=== PATIENT | male | born 1945 | race Caucasian/White ===

== ENCOUNTER 2019-10-23 06:10 | Day surgery (SDC) | payer MEDICARE, OTHER ==
[~2019-10-23] VITALS: Ht 182.9 cm; Wt 83.9 kg
[~2019-10-23 06:10] MED LIST: ASPIRIN325 MG PO; ASPIRIN81 MG PO; BENADRYL ALLERG25 MG PO; CIPRO500 MG PO; COUMADIN2.5 MG PO; CRESTOR20 MG PO; FENOFIBRATE145 MG PO; HYDROXYZINE HCL25 MG PO; LISINOPRIL20 MG PO; METOPROLOL TART25 MG PO; PEPCID20 MG PO; PRAVASTATIN SOD10 MG PO; PROZAC20 MG PO; QUETIAPINE FUMA25 MG PO; TOPROL XL50 MG PO; VITAMIN C500 M1 PO; VITAMIN D5000 UNI1 PO; WARFARIN SODIU2.5 MG PO; XYZAL5 MG PO; ZESTRIL2.5 MG PO
[2019-10-23] MEDS ORDERED: CYMBALTA20 MG PO (07:02)
--- NOTE | 2019-10-23 09:13 | NUR ---
10/23/19 0913 Lali Baltazar 0907- PT ARRIVES TO PACU ANSWERING QUESTIONS. PT DOES FALL TO SLEEP WHEN NOT BEING TALKED TO. RESP EVEN AND UNLABORED. OXYGEN SAT HIGH 90'S TO 100% ON 3L VIA NC. PT REPORTS NO PAIN OR NAUSEA. 0911- OXYGEN TITRATED OFF.
--- NOTE | 2019-10-23 10:16 | NUR ---
HAS BEEN UPDATED. LYING ON L SIDE ENC TO PASS GAS. SLEEPY AND A LITTLE DIZZY. ALLOW TO REST LONGER.
--- NOTE | 2019-10-23 12:02 | NUR ---
1130 FOUND PT SITTING IN GARBAGE CAN. STATES HE WAS PASSING GAS BUT LIQUID SHOT OUT SO SAT ON GARBAGE CAN. CLEANED UP AND ASSISTED BACK INTO BED. ASKED TO REST X30 MIN MORE. PT PALE AND A LITTLE SHAKEY.
--- NOTE | 2019-10-23 12:04 | NUR ---
1200 FEELS BETTER WANTS TO GET DRESSED.
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
--- NOTE | 2019-10-28 14:18 | PATH ---
[facility] [address] [place], [place] [address] Signed SPECIMEN(S): A COLON SPECIMEN(S): B ASCENDING SPECIMEN(S): C COLON POLYP AT 55 CM SPECIMEN(S): D COLON POLYP AT 20 CM SPECIMEN SOURCE: A. COLON B. ASCENDING C. COLON POLYP AT 55 CM D. COLON POLYP AT 20 CM CLINICAL HISTORY: Positive Cologuard, abdominal pain. MICROSCOPIC DESCRIPTION: Histologic sections of all submitted blocks are examined by light microscopy. These findings, together with the gross examination, support the pathologic diagnosis. FINAL PATHOLOGIC DIAGNOSIS: A. Colon, biopsy: - No significant histopathology. B. Colon, ascending, biopsy: - No significant histopathology. C. Colon, polyp at 55 cm, biopsies: - Multiple fragments of tubular adenoma. - There is no evidence of high-grade dysplasia or malignancy. D. Colon, polyp at 20 cm, biopsy: - No significant histopathology. - There is no evidence of neoplasia. COMMENT: The sections from specimens A and B contain architecturally normal colonic mucosa without crypt distortion. There is no acute or chronic inflammation. There is no evidence of microscopic colitis. There are no abnormal organisms or infiltrates. There are no polyps or neoplasms. The sections from specimen D are architecturally normal without crypt distortion. There is no acute or chronic inflammation. There are no abnormal infiltrates. There is no evidence of inflammatory, hyperplastic or adenomatous polyps. TWK:slh:[id number] PATIENT NAME: WAYLON RUBIN PATHOLOGY DATE OF : 43 REPORT #: [id number] PHYSICIAN: JENNIE PATHOLOGY PCP: EBEN RODRIGUES MD REPORT IS CONFIDENTIAL AND NOT TO BE RELEASED WITHOUT AUTHORIZATION [facility] [address], [place] [address] Signed GROSS DESCRIPTION: Four specimens are received in four containers, labeled "LR." A. The specimen, labeled "LR, 1," and designated on the requisition "colon," is received in formalin and consists of two denise-brown soft tissue fragments that measure 0.3 cm in greatest dimension. The specimen is entirely submitted in cassette (A1). B. The specimen, labeled "LR, 2," and designated on the requisition "ascending/right colon," is received in formalin and consists of two denise soft tissue fragments that measure 0.4 cm in greatest dimension. The specimen is entirely submitted in cassette (B1). C. The specimen, labeled "LR, 3," and designated on the requisition "polyp at 55 cm," is received in formalin and consists of multiple denise soft tissue fragments with possible vegetative matter that measure 0.4 cm in greatest dimension. The specimen is entirely submitted in cassette (C1). D. The specimen, labeled "LR, 4," and designated on the requisition "polyp at 20 cm," is received in formalin and consists of four denise soft tissue fragments that measure 0.4 cm in greatest dimension. The specimen is entirely submitted in cassette (D1). AT (under the direct supervision of a pathologist) The Gross Description was prepared using a voice recognition system. The report was reviewed for accuracy; however, sound-alike word errors, addition and/or deletions may occur. If there is any question about this report, please contact Client Services. PERFORMING LABORATORY: The technical component was performed by [email or web address], [address] [place] [id number] (Rn Recruitment: Nancy Canchola MD; CLIA# [id number]). Professional interpretation was performed by [facility], [address] [address] [address] (CLIA# [id number]). Diagnostician: Niko Ruiz MD Pathologist Electronically Signed 10/28/2019 Copies: PATIENT NAME: WAYLON RUBIN PATHOLOGY DATE OF : 43 REPORT #: [id number] PHYSICIAN: JENNIE PATHOLOGY PCP: EBEN RODRIGUES MD REPORT IS CONFIDENTIAL AND NOT TO BE RELEASED WITHOUT AUTHORIZATION [facility] [address] [place] [address] Signed ~ PATIENT NAME: WAYLON RUBIN PATHOLOGY DATE OF : 43 REPORT #: [id number] PHYSICIAN: JENNIE PATHOLOGY PCP: EBEN RODRIGUES MD REPORT IS CONFIDENTIAL AND NOT TO BE RELEASED WITHOUT AUTHORIZATION
== END 2019-10-23 12:30 | disposition home or self-care (01) ==
LOC: DS 06:10 → OPS 06:10 → DS 06:45 → OPS 12:30
PROVIDERS: Surgery
PROC: 0DBK8ZZ Excision of Ascending Colon, Via Natural or Artificial Opening Endoscopic (ICD-10-PCS; 2019-10-23)
PROC: 0DBE8ZZ Excision of Large Intestine, Via Natural or Artificial Opening Endoscopic (ICD-10-PCS; 2019-10-23)
PROC: 0DBK8ZZ Excision of Ascending Colon, Via Natural or Artificial Opening Endoscopic (ICD-10-PCS; principal; 2019-10-23 06:45)
DX: D12.6 Benign neoplasm of colon, unspecified (principal); K57.30 Diverticulosis of large intestine without perforation or abscess without bleeding; I10 Essential (primary) hypertension; F32.9 Major depressive disorder, single episode, unspecified; Z88.8 Allergy status to other drugs, medicaments and biological substances; Z88.0 Allergy status to penicillin; Z79.01 Long term (current) use of anticoagulants; Z79.899 Other long term (current) drug therapy
CPT/HCPCS: 88305; 99153; G0500; J2250; J2405; J3010

== ENCOUNTER 2020-01-27 13:49 | Emergency (ER) | payer MEDICARE, OTHER ==
[~2020-01-27] VITALS: Ht 182.9 cm; Wt 90.7 kg
--- OUTSIDE RECORDS SUMMARY | ~2020-01-27 | XMS | Encounter Summary ---
Demographics + + + | Address | [address] | | | [place] [address] | + + + | Home Phone | | + + + | Preferred Language | Unknown | + + + | Marital Status | Unknown | + + + | Caodaism Affiliation | 1028 | + + + | Race | Unknown | + + + | Ethnic Group | Unknown | + + + Author + + + | Author | [facility] | | | and [place] | + + + | Organization | [facility] | | | and [place] | + + + | Address | Unknown | + + + | Phone | Unavailable | + + + Support + + +---------+ + | Name | Relationship | Address | Phone | + + +---------+ + | Lucita [place] | ECON | Unknown | | + + +---------+ + Care Team Providers + +------+ + | Care Distribution A Class Lineman Name | Role | Phone | + +------+ + PCP | Unavailable | + +------+ + Encounter Details +--------+ + + + + | Date | Type | Department | Care Team | Description | +--------+ + + + + | 08/10/ | [facility] | [facility] | Gurwinder Caballero MD | | | 1999 | Encounter | MED CTR GENERIC OP | [address] | | | | | CONV DEPT [address] | [place], [place] | | | | | [place], | [address] | | | | | [place] [address] | | | | | | [phone] | | | +--------+ + + + + Social History + +-------+ +--------+------+ | Tobacco Use | Types | Packs/Day | Years | Date | | | | | Used | | + +-------+ +--------+------+ | Never Assessed | | | | | + +-------+ +--------+------+ + + + | Sex Assigned at | Date Recorded | | | | + + + | Not on file | | + + + documented as of this encounter Plan of Treatment +--------+ + + + + | Date | Type | Specialty | Care Team | Description | +--------+ + + + + | 01/27/ | Appointment | Radiology | Sp Gibbs, | | | 2019 | | | [address] | | | | | | [address] [place] | | | | | | [place] [address] | | | | | | [phone] | | | | | | | | | | | | 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
--- OUTSIDE RECORDS SUMMARY | ~2020-01-27 | XMS | Encounter Summary ---
Demographics + + + | Address | [address] | | | [place] [address] | + + + | Home Phone | | + + + | Preferred Language | Unknown | + + + | Marital Status | Unknown | + + + | Mu-Ism Affiliation | 1028 | + + + | Race | Unknown | + + + | Ethnic Group | Unknown | + + + Author + + + | Author | [facility] | | | and [place] | + + + | Organization | [facility] | | | and [...] Team Providers + +------+ + | Care Core Shaper Top Name | Role | Phone | + +------+ + | Ivan Ren MD | PCP | | + +------+ + Encounter Details +--------+ + + + + | Date | Type | Department | Care Team | Description | +--------+ + + + + | 10/07/ | Imaging | [facility] | Provider, | | | 2019 | Exam | MED CTR EXTERNAL | [address] | | | | | IMAGING [address] | [address] | | | | | [address] [place] | [place] [address] | | | | | [place] [address] | | | | | | [phone] | | | +--------+ + + + [...] 2019 | | | [address] | | | | | | [address] [place] | | | | | | [place] [address] | | | | | | [phone] | | | | | | | | | | | | Head [place], [facility] | | | | | | [place] | | +--------+ + + + + | 03/17/ | Office | Cardiology | Dillan Chrystal | | | 2019 | Visit | | [address] | | | | | | [address] | | | | | | [place] [address] | | | | | | [phone] | | | | | | | | +--------+ + + + + documented as of this encounter Procedures + +--------+ + + + | Procedure Name | Priori | Date/Time | Associated Diagnosis | Comments | | | ty | | | | + +--------+ + + + | XR LUMBAR SPINE 4 + | Routin | 09/02/2018 | | Results for this | | VW | e | 12:00 AM | | procedure are in the | | | | PDT | | results section. | + +--------+ + + + documented in this encounter Results XR Lumbar Spine 4 + Vw (09/02/2018 12:00 AM PDT) + + | Specimen | + + | | + + + + + | Narrative | Performed At | + + + | External films for comparison only | [facility] | | | | | No results will be in the chart. | | + + + + +---------+ + + | Performing | Address | City/State/Zipcode | Phone Number | | Organization | | | | + +---------+ + + | [facility] | | | | + +---------+ + + documented in this encounter Visit Diagnoses Not on filedocumented in this encounter"
--- OUTSIDE RECORDS SUMMARY | ~2020-01-27 | XMS | Encounter Summary ---
Demographics + + + | Address | [address] | | | [place] [address] | + + + | Home Phone | | + + + | Preferred Language | Unknown | + + + | Marital Status | Unknown | + + + | Voodoo Affiliation | 1028 | + + + | Race | Unknown | + + + | Ethnic Group | Unknown | + + + Author + + + | Author | [facility] | | | and [place] | + + + | Organization | [facility] | | | [...] Team Providers + +------+ + | Care Preparation Operator Name | Role | Phone | + +------+ + | Ivan Ren MD | PCP | | + +------+ + Encounter Details +--------+ + + + + | Date | Type | Department | Care Team | Description | +--------+ + + + + | 01/28/ | Orders Only | [facility] | Chrystal Grimaldo | | | 2018 | | CARDIOLOGY [place] | [address] | | | | | [address] | [address] | | | | | [place], [place] | [place] [address] | | | | | [address] | [phone] | | | | | [phone] | | | +--------+ + + + [...] | | | | | | [address] [place] | | | | | | [place] [address] | | | | | | [phone] | | | | | | | | | | | | Advertising Layout Worker, [facility] | | | | | | [place] | | +--------+ + + + + | 03/17/ | Office | Cardiology | Chrystal Grimaldo | | | 2019 | Visit | | [address] | | | | | | [address] | | | | | | [place] [address] | | | | | | [phone] | | | | | | | | +--------+ + + + + documented as of this encounter Procedures + +--------+ + + + | Procedure Name | Priori | Date/Time | Associated Diagnosis | Comments | | | ty | | | | + +--------+ + + + | LIPID PANEL | Routin | 01/28/2018 | | Results for this | | | e | 8:05 AM | | procedure are in the | | | | PDT | | results section. | + +--------+ + + + | COMPREHENSIVE | Routin | 01/28/2018 | | Results for this | | METABOLIC PANEL | e | 8:05 AM | | procedure are in the | | | | PDT | | results section. | + +--------+ + + + documented in this encounter Results Lipid Panel (01/28/2018 8:05 AM PDT) + +-------+ + + + | Component | Value | Ref Range | Performed | Pathologist | | | | | At | Signature | + +-------+ + + + | Cholesterol | 154 | 200 mg/dL | EXTERNAL | | | | | | LAB | | + +-------+ + + + | Triglycerid | 139 | 30 - 150 mg/dL | EXTERNAL | | | es | | | LAB | | + +-------+ + + + | HDL | 42.1 | 40 mg/dl | EXTERNAL | | | | | | LAB | | + +-------+ + + + | LDL, | 84 | 100 mg/dL | EXTERNAL | | | Calculated | | | LAB | | + +-------+ + + + | LDl/HDL | | | EXTERNAL | | | Ratio | | | LAB | | + +-------+ + + + | Chol/HDL | 3.7 | 4.97 | EXTERNAL | | | Ratio | | | LAB | | + +-------+ + + + | VLDL | 28 | 4 - 40 mg/dL | EXTERNAL | | | | | | LAB | | + +-------+ + + + | Non HDL | 112 | 130 | EXTERNAL | | | Chol. | | | LAB | | | (LDL+VLDL) | | | | | + +-------+ + + + + + | Specimen | + + | Blood specimen | | (specimen) | + + + +---------+ + + | Performing | Address | City/State/Zipcode | Phone Number | | Organization | | | | + +---------+ + + | EXTERNAL LAB | | | | + +---------+ + + Comprehensive Metabolic Panel (01/28/2018 8:05 AM PDT) + + + + + + | Component | Value | Ref Range | Performed | Pathologist | | | | | At | Signature | + + + + + + | Glucose, | 103 (A) | 70 - 100 mg/dL | EXTERNAL | | | Fasting | | | LAB | | + + + + + + | BUN | 35 (A) | 6 - 23 mg/dL | EXTERNAL | | | | | | LAB | | + + + + + + | Creatinine | 1.91 (A) | 0.70 - 1.18 | EXTERNAL | | | | | mg/dL | LAB | | + + + + + + | BUN/Creatin | 18.3 | 6.0 - 28.6 | EXTERNAL | | | ine Ratio | | | LAB | | + + + + + + | Calcium | 9.5 | 8.5 - 10.3 | EXTERNAL | | | | | mg/dL | LAB | | + + + + + + | Protein, | 7.0 | 6.0 - 8.3 g/dL | EXTERNAL | | | Total | | | LAB | | + + + + + + | Albumin | 4.5 | 3.5 - 5.0 | EXTERNAL | | | | | | LAB | | + + + + + + | Globulin | 2.5 | 1.8 - 3.5 | EXTERNAL | | | | | | LAB | | + + + + + + | A/G Ratio | 1.8 | 1.1 - 2.4 | EXTERNAL | | | | | | LAB | | + + + + + + | Bilirubin | 0.6 | 0.0 - 1.2 mg/dL | EXTERNAL | | | Total | | | LAB | | + + + + + + | ALP, | 34 | 31 - 120 | EXTERNAL | | | External | | | LAB | | + + + + + + | ALT | 10 | 7 - 52 U/L | EXTERNAL | | | | | | LAB | | + + + + + + | AST | 16 | 13 - 39 U/L | EXTERNAL | | | | | | LAB | | + + + + + + | Na | 138 | 132 - 143 | EXTERNAL | | | | | mmol/L | LAB | | + + + + + + | K | 4.5 | 3.6 - 5.1 | EXTERNAL | | | | | mmol/L | LAB | | + + + + + + | Cl | 103 | 95 - 112 mmol/L | EXTERNAL | | | | | | LAB | | + + + + + + | CO2 | 23 | 19 - 31 mmol/L | EXTERNAL | | | | | | LAB | | + + + + + + | Anion Gap | 16.5 | 7 - 21 | EXTERNAL | | | | | | LAB | | + + + + + + | Estimated | 35 (A) | 60 mg/dL | EXTERNAL | | | GFR | | | LAB | | + + + + + + + + | Specimen | + + | Blood specimen | | (specimen) | + + + +---------+ + + | Performing | Address | City/State/Zipcode | Phone Number | | Organization | | | | + +---------+ + + | EXTERNAL LAB | | | | + +---------+ + + documented in this encounter Visit Diagnoses Not on filedocumented in this encounter"
--- OUTSIDE RECORDS SUMMARY | ~2020-01-27 | XMS | Encounter Summary ---
Demographics + + + | Address | [address] | | | [place] [address] | + + + | Home Phone | | + + + | Preferred Language | Unknown | + + + | Marital Status | Unknown | + + + | Advent Affiliation | 1028 | + + + | Race | Unknown | + + + | Ethnic Group | Unknown | + + + Author + + + | Author | [facility] | | | and [place] | + + + | Organization | [facility] | | | and [...] Team Providers + +------+ + | Care Collision Technician Name | Role | Phone | + +------+ + | Ivan Ren MD | PCP | | + +------+ + Encounter Details +--------+ + + + + | Date | Type | Department | Care Team | Description | +--------+ + + + + | 12/13/ | Orders Only | [facility] | Sp Gibbs, | Lumbar radiculopathy | | 2020 | | PHYSIATRY [address] | PA-C [address] | (Primary Dx) | | | | [address] [place] | | | | | [place], [place] | [place] [address] | | | | | [address] | [phone] | | | | | [phone] | | | +--------+ + + + + Social History + + + +--------+ + | Tobacco Use | Types | Packs/Day | Years | Date | | | | | Used | | + + + +--------+ + | Former Smoker | Cigarettes | 2 | 32 | Quit: 06/17/1980 | + + + +--------+ + + +---+---+---+ | Smokeless Tobacco: | | | | | Never Used | | | | + +---+---+---+ + + +---------+ + | Alcohol Use | Drinks/Week | oz/Week | Comments | + + +---------+ + | Yes | 7 Cans of beer | 7.0 | Occasionally | + + +---------+ + + + + | Sex Assigned at | Date Recorded | | | | + + + | Not on file | | + + + documented as of this encounter Progress Notes Sp Gibbs PA-C - 12/14/2019 1:10 PM PDTLumbar MRI report from 12/10/19 reviewed. Recor ds request for imaging placed today. 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 Bilateral L5/S1 TFESI ordered. Patient is on anticoag and will need to be off it prior to i njection as well as have INR checked. If injection failed, patient should be seen by neurosurgery to discuss options. documented in this en counter Plan of Treatment +--------+ + + + + | Date | Type | Specialty | Care Team | Description | +--------+ + + + + | 01/27/ | Appointment | Radiology | Sp Gibbs, | | | 2019 | | | [address] | | | | | | [address] | | | | | | [place] [address] | | | | | | [phone] | | | | | | | | | | | | It Application Support Analyst, [facility] | | | | | | [place] | | +--------+ + + + + | 03/17/ | Office | Cardiology | Chrystal Grimaldo | | | 2019 | Visit | | [address] | | | | | | [address] | | | | | | [place] [address] | | | | | | [phone] | | | | | | | | +--------+ + + + + + +---------+--------+ + + | Name | Type | Priori | Associated Diagnoses | Order Schedule | | | | ty | | | + +---------+--------+ + + | FL ANTONIA Lumbar Sacral | Imaging | Routin | Lumbar | Expected: | | Transforaminal | | e | radiculopathy | 12/14/2019, Expires: | | | | | | 12/13/2020 | + +---------+--------+ + + documented as of this encounter Visit Diagnoses + + | Diagnosis | + + | Lumbar radiculopathy - Primary Thoracic or lumbosacral neuritis or radiculitis, | | unspecified | + + documented in this encounter"
--- OUTSIDE RECORDS SUMMARY | ~2020-01-27 | XMS | Encounter Summary ---
Demographics + + + | Address | [address] | | | [place] [address] | + + + | Home Phone | | + + + | Preferred Language | Unknown | + + + | Marital Status | Unknown | + + + | Denominational Affiliation | 1028 | + + + | Race | Unknown | + + + | Ethnic Group | Unknown | + + + Author + + + | Author | [facility] | | | and [place] | + + + | Organization | [facility] | | [...] Team Providers + +------+ + | Care Flight Line Mechanic Name | Role | Phone | + +------+ + | Ivan Ren MD | PCP | | + +------+ + Encounter Details +--------+ + + + + | Date | Type | Department | Care Team | Description | +--------+ + + + + | 03/03/ | Orders Only | [facility] | Edd Johnson MD | | | 2018 | | NEPHROLOGY [place] | [address] [place] | | | | | [address] | [address] [place], [place] | | | | | [address] [place], [place] | [address] | | | | | [address] | | | | | | [phone] | | | +--------+ + + + [...] | | | | [address] | | | | | | [place] [address] | | | | | | [phone] | | | | | | | | | | | | Dock Guard, [facility] | | | | | | [place] | | +--------+ + + + + | 03/17/ | Office | Cardiology | Chrystal Grimaldo | | | 2019 | Visit | | [address] | | | | | | [address] | | | | | | [place] [address] | | | | | | [phone] | | | | | | | | +--------+ + + + + documented as of this encounter Procedures + +--------+ + + + | Procedure Name | Priori | Date/Time | Associated Diagnosis | Comments | | | ty | | | | + +--------+ + + + | EXTERNAL LAB: CBC | Routin | 03/03/2018 | | Results for this | | | e | 12:00 AM | | procedure are in the | | | | PDT | | results section. | + +--------+ + + + | URINALYSIS WITH | Routin | 03/03/2018 | | Results for this | | MICROSCOPIC IF | e | 12:00 AM | | procedure are in the | | INDICATED | | PDT | | results section. | + +--------+ + + + | PROTEIN/CREATININE | Routin | 03/03/2018 | | Results for this | | RATIO, URINE | e | 12:00 AM | | procedure are in the | | | | PDT | | results section. | + +--------+ + + + | URIC ACID | Routin | 03/03/2018 | | Results for this | | | e | 12:00 AM | | procedure are in the | | | | PDT | | results section. | + +--------+ + + + | BASIC METABOLIC | Routin | 03/03/2018 | | Results for this | | PANEL | e | 12:00 AM | | procedure are in the | | | | PDT | | results section. | + +--------+ + + + documented in this encounter Results Protein/Creatinine Ratio, Urine (03/03/2018 12:00 AM PDT) + +-------+ + + + | Component | Value | Ref Range | Performed | Pathologist | | | | | At | Signature | + +-------+ + + + | Protein/Cre | 86.7 | 0 - 150 | EXTERNAL | | | at Ratio | | | LAB | | + +-------+ + + + + + | Specimen | + + | Urine specimen | | (specimen) | + + + +---------+ + + | Performing | Address | City/State/Zipcode | Phone Number | | Organization | | | | + +---------+ + + | EXTERNAL LAB | | | | + +---------+ + + Urinalysis with Microscopic if Indicated (03/03/2018 12:00 AM PDT) + + + + + + | Component | Value | Ref Range | Performed | Pathologist | | | | | At | Signature | + + + + + + | Color | Yellow | | EXTERNAL | | | | | | LAB | | + + + + + + | Clarity, | Cloudy | | EXTERNAL | | | Urine | | | LAB | | + + + + + + | Spec Grav, | 1.018 | 1.005 - 1.030 | EXTERNAL | | | Fluid | | | LAB | | + + + + + + | Leukocyte | Comment: large | | EXTERNAL | | | Esterase, | | | LAB | | | Urine | | | | | + + + + + + | Nitrite, | Comment: positive | | EXTERNAL | | | Urine | | | LAB | | + + + + + + | Urobilinoge | Normal | | EXTERNAL | | | n, Urine | | | LAB | | + + + + + + | Total | negative | | EXTERNAL | | | Protein | | | LAB | | + + + + + + | pH, Urine | 5 | 5 - 9 | EXTERNAL | | | | | | LAB | | + + + + + + | Blood, | Negative | | EXTERNAL | | | Urine | | | LAB | | + + + + + + | Ketones | negative | | EXTERNAL | | | | | | LAB | | + + + + + + | Bilirubin, | Negative | | EXTERNAL | | | Urine | | | LAB | | + + + + + + | Glucose, | Negative | | EXTERNAL | | | Urine | | | LAB | | + + + + + + + + | Specimen | + + | Urine specimen | | (specimen) | + + + +---------+ + + | Performing | Address | City/State/Zipcode | Phone Number | | Organization | | | | + +---------+ + + | EXTERNAL LAB | | | | + +---------+ + + External Lab: CBC (03/03/2018 12:00 AM PDT) + + + + + + | Component | Value | Ref Range | Performed | Pathologist | | | | | At | Signature | + + + + + + | WBC | 6.7 | 4.5 - 11 10 | EXTERNAL | | | | | | LAB | | + + + + + + | Non- | 4.18 (A) | 4.3 - 5.7 10 | EXTERNAL | | | Red Blood | | | LAB | | | Cells | | | | | | Counted | | | | | + + + + + + | Hemoglobin | 12.9 (A) | 13.5 - 18 g/dL | EXTERNAL | | | | | | LAB | | + + + + + + | Hematocrit, | 38.8 (A) | 41 - 50 % | EXTERNAL | | | POC | | | LAB | | + + + + + + | MCV | 92.7 | 81 - 99 fL | EXTERNAL | | | | | | LAB | | + + + + + + | MCH | 31 | 27 - 33 pg | EXTERNAL | | | | | | LAB | | + + + + + + | MCHC | 33 | 30 - 36 g/dL | EXTERNAL | | | | | | LAB | | + + + + + + | Platelet | 203 | 140 - 440 K/ L | EXTERNAL | | | Count | | | LAB | | | Plasma | | | | | + + + + + + | RDW-CV | 13.4 | 10.5 - 15 % | EXTERNAL | | | | | | LAB | | + + + + + + | MPV | | fL | EXTERNAL | | | | | | LAB | | + + + + + + | Differentia | | | EXTERNAL | | | l Type | | | LAB | | + + + + + + | % Segmented | | % | EXTERNAL | | | | | | LAB | | | Neutrophils | | | | | + + + + + + | % | | % | EXTERNAL | | | Lymphocytes | | | LAB | | + + + + + + | % Monocytes | | % | EXTERNAL | | | | | | LAB | | + + + + + + | % | | % | EXTERNAL | | | Eosinophils | | | LAB | | + + + + + + | % Basophils | | % | EXTERNAL | | | | | | LAB | | + + + + + + | Absolute | | / L | EXTERNAL | | | Segmented | | | LAB | | | Neutrophils | | | | | + + + + + + | Absolute | | / L | EXTERNAL | | | Lymphocytes | | | LAB | | + + + + + + | Absolute | | / L | EXTERNAL | | | Monocytes | | | LAB | | + + + + + + | Absolute | | / L | EXTERNAL | | | Eosinophils | | | LAB | | + + + + + + | Absolute | | / L | EXTERNAL | | | Basophils | | | LAB | | + + + + + + + + | Specimen | + + | Blood specimen | | (specimen) | + + + +---------+ + + | Performing | Address | City/State/Zipcode | Phone Number | | Organization | | | | + +---------+ + + | EXTERNAL LAB | | | | + +---------+ + + Uric Acid (03/03/2018 12:00 AM PDT) + +-------+ + + + | Component | Value | Ref Range | Performed | Pathologist | | | | | At | Signature | + +-------+ + + + | Uric Acid | 5.5 | 4.4 - 7.6 | EXTERNAL | | | | | [...] | | | + +---------+ + + Basic Metabolic Panel (03/03/2018 12:00 AM PDT) + + + + + + | Component | Value | Ref Range | Performed | Pathologist | | | | | At | Signature | + + + + + + | Glucose, | 143 (A) | 70 - 100 mg/dL | EXTERNAL | | | Fasting | | | LAB | | + + + + + + | BUN | 33 (A) | 6 - 23 mg/dL | EXTERNAL | | | | | | LAB | | + + + + + + | Creatinine | 1.74 (A) | 0.70 - 1.18 | EXTERNAL | | | | | mg/dL | LAB | | + + + + + + | BUN/Creatin | 19 | 6.0 - 28.6 | EXTERNAL | | | ine Ratio | | | LAB | | + + + + + + | Calcium | 9.2 | 8.5 - 10.3 | EXTERNAL | [...] + + + + | Cl | 106 | 95 - 112 mmol/L | EXTERNAL | | | | | | LAB | | + + + + + + | CO2 | 21 | 19 - 31 mmol/L | EXTERNAL | | | | | | LAB | | + + + + + + | Anion Gap | 15.5 | 7 - 21 mmol/L | EXTERNAL | | | | | | LAB | | + + + + + + | Estimated | 39 | mg/dL | EXTERNAL | | | GFR [...]
--- OUTSIDE RECORDS SUMMARY | ~2020-01-27 | XMS | Encounter Summary ---
Demographics + + + | Address | [address] | | | [place] [address] | + + + | Home Phone | | + + + | Preferred Language | Unknown | + + + | Marital Status | Unknown | + + + | Spiritism Affiliation | 1028 | + + + | Race | Unknown | + + + | Ethnic Group | Unknown | + + + Author + + + | Author | [facility] | | | and [place] | + + + | Organization | [facility] | | | [...] Team Providers + +------+ + | Care Hitcher Name | Role | Phone | + +------+ + PCP | Unavailable | + +------+ + Encounter Details +--------+ + + + + | Date | Type | Department | Care Team | Description | +--------+ + + + + | 10/06/ | Hospital | [facility] | | | | 1996 | Encounter | MED CTR EMERGENCY | | | | | | [address] | | | | | | [place] | | | | | | [address] | | | | | | [phone] | | | +--------+ + + + [...] 2019 | | | [address] | | | | | | [address] | | | | | | [place] [address] | | | | | | [phone] | | | | | | | | | | | | Mass Spectrometry SpecialistGila | | | | | | [place] | | +--------+ + + + + | 03/17/ | Office | Cardiology | Chrystal Grimaldo | | | 2019 | Visit | | [address] | | | | | | [address] | | | | | | [place] [address] | | | | | | [phone] | | | | | | | | +--------+ + + + + documented as of this encounter Visit Diagnoses Not on filedocumented in this encounter"
--- OUTSIDE RECORDS SUMMARY | ~2020-01-27 | XMS | Encounter Summary ---
Demographics + + + | Address | [address] | | | [place] [address] | + + + | Home Phone | | + + + | Preferred Language | Unknown | + + + | Marital Status | Unknown | + + + | Hinduism Affiliation | 1028 | + + + | Race | Unknown | + + + | Ethnic Group | Unknown | + + + Author + + + | Author | [facility] | | | and [place] | + + + | Organization | [facility] | | | and [...] Team Providers + +------+ + | Care Rip Saw Operator Name | Role | Phone | + +------+ + | Ivan Ren MD | PCP | | + +------+ + Encounter Details +--------+ + + + + | Date | Type | Department | Care Team | Description | +--------+ + + + + | 07/01/ | Orders Only | [facility] | Edd Johnson MD | Persistent | | 2020 | | NEPHROLOGY [place] | [address] | proteinuria (Primary | | | | [address] | [address] [place], [place] | Dx); Chronic kidney | | | | [address] [place], [place] | [address] | disease, stage III | | | | [address] | | (moderate) (HCC); | | | | [phone] | | Essential | | | | | | hypertension | +--------+ + + + + Social History + +-------+ +--------+------+ | Tobacco Use | Types | Packs/Day | Years | Date | | | | | Used | | + +-------+ +--------+------+ | Former Smoker | | 2 | | | + +-------+ +--------+------+ + +---+---+---+ | Smokeless Tobacco: | | | | | Never Used | | | | + +---+---+---+ + + +---------+ + | Alcohol Use | Drinks/Week | oz/Week | Comments | + + +---------+ + | Yes | | | A LITTLE BIT | + + +---------+ + + + [...] | | | 2019 | | | PA-C [address] | | | | | | [address] | | | | | | [place] [address] | | | | | | [phone] | | | | | | | | | | | | Still Operator BrandyGila | | | | | | [place] | | +--------+ + + + + | 03/17/ | Office | Cardiology | Chrystal Grimaldo | | | 2020 | Visit | | [address] | | | | | | [address] | | | | | | [place] [address] | | | | | | [phone] | | | | | | | | +--------+ + + + + + +------+--------+ + + | Name | Type | Priori | Associated Diagnoses | Order Schedule | | | | ty | | | + +------+--------+ + + | Renal Function Panel | Lab | Routin | Persistent | Expected: | | | | e | proteinuria Chronic | 12/30/2019, Expires: | | | | | kidney disease, | 07/01/2020 | | | | | stage III (moderate) | | | | | | (HCC) Essential | | | | | | hypertension | | + +------+--------+ + + | CBC with | Lab | Routin | Persistent | Expected: | | Differential | | e | proteinuria Chronic | 12/30/2019, Expires: | | | | | kidney disease, | 07/01/2020 | | | | | stage III (moderate) | | | | | | (HCC) Essential | | | | | | hypertension | | + +------+--------+ + + | Parathyroid Hormone, | Lab | Routin | Persistent | Expected: | | Intact | | e | proteinuria Chronic | 12/30/2019, Expires: | | | | | kidney disease, | 07/01/2020 | | | | | stage III (moderate) | | | | | | (HCC) Essential | | | | | | hypertension | | + +------+--------+ + + | Protein/Creatinine | Lab | Routin | Persistent | Expected: | | Ratio, Urine | | e | proteinuria Chronic | 12/30/2019, Expires: | | | | | kidney disease, | 07/01/2020 | | | | | stage III (moderate) | | | | | | ([facility]) Essential | | | | | | hypertension | | + +------+--------+ + + documented as of this encounter Visit Diagnoses + + | Diagnosis | + + | Persistent proteinuria - Primary Proteinuria | + + | Chronic kidney disease, stage III (moderate) (HCC) Chronic kidney disease, Stage III | | (moderate) | + + | Essential hypertension Unspecified essential hypertension | + + documented in this encounter"
--- OUTSIDE RECORDS SUMMARY | ~2020-01-27 | XMS | Encounter Summary ---
Demographics + + + | Address | [address] | | | [place] [address] | + + + | Home Phone | | + + + | Preferred Language | Unknown | + + + | Marital Status | Unknown | + + + | Latter-Day Affiliation | 1028 | + + + | Race | Unknown | + + + | Ethnic Group | Unknown | + + + Author + + + | Author | [facility] | | | and [place] | + + + | Organization | [facility] | | | and [...] Team Providers + +------+ + | Care Carbon Capture Power Plant Engineer Name | Role | Phone | + +------+ + | Ivan Ren MD | PCP | | + +------+ + Encounter Details +--------+ + + + + | Date | Type | Department | Care Team | Description | +--------+ + + + + | 12/06/ | Orders Only | [facility] | Rocky Rand | | | 2016 | | CARDIOLOGY [place] | MD [address] | | | | | [address] | [address] | | | | | [place], [place] | [place] [address] | | | | | [address] | [phone] | | | | | [phone] | | | +--------+ + + + [...] [address] | | | | | | [place] [address] | | | | | | [phone] | | | | | | | | | | | | Nursing Service Administrator, [facility] | | | | | | [place] | | +--------+ + + + + | 03/17/ | Office | Cardiology | Chrystal Grimaldo | | | 2019 | Visit | | [address] | | | | | | [address] | | | | | | [place] [address] | | | | | | [phone] | | | | | | | | +--------+ + + + + documented as of this encounter Procedures + +--------+ + + + | Procedure Name | Priori | Date/Time | Associated Diagnosis | Comments | | | ty | | | | + +--------+ + + + | ECG 12 LEAD | Routin | 12/07/2015 | | Results for this | | | e | 1:27 PM | | procedure are in the | | | | PDT | | results section. | + +--------+ + + + documented in this encounter Results ECG 12 lead (12/07/2015 1:27 PM PDT) + + + + + + | Component | Value | Ref Range | Performed | Pathologist | | | | | At | Signature | + + + + + + | DIAGNOSIS: | Normal sinus | | EXTERNAL | | | | rhythmNonspecific T wave | | LAB | | | | abnormalityAbnormal | | | | | | ECGWhen compared with | | | | | | ECG of 04-NOV-2015 | | | | | | 15:49,(RBBB and left | | | | | | anterior fascicular | | | | | | block) is no longer | | | | | | PresentPlease refer to | | | | | | Providers office visit | | | | | | note for Providers | | | | | | Interpretation.Confirmed | | | | | | by [facility] [place] Read Only, | | | | | | [facility] ([id number]), | | | | | | rewrite editor Johnyn Irizarry | | | | | | ([id number]) on 01/23/2016 | | | | | | 1:08:02 PM | | | | + + + + + + + + | Specimen | + + | | + + + + + | Narrative | Performed At | + + + | [facility] | EXTERNAL LAB | + + + + +---------+ + + | Performing | Address | City/State/Zipcode | Phone Number | | Organization | | | | + +---------+ + + | EXTERNAL LAB | | | | + +---------+ + + documented in this encounter Visit Diagnoses Not on filedocumented in this encounter"
--- OUTSIDE RECORDS SUMMARY | ~2020-01-27 | XMS | Encounter Summary ---
Demographics + + + | Address | [address] | | | [place] [address] | + + + | Home Phone | | + + + | Preferred Language | Unknown | + + + | Marital Status | Unknown | + + + | Sikhism Affiliation | 1028 | + + + | Race | Unknown | + + + | Ethnic Group | Unknown | + + + Author + + + | Author | [facility] | | | and [place] | + + + | Organization | [facility] | | | [...] Team Providers + +------+ + | Care Film Splicer Name | Role | Phone | + +------+ + PCP | Unavailable | + +------+ + Encounter Details +--------+ + + + + | Date | Type | Department | Care Team | Description | +--------+ + + + + | 07/05/ | [facility] | [facility] | Gurwinder Caballero MD | | | 1995 | Encounter | MED CTR GENERIC OP | [address] | | | | | CONV DEPT [address] | [place], [place] | | | | | [place], | [address] | | | | | [place] [address] | | | | | | [phone] | | | +--------+ + + + [...] | | | | | | [place] [address] | | | | | | [phone] | | | | | | | | | | | | Music Cataloguer, [facility] | | | | | | [place] | | +--------+ + + + + | 03/17/ | Office | Cardiology | Chrystal Grimaldo | | | 2019 | Visit | | [address] | | | | | | [address] | | | | | | [place] [address] | | | | | | [phone] | | | | | | | | +--------+ + + + + documented as of this encounter Visit Diagnoses Not on filedocumented in this encounter"
--- OUTSIDE RECORDS SUMMARY | ~2020-01-27 | XMS | Encounter Summary ---
Demographics + + + | Address | [address] | | | [place] [address] | + + + | Home Phone | | + + + | Preferred Language | Unknown | + + + | Marital Status | Unknown | + + + | Lutheran Affiliation | 1028 | + + + | Race | Unknown | + + + | Ethnic Group | Unknown | + + + Author + + + | Author | [facility] | | | and [place] | + + + | Organization | [facility] | | [...] Team Providers + +------+ + | Care Qa Tech Name | Role | Phone | + +------+ + | Ivan Ren MD | PCP | | + +------+ + Reason for Visit +--------+--------+ + | Reason | Onset | Comments | | | Date | | +--------+--------+ + | Other | 12/14/ | Cardiac CLX for Lumbar Epidural Steroid injection. | | | 2019 | | +--------+--------+ + Encounter Details +--------+ + + + + | Date | Type | Department | Care Team | Description | +--------+ + + + + | 12/14/ | Telephone | [facility] | Tierney Shaikh | Other (Cardiac CLX | | 2020 | | CARDIOLOGY [place], Desolderer | for Lumbar Epidural | | | | [address] | | Steroid injection. ) | | | | [place] | | | | | | [address] | | | | | | [phone] | | | +--------+ + + + [...] + + documented as of this encounter Miscellaneous Notes Telephone Encounter - Tierney Shaikh Desolderer - 12/17/2019 3:06 PM Debby estrada to clinic to advise of Dr. Carrera's notes. Pia stated understanding. CHUNW:TRANSFORMER MOLDER-AAMA. el ephone Encounter - Tierney Shaikh Desolderer - 12/15/2019 9:31 AM [facility]anda [facility] says that they need a clx for pt to have lumbar epidural steroid inject ions. From a cardiac standpoint, is this patient OK to undergo this injection? They would like his INR to be 1.5 or less the day before the procedure. Please advise. Thank you! (message sent to Dr Carrera) JBENIGNO:TRANSFORMER MOLDER-AAMA. doc umbridgette in this encounter Plan of Treatment +--------+ + + + + | Date | Type | Specialty | Care Team | Description | +--------+ + + + + | 01/27/ | Appointment | Radiology | Sp [address], | | 2019 | | | [facility] [address] | | | | | | [address] | | | | | | [place] [address] | | | | | | [phone] | | | | | | | | | | | | Rectifying Operator, [facility] | | | | | | [place] | | +--------+ + + + + | 03/17/ | Office | Cardiology | Chrystal Grimaldo | | | 2020 | Visit | | [address] | | | | | | [address] | | | | | | [facility] [place] [address] | | | | | | [phone] | | | | | | | | +--------+ + + + + documented as of this encounter Visit Diagnoses Not on filedocumented in this encounter"
--- OUTSIDE RECORDS SUMMARY | ~2020-01-27 | XMS | Encounter Summary ---
Demographics + + + | Address | [address] | | | [place] [address] | + + + | Home Phone | | + + + | Preferred Language | Unknown | + + + | Marital Status | Unknown | + + + | Faith Affiliation | 1028 | + + + | Race | Unknown | + + + | Ethnic Group | Unknown | + + + Author + + + | Author | [facility] | | | and [place] | + + + | Organization | [facility] | | | [...] Team Providers + +------+ + | Care Cat Sitter Name | Role | Phone | + +------+ + | Bridgett Nails MD | PCP | | + +------+ + Encounter Details +--------+ + + + + | Date | Type | Department | Care Team | Description | +--------+ + + + + | 09/26/ | Hospital | [facility] | Bridgett Nails | | | 2010 | Encounter | MED CTR XRAY [address] | [address] | | | | | [address] [place] | [address] [place] | | | | | [place] [address] | [place] [address] | | | | | [phone] | [phone] | | | | | | | [...] | | | | [address] | | | | | | [place] [address] | | | | | | [phone] | | | | | | | | | | | | Bond UnderwriterGila | | | | | | [place] | | +--------+ + + + + | 03/17/ | Office | Cardiology | Chrystal Grimaldo | | | 2019 | Visit | | [address] | | | | | | [address] | | | | | | [place] [address] | | | | | | [phone] | | | | | | | | +--------+ + + + + documented as of this encounter Procedures + +--------+ + + + | Procedure Name | Priori | Date/Time | Associated Diagnosis | Comments | | | ty | | | | + +--------+ + + + | VITAMIN B-12 | Routin | 09/26/2010 | | Results for this | | | e | 8:59 AM | | procedure are in the | | | | PDT | | results section. | + +--------+ + + + | LIPID PROFILE | Routin | 09/26/2010 | | Results for this | | | e | 8:59 AM | | procedure are in the | | | | PDT | | results section. | + +--------+ + + + | PSA, SCREEN | Routin | 09/26/2010 | | Results for this | | | e | 8:59 AM | | procedure are in the | | | | PDT | | results section. | + +--------+ + + + | CBC WITH | Routin | 09/26/2010 | | Results for this | | DIFFERENTIAL | e | 8:59 AM | | procedure are in the | | | | PDT | | results section. | + +--------+ + + + | TSH | Routin | 09/26/2010 | | Results for this | | | e | 8:59 AM | | procedure are in the | | | | PDT | | results section. | + +--------+ + + + | TESTOSTERONE, TOTAL | Routin | 09/26/2010 | | Results for this | | | e | 8:59 AM | | procedure are in the | | | | PDT | | results section. | + +--------+ + + + | FOLATE | Routin | 09/26/2010 | | Results for this | | | e | 8:59 AM | | procedure are in the | | | | PDT | | results section. | + +--------+ + + + | COMPREHENSIVE | Routin | 09/26/2010 | | Results for this | | METABOLIC PANEL | e | 8:59 AM | | procedure are in the | | | | PDT | | results section. | + +--------+ + + + | ECHO COMPLETE | | 09/26/2010 | | Results for this | | | | 8:22 AM | | procedure are in the | | | | PDT | | results section. | + +--------+ + + + documented in this encounter Results TSH (09/26/2010 8:59 AM PDT) + + + + + + | Component | Value | Ref Range | Performed | Pathologist | | | | | At | Signature | + + + + + + | TSH | 1.22Comment: Testing | 0.34 - 5.60 | [facility] | | | | performed on the [facility] | uIU/mL | [facility] | | | | [place] [facility] | | MEDICAL | | | | Analyzer. | | CENTER - | | | | | | LABORATORY | | + + + + + + + + | Specimen | + + | | + + + + + + + | Performing | Address | City/State/Zipcode | Phone Number | | Organization | | | | + + + + + | [facility] | [address] | [place], [place] | [phone] | | [facility] | | [address] | | | - LABORATORY | | | | + + + + + | [facility] | [address] | [place], [place] | | | [facility] | | [address] | | | - LABORATORY | | | | + + + + + Testosterone, Total (09/26/2010 8:59 AM PDT) + + + + + + | Component | Value | Ref Range | Performed | Pathologist | | | | | At | Signature | + + + + + + | Testosteron | 222Comment: Testing | 168 - 758 ng/dL | [facility] | | | e | performed on the [facility] | | [facility] | | | | [place] [facility] | | MEDICAL | | | | Analyzer. | | CENTER - | | | | | | LABORATORY | | + + + + + + + + | Specimen | + + | | + + + + + + + | Performing | Address | City/State/Zipcode | Phone Number | | Organization | | | | + + + + + | [facility] | [address] | [place] | [phone] | | [facility] | | [address] | | | - LABORATORY | | | | + + + + + | [facility] | [address] | [place] | | | [facility] | | [address], [facility] | | | - LABORATORY | | | | + + + + + PSA, Screen (09/26/2010 8:59 AM PDT) + + + + + + | Component | Value | Ref Range | Performed | Pathologist | | | | | At | Signature | + + + + + + | PSA | 0.27Comment: Testing | 0.00 - 4.00 | [facility] | | | | performed on the [facility] | ng/mL | [facility] | | | | [facility] | | MEDICAL | | | | Analyzer. | | CENTER - | | | | | | LABORATORY | | + + + + + + + + | Specimen | + + | | + + + + + + + | Performing | Address | City/State/Zipcode | Phone Number | | Organization | | | | + + + + + | [facility] | [address] | [place] | [phone] | | [facility] | | [address] | | | - LABORATORY | | | | + + + + + | [facility] | [address] | [place], [place] | | | [facility] | | [address] [place] [address] | | | - LABORATORY | | | | + + + + + Vitamin B-12 (09/26/2010 8:59 AM PDT) + + + + + + | Component | Value | Ref Range | Performed | Pathologist | | | | | At | Signature | + + + + + + | VITAMIN | 468Comment: | 180 - 914 pg/mL | [facility] | | | B-12 | | | [facility] | | | | DEFICIENT: | | MEDICAL | | | | <145 pg/mL | | CENTER - | | | | | | LABORATORY | | | | | | | | | | INDETERMINATE: 145-180 | | | | | | pg/mL Testing | | | | | | performed on the [facility] | | | | | | [facility] | | | | | | Analyzer. | | | | + + + + + + + + | Specimen | + + | | + + + + + + + | Performing | Address | City/State/Zipcode | Phone Number | | Organization | | | | + + + + + | [facility] | [address] | [place] | [phone] | | [facility] | | [address] | | | - LABORATORY | | | | + + + + + | [facility] | [address] | [place] | | | [facility] | | [address] | | | - LABORATORY | | | | + + + + + Folate (09/26/2010 8:59 AM PDT) + + + + + + | Component | Value | Ref Range | Performed | Pathologist | | | | | At | Signature | + + + + + + | FOLATE | 10.87Comment: Testing | >6.6 ng/mL | [facility] | | | | performed on the [facility] | | [facility] | | | | [place] [facility] | | MEDICAL | | | | Analyzer. | | CENTER - | | | | | | LABORATORY | | + + + + + + + + | Specimen | + + | | + + + + + + + | Performing | Address | City/State/Zipcode | Phone Number | | Organization | | | | + + + + + | [facility] | [address] | [place] | [phone] | | [facility] | | [address] | | | - LABORATORY | | | | + + + + + | [facility] | [address] | [place] | | | [facility] | | [address] | | | - LABORATORY | | | | + + + + + Lipid Profile (09/26/2010 8:59 AM PDT) + + + + + + | Component | Value | Ref Range | Performed | Pathologist | | | | | At | Signature | + + + + + + | Triglycerid | 206 (H) | 35 - 160 mg/dL | [facility] | | | es | | | [facility] | | | | | | MEDICAL | | | | | | CENTER - | | | | | | LABORATORY | | + + + + + + | Cholesterol | 228 (H) | 150 - 200 mg/dL | [facility] | | | | | | [facility] | | | | | | MEDICAL | | | | | | CENTER - | | | | | | LABORATORY | | + + + + + + | HDL | 42 | 27 - 67 mg/dL | [facility] | | | | | | [facility] | | | | | | MEDICAL | | | | | | CENTER - | | | | | | LABORATORY | | + + + + + + | LDL, | 145 (H) | <130 mg/dL | [facility] | | | Calculated | | | [facility] | | | | | | MEDICAL | | | | | | CENTER - | | | | | | LABORATORY | | + + + + + + | Chol/HDL | 5.4Comment: | | [facility] | | | Ratio | | | [facility] | | | | | | MEDICAL | | | | ------- RISK CATEGORY: | | CENTER - | | | | CHOL/HDL * T.CHOL * LDL | | LABORATORY | | | | CHOL * HDL CHOL | | | | | | | | | | | | RATIO DESIRABLE: (M) | | | | | | 4.0-6.7 <200 | | | | | | <130 >50 | | | | | | (F) | | | | | | 3.7-4.2 BORDERLINE:(M) | | | | | | 6.7-7.4 200-240 | | | | | | 130-160 <45 | | | | | | (F) | | | | | | 4.2-5.5 HIGH RISK: (M) | | | | | | >7.4 >240 | | | | | | >160 <35 | | | | | | (F) | | | | | | >5.5 | | | | | | | | | | | | | | | | | | --------- | | | | + + + + + + + + | Specimen | + + | | + + + + + + + | Performing | Address | City/State/Zipcode | Phone Number | | Organization | | | | + + + + + | [facility] | [address] | [place] | [phone] | | [facility] | | [address] | | | - LABORATORY | | | | + + + + + | [facility] | [address] | [place], [place] | | | [facility] | | [address] | | | - LABORATORY | | | | + + + + + Comprehensive Metabolic Panel (09/26/2010 8:59 AM PDT) + + + + + + | Component | Value | Ref Range | Performed | Pathologist | | | | | At | Signature | + + + + + + | Glucose | 114 (H) | 70 - 109 mg/dL | [facility] | | | | | | [facility] | | | | | | MEDICAL | | | | | | CENTER - | | | | | | LABORATORY | | + + + + + + | Calcium | 9.2 | 8.3 - 10.5 | [facility] | | | | | mg/dL | [facility] | | | | | | MEDICAL | | | | | | CENTER - | | | | | | LABORATORY | | + + + + + + | Alkaline | 62 | 40 - 110 IU/L | [facility] | | | Phosphatase | | | [facility] | | | | | | MEDICAL | | | | | | CENTER - | | | | | | LABORATORY | | + + + + + + | AST | 26 | 10 - 42 IU/L | [facility] | | | | | | [facility] | | | | | | MEDICAL | | | | | | CENTER - | | | | | | LABORATORY | | + + + + + + | ALT | 23 | 6 - 45 IU/L | [facility] | | | | | | [facility] | | | | | | MEDICAL | | | | | | CENTER - | | | | | | LABORATORY | | + + + + + + | Bilirubin | 0.9 | 0.2 - 1.0 mg/dL | [facility] | | | Total | | | [facility] | | | | | | MEDICAL | | | | | | CENTER - | | | | | | LABORATORY | | + + + + + + | Total | 7.2 | 6.0 - 7.8 gm/dL | [facility] | | | Protein | | | [facility] | | | | | | MEDICAL | | | | | | CENTER - | | | | | | LABORATORY | | + + + + + + | Albumin | 4.2 | 3.2 - 5.0 gm/dL | [facility] | | | | | | [facility] | | | | | | MEDICAL | | | | | | CENTER - | | | | | | LABORATORY | | + + + + + + | BUN | 16 | 7 - 18 mg/dL | [facility] | | | | | | [facility] | | | | | | MEDICAL | | | | | | CENTER - | | | | | | LABORATORY | | + + + + + + | Creatinine | 1.12 | 0.60 - 1.30 | [facility] | | | | | mg/dL | [facility] | | | | | | MEDICAL | | | | | | CENTER - | | | | | | LABORATORY | | + + + + + + | Estimated | >60Comment: For | >60 mL/min/A | [facility] | | | GFR | -Americans, | | [facility] | | | | please multiply the | | MEDICAL | | | | result by 1.210 | | CENTER - | | | | This is an estimated | | LABORATORY | | | | GFR and is based on | | | | | | a standard body | | | | | | mass and serum | | | | | | creatinine | | | | + + + + + + | BUN/Creatin | 14.3 | 12 - 20 | [facility] | | | ine Ratio | | | [facility] | | | | | | MEDICAL | | | | | | CENTER - | | | | | | LABORATORY | | + + + + + + | Na | 137 | 136 - 149 mEq/L | [facility] | | | | | | [facility] | | | | | | MEDICAL | | | | | | CENTER - | | | | | | LABORATORY | | + + + + + + | K | 4.4 | 3.5 - 5.1 mEq/l | [facility] | | | | | | [facility] | | | | | | MEDICAL | | | | | | CENTER - | | | | | | LABORATORY | | + + + + + + | Cl | 106 | 98 - 109 mEq/l | [facility] | | | | | | [facility] | | | | | | MEDICAL | | | | | | CENTER - | | | | | | LABORATORY | | + + + + + + | CO2 | 25 | 24 - 31 mEq/L | [facility] | | | | | | [facility] | | | | | | MEDICAL | | | | | | CENTER - | | | | | | LABORATORY | | + + + + + + | Anion Gap | 10.4 | 6.0 - 17.0 | [facility] | | | | | | [facility] | | | | | | MEDICAL | | | | | | CENTER - | | | | | | LABORATORY | | + + + + + + + + | Specimen | + + | | + + + + + + + | Performing | Address | City/State/Zipcode | Phone Number | | Organization | | | | + + + + + | [facility] | [address] | [place], [place] | [phone] | | [facility] | | [address] | | | - LABORATORY | | | | + + + + + | [facility] | [address] | [place], [place] | | | [facility] | | [address] [place] [address] | | | - LABORATORY | | | | + + + + + CBC with Differential (09/26/2010 8:59 AM PDT) + +---------+ + + + | Component | Value | Ref Range | Performed | Pathologist | | | | | At | Signature | + +---------+ + + + | White Blood | 5.7 | 4.0 - 11.0 K/uL | [facility] | | | Cells | | | [facility] | | | | | | MEDICAL | | | | | | CENTER - | | | | | | LABORATORY | | + +---------+ + + + | Red Blood | 4.75 | 4.30 - 5.70 | [facility] | | | Cells | | M/uL | [facility] | | | | | | MEDICAL | | | | | | CENTER - | | | | | | LABORATORY | | + +---------+ + + + | Hemoglobin | 14.9 | 13.5 - 18.0 | [facility] | | | | | gm/dL | [facility] | | | | | | MEDICAL | | | | | | CENTER - | | | | | | LABORATORY | | + +---------+ + + + | Hematocrit | 43.2 | 40.0 - 51.0 % | [facility] | | | | | | [facility] | | | | | | MEDICAL | | | | | | CENTER - | | | | | | LABORATORY | | + +---------+ + + + | MCV | 90.8 | 83.0 - 101.0 fL | [facility] | | | | | | [facility] | | | | | | MEDICAL | | | | | | CENTER - | | | | | | LABORATORY | | + +---------+ + + + | MCH | 31.4 | 28.0 - 35.0 pg | [facility] | | | | | | [facility] | | | | | | MEDICAL | | | | | | CENTER - | | | | | | LABORATORY | | + +---------+ + + + | MCHC | 34.6 | 32.0 - 36.0 | [facility] | | | | | g/dL | [facility] | | | | | | MEDICAL | | | | | | CENTER - | | | | | | LABORATORY | | + +---------+ + + + | RDW-CV | 13.6 | <15.0 % | [facility] | | | | | | [facility] | | | | | | MEDICAL | | | | | | CENTER - | | | | | | LABORATORY | | + +---------+ + + + | Platelet | 198 | 140 - 440 K/uL | [facility] | | | Count | | | [facility] | | | | | | MEDICAL | | | | | | CENTER - | | | | | | LABORATORY | | + +---------+ + + + | % | 55.7 | 45 - 75 % | [facility] | | | Neutrophils | | | [facility] | | | | | | MEDICAL | | | | | | CENTER - | | | | | | LABORATORY | | + +---------+ + + + | % | 27.2 | 20 - 45 % | [facility] | | | Lymphocytes | | | [facility] | | | | | | MEDICAL | | | | | | CENTER - | | | | | | LABORATORY | | + +---------+ + + + | % Monocytes | 9.9 | 4 - 12 % | [facility] | | | | | | [facility] | | | | | | MEDICAL | | | | | | CENTER - | | | | | | LABORATORY | | + +---------+ + + + | % | 6.5 (H) | 0 - 5 % | [facility] | | | Eosinophils | | | [facility] | | | | | | MEDICAL | | | | | | CENTER - | | | | | | LABORATORY | | + +---------+ + + + | % Basophils | 0.7 | 0 - 1 % | [facility] | | | | | | [facility] | | | | | | MEDICAL | | | | | | CENTER - | | | | | | LABORATORY | | + +---------+ + + + | Absolute | 3.2 | 1.5 - 6.6 K/uL | [facility] | | | Neutrophils | | | [facility] | | | | | | MEDICAL | | | | | | CENTER - | | | | | | LABORATORY | | + +---------+ + + + | Absolute | 1.6 | 0.6 - 3.2 K/uL | [facility] | | | Lymphocytes | | | [facility] | | | | | | MEDICAL | | | | | | CENTER - | | | | | | LABORATORY | | + +---------+ + + + | Absolute | 0.6 | 0.0 - 1.0 K/uL | [facility] | | | Monocytes | | | [facility] | | | | | | MEDICAL | | | | | | CENTER - | | | | | | LABORATORY | | + +---------+ + + + | Absolute | 0.4 | 0.0 - 0.4 K/uL | [facility] | | | Eosinophils | | | [facility] | | | | | | MEDICAL | | | | | | CENTER - | | | | | | LABORATORY | | + +---------+ + + + | Absolute | 0.0 | 0.0 - 0.1 K/uL | [facility] | | | Basophils | | | [facility] | | | | | | MEDICAL | | | | | | CENTER - | | | | | | LABORATORY | | + +---------+ + + + + + | Specimen | + + | | + + + + + + + | Performing | Address | City/State/Zipcode | Phone Number | | Organization | | | | + + + + + | [facility] | [address] | [place], [place] | [phone] | | [facility] | | [address] | | | - LABORATORY | | | | + + + + + | [facility] | [address] | [place], [place] | | | [facility] | | [address] [place] [address] | | | - LABORATORY | | | | + + + + + ECHO Complete (09/26/2010 8:22 AM PDT) + + | Specimen | + + | | + + + + + | Narrative | Performed At | + + + | [facility] | [facility] | | [address] [facility] | [facility] | | E C H O C A R D | DIAG IMG | | I O G R A P H Y R E P O R T HEIGHT: 6'0" | | | WEIGHT: 208# [employer] BOAT CAPTAIN: KH REFERRING DR: BETHEL | | | READING DR: ARNALDO DIAGNOSIS: SYSTOLIC MURMUR | | | | | | M E A S U R E M E N T S | | | Aortic Root: 40 mm LV Diameter-diastole: | | | 55 mm Aortic Cusp Sep: 15 mm LV | | | Diameter--systole: mm LA: 39 mm | | | Fractional Shortenin % IVS--diastole: | | | 10 mm PFV Aortic Valve: 3.22 IVS--systole: | | | 20 mm MPG Mitral Valve: | | | mmHg LVPW--diastole: 11 mm PFV TR Jet: | | | 2.70 m/s LVPW--systole: 17 mm RA/RV | | | PP.2 mmHg | | | | | | ECHOCARDIOGRAPHY, 09/26/2010 INDICATIONS FOR PROCEDURE: | | | HEART MURMUR. TECHNICAL DATA: The quality of the study is | | | adequate. This is a 2-D echo / M- mode / Doppler / color Doppler | | | study. FINDINGS: Left atrial size is normal. Left ventricular | | | size is normal with normal wall thickness and normal left | | | ventricular systolic function. LVEF is 65%. There is a grade I | | | left ventricular diastolic dysfunction. Aortic root is mildly | | | dilated measuring 4.0 cm in diameter. Right atrial size is | | | normal. Right ventricular size is normal with normal wall thickness | | | and normal right ventricular systolic function. Pericardium is | | | normal. Pulmonary artery is normal. There is mild pulmonary | | | hypertension with a peak systolic pressure of 40 mmHg. Aortic valve | | | is trileaflet with mild thickening and calcification. There is | | | mild calcific aortic stenosis with a peak velocity across the | | | aortic valve of 3.2 m/sec. A peak gradient of 40 mmHg and mean | | | gradient of 22 mmHg. There is mild aortic valve regurgitation. | | | Mitral valve is mildly thickened and calcified with mild eccentric | | | mitral valve regurgitation. Pulmonic valve is normal with mild | | | pulmonic valve regurgitation. Tricuspid valve is normal with mild | | | tricuspid valve regurgitation. IVC is normal. IMPRESSION: | | | 1. NORMAL LEFT VENTRICULAR SIZE, WALL THICKNESS AND MOTION. | | | PRESERVED LEFT VENTRICULAR SYSTOLIC FUNCTION. LVEF IS 60-65%. | | | 2. GRADE I LEFT VENTRICULAR DIASTOLIC DYSFUNCTION. 3. | | | MILD AORTIC ROOT DILATATION MEASURED 4.0 CM IN DIAMETER. 4. 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 THERE IS MILD AORTIC VALVE | | | REGURGITATION. 5. MILDLY THICKENED AND CALCIFIED MITRAL VALVE | | | WITH MILD MITRAL VALVE REGURGITATION. 6. MILD PULMONIC | | | VALVE REGURGITATION. 7. MILD TRICUSPID VALVE REGURGITATION. | | | 8. MILD PULMONARY HYPERTENSION WITH A PEAK SYSTOLIC PRESSURE OF | | | 40 MMHG. 9. MILD MITRAL ANNULAR CALCIFICATION. Dictated | | | Date/Time: 09/27/2010 06:49 Transcribed Date/Time: 09/27/2010 | | | 07:32 Parts Technician: <Electronically Signed by Stephanie | | | MD Michael [facility]> 09/27/10 1701 | | + + + + + | Procedure Note | + + | Afshin Gutierrez - 07/24/2013 2:41 PM [facility] | | Diagnostic Imaging Department | | [address] , [facility] | | | | | | | | E C H O C A R D I O G R A P H Y R E P O R T | | | | | | HEIGHT: 6'0" WEIGHT: 208# [employer] BOAT CAPTAIN: KH | | REFERRING DR: BETHEL BRUNNER DR: ARNALDO | | | | DIAGNOSIS: SYSTOLIC MURMUR | | | | | | M E A S U R E M E N T S | | | | Aortic Root: 40 mm LV Diameter-diastole: 55 mm | | Aortic Cusp Sep: 15 mm LV Diameter--systole: mm | | LA: 39 mm Fractional Shortenin % | | IVS--diastole: 10 mm PFV Aortic Valve: 3.22 | | IVS--systole: 20 mm MPG Mitral Valve: mmHg | | LVPW--diastole: 11 mm PFV TR Jet: 2.70 m/s | | LVPW--systole: 17 mm RA/RV PP.2 mmHg | | | | | | | | ECHOCARDIOGRAPHY, 09/26/2010 | | | | INDICATIONS FOR PROCEDURE: HEART MURMUR. | | | | TECHNICAL DATA: The quality of the study is adequate. This is a 2-D echo / M- | | mode / Doppler | | / color Doppler study. | | | | FINDINGS: Left atrial size is normal. Left ventricular size is normal with | | normal wall thickness | | and normal left ventricular systolic function. LVEF is 65%. There is a grade I | | left ventricular | | diastolic dysfunction. Aortic root is mildly dilated measuring 4.0 cm in | | diameter. Right atrial size is | | normal. Right ventricular size is normal with normal wall thickness and normal | | right ventricular | | systolic function. Pericardium is normal. Pulmonary artery is normal. There | | is mild pulmonary | | hypertension with a peak systolic pressure of 40 mmHg. Aortic valve is | | trileaflet with mild | | thickening and calcification. There is mild calcific aortic stenosis with a | | peak velocity across the | | aortic valve of 3.2 m/sec. A peak gradient of 40 mmHg and mean gradient of 22 | | mmHg. There is | | mild aortic valve regurgitation. Mitral valve is mildly thickened and calcified | | with mild eccentric | | mitral valve regurgitation. Pulmonic valve is normal with mild pulmonic valve | | regurgitation. Tricuspid valve is normal with mild tricuspid valve | | regurgitation. IVC is normal. | | | | IMPRESSION: | | 1. NORMAL LEFT VENTRICULAR SIZE, WALL THICKNESS AND MOTION. PRESERVED | | LEFT VENTRICULAR SYSTOLIC FUNCTION. LVEF IS 60-65%. | | | | 2. GRADE I LEFT VENTRICULAR DIASTOLIC DYSFUNCTION. | | | | 3. MILD AORTIC ROOT DILATATION MEASURED 4.0 CM IN DIAMETER. | | | | 4. MILDLY THICKENED AND CALCIFIED TRILEAFLET AORTIC VALVE WITH MILD | | CALCIFIC AORTIC VALVE STENOSIS. THERE IS MILD AORTIC VALVE | | REGURGITATION. | | | | 5. MILDLY THICKENED AND CALCIFIED MITRAL VALVE WITH MILD MITRAL VALVE | | REGURGITATION. | | | | 6. MILD PULMONIC VALVE REGURGITATION. | | | | 7. MILD TRICUSPID VALVE REGURGITATION. | | | | 8. MILD PULMONARY HYPERTENSION WITH A PEAK SYSTOLIC PRESSURE OF 40 | | MMHG. | | | | 9. MILD MITRAL ANNULAR CALCIFICATION. | | | | Dictated Date/Time: 09/27/2010 06:49 | | Transcribed Date/Time: 09/27/2010 07:32 | | Parts Technician: | | <Electronically Signed by Stephanie Rodriguez MD [facility]> 09/27/10 1701 | + + + +---------+ + + | Performing | Address | City/State/Zipcode | Phone Number | | Organization | | | | + +---------+ + + | [facility] | | | | | [facility] | | | | + +---------+ + + documented in this encounter Visit Diagnoses Not on filedocumented in this encounter
--- OUTSIDE RECORDS SUMMARY | ~2020-01-27 | XMS | Encounter Summary ---
Demographics + + + | Address | [address] | | | [place] [address] | + + + | Home Phone | | + + + | Preferred Language | Unknown | + + + | Marital Status | Unknown | + + + | Samaritan Affiliation | 1028 | + + + | Race | Unknown | + + + | Ethnic Group | Unknown | + + + Author + + + | Author | [facility] | | | and [place] | + + + | Organization | [facility] | | | [...] Team Providers + +------+ + | Care Lockstitch Tunnel Elastic Operator Name | Role | Phone | + +------+ + PCP | Unavailable | + +------+ + Encounter Details +--------+ + + + + | Date | Type | Department | Care Team | Description | +--------+ + + + + | 04/05/ | Hospital | [facility] | Gurwinder Caballero MD | | | 1998 | Encounter | MED CTR GENER[facility] OP | [address] | | | | | CONV DEPT [address] | [place], [place] | | | | | [place], | [address] | | | | | [place] [address] | | | | | | [phone] | | | +--------+ + + + [...] | | | | | | [place] [address] | | | | | | [phone] | | | | | | | | | | | | Pipe Testing Technician, [facility] | | | | | | [place] | | +--------+ + + + + | 03/17/ | Office | Cardiology | Chrystal Grimaldo | | | 2019 | Visit | | [address] | | | | | | [address] [address] | | | | | | [place] [address] | | | | | | [phone] | | | | | | | | +--------+ + + + + documented as of this encounter Visit Diagnoses Not on filedocumented in this encounter"
--- OUTSIDE RECORDS SUMMARY | ~2020-01-27 | XMS | Encounter Summary ---
Demographics + + + | Address | [address] | | | [place] [address] | + + + | Home Phone | | + + + | Preferred Language | Unknown | + + + | Marital Status | Unknown | + + + | Bahai Affiliation | 1028 | + + + | Race | Unknown | + + + | Ethnic Group | Unknown | + + + Author + + + | Author | [facility] | | | and [place] | + + + | Organization | [facility] | | | and [...] Team Providers + +------+ + | Care Skin Fitter Name | Role | Phone | + +------+ + | Ivan Ren MD | PCP | | + +------+ + Reason for Visit + +--------+ + | Reason | Onset | Comments | | | Date | | + +--------+ + | Referral | 04/29/ | [facility] | | | 2019 | | + +--------+ + Encounter Details +--------+ + + + + | Date | Type | Department | Care Team | Description | +--------+ + + + + | 04/29/ | Telephone | [facility] | Drew Pena, | Referral ([facility] ) | | 2019 | | [facility] | DO [address] | | | | | [address] | [place], [place] | | | | | [place] [address] | [address] | | | | | [place], [place] | | | | | | [address] | | | | | | [phone] | | | +--------+ + + + [...] this encounter Miscellaneous Notes Telephone Encounter - Lovealeksandar MurilloKathy - 04/29/2019 10:58 AM PSTAlicia, is returning call for Referral (EM[facility] ) and would like a call back. Additional Call Details: Returning call to schedule from referral for [facility]. Please call the home number listed under Lucita documented in this encounter Plan of Treatment +--------+ + + + + | Date | Type | Specialty | Care Team | Description | +--------+ + + + + | 01/27/ Appointment | Radiology | Sp Gibbs, | | | 2019 | | | [address] | | | | | | [address] [place] | | | | | | [place] [address] | | | | | | [phone] | | | | | | | | | | | | Digital Marketing Specialist, [facility] | | | | | | [place] | | +--------+ + + + + | 03/17/ | Office | Cardiology | Chrystal Grimaldo | | | 2019 | Visit | | [address] | | | | | | [place] | | | | | | [place] [address] | | | | | | [phone] | | | | | | | | +--------+ + + + + documented as of this encounter Visit Diagnoses Not on filedocumented in this encounter"
--- OUTSIDE RECORDS SUMMARY | ~2020-01-27 | XMS | Encounter Summary ---
Demographics + + + | Address | [address] | | | [place] [address] | + + + | Home Phone | | + + + | Preferred Language | Unknown | + + + | Marital Status | Unknown | + + + | Adventism Affiliation | [id number] | + + + | Race | Unknown | + + + | Ethnic Group | Unknown | + + + Author + + + | Author | [facility] | | | and [place] | + + + | Organization | [facility] | | | [...] Team Providers + +------+ + | Care Mortgage Loan Computation Clerk Name | Role | Phone | + +------+ + | Pcp, Prov Inactive | PCP | | + +------+ + Encounter Details +--------+ + + + + | Date | Type | Department | Care Team | Description | +--------+ + + + + | 10/31/ | Hospital | [facility] | Alanna Clark, | Chest pain, | | 2016 - | Encounter | [facility] | MD [address] | unspecified type; | | | | CARE FLOOR [address] | [place] [address] | Severe aortic | | 11/08/ | | [address] | [phone] | stenosis; Secondary | | 2015 | | [place], [place] | | hypertension, | | | | [address] | | hypertension with | | | | [phone] | | unspecified goal; | | | | | | Anemia, unspecified | | | | | | type | +--------+ + + + + Social [...] + + documented as of this encounter Last Filed Vital Signs + + + + + | Vital Sign | Reading | Time Taken | Comments | + + + + + | Blood Pressure | 147/73 | 11/09/2015 11:40 AM | | | | | PDT | | + + + + + | Pulse | 64 | 11/09/2015 11:40 AM | | | | | PDT | | + + + + + | Temperature | 36.9 C (98.4 F) | 11/09/2015 11:40 AM | | | | | PDT | | + + + + + | Respiratory Rate | 18 | 11/09/2015 11:40 AM | | | | | PDT | | + + + + + | Oxygen Saturation | - | - | | + + + + + | Inhaled Oxygen | - | - | | | Concentration | | | | + + + + + | Weight | 93.5 kg (206 lb 2.1 | 11/09/2015 11:40 AM | | | | oz) | PDT | | + + + + + | Height | 182.9 cm (6') | 11/09/2015 11:40 AM | | | | | PDT | | + + + + + | Body Mass Index | 27.96 | 11/09/2015 11:40 AM | | | | | PDT | | + + + + + documented in this encounter Discharge Summaries Conversion Transaction, Provider Unknown - 11/09/2015 2:53 PM PDTFormatting of this note m ight be different from the original. Discharge Summaries by Yarelis Eckert RN at 11/09/15 5487 Author: Yarelis Eckert RN Service: (none) Author Type: Registered Nurse Filed: 11/09/15 1454 Date of Service: 11/09/15 609 Status: Signed General Car Yard Supervisor: Yarelis Eckert RN (Registered Nurse) Pt given discharge instructions with in room. All questions answered and pain prescrip tion given to pt. Yarelis Eckert 2:54 PM Lali Singh ARNP - 11/09/2015 10:47 AM PDT Discharge Summaries by PRASANNA Silva at 11/09/15 9907 Author: PRASANNA Silva Service: Cardiac, Thoracic, and Vascular Surgery [facility] Type: Advanced Registered Nurse Practitioner Filed: 11/09/15 1112 Date of Service: 11/09/15 1047 Status: Signed General Car Yard Supervisor: PRASANNA Silva (Advanced Registered Nurse Practitioner) Cosigner: Diony Montenegro MD at 11/09/15 3808 [facility] Service: Cardiothoracic Surgery Discharge Summary Date of Admission: 11/01/2015 Date of Discharge: 11/09/2015 Discharge Provider: PRASANNA Silva Treatment Team: Consulting Physician: Edd Hussein MD Admitting Provider: Alanna Clark MD Discharge Diagnoses: Principal Problem: Chest pain, unspecified Active Problems: Nonrheumatic aortic valve stenosis Essential hypertension Depression Vasovagal attack Resolved Problems: * No resolved hospital problems. * Procedures: 1. Aortic valve replacement with a #23 Magna valve 2. Mitral valve replacement with a #29 Mosaic valve POSTOPERATIVE DIAGNOSES 1. Severe aortic stenosis 2. Severe mitral insufficiency 3. Depression 4. Hypertension BRIEF HISTORY OF PRESENTATION: Waylon Rubin is a 70 y.o. male with significant past medical history of HTN and rec ently diagnosed with severe aortic stenosis, who was admitted with chest pain and dyspnea on 11/01/15. Cardiac angiography in September 2015 was negative for CAD. VÍCTOR on 11/02/15 showed cathleen re MR with multiple regurgitant jets and severe with preserved LVEF. HOSPITAL COURSE: The patient was taken to the operating room and underwent an AVR and MVR on 11/04/15. Operat ion was uneventful (please refer to operative note for details of the same), received 2un pl atelets in OR for thrombocytopenia. The patient tolerated the procedure well and was transfe rred to the ICU intubated and in stable condition, and was extubated per ICU protocol. He sp ent 2 nights in the ICU due to temporary need for vasoactive drips (jeremy) and for acute delir ium (RESOLVED), and on 11/06/15 the patient was transferred to the cardiac unit, hemodynamica lly stable. He received 2un PRBC for aknxd-fj-wrrnlsv anemia (post-op hemorrhagic, h/o iron- deficiency anemia), and was started on Fe supplement. He also experienced paroxysmal afib po st-operatively, which resolved with IV amio and carvedilol. He received electrolyte replacem ent per protocol and continued to make good recovery, ambulating, tolerating cardiac diet, a nd passing bowel movements. Chest tubes and pacing wires were removed without complication, and the patient remained stable without supplemental oxygen. The patient was fit for dischar ge to Home on 11/09/15. Past Medical History Diagnosis Date Depression Essential hypertension Aortic stenosis Past Surgical History Procedure Laterality Date Tonsillectomy Esophagogastroduodenoscopy N/A 11/02/2015 Procedure: ESOPHAGOGASTRODUODENOSCOPY; Surgeon: Ghassan Huynh MD; Location: [facility]; Service: Gastroenterology; Laterality: N/A; Aortic valve replacement N/A 11/04/2015 Procedure: AORTIC VALVE REPLACEMENT; Surgeon: Diony Montenegro MD; Location: [facility]; Service: Cardiac; Laterality: N/A; Mitral valve replacement N/A 11/04/2015 Procedure: MITRAL VALVE REPLACEMENT; Surgeon: Diony Montenegro MD; Location: [facility]; Service: Cardiac; Laterality: N/A; possible repair Allergies Allergen Reactions Penicillins Hives and Rash Nitroglycerin Other (See Comments) Per pt. And family dropped his BP and "made me feel like a zombie and hard to breath" Prescriptions prior to admission Medication Sig Dispense Refill Last Dose FLUoxetine (PROZAC) 20 MG capsule Take 20 mg by mouth daily. 11/01/2015 at Unknown sean e polyethylene glycol (GOLYTELY) 236 G suspension Take 4,000 mLs by mouth See Admin Instr uctions. 1 mL 0 Unknown at Unknown time DISCHARGE EXAM Vital Signs: BP 152/76 mmHg | Pulse 65 | Temp(Src) 98.8 F (37.1 C) (Oral) | Resp 18 | Ht 1.829 m (6' ) | Wt 93.5 kg (206 lb 2.1 oz) | BMI 27.95 kg/m2 | SpO2 96% 24h: Temp: [97.5 F (36.4 C)-99.3 F (37.4 C)] 98.8 F (37.1 C) (11/08 744) BP: (126-173)/(60-85) 152/76 mmHg (11/08 744) Heart Rate: [64-70] 65 (11/08 744) Resp: [16-18] 18 (11/08 744) SpO2: [96 %-100 %] 96 % (11/08 744) Weight: [93.5 kg (206 lb 2.1 oz)] 93.5 kg (206 lb 2.1 oz) (11/09 607) Intake/Output Summary (Last 24 hours) at 11/09/15 09 Last data filed at 11/09/15 0409 Gross per 24 hour Intake 636 ml Output 2050 ml Net -1414 ml 11/07 0700 - 11/08 0659 In: 754 [P.O.:754] Out: 2050 [Urine:2050] Physical Exam: GENERAL: A&O x 3, in no acute distress NEURO: PERRLA, EOMI; no facial asymmetry, speech normal and non pressured. Normal ROM. HEENT: Sclerae clear, nonicteric; Oral Mucosa moist and pink. NECK: No JVD noted, carotid upstrokes brisk without bruits. No thyromegaly. HEART: RRR, normal S1/S2. No murmur, rub, heave, or gallop noted. LUNGS: Lungs are clear to auscultation without wheezing, crackles, or rhonchi. Dim bases ABDOMEN: Soft, nondistended, nontender. EXTREMITIES: Mild BLE edema; Bilateral radial, dorsalis pedis, and posterior tibialis pulse s moderate. No clubbing or cyanosis noted. SKIN: Midsternal incision is clean, dry, and intact. No erythema, edema/inflammation, disch arge, or warmth noted around the incision site. No rash or mottling DATA Recent Labs Lab 11/09/1545411/08/1542411/07/15172111/07/15419 WBC 6.26 7.24 -- 7.96 RBC 2.95* 2.82* -- 2.27* HGB 9.2* 8.9* 9.3* 7.4* HCT 26.2* 25.1* 26.2* 20.7* MCV 89.0 89.0 -- 90.9 MCH 31.2 31.4 -- 32.3 MCHC 35.1 35.3 -- 35.6* RDW 45.1 43.8 -- 44.6 PLT 177 160 -- 123* MPV 7.7 8.4 -- 8.7 DIFFTYPE AUTOMATED AUTOMATED -- AUTOMATED Recent Labs Lab 11/09/1545411/08/1542411/07/15 17211/07/15 042 NA 134* 135 137 134* K 3.9 4.0 4.4 4.1 CL 101 102 103 103 CO2 28 27 30 27 ANIONGAP 9 10 8 8 GLUF 96 99 101* 113* BUN 25 30* 30* 27* CREATININE 1.10 1.13 1.3 1.30 BCR 23 27 23 21 CA 8.3* 7.7* 7.5* 7.8* EGFR >60 >60 58* 58* MG 2.1 2.2 -- 2.2 PHOS 3.1 2.4 -- 2.2* PLAN 1. Patient is discharged to home. 2. Smoking cessation was discussed with patient. Pt says he quit 35 years ago and is commit bari to remaining abstinent. 3. Patient was instructed to follow up in clinic with in 2 weeks. 4. Patient was instructed to follow up in clinic with in 2-4 weeks. 5. Education: CABG: The patient is being discharged with instructions on cardiac diet, sternal precau tions x 12 weeks and surgical incision care are according to the Society of Thoracic Surgeon guidelines. The patient is given instructions to start cardiac rehabilitation in accordance with napping machine operator recommendations. Pt advised not to drive for 6 weeks post discharge. Patient was discharged with aspirin, atorvastatin, and carvedilol. His home med lisinopr il was resumed, and he was discharged with iron supplementation (and stool softener) for acu ae-wn-yqvcncb anemia. Disposition: Home Condition: Stable Code Status: Full Code No discharge procedures on file. Follow up: Diony Montenegro MD [address] [place] [id number] Schedule an appointment as soon as possible for a visit in 2 weeks Post-op follow-up, For wound re-check, For suture removal Rocky Rand DO [address] [place] [address] Dr [facility] [address] Schedule an appointment as soon as possible for a visit in 3 weeks Post-op follow-up Silvestre Moreno MD [address] [place] [address] [place] [address] In 1 month Post-op follow-up Medication List START taking these medications carvedilol 3.125 MG tablet QTY: 60 tablet Refills: 0 Commonly known as: COREG Take 1 tablet by mouth 2 (two) times daily with meals. DSS 100 MG Caps QTY: 30 each Refills: 0 Take 100 mg by mouth daily. ferrous sulfate (65 FE) 324 (65 FE) MG EC tablet QTY: 60 tablet Refills: 0 Take 1 tablet by mouth 2 (two) times daily with meals. HYDROcodone-acetaminophen 5-325 MG per tablet QTY: 30 tablet Refills: 0 Commonly known as: NORCO Take 1 tablet by mouth every 6 (six) hours as needed. CHANGE how you take these medications aspirin 325 MG EC tablet QTY: 30 tablet Refills: 0 Take 1 tablet by mouth daily with breakfast. What changed: - medication strength - how much to take CONTINUE taking these medications FLUoxetine 20 MG capsule Refills: 0 Commonly known as: PROzac lisinopril 10 MG tablet QTY: 30 tablet Refills: 0 Commonly known as: ZESTRIL Take 1 tablet by mouth daily. polyethylene glycol 236 G suspension QTY: 1 mL Refills: 0 For diagnoses: Dysphagia, unspecified dysphagia, Change in bowel habits Commonly known as: GOLYTELY Take 4,000 mLs by mouth See Admin Instructions. Where to Get Your Medications You need to burr picker these prescriptions. We sent some of them to a specific pharmacy. Go t o these places to get your medications. [facility] - [place], [place] - [address] - aspirin 325 MG EC tablet - carvedilol 3.125 MG tablet - DSS 100 MG Caps - ferrous sulfate (65 FE) 324 (65 FE) MG EC tablet - lisinopril 10 MG tablet [address] [place] [address] You may get the following medications from any pharmacy - HYDROcodone-acetaminophen 5-325 MG per tablet Discharge took 30 minutes, to include final examination, discussion of admission, and prepa ration of prescriptions, instructions for on-going care, follow-up and documentation of disc harge summary. PRASANNA Silva 11/09/2015 documente d in this encounter Medications at Time of Discharge + + + +---------+ + + | Medication | Sig | Dispensed | Refills | Start | End Date | | | | | | Date | | + + + +---------+ + + | aspirin (ADULT | Take 81 mg by mouth | | 0 | 12/05/19 | | | ASPIRIN EC LOW | Daily. | | | 11 | 9 | | STRENGTH) 81 MG EC | | | | | | | tablet | | | | | | + + + +---------+ + + | atenolol | Take 25 mg by mouth | | 0 | 12/05/19 | | | (TENORMIN) 25 mg | Daily. | | | 11 | 9 | | tablet | | | | | | + + + +---------+ + + | IBUPROFEN PO | TABS otc ibuprofen | | 0 | 02/28/20 | | | | he says 2 tablets | | | 12 | 9 | | | daily | | | | | + + + +---------+ + + | simvastatin | Take 20 mg by mouth | | 0 | 12/05/19 | | | (ZOCOR) 20 mg tablet | nightly. | | | 11 | 9 | + + + +---------+ + + documented as of this encounter Progress Notes Lali Burrell ARNP - 11/09/2015 9:02 AM PDTFormatting of this note might be dif ferent from the original. Progress Notes by PRASANNA Silva at 11/09/15901 Author: PRASANNA Silva Service: Cardiac, Thoracic, and Vascular Surgery [facility] Type: Advanced Registered Nurse Practitioner Filed: 11/09/15913 Date of Service: 11/09/15901 Status: Attested General Car Yard Supervisor: PRASANNA Silva (Advanced Registered Nurse Practitioner) Cosigner: Diony Montenegro MD at 11/09/151316 Attestation signed by Diony Montenegro MD at 11/09/151316 Patient was seen, examined, labs, x-rays and treatment plan were reviewed. [facility] Cardiothoracic Surgery Progress Note Date/Time:11/09/2015 9:02 AM Provider: PRASANNA Silva Hospital Day: LOS: 6 days Surgery/Procedure: Procedure(s) (LRB): AORTIC VALVE REPLACEMENT (N/A) MITRAL VALVE REPLACEMENT (N/A) Post-Op Day: 5 Days Post-Op Room: [address] [place] [address] PROBLEM LIST Principal Problem: Chest pain, unspecified Active Problems: Nonrheumatic aortic valve stenosis Essential hypertension Depression Vasovagal attack SUBJECTIVE: Patient Summary Overnight: - HD stable, NSR >24hsince ~1600 yesterday - On RA, no SOB - Up to chair and resting comfortably, ambulating well - UOP not recorded for overnight, 2050ml for day shift OBJECTIVE: Current weight: Weight: 93.5 kg (206 lb 2.1 oz) Admission weight: Weight: 89.2 kg (196 lb 10.4 oz) Net fluid since admission: +3.3L Vital Signs: BP 152/76 mmHg | Pulse 65 | Temp(Src) 98.8 F (37.1 C) (Oral) | Resp 18 | Ht 1.829 m (6' ) | Wt 93.5 kg (206 lb 2.1 oz) | BMI 27.95 kg/m2 | SpO2 96% 24h: Temp: [97.5 F (36.4 C)-99.3 F (37.4 C)] 98.8 F (37.1 C) (11/08 744) BP: (126-173)/(60-85) 152/76 mmHg (11/08 744) Heart Rate: [64-70] 65 (11/08 744) Resp: [16-18] 18 (11/08 744) SpO2: [96 %-100 %] 96 % (11/08 744) Weight: [93.5 kg (206 lb 2.1 oz)] 93.5 kg (206 lb 2.1 oz) (11/09 607) Intake/Output Summary (Last 24 hours) at 11/09/15 0902 Last data filed at 11/09/15 0409 Gross per 24 hour Intake 636 ml Output 0 ml Net -1414 ml 11/07 0700 - 11/08 0659 In: 754 [P.O.:754] Out: 2049 [Urine:2049] Physical Exam: GENERAL: A&O x 3, in no acute distress NEURO: PERRLA, EOMI; no facial asymmetry, speech normal and non pressured. Normal ROM. HEENT: Sclerae clear, nonicteric; Oral Mucosa moist and pink. NECK: No JVD noted, carotid upstrokes brisk without bruits. No thyromegaly. HEART: RRR, normal S1/S2. No murmur, rub, heave, or gallop noted. LUNGS: Lungs are clear to auscultation without wheezing, crackles, or rhonchi. Dim bases ABDOMEN: Soft, nondistended, nontender. EXTREMITIES: Mild BLE edema; Bilateral radial, dorsalis pedis, and posterior tibialis pulse s moderate. No clubbing or cyanosis noted. SKIN: Midsternal incision is clean, dry, and intact. No erythema, edema/inflammation, disch arge, or warmth noted around the incision site. No rash or mottling DATA: Scheduled Medications aspirin 325 mg Oral Daily with breakfast atorvastatin 40 mg Oral Nightly carvedilol 3.125 mg Oral BID WC docusate sodium 100 mg Oral BID ferrous sulfate (65 FE) 65 mg of iron Oral BID WC FLUoxetine 20 mg Oral Daily insulin lispro (human) 0-3 Units Subcutaneous Nightly insulin lispro (human) 0-6 Units Subcutaneous TID AC magnesium hydroxide 30 mL Oral Daily melatonin 3 mg Oral Nightly sodium chloride 10 mL Intravenous 2 times per day sodium phosphate 1 enema Rectal Once Continuous Infusions amiodarone infusion 0.5 mg/min (11/06/15 1805) dextrose dextrose nitroGLYCERIN in D5W PRN Medications acetaminophen OR acetaminophen OR acetaminophen, aluminum-magnesium hydroxide-simet hicone, amiodarone IV bolus, amiodarone infusion, bisacodyl, calcium chloride, dextrose, dex trose, dextrose, dextrose, diphenhydrAMINE, glucagon, glucagon, HYDROcodone-acetaminophen, l actated ringers, magnesium sulfate OR magnesium sulfate OR magnesium sulfate, nitroG LYCERIN in D5W, phosphorus OR sodium phosphate IVPB 20 mmol OR sodium phosphate IVPB 45 mmol, potassium OR potassium OR potassium OR potassium chloride OR potas sium chloride OR potassium chloride, sodium chloride LABS: Recent Labs Lab 11/09/15 0455 11/08/15 0425 11/07/15 1722 11/07/15 0420 WBC 6.26 7.24 -- 7.96 RBC 2.95* 2.82* -- 2.27* HGB 9.2* 8.9* 9.3* 7.4* HCT 26.2* 25.1* 26.2* 20.7* MCV 89.0 89.0 -- 90.9 MCH 31.2 31.4 -- 32.3 MCHC 35.1 35.3 -- 35.6* RDW 45.1 43.8 -- 44.6 PLT 177 160 -- 123* MPV 7.7 8.4 -- 8.7 DIFFTYPE AUTOMATED AUTOMATED -- AUTOMATED Recent Labs Lab 11/09/15 0455 11/08/15 0425 11/07/15 1722 11/07/15 0420 NA 134* 135 137 134* K 3.9 4.0 4.4 4.1 CL 101 102 103 103 CO2 28 27 30 27 ANIONGAP 9 10 8 8 GLUF 96 99 101* 113* BUN 25 30* 30* 27* CREATININE 1.10 1.13 1.3 1.30 BCR 23 27 23 21 CA 8.3* 7.7* 7.5* 7.8* EGFR >60 >60 58* 58* MG 2.1 2.2 -- 2.2 PHOS 3.1 2.4 -- 2.2* ASSESSMENT & PLAN: - Paroxysmal afib: NSR >24h, continue coreg 3.125mg BID; restart home med lisinopril for HT N (SBP 125-170) - D/C pacing wires this AM - Acute blood loss anemia (h/o chronic Fe deficiency anemia): STABLE. Rec'd 2un PRBC 11/06, H/H (9.2/26.2), on BID Fe supplement w/Colace for constipation - Ambulate, PT/OT, IS, aggressive pulmonary toilet - CM following for discharge needs, plan is for home, ready for discharge later today The patient has been seen and the plan discussed with the attending provider, . PRASANNA Silva 11/09/2015 onversio n Transaction, Provider Unknown - 11/09/2015 8:39 AM PDTFormatting of this note might be di fferent from the original. Therapy Progress Note by Manny Collier, PT at 11/09/15 4489 Author: Manny Collier, PT Service: (none) Author Type: Physical Therapist Filed: 11/09/15 0869 Date of Service: 11/09/15838 Status: Signed General Car Yard Supervisor: Manny Collier, PT (Physical Therapist) 11/09/15838 PT Last Visit PT Received On 11/09/15 Reason for Treatment Cardiac Requires PT Follow Up Yes Follow up PT Only? No Assistance Required 1 person Retail Tire Sales Manager Needed No Precautions Cardiac Precautions Sternal Other Precautions fall risk Other Comments Comments Pt seated in recliner upon arrival. RN in room. Pt finished with breakfast. Vitals at rest: HR 75, O2 96% on RA, BP 129/63. Completed stair training with pt and gomezin zarina safety and step to pattern. Pt able to recite 100% sternal precautions. Pt did not require d rest break during ambulation. Trialed ambulation w/o AD, pt holding on to railing in hallw ay. Suggested pt continue to use walker for longer distances as he still needs some stabilit y. Educated on bed mobility technique as pt requires modA for supine to sit. gary rned because pt is bigger than she is. Took time to go over how much pt is able to use his a rm to get himself started, but being careful not to use his arm too much and that needing he lp with this task is normal. Vitals after activity: HR 78, O2 97% on RA, BP 169/78. Pt seate d in recliner after session. in room. Disucssed airbag restrictions and safety in the c ar. Pt completes ISx5 around 1500. Pt plan to d/c today. Cognition Overall Cognitive Status WFL Orientation Level Oriented Bed Mobility Rolling Standby assist Sidelying to Sit Mod assist (BLEs OOB or trunk to upright) Sit to Sidelying Standby assist Transfers Sit to/from Stand Supervision Mobility Ambulation Assistance Standby assist Maximal Ambulation Distance (feet) 400 Total Ambulation Distance (feet) 400 Distance limited by? Patient's ability Pattern Alternating;Decreased clara Assistive Device Walker 4 wheeled Stairs Assistance Minimal assist Number of Stairs 4 Number of stairs limited by? Therapist/staff discretion Stair Management Technique Step-to;Rail on right ascending Modalities Other Therapy Educated on car safety, bed mobility, sternal precautions, and routine at [facility]. Activity Tolerance Activity Tolerance Patient tolerated treatment without report of fatigue Safety Devices Safety Devices in Place (call light, in room ) Restraints Initially in Place No Plan Treatment/Interventions Continue per Primary PT POC Progress Progressing toward goals Recommendation Recommendations Home Assist PT Ready for Discharge Yes Note was created by student physical therapist and co-signed by licensed physical therapist . Student therapist also educationally participated in therapy session under the supervision of the licensed therapist. The patient approved of the student's role in care. onver reny Transaction, Provider Unknown - 11/09/2015 7:08 AM PDT Therapy Progress Note by JENNIFFER Rai at 11/09/15 0708 Author: JENNIFFER Rai Service: (none) Author Type: Occupational Therapy Chris hope Filed: 11/09/15 0952 Date of Service: 11/09/15707 Status: Signed General Car Yard Supervisor: JENNIFFER Rai (Parallel Computing Software Engineer) 11/09/15 0708 OT Last Visit OT Received On 11/09/15 Reason for Treatment Cardiac Requires OT Follow Up Yes Assistance Required 1 person Retail Tire Sales Manager Needed No Family/Caregiver Present Yes Precautions Cardiac Precautions Sternal Other Precautions fall risk Other Comments Comments pt seated in recliner chair upon SUBSCRIPTION CREW LEADER arrival. pt agreeable to participate in OT at this time. pt able to recall 4/5 sternal precautions. S.O and family friends present during session. Pt to participate in education of self care tasks while maintaining precautions. A t this time pt requesting to wait until pt to get shower later on this date as pt still have heart wires present. Pt S.O have questions pertaining to diet pt is on. Discussed therapist to refer to RN for further information. S.O state understanding. Also timeline of I.S usage . Therapist asked PRASANNA Escalera for further clarification. Discussed with pt and S.O approx 1 mos. but time varies d/t different patients story. Pt and S.O state understanding. Grooming Grooming Comments pt able to verbalize tech for completing grooming task while maintaining precautions UE Bathing UE Bathing Comments Pt able to recall tech for completing UE bathing tech while maintaining precautions. LE Bathing LE Bathing Comments Pt required Mod for LE bathing tech while maintaining precautions an d use of compensatory tech. Pt able to bring foot to opposite knee w/o difficulty to wash ca lf/ ft. Discussed use of long handled sponge prn. pt and S.O state understanding UE Dressing UE Dressing Level of Assistance Minimal verbal cues;Close supervision UE Dressing Where Assessed Other (Comment) (recliner chair) UE Dressing Comments Min for recalling donning shirt. LE Dressing LE Dressing Comments pt require Mod for donning pants. Educ on use of standards engineer for loweri ng clothing avoiding bending as well as tech for pulling pants over hips. pt and S.O state u nderstanding and have no further questions pertaining to tech. Toileting Toileting Comments Educ on completing personal hygiene while maintaining precautions. pt st ate understanding Shower Transfers Shower Transfers Comments per pt report recieving shower chair and has hand held shower hea d to assist with control of water. Therapeutic Exercise - ROM Other Exercise UE HEP- elbow flex/ext, wrist flex/ext, sup/pron, grasp/release, shoulder fl ex/ext(only to shoulder height, both arms together) Educ on benefit of continuation of ex in d. pt and S.O state understanding Additional Activities Additional Activities Comments ECT- Educ pt on tech within home (body awareness, sit vs. st and, prioritize, etc) pt and S.O state understanding Activity Tolerance Activity Tolerance Patient tolerated treatment well Safety Devices Safety Devices in Place Yes Type of Devices Call lite in place;Other (comment);RN notified (S.O present in room) Plan Treatment Interventions (per OT POC) Progress Progressing toward goals Requires OT Follow Up Yes Recommendation Recommendation Return to prior living conditions;Home with daytime assist;Home with nightti me assist Equipment Recommended Shower chair with back;Student Driving Instructor;Sponge long handled;[facility] Education Completed: Education Topic: Self care-sternal precautions, AE, ECT, UE HEP Completed with: Patient,Significant Other Completed by: Verbal Education, Written Material, Demonstration Response to Education: Stated Understanding, Returned Demonstration, Reinforcement Venice gardiner for Education Understanding Occupational Therapy Plan: Continue OT treatment per POC Met with supervising OTR/L on this date, discussed and confirmed that POC is still appropri ate and verified recommendations Aimee Marquez, PT - 11/08/2015 1:50 PM PDTFormatting of this note might be different from th e original. Therapy Progress Note by Aimee Gottlieb PT at 11/08/15 1350 Author: Aimee Gottlieb PT Service: (none) Author Type: Physical Therapist Filed: 11/08/15 1422 Date of Service: 11/08/15 1350 Status: Signed General Car Yard Supervisor: Aimee Gottlieb PT (Physical Therapist) 11/08/15 1350 PT Last Visit PT Received On 11/08/15 Reason for Treatment Cardiac Requires PT Follow Up Unavailable (walking in ngo with ) onversion Transa ction, Provider Unknown - 11/08/2015 12:04 PM PDT Progress Notes by Melina Rivera RD at 11/08/15 1204 Author: Melina Rivera RD Service: (none) Author Type: Registered Dietitian Filed: 11/08/15 1204 Date of Service: 11/08/15 1204 Status: Signed General Car Yard Supervisor: Melina Rivera RD (Registered Dietitian) 11/08/15 1033 Subjective Timepoint Follow up (Consult: cardiac diet education. ) Pt c/o In to f/u with pt POD # 4 s/p AVR/MVR. In to provide cardiac diet education requeste d per . Appetite improving although not yet at baseline. Reported by Patient Fluid / Beverage Intake Oral Fluids Amount Ad cruz Liquid Meal Replacement or Supplement Receiving Boost TID, drinking them well at desired ti mes per report. Food Intake Amount of Food Breakfast: eggs and toast Type of Food / Meals Diabetic Maintenance diet Meal / Snack Pattern Pt ordering meals although reports he might to better on house me als. Pt agreed to house meals and will order snacks as desired. Notified technical project lead. Per flow sheets pt eating 60-100% of meals although inconsistently recorded. Micronutrient Intake Mineral / Element Intake Iron;Sodium;Chloride;Phosphorus Food and Nutrition Knowledge Area(s) and Level of Knowledge Provided oral/written cardiac diet education via [facility]. Discus sed low Na, high fiber, heart healthy foods, including foods high in Na, sat/trans fats, and fiber. Suggested goal setting to achieve ultimate goal. Pt and expressed coty godinez [employer] Social Support at bedside. Nutrition-Focused Physical Findings Digestive System (Mouth to Rectum) EDGER MACHINE SETTER cleared for regular diet with thin liquids. Anthropometrics Weight change Wt up 6.2 kg since admit, per I/O's pt is fluid positive 4.2 L. Continue to m onitor trend. Biochemical data, medical tests, and procedures reviewed Biochemical data, medical tests, and procedures reviewed BUN (H) 30 Recommendations Recommended energy needs Recommend Cardiac diet. Added house meals. Continue Boost TID and encourage po intake of 3 meals with a goal of >50-100% of meals. Will continue to follow. Nutritional Risk Nutritional risk Low / moderate Follow up date 11/14/[address] onver reny Huber, Provider Unknown - 11/08/2015 9:53 AM PDT Therapy Progress Note by JOHNATHAN Morrow at 11/08/15 0953 Author: JOHNATHAN Morrow Service: (none) Author Type: Occupational Therapist Filed: 11/08/15 1602 Date of Service: 11/08/15952 Status: Signed General Car Yard Supervisor: JOHNATHAN Morrow (Occupational Therapist) 11/08/15 0953 Precautions Cardiac Precautions Sternal Other Precautions fall risk Home Environment Type of Home Home one story Home Exterior Layout 1-3 steps;Entry back (1 step) Home Interior Layout Lives on main level with bedroom/bathroom Bathroom Shower/Tub Shower unit with threshold Bathroom Toilet Standard Bathroom Equipment (planning to purchase shower chair) Bathroom Accessibility Accessible via walker Additional Comments pt planning to discharge to S.O.'s home. All information provided is ba sed on S.O. home Prior Function Level of [place] Independent with functional mobility;Independent with ADLs;Independe nt with IADLs;Driving in community Lives With Significant other Receives Help From Family ADL Assistance Independent Home ADL's Independent ADL Grooming Assistance Standby assist (standing at sink, items within reach) UE Dressing Assistance Moderate assist;Verbal instruction;Visual instruction Toileting Assistance with Device Standby assist;Verbal instruction;Visual instruction;x 1 p erson (standing at toilet, VCs for tech/reinforce precautions) Toileting impacted by Endurance;Safety concerns;Precautions Functional Assistance Minimal assist;x 1 person (with use of 4WW) Additional Comments Pt. willing to participate in OT this AM. This OT and OTS present in [facility]. Pt and spouse aware of students role in observation/education/demonstration. Provided pt with AE handout and recommendation to reinforce precautions, and safety. Educ pt in donning /doffing clothes, personal hygieen, bathing, sleeping, etc. Pt. was able to practice donning /doffing shirt-but required moderate assist and step by step cueing to reinforce precautions . Pt. would benefit from further practice to reinforce sternal precautions, ADLs, AE trainin g. Pt. left seated in recliner, call light within reach. Vision-Basic Assessment Current Vision Wears glasses Cognition Overall Cognitive Status WFL Orientation Level Oriented Sensation Light Touch No apparent deficits RUE Assessment RUE Assessment (sternal precautions) LUE Assessment LUE Assessment (sternal precautions) Hand Function Gross Grasp Functional Functional Gross Grasp Able to grasp objects without difficulty Coordination Functional Assessment Assessment Decreased ADL status;Decreased UE ROM;Decreased endurance;Decreased fine motor c ontrol;Decreased self-care trans;Decreased high-level ADLs Prognosis Good Goal Formulation Patient;Family ADL Goals Pt Will Perform Grooming Standing at sink;With supervision;Maintaining sternal precautions Pt Will Perform UE Dressing At edge of bed;In chair;With min assist;Maintaining sternal pre cautions Pt Will Perform LE Dressing At edge of bed;In chair;With min assist;With adaptive equipment ;Maintaining sternal precautions LE Dressing Adaptive Equipment Student Driving Instructor;Sock aid Arm Goals Pt Will Perform AROM B UE;1 set;10 reps;With good activity tolerance;Attending to sternal p recautions Plan Treatment Interventions ADL retraining;IADL retraining;Functional transfer training;Functio nal dynamic activities;AROM;Therapeutic exercises;Endurance training;Patient/Family training ;Equipment eval/education;Fine motor coordination activities;Compensatory technique educatio n OT Frequency QD;BID;5x/wk Requires OT Follow Up Yes Recommendation Recommendation Return to prior living conditions;Home with daytime assist;Home with nightti me assist Equipment Recommended Shower chair with back;Student Driving Instructor;Sponge long handled;[facility] OT Ready for Discharge Yes Education Completed: Education Topic: OT role, reinforce precautions, ADLs, AE recommendations Completed with: Patient, Spouse Completed by: Verbal Education, Written Material, Demonstration Response to Education: Stated Understanding, Returned Demonstration, Reinforcement [place] gardiner for Education Understanding Occupational Therapy Plan: Initiate OT POC Continue OT treatment per POC-Q/BID/5x/wk The following recommendations are made for d/c planning at this time: Return to home w/ family support Barriers to d/c at this time include: Equipment needs shower chair, hand held shower head, shower brush Physical deficits impacting functional independence Self-care deficits impacting functional independence OT/S, Jacqui Williamson, present and participating as directed per OTR this date in care of the p atient. The patient and patient's caregiver was aware and in agreement with the student's pa rticipation in the care provided on this date. Lali Singh ARNP - 11/08/2015 8:58 AM PDT Progress Notes by PRASANNA Silva at 11/08/15 0858 Author: PRASANNA Silva Service: Cardiac, Thoracic, and Vascular Surgery [facility] Type: Advanced Registered Nurse Practitioner Filed: 11/08/15 0910 Date of Service: 11/08/15857 Status: Attested General Car Yard Supervisor: PRASANNA Silva (Advanced Registered Nurse Practitioner) Cosigner: Diony Montenegro MD at 11/08/15 1154 Attestation signed by Diony Montenegro MD at 11/08/15 1154 Patient was seen, examined, labs, x-rays and treatment plan were reviewed. [facility] Cardiothoracic Surgery Progress Note Date/Time:11/08/2015 8:58 AM Provider: PRASANNA Silva Hospital Day: LOS: 5 days Surgery/Procedure: Procedure(s) (LRB): AORTIC VALVE REPLACEMENT (N/A) MITRAL VALVE REPLACEMENT (N/A) Post-Op Day: 4 Days Post-Op Room: [address] [place] [address] PROBLEM LIST Principal Problem: Chest pain, unspecified Active Problems: Nonrheumatic aortic valve stenosis Essential hypertension Depression Vasovagal attack SUBJECTIVE: Patient Summary Overnight: - HD stable, NSR since ~1600 yesterday, on IV amio per protocol, coreg also - On RA, no SOB - Up to chair, improved alertness, no c/o pain - UOP 925ml overnight OBJECTIVE: Current weight: Weight: 95.4 kg (210 lb 5.1 oz) Admission weight: Weight: 89.2 kg (196 lb 10.4 oz) Net fluid since admission: +4.6L Vital Signs: BP 128/60 mmHg | Pulse 68 | Temp(Src) 98.1 F (36.7 C) (Oral) | Resp 16 | Ht 1.829 m (6' ) | Wt 95.4 kg (210 lb 5.1 oz) | BMI 28.52 kg/m2 | SpO2 96% 24h: Temp: [97.5 F (36.4 C)-99.2 F (37.3 C)] 98.1 F (36.7 C) (11/07 742) BP: (116-146)/(58-71) 128/60 mmHg (11/07 742) Heart Rate: [64-78] 68 (11/07 742) Resp: [16] 16 (11/07 742) SpO2: [94 %-97 %] 96 % (11/07 742) Weight: [95.4 kg (210 lb 5.1 oz)] 95.4 kg (210 lb 5.1 oz) (11/07 556) Intake/Output Summary (Last 24 hours) at 11/08/15 0858 Last data filed at 11/08/15 0744 Gross per 24 hour Intake 1701 ml Output 925 ml Net 776 ml 11/06 0700 - 11/07 0659 In: 1583 [P.O.:973; I.V.:210] Out: 925 [Urine:925] Physical Exam: GENERAL: A&O x 3, in no acute distress NEURO: PERRLA, EOMI; no facial asymmetry, speech normal and non pressured. Normal ROM. HEENT: Sclerae clear, nonicteric; Oral Mucosa moist and pink. NECK: No JVD noted, carotid upstrokes brisk without bruits. No thyromegaly. HEART: RRR, normal S1/S2. No murmur, rub, heave, or gallop noted. LUNGS: Lungs are clear to auscultation without wheezing, crackles, or rhonchi. Dim bases ABDOMEN: Soft, nondistended, nontender. EXTREMITIES: +1 BLE edema; Bilateral radial, dorsalis pedis, and posterior tibialis pulses moderate. No clubbing or cyanosis noted. SKIN: Midsternal dressing is clean, dry, and intact. No erythema, edema/inflammation, disch arge, or warmth noted around the incision site. No rash or mottling DATA: Scheduled Medications aspirin 325 mg Oral Daily with breakfast atorvastatin 40 mg Oral Nightly carvedilol 3.125 mg Oral BID WC docusate sodium 100 mg Oral BID ferrous sulfate (65 FE) 65 mg of iron Oral BID WC FLUoxetine 20 mg Oral Daily furosemide 20 mg Intravenous Once insulin lispro (human) 0-3 Units Subcutaneous Nightly insulin lispro (human) 0-6 Units Subcutaneous TID AC magnesium hydroxide 30 mL Oral Daily melatonin 3 mg Oral Nightly sodium chloride 10 mL Intravenous 2 times per day sodium phosphate 1 enema Rectal Once Continuous Infusions amiodarone infusion 0.5 mg/min (11/06/15 1805) dextrose dextrose nitroGLYCERIN in D5W PRN Medications acetaminophen OR acetaminophen OR acetaminophen, aluminum-magnesium hydroxide-simet hicone, amiodarone IV bolus, amiodarone infusion, bisacodyl, calcium chloride, dextrose, dex trose, dextrose, dextrose, diphenhydrAMINE, glucagon, glucagon, HYDROcodone-acetaminophen, l actated ringers, magnesium sulfate OR magnesium sulfate OR magnesium sulfate, nitroG LYCERIN in D5W, phosphorus OR sodium phosphate IVPB 20 mmol OR sodium phosphate IVPB 45 mmol, potassium OR potassium OR potassium OR potassium chloride OR potas sium chloride OR potassium chloride, sodium chloride LABS: Recent Labs Lab 11/08/15 0425 11/07/15 1722 11/07/15 0420 11/06/15 0351 WBC 7.24 -- 7.96 7.71 RBC 2.82* -- 2.27* 2.35* HGB 8.9* 9.3* 7.4* 7.5* HCT 25.1* 26.2* 20.7* 21.6* MCV 89.0 -- 90.9 92.0 MCH 31.4 -- 32.3 31.9 MCHC 35.3 -- 35.6* 34.7 RDW 43.8 -- 44.6 45.9 PLT 160 -- 123* 106* MPV 8.4 -- 8.7 8.9 DIFFTYPE AUTOMATED -- AUTOMATED AUTOMATED Recent Labs Lab 11/08/15 0425 11/07/15 1722 11/07/15 0420 11/06/15 0351 NA 135 137 134* 137 K 4.0 4.4 4.1 4.1 CL 102 103 103 107 CO2 27 30 27 24 ANIONGAP 10 8 8 10 GLUF 99 101* 113* 119* BUN 30* 30* 27* 24 CREATININE 1.13 1.3 1.30 1.55* BCR 27 23 21 15 CA 7.7* 7.5* 7.8* 7.8* EGFR >60 58* 58* 47* MG 2.2 -- 2.2 2.2 PHOS 2.4 -- 2.2* 2.9 Imaging: X-ray Chest 2 View Frontal & Lateral FINDINGS: Aortic valve replacement post median sternotomy with normal heart size. The mediastinal neto in is not seen today. Epicardial pacer wires remain. Persistent bibasilar atelectasis. No pn eumothorax. Old mid right clavicular fracture with deformity. IMPRESSION: 1. Mediastinal drain is no longer seen, and may have been removed. 2. Persistent bibasilar atelectasis. SSMENT & PLAN: - Paroxysmal afib: Now NSR (since ~1600 yest) completing amio protocol later today, continu e coreg 3.125mg BID; will restart protocol w/bolus and add PO amio if afib returns - Keep epicardial pacing wires for now - Post-op fluid overload: 20 lasix IVP x1 for diuresis - Acute blood loss anemia (h/o chronic Fe deficiency anemia): Rec'd 2un PRBC yest, stable H /H (8.9/25.1 today), FOB negative, will start BID Fe supplement, will continue to monitor - Ambulate, PT/OT, IS, aggressive pulmonary toilet - Delirium/confusion: RESOLVED; continue to encourage appropriate sleep/wake cycle, benadry l/melatonin for sleep aid prn - CM following for discharge needs, plan is for home, likely ready later this week (24-48h) The patient has been seen and the plan discussed with the attending provider, . PRASANNA Silva 11/08/2015 Miguelangel Marquez PT - 11/08/2015 8:50 AM PDTFormatting of this note might be different from the o riginal. Therapy Progress Note by Aimee Gottlieb PT at 11/08/15 0850 Author: Aimee Gottlieb PT Service: (none) Author Type: Physical Therapist Filed: 11/08/1515 Date of Service: 11/08/15 0850 Status: Signed General Car Yard Supervisor: Aimee Gottlieb PT (Physical Therapist) 11/08/15 0850 PT Last Visit PT Received On 11/08/15 Reason for Treatment Cardiac Requires PT Follow Up Yes Follow up PT Only? No Focus for Next Treatment Stair Training Assistance Required 1 person Retail Tire Sales Manager Needed No Precautions Cardiac Precautions Sternal Other Precautions fall risk; forgetfulness/precautions Other Comments Comments Patient up in recliner- with patient throughout session(instructing as w e went through session- and recommended she try to walk with him today- to ensure she feels comfortable with assisting him with mobility)- pain in chest- but just discomfort reported- decllined bed mobility this am- transfer and gait with 4WW- supervision- once returning to r oom he wanted to use the bathroom- but left walker next to chair- and his safety decreased d ramatically- with LOB and needing assist to correct/maintain balance- he was unaware of his decreae in safety and LOB- instructed that he should use walker at all times for now Cognition Overall Cognitive Status WFL Orientation Level Oriented Comments patient and report he is forgetfulness at times Transfers Sit to/from Stand Standby assist;Verbal instruction;Patient appears safe Mobility Ambulation Assistance Standby assist;Verbal instruction;Patient appears safe (instructions to for how to assist him-recommend she try) Maximal Ambulation Distance (feet) 300ft Total Ambulation Distance (feet) 300ft Distance limited by? Patient's ability (instructions to use mod ana exertion scale 5/10 after today) Pattern Decreased clara;Alternating;Left swing foot doesn't pass stance foot;Right swing foot doesn't pass stance foot (had tendency to drag B-toes-wang without device) Assistive Device Walker 4 wheeled (patient/ stated they have 4WW and tub seat from family) Supine Supine-Exercise Type Ankle pumps;Quad sets;Glut sets Supine-Exercise Comments every commercial/10 minutes; walk every hour is goal at home/as he progresses Modalities Modalities Other therapy Other Therapy ongoing education for post CABG Activity Tolerance Activity Tolerance Patient limited by shortness of breath (SOB);Patient limited by fatigue Nurse Made Aware yes Restraints Initially in Place No ( in room, call johnson in reach) Plan Treatment/Interventions Continue per Primary PT POC Progress Progressing toward goals Recommendation Recommendations Home Assist;OP PT (cardiac rehab once cleared by MD) Equipment Recommended Other (Comment) (they stated they have what they need DME) PT Ready for Discharge Yes B/P 129/60 HR 87 onversion Transa ction, Provider Unknown - 11/07/2015 3:48 PM PDT Therapy Progress Note by Manny Collier PT at 11/07/15 2761 Author: Manny Collier PT Service: (none) Author Type: Physical Therapist Filed: 11/07/15 1022 Date of Service: 11/07/151547 Status: Signed General Car Yard Supervisor: Manny Collier PT (Physical Therapist) 11/07/15 1548 PT Last Visit PT Received On 11/07/15 Reason for Treatment Cardiac Requires PT Follow Up Yes Follow up PT Only? No Focus for Next Treatment Equipment Trial;Bed Mobility Technique (no AD with ambulating) Assistance Required 1 person Retail Tire Sales Manager Needed No Precautions Cardiac Precautions Sternal Other Precautions Fall Risk Other Comments Comments Pt seated in recliner upon PT arrival. Vitals at rest in sitting: HR 77, BP 134/70 . Discussed sternal precautions and importance of taking both arms in the direction pt is re aching. Pt perfromed 5 breaths on IS, approx 500-1000 each breath. Pt ambulated 450ft with s eated break. Educated pt on sitting on 4WW and safety when doing so. Pt performed Tinetti 25 /. Vitals after activity: O2 99% on RA, HR 66, BP 153/69. Pt seated in recliner after ses reny. in room. Cognition Overall Cognitive Status WFL Orientation Level Oriented Bed Mobility Scooting Standby assist Transfers Sit to/from Stand Standby assist Mobility Ambulation Assistance Standby assist Maximal Ambulation Distance (feet) 225 Total Ambulation Distance (feet) 450 Distance limited by? Patient's ability Pattern Alternating Assistive Device Walker 4 wheeled Balance Balance Yes (Tinetti 25/) Modalities Other Therapy Education on reaching and abiding by sternal precautions. Activity Tolerance Activity Tolerance Patient limited by fatigue Safety Devices Safety Devices in Place (call light, present) Restraints Initially in Place No Plan Treatment/Interventions Continue per Primary PT POC Progress Progressing toward goals Recommendation Recommendations Home Assist PT Ready for Discharge Yes Note was created by student physical therapist and co-signed by licensed physical therapist . Student therapist also educationally participated in therapy session under the supervision of the licensed therapist. The patient approved of the student's role in care. onver reny Transaction, Provider Unknown - 11/07/2015 3:15 PM PDT Nurse Progress Note by Adrianne Pedersen RN at 11/07/15 7538 Author: Adrianne Pedersen RN Service: (none) Author Type: Registered Nurse Filed: 11/07/15 1748 Date of Service: 11/07/15 2112 Status: Signed General Car Yard Supervisor: Adrianne Pedersen RN (Registered Nurse) Pt converted to SR, will hold bolus at this time, and will continue to monitor. Vss. onver reny Transaction, Provider Unknown - 11/07/2015 1:02 PM PDT Therapy Progress Note by Manny Collier PT at 11/07/15 7626 Author: Manny Collier PT Service: (none) Author Type: Physical Therapist Filed: 11/07/15 1509 Date of Service: 11/07/15 1302 Status: Signed General Car Yard Supervisor: Manny Collier, PT (Physical Therapist) 11/07/15 1302 PT Last Visit PT Received On 11/07/15 Reason for Treatment Cardiac Requires PT Follow Up Yes Follow up PT Only? No Assistance Required 1 person Retail Tire Sales Manager Needed No Precautions Cardiac Precautions Sternal Other Precautions Fall risk Other Comments Comments Patient seated in recliner upon arrival with call light on. Assisted pt to commode . Pt needed cues for pericare as pt was close to reaching behind to complete the task. Vital s at rest: HR 70s-80s, BP 105/56, O2 95% on RA. Pt has no reports of pain. Pt ambulated with out sitting break, but took standing resting break while having a conversation. Pt appears d yspnic with ambulation, but O2 sats remained in upper 90s. Vitals after activity: HR 90's, O 2 96% on RA, BP105/69. Cognition Overall Cognitive Status WFL Orientation Level Oriented Bed Mobility Rolling Standby assist Sidelying to Sit Mod assist (BLEs OOB or trunk to upright) Sit to Sidelying Minimal assist (1 LE into bed) Scooting Standby assist Transfers Sit to/from Stand Minimal assist (steadying/contact guard) Mobility Ambulation Assistance Minimal assist Maximal Ambulation Distance (feet) 275 Total Ambulation Distance (feet) 275 Distance limited by? Patient's ability Pattern Alternating;Decreased clara;Right swing foot doesn't pass stance foot;Left swing foot doesn't pass stance foot Assistive Device Walker front wheeled Modalities Other Therapy Education on sternal precautions and safe bed mobility. Activity Tolerance Activity Tolerance Patient limited by shortness of breath (SOB) Safety Devices Safety Devices in Place (call light) Restraints Initially in Place No Plan Treatment/Interventions Continue per Primary PT POC Progress Progressing toward goals Recommendation Recommendations Home Assist Note was created by student physical therapist and co-signed by licensed physical therapist . Student therapist also educationally participated in therapy session under the supervision of the licensed therapist. The patient approved of the student's role in care. Lali Singh ARNP - 11/07/2015 9:16 AM PDT Progress Notes by PRASANNA Silva at 11/07/15915 Author: PRASANNA Silva Service: Cardiac, Thoracic, and Vascular Surgery [facility] Type: Advanced Registered Nurse Practitioner Filed: 11/07/1539 Date of Service: 11/07/15915 Status: Attested General Car Yard Supervisor: PRASANNA Silva (Advanced Registered Nurse Practitioner) Cosigner: Diony Montenegro MD at 11/07/151401 Attestation signed by Diony Montenegro MD at 11/07/15 1402 Patient was seen, examined, labs, x-rays and treatment plan were reviewed. [facility] Cardiothoracic Surgery Progress Note Date/Time:11/07/2015 9:16 AM Provider: PRASANNA Silva Hospital Day: LOS: 4 days Surgery/Procedure: Procedure(s) (LRB): AORTIC VALVE REPLACEMENT (N/A) MITRAL VALVE REPLACEMENT (N/A) Post-Op Day: 3 Days Post-Op Room: [address] [place] [address] PROBLEM LIST Principal Problem: Chest pain, unspecified Active Problems: Nonrheumatic aortic valve stenosis Essential hypertension Depression Vasovagal attack SUBJECTIVE: Patient Summary Overnight: - HD stable, afib since yesterday afternoon, on IV amio per protocol - On RA, no SOB - Up to chair, appears fatigued, reportedly still having confusion overnight but currently seems oriented - UOP not measured overnight, 1435ml for day shift - CT 30ml out for 24h OBJECTIVE: Current weight: Weight: 95.1 kg (209 lb 10.5 oz) Admission weight: Weight: 89.2 kg (196 lb 10.4 oz) Net fluid since admission: +4L Vital Signs: BP 108/58 mmHg | Pulse 76 | Temp(Src) 98.8 F (37.1 C) (Oral) | Resp 16 | Ht 1.829 m (6' ) | Wt 95.1 kg (209 lb 10.5 oz) | BMI 28.43 kg/m2 | SpO2 94% 24h: Temp: [98.3 F (36.8 C)-99 F (37.2 C)] 98.8 F (37.1 C) (11/06 844) BP: (107-146)/(57-75) 108/58 mmHg (11/06 08) Heart Rate: [72-79] 76 (11/06 0845) Resp: [16-20] 16 (11/06 844) SpO2: [93 %-98 %] 94 % (11/06 844) Weight: [95.1 kg (209 lb 10.5 oz)] 95.1 kg (209 lb 10.5 oz) (11/06 0430) Intake/Output Summary (Last 24 hours) at 11/07/15 0916 Last data filed at 11/07/15 0600 Gross per 24 hour Intake 315 ml Output 1096 ml Net -781 ml 11/05 0700 - 11/06 0659 In: 735 [I.V.:735] Out: 1465 [Urine:1435] Physical Exam: GENERAL: A&O x 3, in no acute distress. Appears fatigued NEURO: PERRLA, EOMI; no facial asymmetry, speech normal and non pressured. Normal ROM. GCS: 15 HEENT: Sclerae clear, nonicteric; Oral Mucosa moist and pink. NECK: No JVD noted, carotid upstrokes brisk without bruits. No thyromegaly. HEART: Irregular. No murmur, rub, heave, or gallop noted. LUNGS: Lungs are clear to auscultation without wheezing, crackles, or rhonchi. Dim bases ABDOMEN: Soft, nondistended, nontender. EXTREMITIES: +1 BLE edema; Bilateral radial, dorsalis pedis, and posterior tibialis pulses moderate. No clubbing or cyanosis noted. SKIN: Midsternal dressing is clean, dry, and intact. No erythema, edema/inflammation, disch arge, or warmth noted around the incision site. No rash or mottling DATA: Scheduled Medications aspirin 325 mg Oral Daily with breakfast atorvastatin 40 mg Oral Nightly carvedilol 3.125 mg Oral BID WC docusate sodium 100 mg Oral BID FLUoxetine 20 mg Oral Daily furosemide 20 mg Intravenous Once insulin lispro (human) 0-3 Units Subcutaneous Nightly insulin lispro (human) 0-6 Units Subcutaneous TID AC magnesium hydroxide 30 mL Oral Daily melatonin 3 mg Oral Nightly sodium chloride 10 mL Intravenous 2 times per day sodium phosphate 1 enema Rectal Once Continuous Infusions amiodarone infusion 0.5 mg/min (11/06/15 1805) dextrose dextrose nitroGLYCERIN in D5W PRN Medications acetaminophen OR acetaminophen OR acetaminophen, aluminum-magnesium hydroxide-simet hicone, amiodarone IV bolus, amiodarone infusion, bisacodyl, calcium chloride, dextrose, dex trose, dextrose, dextrose, diphenhydrAMINE, glucagon, glucagon, HYDROcodone-acetaminophen, l actated ringers, magnesium sulfate OR magnesium sulfate OR magnesium sulfate, nitroG LYCERIN in D5W, phosphorus OR sodium phosphate IVPB 20 mmol OR sodium phosphate IVPB 45 mmol, potassium OR potassium OR potassium OR potassium chloride OR potas sium chloride OR potassium chloride, sodium chloride, zolpidem LABS: Recent Labs Lab 11/07/15 04211/06/15 03511/05/15 0404 WBC 7.96 7.71 10.19 RBC 2.27* 2.35* 2.66* HGB 7.4* 7.5* 8.4* HCT 20.7* 21.6* 24.3* MCV 90.9 92.0 91.3 MCH 32.3 31.9 31.7 MCHC 35.6* 34.7 34.7 RDW 44.6 45.9 45.1 PLT 123* 106* 149* MPV 8.7 8.9 8.6 DIFFTYPE AUTOMATED AUTOMATED MANUAL Recent Labs Lab 11/07/15 04211/06/15 03511/05/15 1812 11/05/15 0404 NA 134* 137 -- -- 143 K 4.1 4.1 4.2 < > 4.7 CL 103 107 -- -- 112* CO2 27 24 -- -- 24 ANIONGAP 8 10 -- -- 11 GLUF 113* 119* -- -- 122* BUN 27* 24 -- -- 15 CREATININE 1.30 1.55* -- -- 1.2 BCR 21 15 -- -- 13 CA 7.8* 7.8* -- -- 7.2* EGFR 58* 47* -- -- >60 MG 2.2 2.2 -- -- 2.3 PHOS 2.2* 2.9 -- -- 3.3 < > = values in this interval not displayed. Imaging: X-ray Chest 2 View Frontal & Lateral Findings: Small bilateral pleural effusions are visualized on the lateral view. Persistent mild subsegmental atelectasis is visualized in both lung bases, significantly improved on t he LEFT as compared with 11/04/15, with better visualization of the LEFT hemidiaphragm. Bor derline cardiomegaly is still present. No pulmonary edema or pneumothorax identified. A pr osthetic aortic valve is identified. There is also evidence of a mitral valve prosthesis. There may be a residual mediastinal drainage catheter. The tip of a LEFT brachial PICC line is visualized in the LEFT axilla. Impression: 1. Small bilateral pleural effusions. 2. Improving lower lobe atelectasis. 3. Tip of the LEFT brachial PICC line in the upper LEFT arm. SSMENT & PLAN: - Paroxysmal afib: On IV amio per protocol, consider re-bolusing after blood transfusion th is afternoon if still in afib, continue coreg 3.125mg BID - Remove chest tube, keep epicardial pacing wires for now - CXR in AM - Acute blood loss anemia (h/o chronic anemia): H/H 7.4/20.7 today, symptomatic; transfuse 2un PRBC w/20mg lasix IVP between units, FOB to check for poss GI bleed - Ambulate, PT/OT, IS, aggressive pulmonary toilet - Wean O2 as tolerated - Delirium/confusion: Seems to have improved some per report; continue to encourage appropr iate sleep/wake cycle, benadryl/melatonin for sleep aids - CM following for discharge needs, plan is for home, likely ready later this week (48-72h) The patient has been seen and the plan discussed with the attending provider, . PRASANNA Silva 11/07/2015 onversio n Transaction, Provider Unknown - 11/07/2015 9:11 AM PDTFormatting of this note might be di fferent from the original. Therapy Progress Note by Manny Collier, PT at 11/07/15 0911 Author: Manny Collier, PT Service: (none) Author Type: Physical Therapist Filed: 11/07/15910 Date of Service: 11/07/15910 Status: Signed General Car Yard Supervisor: Manny Collier PT (Physical Therapist) 11/07/15910 PT Last Visit PT Received On 11/07/15 Requires PT Follow Up On hold Other Comments Comments Holding at this time; patient currently receiving a blood transfusion- will follow up after this for mobilizing. onver reny Transaction, Provider Unknown - 11/06/2015 6:00 PM PDT Progress Notes by Aimee Nugent RN at 11/06/15 1800 Author: Aimee Nugent RN Service: (none) Author Type: Registered Nurse Filed: 11/06/15 1845 Date of Service: 11/06/15 1800 Status: Signed General Car Yard Supervisor: Aimee Nugent RN (Registered Nurse) Report called to SILVA Ram RN. Pt transferred to room [facility] by ambulating 250 ft then wh eelchair the rest. Pt tolerated ambulation well. VSS and assessment unchanged. CHAN Ram a t beside to assume care. AIMEE NUGENT RN ovarr Lanie hurst MA, CCC-EDGER MACHINE SETTER - 11/06/2015 4:17 PM PDTFormatting of this note might be differ ent from the original. Therapy Progress Note by Lanie Amezquita MA CCC-EDGER MACHINE SETTER at 11/06/15 161 Author: Lanie Amezquita MA CCC-EDGER MACHINE SETTER Service: (none) Author Type: Speech and Language Pathologist Filed: 11/06/151616 Date of Service: 11/06/151616 Status: Signed General Car Yard Supervisor: Lanie Amezquita MA CCC-EDGER MACHINE SETTER (Speech and Language Pathologist) 11/06/15 1600 Swallowing Assessment Eval Swallowing Evaluation Yes Initial Swallow Assessment Respiratory Status Room air Behavior/Cognition Cooperative;Alert Dentition Adequate Vision Functional for self-feeding Patient Positioning Upright in bed Baseline Vocal Quality Normal Oral Motor Exam Labial ROM (All WFL ) Consistencies Consistencies Assessed Yes Thin Presentation Cup;Self Fed Oral Phase Thin WFL Pharyngeal Phase No overt signs or symptoms of aspiration Regular Presentation Self Fed Oral Phase WFL Pharyngeal Phase No overt signs or symptoms of aspiration Recommendations Liquids Consistency Recommendations Thin Diet Consistency Recommendation Regular Risk for Aspiration None Compensatory Swallowing Strategies Upright as possible for all oral intake;Remain upright f or 30 minutes after meals;Slow rate presentation;Small bites/sips;Eat/feed slowly Recommended Form of Meds Meds with recommended liquid Summary Pt with no overt s/sx of aspiration. Pt states he no longer has swallowing difficul ty since his surgery. Eval consult only. Please contact ST with any questions or concerns. Staff Notified RN Plan of Care Treatment Plan Eval consult only AVS Documentation Yes Diet Regular: no restrictions Liquids Thin liquids: regular consistency EDGER MACHINE SETTER Ready for Discharge Yes Dysphagia Goals Executive Vice President Business Development Goals Safe/efficient oral intake Pt will have safe/efficient oral intake Thin liquids;Regular diet;Goal met onver reny Transaction, Provider Unknown - 11/06/2015 2:22 PM PDT Therapy Progress Note by Isaac Cardona PT at 11/06/15 1422 Author: Isaac Cardona PT Service: (none) Author Type: Physical Therapist Filed: 11/06/151820 Date of Service: 11/06/151421 Status: Signed General Car Yard Supervisor: Isaac Cardona PT (Physical Therapist) 11/06/15 1422 PT Last Visit PT Received On 11/06/15 Reason for Treatment Cardiac Requires PT Follow Up Yes Follow up PT Only? No Assistance Required 1 person;2 person Precautions Cardiac Precautions Sternal Other Precautions Fall risk Other Comments Comments Pt. went into a-fib late in the morning. Amio was given. He is still in rate con trolled a-fib. HR is 80s to low 100s. Pt. stood w/ min/modA. He ambulated approx. 50 ft. then felt some intermittent dizziness. He was allowed to sit and rest in the chair for 5 mi ns. SpO2 was 97% on room air. HR in low 90s. BP checked and found to be 108/61. After re sting, pt. wanted to ambulate further. He went another 150 ft. w/ 4 standing rest breaks us ing MARKER MACHINE on w/c. He tolerated well. He still has tendancy to lean forward at times thus req uires cues to promote improved upright posture. He was left in the chair. Call light in re ach. Cognition Overall Cognitive Status WFL Orientation Level Oriented Comments (slightly impulsive at times) Transfers Sit to/from Stand Minimal assist (steadying/contact guard);Moderate assist (to arise OR low er) Mobility Ambulation Assistance Minimal assist;X1;X2 Maximal Ambulation Distance (feet) 50 Total Ambulation Distance (feet) 200 Distance limited by? Therapist/staff discretion;Patient's ability Pattern Decreased clara;Right swing foot doesn't pass stance foot;Left swing foot doesn't pass stance foot;Forward flexed Assistive Device (w/c MARKER MACHINE) Modalities Other Therapy Continued ed on use of IS, sternal precautions, current condition, progress t owards goals. Activity Tolerance Activity Tolerance Patient limited by fatigue Nurse Made Aware yes Plan Treatment/Interventions Continue per Primary PT POC Progress Progressing toward goals Recommendation Recommendations Home Assist;Prior Setting Equipment Recommended (4WW or FWW) Recommendation Comments Pt has apartment but will be staying with in her home; st ates she can provided assistance as needed and will take time off work to be with pt 07/01. onver reny Transaction, Provider Unknown - 11/06/2015 2:00 PM PDT Progress Notes by Aimee Nugent RN at 11/06/15 1400 Author: Aimee Nugent RN Service: (none) Author Type: Registered Nurse Filed: 11/06/15 1848 Date of Service: 11/06/151399 Status: Signed General Car Yard Supervisor: Aimee Nugent RN (Registered Nurse) Upon entering room pt was trying to stand without using sternal precautions. Reinforced ed ucation of sternal precautions. Palpated chest around sternal incision. Chest was firm and stable. No instability observed. Will continue to monitor. AIMEE NUGENT RN onver reny Roqueaction, Provider Unknown - 11/06/2015 11:00 AM PDT Progress Notes by Aimee Nugent RN at 11/06/15 1100 Author: Aimee Nugent RN Service: (none) Author Type: Registered Nurse Filed: 11/06/15 1123 Date of Service: 11/06/15 1100 Status: Signed General Car Yard Supervisor: Aimee Nugent RN (Registered Nurse) Pt in a-fib with controlled rate from 70-90s. Informed Brooklynn, PATIENT SERVICES SPECIALIST. Amio gtt started per p rotocol without bolus given. Order for midline placed. Christian continue to monitor. AIMEE HAND RN onver reny Transaction, Provider Unknown - 11/06/2015 8:45 AM PDT Therapy Progress Note by Isaac Cardona PT at 11/06/15 0845 Author: Isaac Cardona PT Service: (none) Author Type: Physical Therapist Filed: 11/06/15 1816 Date of Service: 11/06/15 0845 Status: Signed General Car Yard Supervisor: Isaac Cardona PT (Physical Therapist) 11/06/15 0845 PT Last Visit PT Received On 11/06/15 Reason for Treatment Cardiac Requires PT Follow Up Yes Follow up PT Only? No Assistance Required 1 person Precautions Cardiac Precautions Sternal Other Precautions Fall risk Other Comments Comments Pt. is doing well. BP stable. HR is in high 70s at rest increasing to upper 80s post activity. Pt. requires min/modAx to arise. He has tendency to hold head/neck in flexi on. Requires cues to look upright. Pt. ambulated approx. 180 ft. minAx2 for lines using HH A on w/c. Pt. required 2 standing rest breaks. He tolerated fair. He was left up in the c hair after PT. Call light in reach. Cognition Overall Cognitive Status WFL Orientation Level Oriented Bed Mobility Supine to Sit Mod assist (BLEs OOB or trunk to upright) Transfers Sit to/from Stand Minimal assist (steadying/contact guard);Moderate assist (to arise OR low er) Mobility Ambulation Assistance Minimal assist;Moderate assist Maximal Ambulation Distance (feet) 100 Total Ambulation Distance (feet) 180 Distance limited by? Patient's ability Pattern Decreased clara;Right swing foot doesn't pass stance foot;Left swing foot doesn't pass stance foot;Forward flexed Assistive Device (w/c MARKER MACHINE) Modalities Other Therapy Continued ed on use of IS, sternal precautions, current condition, progress t owards goals. Activity Tolerance Activity Tolerance Patient limited by fatigue Nurse Made Aware yes Safety Devices Safety Devices in Place (Continued ed on use of IS, sternal precautions, current cond) Plan Treatment/Interventions Continue per Primary PT POC Progress Progressing toward goals Recommendation Recommendations Home Assist;Prior Setting Recommendation Comments Pt has apartment but will be staying with in her home; st ates she can provided assistance as needed and will take time off work to be with pt 07/01. onver reny Transaction, Provider Unknown - 11/06/2015 8:33 AM PDT Case Management by ALYSSIA Guan at 11/06/15832 Author: ALYSSIA Guan Service: (none) Author Type: Administrative Underwriter Filed: 11/06/1537 Date of Service: 11/06/15832 Status: Signed General Car Yard Supervisor: ALYSSIA Guan (Administrative Underwriter) 11/06/15 0800 Discharge Planning Evaluation Admitting Diagnosis Chest Pain, Severe Aortic Stenosis Readmission No Living Arrangements Spouse/significant other Support Systems Spouse/significant other;Muslim/misha community Type of Residence Private residence House type Apartment Independent with ADL's Yes Independent with Mobility Yes;Other (comment) (Prior to admissions, pending PT consult) Mental Status Oriented Anticipated Discharge Plan Post Acute Care Needs Other (comment) (Pending PT recommendations) Resources Financial concerns No Transportation issues No Patient/Family concerns No Prescription Plan Yes Name of Pharmacy [facility] Anticipated Disposition Facility Type Home [facility] met with Pt and discussed discharge planning, planning to go home with Pt sig other (John [place] [phone] cell). Pt is a 70 y.o. single male here with severe Aortic Stenosis. 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 Patient's PCP is: SILVESTRE MORENO Patient's insurance: Medicare Coverage concerns: None Medication coverage/concerns: Pending Community resources utilized / needed: Pending PT recommendations Assistance in transportation: Pt sig other Identification of any specific education / training: Pending Barriers to Discharge / Alternative housing needed: None Anticipated DCP: Home - with Pt sig other - pending PT recommendations. JUANITA LUDINENEDELIA, Ground Operations Crew Member [phone] cell Brooklynn Hastings ARNP - 11/06/2015 6:02 AM PDT Progress Notes by PRASANNA Deshpande at 11/06/15 0602 Author: PRASANNA Deshpande Service: Cardiac, Thoracic, and Vascular Surgery Author T brucee: Advanced Registered Nurse Practitioner Filed: 11/06/15702 Date of Service: 11/06/15601 Status: Attested General Car Yard Supervisor: PRASANNA Deshpande (Nurse Practitioner) Cosigner: Diony Montenegro MD at 11/0556 Attestation signed by Diony Montenegro MD at 11/06/15 08 Patient was seen, examined, labs, x-rays and treatment plan were reviewed. [facility] Cardiothoracic Surgery Consult and Follow Up Date/Time:11/06/2015 6:02 AM Provider: PRASANNA Deshpande Hospital Day: LOS: 3 days Surgery/Procedure: Procedure(s) (LRB): AORTIC VALVE REPLACEMENT (N/A) MITRAL VALVE REPLACEMENT (N/A) Post-Op Day: 2 Days Post-Op PROBLEM LIST Principal Problem: Chest pain, unspecified Active Problems: Nonrheumatic aortic valve stenosis Essential hypertension Depression Vasovagal attack Resolved Problems: * No resolved hospital problems. * SUBJECTIVE: Patient Summary: The patient is a 70 y.o. male with significant past medical history of HTN, and recently diagnosed with severe aortic stenosis. The patient was admitted with chest pain and dyspnea on 11/01/15. Cardiac angiography last month was negative. He underwent VÍCTOR 11/02. CTS consulted. To OR 11/03 ICU Timeline: 11/04/15: Admitted to ICU s/p AVR/MR 11/05/15: Extubated previous evening 11/06/15: Poor sleep since surgery with intermittent delirium. Events Overnight: - HD stable, NSR, off gtts - 2LNC - UOP 375ml overnight/840ml over last 24hrs (+ 3.9L) OBJECTIVE: Vital Signs: BP 160/75 mmHg | Pulse 74 | Temp(Src) 99 F (37.2 C) (Oral) | Resp 20 | Ht 1.829 m (6') | Wt 88.8 kg (195 lb 12.3 oz) | BMI 26.55 kg/m2 | SpO2 100% EXAM GEN: OOB to chair. Alert. Intermittent delirium reported NEURO: PERRLA, no facial asymmetry, FARR, no sensation deficits HEENT: sclerae clear, nonicteric, oral mmm, pink, no exudates NECK: supple, trachea midline CV: RRR, S1/S2, no murmur, rub or gallop, peripheral pulses palpable, cap refill brisk LUNGS: clear b/l, no wheezing, rales or rhonchi, symmetric chest expansion, even/unlabored respirations ABD: soft, nondistended, nontender to palpation, no masses, no hepatosplenomegaly EXTR: no edema, clubbing or cyanosis SKIN: warm, dry, no rash or mottling; no e/o skin breakdown over the occiput, scapulae, elb ows, sacrum or heels LINES/TUBES: RIJ Cordis, sepulveda CTs/wires (all placed 11/03), PIVs DATA Recent Labs Lab 11/06/15 0351 11/05/15 0404 11/04/15 1614 11/04/15 0510 WBC 7.71 10.19 10.63 -- 5.72 RBC 2.35* 2.66* 2.79* -- 3.62* HGB 7.5* 8.4* 8.7* < > 11.6* HCT 21.6* 24.3* 25.5* < > 32.7* MCV 92.0 91.3 91.4 -- 90.5 MCH 31.9 31.7 31.0 -- 32.2 MCHC 34.7 34.7 33.9 -- 35.5 RDW 45.9 45.1 45.1 -- 44.2 PLT 106* 149* 148* -- 142* MPV 8.9 8.6 7.4 -- 8.1 BANDSABS -- 0.82* 3.19* -- -- NEUTROABS 6.01 -- -- -- 3.70 LYMPHSABS 0.64* -- -- -- 1.13 MONOSABS 0.99* -- -- -- 0.61 BASOSABS 0.02 -- -- -- 0.04 EOSABS 0.05 -- -- -- 0.24 MORPH -- RBC AND PLT MORPHOLOGY APPEAR NORMAL RBC AND PLT MORPHOLOGY APPEAR NORMAL -- -- < > = values in this interval not displayed. Recent Labs Lab 11/05/15 1812 11/05/15 0859 11/05/15 0404 11/04/15 1614 11/04/15 0510 NA -- -- 143 -- 144* 136 K 4.2 4.5 4.7 < > 4.8 4.0 CL -- -- 112* -- 113* 106 CO2 -- -- 24 -- 21* 24 ANIONGAP -- -- 11 -- 15 10 GLUF -- -- 122* -- 103* 88 BUN -- -- 15 -- 14 18 CREATININE -- -- 1.2 -- 1.1 1.11 BCR -- -- 13 -- 13 16 CA -- -- 7.2* -- 6.7* 8.5 ALB -- -- 3.1* -- -- 3.5 GLOB -- -- 2.4 -- -- 2.4 AG -- -- 1.3 -- -- 1.5 PROT -- -- 5.5* -- -- 5.9* BILITOT -- -- 0.8 -- -- 0.5 ALT -- -- 22 -- -- 15 AST -- -- 65* -- -- 17 EGFR -- -- >60 -- >60 >60 PHOS -- -- 3.3 -- -- 3.1 MG -- -- 2.3 -- 2.7* 1.8 < > = values in this interval not displayed. IMAGING X-ray Chest 1 View 11/05/2015 1. Minimal bibasilar subsegmental atelectasis. Cta Chest Pulmonary Embolism W Iv Con 11/02/2015 1. No pulmonary embolism evaluated to the level of the subsegmental pulmonary arteries. 2. Moderate to large hiatal hernia. Electronically signed by Duke Weldon MD on 11:09 AM ASSESSMENT & PLAN: - s/p AVR/MVR. -Hx of HTN. On lisinopril at home. Hold for now--remains on jeremy -CAD. Resume ASA/statin/BB -Post op delirium. Poor sleep a contributor. Added prn meds for this pm (Benadryl/Melaton in/Ambien) -Hx of depression. Cont Prozac (start 11/04 am) -Acute blood loss anemia. Remains above transfusion threshold. Last hgb 7.5 - Post op pain management. Very sensitive to narcotics (causes nausea/dizziness/confusion) . Managed with Tylenol - Post operative management per CTS (chest tubes, pacer wires, gtt management, anticoagulat ion, transfusion) - Ambulate, PT/OT, IS Disposition: Per cardiothoracic surgery Code Status: Full Code *Please bill 20 minutes of critical care time spent evaluating the patient, reviewing the d toño and formulating a plan exclusive of all other procedures. PRASANNA Deshpande 11/06/2015 6:02 AM onversion Transac tion, Provider Unknown - 11/05/2015 8:00 PM PDTFormatting of this note might be different f rom the original. Nurse Progress Note by Tatyana Vail RN at 11/05/151999 Author: Tatyana Vail RN Service: (none) Author Type: Registered Nurse Filed: 11/10/152009 Date of Service: 11/05/151999 Status: Signed General Car Yard Supervisor: Tatyana Vail RN (Registered Nurse) Report taken from day RN, POC discussed. Armband verified with MAR, allergies and code stat us noted.Pt is confused and only oriented to self at this time. He is attempting to crawl ou t of bed intermittently, so the bed alarm was set. Pt was reassured and reoriented. He calme d momentarily and was repositioned. Called PA and left message to update on status and see i f patient could receive something for sleep. 2100 Pt was given medication and tolerated well. He was repositioned. Called a different P A this time and she directed me to the PATIENT SERVICES SPECIALIST she believed was sponsorship coordinator. Attempted to call that N P and had to leave another voicemail. Will continue to monitor. 2119 Still have not heard back from any PA/PATIENT SERVICES SPECIALIST, so called Dr. Montenegro, updated and orders re ceived and implemented. Will continue to monitor. 2200 Pt was repositioned and he continues to be restless, so ordered medication given. Will continue to monitor. 2300 No changes in status, will continue to monitor.Pt is resting. 0000 Assessment complete and no acute changes in status. Pt is awake still and unable to sl eep. Pt is more oriented and appropriate than prior assessments and encounters. 0100 Pt resting. 0130 Pt woke suddenly and was pulling on R/C, which made noise that alarmed the RN. Stacy villagomez patient didn't pull out a line. He was oriented to place and self, but confused on situ ation. Will continue to monitor. 0200 Pt awake, but resting. 0300 Pt woke suddenly from sleeping and was yelling out to RN to get OOB. Pt oriented to wh ere he was and who he was. It was explained that it is important to get good sleep, so he s till has a few hours to rest before getting out of bed, but he will be getting OOB later. 0400 Assessment complete and no acute changes. Will continue to monitor. 0500 Pt was assisted out of bed with 2 stafff members and tolerated well. Will continue to monitor. 0600 Pt was assisted with ordering breakfast and sitting up. Will continue to monitor. onver reny Transaction, Provider Unknown - 11/05/2015 5:20 PM PDT Therapy Progress Note by Isaac Cardona, PT at 11/05/15 1720 Author: Isaac Cardona PT Service: (none) Author Type: Physical Therapist Filed: 11/05/15 190 Date of Service: 11/05/151719 Status: Signed General Car Yard Supervisor: Isaac Cardona PT (Physical Therapist) 11/05/15 1720 PT Last Visit PT Received On 11/05/15 Reason for Treatment Cardiac (AVR, MVR) Requires PT Follow Up Yes Follow up PT Only? No Assistance Required 1 person;2 person (2nd person for lines) Precautions Cardiac Precautions Sternal Other Precautions Fall risk Other Comments Comments Pt up in chair when PT arrived, agreeable to tx. VS in sitting pre-activity: BP 1 10/59 HR 77 SpO2 96% on RA. Pain 6/10 in sternum (RN notified). Pt ambulated with WC MARKER MACHINE a nd MIN A x 60 ft. Requires frequent cues for sternal precautions, verbal and tactile cues f or direction, hand placement on W/C. Pt demonstrating improved activity tolerance with mobi lity. VS in supine post-activity: BP 124/57 HR 77 SPO2 93% on RA; pain 8/10 in sternum (alan n medication provided by RN). Pt resting in bed when PT left with call light and needs in r each. Cognition Overall Cognitive Status WFL Orientation Level (More oriented this PM, foggy on date/situation) Bed Mobility Sit to Supine Max assist (BLEs into bed & trunk to lower);x 2 person Scooting Minimal assist Transfers Sit to/from Stand Moderate assist (to arise OR lower);x 1 person Mobility Ambulation Assistance Minimal assist;Verbal instruction;Visual instruction Maximal Ambulation Distance (feet) 30ft x 2 Total Ambulation Distance (feet) 60 ft Distance limited by? Patient's ability;Therapist/staff discretion Pattern Decreased clara;Alternating;Right swing foot doesn't pass stance foot;Left swing foot doesn't pass stance foot;Narrow base Assistive Device (WC MARKER MACHINE) Modalities Other Therapy Continued ed on use of IS, sternal precautions, current condition, progress t dilshad goals. Activity Tolerance Activity Tolerance Patient limited by pain;Patient limited by fatigue Nurse Made Aware Yes RN Zena Safety Devices Safety Devices in Place (Call light and needs in reach) Plan Treatment/Interventions Continue per Primary PT POC Progress Progressing toward goals Recommendation Recommendations Home Assist Equipment Recommended Other (Comment) (TBD) Barriers to Discharge Physical Deficits Impacting Functional [place];Self-care Deficit s Impacting Functional [place] Recommendation Comments Pt has apartment but will be staying with in her home; st ates she can provided assistance as needed and will take time off work to be with pt 07/01. onver reny Transaction, Provider Unknown - 11/05/2015 9:53 AM PDT Therapy Progress Note by Isaac Cardona PT at 11/05/15 0953 Author: Isaac Cardona PT Service: (none) Author Type: Physical Therapist Filed: 11/05/15 1321 Date of Service: 11/05/15952 Status: Signed General Car Yard Supervisor: Isaac Cardona PT (Physical Therapist) 11/05/15 09 PT Last Visit PT Received On 11/05/15 Reason for Treatment Cardiac (MVR, AVR) Requires PT Follow Up Yes PT Eval/Reassessment Date 11/05/15 Assistance Required 1 person;2 person (2nd person for safety) Home Environment Type of Home Apartment ground level Home Exterior Layout 4-6 steps;Rail on L ascending (3-4) Home Interior Layout Lives on main level with bedroom/bathroom Bathroom Shower/Tub Tub/shower unit Bathroom Toilet Standard Bathroom Accessibility Accessible via walker Home Equipment Cane single point Additional Comments Pt has an apartment but will be staying with in one story, 1 step to enter, railing on R, with walk-in shower Prior Function Level of [place] Independent with functional mobility;Independent with ADLs;Independe nt with IADLs Lives With Spouse ADL Assistance Independent Home ADL's Independent Employment (Short term disability; was working at [employer]) Leisure Hobbies-yes (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 Assessment RUE Assessment (Not fully assessed d/t post-surgical status) LUE Assessment LUE Assessment (Not fully assessed d/t post-surgical status) RLE Assessment RLE Assessment WFL LLE Assessment LLE Assessment WFL Cognition Overall Cognitive Status WFL Orientation Level Oriented;Disoriented (Oriented to person; some confusion (thought he was in ED)) Sensation Light Touch (Decreased in BLE/absent on plantar feet B) Vision-Basic Assessment Current Vision Wears glasses Assessment of Patient Status Assessment of Patient Status Decreased functional mobility;Decreased ADL status;Decreased cognition;Decreased endurance;Decreased sensation;Precautions;Pain Prognosis Should progress with skilled therapy intervention Safety Devices Safety Devices in Place (Call light and needs in reach, SO present) Precautions Other Precautions Sternal, fall risk Plan Treatment/Interventions Assist d/c plannning;Balance training;Bed mobility training;Family training;Gait training;Review precautions;Stair training;THR protocol;Transfer training PT Frequency 5-7x/wk;Twice a day;Once per day Care Duration (# of days) 7 # of days Recommendation Recommendations Home Assist 11/05/15 0991 PT Last Visit PT Received On 11/05/15 Reason for Treatment Cardiac (MVR, AVR) Requires PT Follow Up Yes PT Eval/Reassessment Date 11/05/15 Assistance Required 1 person;2 person (2nd person for safety) Precautions Other Precautions Sternal, fall risk Other Comments Comments Chart reviewed, PT eval completed. Pt is 70 y.o. male seen post-op day 1 followin g MVR/AVR. Pt up in chair when PT arrived, present, agreeable to evaluation. Pt requi red MOD A for STS, noted retropulsivity, improved with verbal/tactile cues. Ambulated into hallway and back, frequent VC's for direction, attention to task. Pt c/o dizziness througho ut tx so followed with chair. VS in sitting pre-activity: BP 104/5 HR 74 SpO2 92% on RA, pa in 8-910 in sternum (RN notified).VS in supine post-activity: BP 112/55 HR 71 SpO2 98% on R A. Pain unchanged (RN providing pain medication). Cognition Overall Cognitive Status WFL Orientation Level Oriented;Disoriented (Oriented to person; some confusion (thought he was in ED)) Bed Mobility Sit to Supine Max assist (BLEs into bed & trunk to lower);x 2 person Scooting Minimal assist Transfers Sit to/from Stand Moderate assist (to arise OR lower);x 2 person Mobility Ambulation Assistance Moderate assist;X1;X2 (2nd person for lines) Maximal Ambulation Distance (feet) 25 ft Total Ambulation Distance (feet) 25 ft Distance limited by? Patient's ability;Therapist/staff discretion Pattern Decreased clara;Right swing foot doesn't pass stance foot;Left swing foot doesn't pass stance foot;Narrow base Assistive Device Other (Comment) ([facility]) Modalities Modalities Other therapy Other Therapy Pt/family education Safety Devices Safety Devices in Place (Call light and needs in reach, SO present) Plan Treatment/Interventions Assist d/c plannning;Balance training;Bed mobility training;Family training;Gait training;Review precautions;Stair training;THR protocol;Transfer training PT Frequency 5-7x/wk;Twice a day;Once per day Care Duration (# of days) 7 # of days Recommendation Recommendations Home Assist onver reny Transaction, Provider Unknown - 11/05/2015 9:30 AM PDT Nurse Progress Note by Zena Mendoza RN at 11/05/15929 Author: Zena Mendoza RN Service: (none) Author Type: Registered Nurse Filed: 11/05/15 1144 Date of Service: 11/05/15929 Status: Signed General Car Yard Supervisor: Zena Mendoza RN (Registered Nurse) Efren Felder D/Sanjuana patient ambulating to door. Nausea is better controlled. Comfor t is improving onver reny Transaction, Provider Unknown - 11/05/2015 7:35 AM PDT Therapy Progress Note by MS YANDEL Murray-EDGER MACHINE SETTER at 11/05/15 0735 Author: MS YANDEL Murray-EDGER MACHINE SETTER Service: (none) Author Type: Speech and Language P athologist Filed: 11/05/15 0737 Date of Service: 11/05/15734 Status: Signed General Car Yard Supervisor: MS YANDEL Murray-EDGER MACHINE SETTER (Speech and Language Pathologist) 11/05/15734 EDGER MACHINE SETTER Last Visit EDGER MACHINE SETTER Received On 11/05/15 Requires EDGER MACHINE SETTER Follow Up On hold Pt on-hold for ST swallow eval. Per RN pt nauseated and within 24 hours of open heart surge ry. ST to follow when pt appropriate. onver reny Transaction, Provider Unknown - 11/05/2015 6:35 AM PDT Progress Notes by Zaida Carias RN at 11/05/15 0635 Author: Zaida Carias RN Service: (none) Author Type: Registered Nurse Filed: 11/05/15 0645 Date of Service: 11/05/15634 Status: Addendum General Car Yard Supervisor: Zaida Carias RN (Registered Nurse) Related Notes: Original Note by Zaida Carias RN (Registered Nurse) filed at 11/05/15 0 637 Pt continues to be nauseous and vomiting pure water regardless of the medications. Discusse d with propagator, changed the pain medication order and will see if that helps. He may nee d an xray of his abdomen or an NGT if it continues. He is also complaining of his head throb concetta. Brooklynn MIMS at bedside to assess, will stop the narcotics for now and try IV tylenol t o see if that helps the patient's symptoms. Brooklynn Hastings ARNP - 11/05/2015 6:24 AM PDT Progress Notes by PRASANNA Deshpande at 11/05/15 0624 Author: PRASANNA Deshpande Service: Cardiac, Thoracic, and Vascular Surgery Author Ino sánchez: Advanced Registered Nurse Practitioner Filed: 11/05/15 0828 Date of Service: 11/05/15 0624 Status: Addendum General Car Yard Supervisor: PRASANNA Deshpande (Nurse Practitioner) Related Notes: Original Note by PRASANNA Deshpande (Nurse Practitioner) filed at 10/16 07/02 0654 Cosigner: Diony Montenegro MD at 11/05/15 0955 [facility] Cardiothoracic Surgery Consult and Follow Up Date/Time:11/05/2015 6:24 AM Provider: PRASANNA Deshpande Hospital Day: LOS: 2 days Surgery/Procedure: Procedure(s) (LRB): AORTIC VALVE REPLACEMENT (N/A) MITRAL VALVE REPLACEMENT (N/A) Post-Op Day: 1 Day Post-Op PROBLEM LIST Principal Problem: Chest pain, unspecified Active Problems: Nonrheumatic aortic valve stenosis Essential hypertension Depression Vasovagal attack Resolved Problems: * No resolved hospital problems. * SUBJECTIVE: Patient Summary: The patient is a 70 y.o. male with significant past medical history of HTN, and recently diagnosed with severe aortic stenosis. The patient was admitted with chest pain and dyspnea on 11/01/15. Cardiac angiography last month was negative. He underwent VÍCTOR 11/02. CTS consulted. To OR 11/03 ICU Timeline: 11/04/15: Admitted to ICU s/p AVR/MR Events Overnight: - HD stable, NSR, on Jeremy (20) drip - Extubated to RA 11/03 pm - UOP 930ml overnight/2812ml over last 24hrs OBJECTIVE: Vital Signs: BP 104/51 mmHg | Pulse 65 | Temp(Src) 98.1 F (36.7 C) (Blood) | Resp 23 | Ht 1.829 m (6 ') | Wt 88.8 kg (195 lb 12.3 oz) | BMI 26.55 kg/m2 | SpO2 94% EXAM GEN: OOB to chair. Alert NEURO: PERRLA, no facial asymmetry, FARR, no sensation deficits HEENT: sclerae clear, nonicteric, oral mmm, pink, no exudates NECK: supple, trachea midline CV: RRR, S1/S2, no murmur, rub or gallop, peripheral pulses palpable, cap refill brisk LUNGS: clear b/l, no wheezing, rales or rhonchi, symmetric chest expansion, even/unlabored respirations ABD: soft, nondistended, nontender to palpation, no masses, no hepatosplenomegaly EXTR: no edema, clubbing or cyanosis SKIN: warm, dry, no rash or mottling; no e/o skin breakdown over the occiput, scapulae, elb ows, sacrum or heels LINES/TUBES: RIJ Cordis, L radial a line, sepulveda CTs/wires (all placed 11/03) DATA Recent Labs Lab 11/05/15 0404 11/04/15 1614 11/04/15 1431 11/04/15 0510 WBC 10.19 10.63 -- -- 5.72 RBC 2.66* 2.79* -- -- 3.62* HGB 8.4* 8.7* 7.1* < > 11.6* HCT 24.3* 25.5* 21* < > 32.7* MCV 91.3 91.4 -- -- 90.5 MCH 31.7 31.0 -- -- 32.2 MCHC 34.7 33.9 -- -- 35.5 RDW 45.1 45.1 -- -- 44.2 PLT 149* 148* -- -- 142* MPV 8.6 7.4 -- -- 8.1 BANDSABS 0.82* 3.19* -- -- -- NEUTROABS -- -- -- -- 3.70 LYMPHSABS -- -- -- -- 1.13 MONOSABS -- -- -- -- 0.61 BASOSABS -- -- -- -- 0.04 EOSABS -- -- -- -- 0.24 MORPH RBC AND PLT MORPHOLOGY APPEAR NORMAL RBC AND PLT MORPHOLOGY APPEAR NORMAL -- -- -- < > = values in this interval not displayed. Recent Labs Lab 11/05/15 0404 11/04/15 2320 11/04/15 1931 11/04/15 1614 11/04/15 0510 NA 143 -- -- 144* 136 K 4.7 4.7 4.6 4.8 4.0 CL 112* -- -- 113* 106 CO2 24 -- -- 21* 24 ANIONGAP 11 -- -- 15 10 GLUF 122* -- -- 103* 88 BUN 15 -- -- 14 18 CREATININE 1.2 -- -- 1.1 1.11 BCR 13 -- -- 13 16 CA 7.2* -- -- 6.7* 8.5 ALB 3.1* -- -- -- 3.5 GLOB 2.4 -- -- -- 2.4 AG 1.3 -- -- -- 1.5 PROT 5.5* -- -- -- 5.9* BILITOT 0.8 -- -- -- 0.5 ALT 22 -- -- -- 15 AST 65* -- -- -- 17 EGFR >60 -- -- >60 >60 PHOS 3.3 -- -- -- 3.1 MG 2.3 -- -- 2.7* 1.8 IMAGING X-ray Chest 2 View Frontal & Lateral 11/03/2015 1. No active intrathoracic disease. Cta Chest Pulmonary Embolism W Iv Con 11/02/2015 1. No pulmonary embolism evaluated to the level of the subsegmental pulmonary arteries. 2. Moderate to large hiatal hernia. Electronically signed by Duke Weldon MD on 11:09 AM Echo Víctor 11/04/2015 1. Overall left ventricular systolic function is normal with, an EF between 55 - 60 %. 2. The left atrium is markedly dilated. 3. There is krms-gd-ujcibjrv aortic regurgit ation. 4. There is severe aortic stenosis present. 5. Severe mitral regurgitation is present . 6. Flail/partial flail of the posterior leaflet. 7. Moderate to severe tricuspid regurgita tion present. 8. The right ventricular systolic pressure, as measured by Doppler, is 67.40mm Hg. ASSESSMENT & PLAN: - s/p AVR/MVR. -Hx of HTN. On lisinopril at home. Hold for now--remains on jeremy -CAD. Resume ASA/statin, BB when able per CTS -Hx of depression. Cont Prozac (start 11/04 am) -Acute blood loss anemia. Remains above transfusion threshold. Last hgb 8.4 - Post op pain management. Very sensitive to narcotics (causes nausea/dizziness). Given d ose of IV tylenol. -Thrombocytopenia, s/p 2u PLT in OR. Trend PLT--last 149K. - Post operative management per CTS (chest tubes, pacer wires, gtt management, anticoagulat ion, transfusion) - Ambulate, PT/OT, IS Disposition: Per cardiothoracic surgery Code Status: Full Code *Please bill 20 minutes of critical care time spent evaluating the patient, reviewing the d toño and formulating a plan exclusive of all other procedures. PRASANNA Deshpande 11/05/2015 6:24 AM onversion Trans action, Provider Unknown - 11/05/2015 5:19 AM PDT Progress Notes by Zaida Carias RN at 11/05/15518 Author: Zaida Carias RN Service: (none) Author Type: Registered Nurse Filed: 11/05/15519 Date of Service: 11/05/15518 Status: Signed General Car Yard Supervisor: Zaida Carias RN (Registered Nurse) Pt is not tolerating the PO pain medication. Each time we have attempted it he has vomited. He does ok with the IV dilaudid. Will pass on this info to [facility]. onver reny Transaction, Provider Unknown - 11/04/2015 10:26 PM PDT Progress Notes by Zaida Carias RN at 11/04/152225 Author: Zaida Carias RN Service: (none) Author Type: Registered Nurse Filed: 11/04/152226 Date of Service: 11/04/152225 Status: Signed General Car Yard Supervisor: Zaida Carias RN (Registered Nurse) Extubated patient to 2LNC at 20:05. Pt is confused, not oriented to place, time or situatio n. Continue to reorient, will attempt to give tylenol instead of narcotics to try to help wi th the confusion. Will continue to monitor. onver reny Transaction, Provider Unknown - 11/04/2015 6:59 PM PDT Progress Notes by Ozzie Agrawal at 11/04/151858 Author: Ozzie Agrawal Service: (none) Author Type: Filed: 11/04/151858 Date of Service: 11/04/151858 Status: Signed General Car Yard Supervisor: Ozzie Agrawal () Delivered off-pump report to pt's , per protocols when received from [facility]. Ozzie jaramillo [facility] onver reny Transaction, Provider Unknown - 11/04/2015 5:28 PM PDT Nurse Progress Note by Zena Mendoza RN at 11/04/151727 Author: Zena Mendoza RN Service: (none) Author Type: Registered Nurse Filed: 11/04/151728 Date of Service: 11/04/151727 Status: Signed General Car Yard Supervisor: Zena Mendoza RN (Registered Nurse) Tried to wean down Precedex. Waylon still is impulsive, agitated, and repeats "let me up." Re-sedated will try again in 1 hr. onver reny Transaction, Provider Unknown - 11/04/2015 4:00 PM PDT Nurse Progress Note by Zena Mendoza RN at 11/04/15 1600 Author: Zena Mendoza RN Service: (none) Author Type: Registered Nurse Filed: 11/04/15 1728 Date of Service: 11/04/15 1600 Status: Signed General Car Yard Supervisor: Zena Mendoza RN (Registered Nurse) Pt waking up impulsive and confused. Gave some pain meds and started Precedex. Will titrate to relax. Brooklynn Hastings ARNP - 11/04/2015 3:12 PM PDT Progress Notes by PRASANNA Deshpande at 11/04/15 1512 Author: PRASANNA Deshpande Service: Appliance Mechanic Author Type: Advanced Registered Nu rse Practitioner Filed: 11/04/15 0272 Date of Service: 11/04/15 1512 Status: Signed General Car Yard Supervisor: PRASANNA Deshpande (Nurse Practitioner) [facility] Service: Appliance Mechanic Cardiothoracic Surgery Consult and Follow Up Date/Time:11/04/2015 3:12 PM Provider: PRASANNA Deshpande Hospital Day: LOS: 1 day Surgery/Procedure: Procedure(s) (LRB): AORTIC VALVE REPLACEMENT (N/A) MITRAL VALVE REPLACEMENT (N/A) Post-Op Day: Day of Surgery PROBLEM LIST Principal Problem: Chest pain, unspecified Active Problems: Nonrheumatic aortic valve stenosis Essential hypertension Depression Vasovagal attack Resolved Problems: * No resolved hospital problems. * SUBJECTIVE: Patient Summary: ICU Timeline: 11/04/15: Admitted to ICU s/p AVR/MR Events Overnight: - HD stable, NSR, on Jeremy (30) drip - Intubated per protocol - UOP 370ml intra op OBJECTIVE: Vital Signs: BP 139/84 mmHg | Pulse 88 | Temp(Src) 97.7 F (36.5 C) (Oral) | Resp 16 | Ht 1.829 m (6' ) | Wt 88.8 kg (195 lb 12.3 oz) | BMI 26.55 kg/m2 | SpO2 98% EXAM GEN: intubated/sedated NEURO: PERRLA, no facial asymmetry HEENT: sclerae clear, nonicteric, oral mmm, pink, no exudates NECK: supple, trachea midline CV: RRR, S1/S2, no murmur, rub or gallop, peripheral pulses palpable, cap refill brisk LUNGS: clear b/l, no wheezing, rales or rhonchi, symmetric chest expansion, even/unlabored respirations ABD: soft, nondistended, nontender to palpation, no masses, no hepatosplenomegaly EXTR: no edema, clubbing or cyanosis SKIN: warm, dry, no rash or mottling; no e/o skin breakdown over the occiput, scapulae, elb ows, sacrum or heels LINES/TUBES: RIJ Cordis/swan, L radial a line, sepulveda, ETT/OG, CTs/wires (all placed 11/03) DATA Recent Labs Lab 11/04/15 0510 11/01/15 1721 WBC 5.72 -- RBC 3.62* -- HGB 11.6* 12.5* HCT 32.7* 35.8* MCV 90.5 -- MCH 32.2 -- MCHC 35.5 -- RDW 44.2 -- PLT 142* -- MPV 8.1 -- NEUTROABS 3.70 -- LYMPHSABS 1.13 -- MONOSABS 0.61 -- BASOSABS 0.04 -- EOSABS 0.24 -- Recent Labs Lab 11/04/15 0510 11/01/15 1721 NA 136 136 K 4.0 4.7 CL 106 107 CO2 24 19* ANIONGAP 10 15 GLUF 88 141* BUN 18 24 CREATININE 1.11 1.2 BCR 16 20 CA 8.5 8.1* ALB 3.5 -- GLOB 2.4 -- AG 1.5 -- PROT 5.9* -- BILITOT 0.5 -- ALT 15 -- AST 17 -- EGFR >60 >60 PHOS 3.1 -- MG 1.8 -- IMAGING X-ray Chest 2 View Frontal & Lateral 11/03/2015 1. No active intrathoracic disease. Cta Chest Pulmonary Embolism W Iv Con 11/02/2015 1. No pulmonary embolism evaluated to the level of the subsegmental pulmonary arteries. 2. Moderate to large hiatal hernia. Electronically signed by Duke Weldon MD on 11:09 AM Echo Víctor 11/04/2015 1. Overall left ventricular systolic function is normal with, an EF between 55 - 60 %. 2. The left atrium is markedly dilated. 3. There is qaay-ey-kwikdpqa aortic regurgit ation. 4. There is severe aortic stenosis present. 5. Severe mitral regurgitation is present . 6. Flail/partial flail of the posterior leaflet. 7. Moderate to severe tricuspid regurgita tion present. 8. The right ventricular systolic pressure, as measured by Doppler, is 67.40mm Hg. ASSESSMENT & PLAN: - s/p AVR/MVR -Hx of HTN. On lisinopril at home. Hold for now -CAD. Resume ASA/statin, BB when able per CTS -Hx of depression. Cont Prozac (start 11/04 am when extubated) -Acute blood loss anemia. Remains above transfusion threshold. Last hgb 7.1. -Thrombocytopenia, s/p 2u PLT in OR. Trend PLT. Bleeding controlled on admission. -Mild lactic acidemia. Volume resuscitate appropriately considering pathophysiology of nick ble valve procedure. Repeat LA per surgeon (last 2.5) - Post operative management per CTS (chest tubes, pacer wires, gtt management, anticoagulat ion, transfusion) - Ambulate, PT/OT, IS Disposition: Per cardiothoracic surgery Code Status: Full Code *Please bill 20 minutes of critical care time spent evaluating the patient, reviewing the d toño and formulating a plan exclusive of all other procedures. PRASANNA Deshpande 11/04/2015 3:12 PM onversion Tra nsaction, Provider Unknown - 11/04/2015 2:21 PM PDTFormatting of this note might be differe nt from the original. Therapy Progress Note by Valeria Escobedo MA CCC-EDGER MACHINE SETTER at 11/04/15 1421 Author: Valeria Escobedo MA CCC-EDGER MACHINE SETTER Service: (none) Author Type: Speech and Language Patholo gist Filed: 11/04/15 1421 Date of Service: 11/04/15 1421 Status: Signed General Car Yard Supervisor: Valeria Escobedo MA CCC-EDGER MACHINE SETTER (Speech and Language Pathologist) 11/04/15 1420 EDGER MACHINE SETTER Last Visit EDGER MACHINE SETTER Received On 11/04/15 Requires EDGER MACHINE SETTER Follow Up On hold Pt in periop pool awaiting/in procedure. ST to check back tomorrow. onver reny Transaction, Provider Unknown - 11/04/2015 10:12 AM PDT Progress Notes by Jacki Estrada at 11/04/15 1012 Author: Jacki Estrada Service: (none) Author Type: Army Senior Officer Filed: 11/04/15 1103 Date of Service: 11/04/15 1012 Status: Addendum General Car Yard Supervisor: Jacki Estrada (Army Senior Officer) Related Notes: Original Note by Jacki Estrada (Army Senior Officer) filed at 11/04/15 1015 Met with Waylon and his SO Nevaeh per cardiac protocol. Informed them of district manager primary care sales role, ass essed for stressors. Both state they have good support, Nevaeh has family coming in today, Waylon was tearful but "ready" to get the surgery over with. They stated they were appreciati ve of having district manager primary care sales support. Will give on and off pump reports as they come in. Chaplain Evans [facility] Gave on pump report at :1045am Nevaeh in ICU waiting room onver reny Transaction, Provider Unknown - 11/04/2015 9:01 AM PDT Nurse Progress Note by Bettina Mooney RN at 11/04/15 0901 Author: Bettina Mooney RN Service: (none) Author Type: Registered Nurse Filed: 11/04/15 0902 Date of Service: 11/04/15900 Status: Signed General Car Yard Supervisor: Bettina Mooney RN (Registered Nurse) Checked in on pt, family at bedside. Still awaiting surgery, was ready by 0800, per special needs notation. onver reny Transaction, Provider Unknown - 11/04/2015 7:30 AM PDT Nurse Progress Note by Azeb Noble RN at 11/04/15 0730 Author: Azeb Noble RN Service: (none) Author Type: Registered Nurse Filed: 11/04/15 0747 Date of Service: 11/04/15729 Status: Signed General Car Yard Supervisor: Azeb Noble RN (Registered Nurse) Report given to CHAN Fowler in SBAR format, all questions answered. Patient to go to OR for AVR/MVR. onver reny Transaction, Provider Unknown - 11/03/2015 2:50 PM PDT Progress Notes by Maria Luz Kelly RD, CD at 11/03/15 1450 Author: Maria Luz Kelly RD, CD Service: (none) Author Type: Registered Dietitian Filed: 11/03/15 1450 Date of Service: 11/03/15 145 Status: Signed General Car Yard Supervisor: Maria Luz Kelly RD, CD (Registered Dietitian) 11/03/15 1849 Subjective Timepoint Admit (wt loss, dysphagia) Pt c/o Pt was admitted with chest pain, SOB, and YANES. Currently NPO, awaiting VÍCTOR. S/p EGD yesterday to evaluate dysphagia. 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 Pt had an episode of N/V on the day of admit but sydni salmeron states that his appetite is good and has no complaints at this time. Diet Experience Self-selected diet(s) followed Pt has a had a long-standing hx of dysphagia to both liquids and solids. Reports that is has gotten progressively worse recently. Does better with liqui ds over solids as he typically just has to "chew the heck out of foods and take small bites" so that it goes down easier. Pt states that he has not had to omit any foods from his diet and has been getting a good variety of foods. Pt has no known food allergies and does not fo llow any special diet at home. Fluid / Beverage Intake Oral Fluids Amount NPO Food Intake Amount of Food NPO Nutrition-Focused Physical Findings Overall Appearance Appears well-nourished. Digestive System (Mouth to Rectum) Noted to have poor dentition. EDGER MACHINE SETTER has been consulted for swallow evaluation prior to diet advancement. Skin Intact. Anthropometrics Weight change Pt reports that his wt is generally stable. Estimates that he has lost about 2.3 kg (2.5%) over the course of 7 months which is not considered significant. Biochemical data, medical tests, and procedures reviewed Biochemical data, medical tests, and procedures reviewed BG 141 (H). BUN, Cr, and electroly rut are WNL. Ca 8.1 (L). Estimated Energy Needs Total Energy Estimated Needs 0433-4692 kcal/day Method for Estimating Needs 25-30 kcal/kg admit wt (88.7 kg) Estimated Protein Needs Total Protein Estimated Needs 106-133 g protein/day Method for Estimating Needs 1.2-1.5 g protein/kg admit wt (88.7 kg) Recommendations Recommended energy needs Advance diet as tolerated to general diet with texture/liquid magaly fications per EDGER MACHINE SETTER recommendations once swallow evaluation can be completed. Nutritional supp lements available PRN once diet advances. Will continue to monitor clinical course and will f/u with further nutrition recs as indicated. Nutritional Risk Nutritional risk Low / moderate Follow up date 11/09/[address], CD, [facility] 11/03/2015 Ottoniel Warren MD - 11/03/2015 1:36 PM PDTFormatting of this note might be different from the origi nal. Progress Notes by Ottoniel Diaz MD at 11/03/15 5317 Author: Ottoniel Diaz MD Service: (none) Author Type: Physician Filed: 11/03/15 3614 Date of Service: 11/03/151335 Status: Signed General Car Yard Supervisor: Ottoniel Diaz MD (Physician) [facility] Service: Hospitalist Progress Note Hospital Day: LOS: 0 days Consultants: Treatment Team: Consulting Physician: Ghassan Huynh MD Consulting Physician: Diony Montenegro MD Consulting Physician: Edd Hussein MD Admitting Provider: Alanna Clark MD The first problem in assessment is the principal problem. ASSESSMENT/ PLAN 1. Chest pain and shortness of breath along with dyspnea on exertion: Most likely due to se rodo aortic stenosis. CT chest negative for PE. Possible could be hiatal hernia and reflux Status post endoscopy and dilation of esophageal stricture. Discussed with cardiology. Plan for VÍCTOR today. Also discussed and consulted cardiothoracic surgery, Dr. Montenegro. Possible p zachariah for valve replacement. During this admission Had cardiac angiogram was negative for CAD. 2. Hypertension, currently stable on beta blockers and JD inhibitor. Continue same. Disposition: Home. Pending above Code Status: Full Code Dictation and charging plug placer or software, [employer], used which may contain error for similar s ounding words even after review. Personal communication requested for any clarification. SUBJECTIVE Events Overnight: *No new symptoms. He is quite hungry [address] food awaiting VÍCTOR. No c hest pain or shortness of breath OBJECTIVE General: Well nourished. Psych: Alert and oriented x 3. Calm, cooperative. Cardiovascular: Regular rate and rhythm, systolic murmurs, no thrills. Normal PMI. Respiratory: Clear to auscultation, no wheezing or crackles, breathing non labored. Gastrointestinal: Soft, non-tender, non-distended, positive bowel sounds. No HSM. Musculoskeletal: No edema in bilateral lower extremities. No joint swelling. Neck: No JVD, Trachea midline. Neurological: Non focal. Motor grossly intact. PROBLEM LIST Principal Problem: Chest pain, unspecified Active Problems: Nonrheumatic aortic valve stenosis Essential hypertension Depression Vasovagal attack PMH Past Medical History Diagnosis Date Depression Essential hypertension Aortic stenosis HOME MEDICATIONS Prior to Admission medications Medication Sig Start Date End Date Taking? Authorizing Provider aspirin 81 MG EC tablet Take 81 mg by mouth daily with breakfast. Yes Historical Provider FLUoxetine (PROZAC) 20 MG capsule Take 20 mg by mouth daily. Yes Historical Provider lisinopril (ZESTRIL) 10 MG tablet Take 10 mg by mouth daily. Yes Historical Provider polyethylene glycol (GOLYTELY) 236 G suspension Take 4,000 mLs by mouth See Admin Instructi ons. 10/21/15 Anna Navarrete, BAGGAGE CLERK DATA Vital Signs: BP 112/66 mmHg | Pulse 60 | Temp(Src) 97.8 F (36.6 C) (Oral) | Resp 20 | Ht 1.829 m (6' ) | Wt 88.7 kg (195 lb 8.8 oz) | BMI 26.52 kg/m2 | SpO2 97% Filed Vitals: 11/03/15 0007 11/03/15 0326 11/03/15 0702 11/03/15 1052 BP: 113/55 115/70 121/67 112/66 Pulse: 73 65 78 60 Temp: 97.6 F (36.4 C) 98.1 F (36.7 C) 97.8 F (36.6 C) 97.8 F (36.6 C) TempSrc: Oral Oral Oral Oral Resp: Height: Weight: 88.7 kg (195 lb 8.8 oz) SpO2: 96% 98% 96% 97% Intake/Output Summary (Last 24 hours) at 11/03/15 1336 Last data filed at 11/03/15 0600 Gross per 24 hour Intake 1006 ml Output 800 ml Net 206 ml CBC: Lab Results Component Value Date WBC 7.32 09/22/2015 RBC 4.86 09/22/2015 HGB 12.5* 11/01/2015 HCT 35.8* 11/01/2015 MCV 89.8 09/22/2015 MCH 30.4 09/22/2015 MCHC 33.8 09/22/2015 RDW 43.3 09/22/2015 PLT 215 09/22/2015 MPV 7.8 09/22/2015 DIFFTYPE AUTOMATED 09/22/2015 CMP: Lab Results Component Value Date NA 136 11/01/2015 K 4.7 11/01/2015 CL 107 11/01/2015 CO2 19* 11/01/2015 ANIONGAP 15 11/01/2015 GLUF 141* 11/01/2015 BUN 24 11/01/2015 CREATININE 1.2 11/01/2015 BCR 20 11/01/2015 CA 8.1* 11/01/2015 EGFR >60 11/01/2015 Magnesium: No results found for: MG Phosphorus: No results found for: PHOS PT/INR: No results found for: PROTIME, INR PTT: No results found for: APTT[APTT Imaging @IMAGES@ Scheduled Medications carvedilol 3.125 mg Oral BID WC enoxaparin 40 mg Subcutaneous Q24H famotidine 20 mg Oral BID Or famotidine 20 mg Intravenous BID FLUoxetine 20 mg Oral Daily lisinopril 10 mg Oral Daily sodium chloride (PF) 10 mL Intravenous Q8H sodium chloride 10 mL Intravenous Q8H Continuous Infusions PRN Medications acetaminophen OR acetaminophen, fentaNYL, ondansetron OR ondansetron, polyethylene glycol, zolpidem Ottoniel Diaz MD 11/03/20151:36 PM Gale Lyn MS CCC-EDGER MACHINE SETTER - 11/02/2015 10:39 AM PDT Therapy Progress Note by Gale Heredia MS CCC-EDGER MACHINE SETTER at 11/02/15 1039 Author: Gale Heredia MS CCC-EDGER MACHINE SETTER Service: (none) Author Type: Speech and Language Pathol ogist Filed: 11/02/15 1040 Date of Service: 11/02/15 1039 Status: Signed General Car Yard Supervisor: Gale Heredia MS CCC-EDGER MACHINE SETTER (Speech and Language Pathologist) 11/02/15 1039 EDGER MACHINE SETTER Last Visit EDGER MACHINE SETTER Received On 11/02/15 Requires EDGER MACHINE SETTER Follow Up Unavailable (at CT) GALE HEREDIA MS CCC-EDGER MACHINE SETTER 11/02/2015 Ottoniel Warren MD - 11/02/2015 9:48 AM PDT Progress Notes by Ottoniel Diaz MD at 11/02/15 0948 Author: Ottoniel Diaz MD Service: (none) Author Type: Physician Filed: 11/02/1550 Date of Service: 11/02/1548 Status: Signed General Car Yard Supervisor: Ottoniel Diaz MD (Physician) [facility] Service: Hospitalist Progress Note Hospital Day: Consultants: Treatment Team: Consulting Physician: Ghassan Huynh MD Admitting Provider: Alanna Clark MD The first problem in assessment is the principal problem. ASSESSMENT/ PLAN 1. Chest pain and shortness of breath along with dyspnea on exertion: Most likely due to se rodo aortic stenosis. Other possibility could be PE. Patient does have high d-dimer, will pr oceed with CT with IV contrast discussed risk and benefits. Status post endoscopy and dilation of esophageal stricture. Discussed with cardiology. Will follow for timing of VÍCTOR. We'll also follow with CT surgery for further management of aorti c stenosis and surgical management. Has seen Dr. Harrison in the past Had cardiac angiogram was negative for CAD. 2. Hypertension, currently stable on beta blockers and JD inhibitor. Continue same. Disposition: Home. Pending above Code Status: Full Code Dictation and charging plug placer or software, [employer]Cloud, used which may contain error for similar s ounding words even after review. Personal communication requested for any clarification. SUBJECTIVE Events Overnight: *Patient had endoscopy this morning. Currently, no chest pain. Does have dyspnea on exertion on activity. No nausea, vomiting OBJECTIVE General: Well nourished. Psych: Alert and oriented x 3. Calm, cooperative. Cardiovascular: Regular rate and rhythm, systolic murmurs, no thrills. Normal PMI. Respiratory: Clear to auscultation, no wheezing or crackles, breathing non labored. Gastrointestinal: Soft, non-tender, non-distended, positive bowel sounds. No HSM. Musculoskeletal: No edema in bilateral lower extremities. No joint swelling. Neck: No JVD, Trachea midline. Neurological: Non focal. Motor grossly intact. PROBLEM LIST Principal Problem: Chest pain, unspecified Active Problems: Nonrheumatic aortic valve stenosis Essential hypertension Depression Vasovagal attack PMH Past Medical History Diagnosis Date Depression Essential hypertension Aortic stenosis HOME MEDICATIONS Prior to Admission medications Medication Sig Start Date End Date Taking? Authorizing Provider aspirin 81 MG EC tablet Take 81 mg by mouth daily with breakfast. Yes Historical Provider FLUoxetine (PROZAC) 20 MG capsule Take 20 mg by mouth daily. Yes Historical Provider lisinopril (ZESTRIL) 10 MG tablet Take 10 mg by mouth daily. Yes Historical Provider polyethylene glycol (GOLYTELY) 236 G suspension Take 4,000 mLs by mouth See Admin Instructi ons. 10/21/15 PRASANNA Matias DATA Vital Signs: BP 95/54 mmHg | Pulse 62 | Temp(Src) 98 F (36.7 C) (Oral) | Resp 16 | Ht 1.829 m (6') | Wt 89.2 kg (196 lb 10.4 oz) | BMI 26.66 kg/m2 | SpO2 95% Filed Vitals: 11/02/15 0849 11/02/15 0850 11/02/15 0855 11/02/15 0910 BP: 83/53 79/50 83/54 95/54 Pulse: 64 64 62 62 Temp: 98 F (36.7 C) TempSrc: Oral Resp: 16 Height: Weight: SpO2: 95% Intake/Output Summary (Last 24 hours) at 11/02/15 0948 Last data filed at 11/02/15 0818 Gross per 24 hour Intake 700 ml Output 350 ml Net 350 ml CBC: Lab Results Component Value Date WBC 7.32 09/22/2015 RBC 4.86 09/22/2015 HGB 12.5* 11/01/2015 HCT 35.8* 11/01/2015 MCV 89.8 09/22/2015 MCH 30.4 09/22/2015 MCHC 33.8 09/22/2015 RDW 43.3 09/22/2015 PLT 215 09/22/2015 MPV 7.8 09/22/2015 DIFFTYPE AUTOMATED 09/22/2015 CMP: Lab Results Component Value Date NA 136 11/01/2015 K 4.7 11/01/2015 CL 107 11/01/2015 CO2 19* 11/01/2015 ANIONGAP 15 11/01/2015 GLUF 141* 11/01/2015 BUN 24 11/01/2015 CREATININE 1.2 11/01/2015 BCR 20 11/01/2015 CA 8.1* 11/01/2015 EGFR >60 11/01/2015 Magnesium: No results found for: MG Phosphorus: No results found for: PHOS PT/INR: No results found for: PROTIME, INR PTT: No results found for: APTT[APTT Imaging @IMAGES@ Scheduled Medications carvedilol 3.125 mg Oral BID WC enoxaparin 40 mg Subcutaneous Q24H famotidine 20 mg Oral BID Or famotidine 20 mg Intravenous BID FLUoxetine 20 mg Oral Daily lidocaine HCl (PF) lisinopril 10 mg Oral Daily phenylephrine pneumococcal 23-valent vaccine 0.5 mL Intramuscular Once Immunization propofol sodium chloride (bolus) 500 mL Intravenous Once sodium chloride (PF) 10 mL Intravenous Q8H sodium chloride 10 mL Intravenous Q8H Continuous Infusions sodium chloride (IV) PRN Medications acetaminophen OR acetaminophen, fentaNYL, ondansetron OR ondansetron, polyethylene glycol, zolpidem Ottoniel Diaz MD 11/02/20159:48 AM onversion Transaction, Provider Unknown - 11/01/2015 11:10 PM PDTFormatting of this note might be different from th e original. Progress Notes by Pamela Saab RPH at 11/01/152309 Author: Pamela Saab RPH Service: (none) Author Type: Pharmacist Filed: 11/01/152309 Date of Service: 11/01/152309 Status: Signed General Car Yard Supervisor: Pamela Saab RPH (Pharmacist) Renal Dosing Monitoring: Waylon Rbuin 70 y.o. male Pharmacy dosing for renal function per Dr. Clark SCr 1.2, est. CrCl = 62 ml/min Plan per protocol: Medications dosed appropriately for current renal function. Pharmacy will continue monitoring patient for appropriate dosing per renal function. 11/01/2015 11:10 PM Pharmacist: Pamela Saab docume nted in this encounter H&P Notes Alanna Clark MD - 11/01/2015 7:28 PM PDTFormatting of this note might be different fro m the original. H&P by Alanna Clark MD at 11/01/151927 Author: Alanna Clark MD Service: (none) Author Type: Physician Filed: 11/01/151944 Date of Service: 11/01/151927 Status: Addendum General Car Yard Supervisor: Alanna Clark MD (Physician) Related Notes: Original Note by Alanna Clark MD (Physician) filed at 11/01/151941 [facility] Service: Hospitalist Admission History & Physical Date of Admission: 11/01/2015 CHIEF COMPLAINT: Chest pain HISTORY OF PRESENT ILLNESS The patient is a 70 y.o. male with significant past medical history of aortic stenosis, hy pertension, depression who presents with chest pain as a transfer from [place]. Patient w as recently seen in our ER for chest pain. He had angiogram done which did not suggest any r equirement for stents or bypass graft. Incidentally aortic stenosis severe enough was noted. Thereafter Dr. Hussein wanted to transesophageal echocardiogram. Unfortunately because of s tricture, he could not proceed with transesophageal echocardiogram effectively. EGD was ther paulino recommended. Unfortunately although it was scheduled outpatient by Dr. Huynh it could not be done yet. He ended up in our ER before that. Because of his chest pain, he was given sublingual nitroglycerin in the [place] ER. He became quite hypotensive with that al l of a sudden. Hence was readily transferred to our facility. Vitals now are quite stable. P ain nonradiating, substernal, like a lightening bolt, not related to any exertion or activit y, no aggravating or relieving factors. Sometimes associated with nausea. Previously had bee n associated with diaphoresis but not today. REVIEW OF SYSTEMS ROS obtained from patient. All 12 systems reviewed. No other positive pertinent findings n oted except for the ones mentioned above. Past Medical History Diagnosis Date Depression Essential hypertension Aortic stenosis Past Surgical History Procedure Laterality Date Tonsillectomy Allergies Allergen Reactions Penicillins Hives and Rash Family History Problem Relation Age of Onset Heart disease Mother Heart disease Father Diabetes type II Father Diabetes type II Brother Hypertension Brother History Social History Marital Status: Significant Other Spouse Name: N/A Number of Children: N/A Years of Education: N/A Occupational History Not on file. Social History Main Topics Smoking status: Former Smoker -- 2.00 packs/day for 32 years Types: Cigarettes Quit date: 06/17/1980 Smokeless tobacco: Never Used Alcohol Use: 1.2 oz/week 2 Cans of beer per week Drug Use: No Sexual Activity: Not on file Other Topics Concern Not on file Social History Narrative PHYSICAL EXAM BP 116/64 mmHg | Pulse 96 | Resp 16 | SpO2 96% Patient is awake, alert, oriented to time, place and person Skin: Warm and supple Neck: No JVD Chest: Normal vesicular breath sounds, good air entry bilaterally, no chest wall tenderness present CVS: S1S2 audible, no murmurs heard Abdomen: Soft, non tender, normal bowel sounds, no organomegaly Extremities: No pedal edema, clubbing or cyanosis Neurologic examination: No focal sensory or motor deficits Back examination: No CVA tenderness, no spinal tenderness Patient had an episode in the ER with lightheadedness, diaphoresis and nausea. Resolved wit h resting and laying flat. He has not eaten anything for the whole day. Most likely is vasov agal. DATA CBC: Lab Results Component Value Date WBC 7.32 09/22/2015 RBC 4.86 09/22/2015 HGB 12.5* 11/01/2015 HCT 35.8* 11/01/2015 MCV 89.8 09/22/2015 MCH 30.4 09/22/2015 MCHC 33.8 09/22/2015 RDW 43.3 09/22/2015 PLT 215 09/22/2015 MPV 7.8 09/22/2015 DIFFTYPE AUTOMATED 09/22/2015 BMP: Lab Results Component Value Date NA 136 11/01/2015 K 4.7 11/01/2015 CL 107 11/01/2015 CO2 19* 11/01/2015 ANIONGAP 15 11/01/2015 GLUF 141* 11/01/2015 BUN 24 11/01/2015 CREATININE 1.2 11/01/2015 BCR 20 11/01/2015 CA 8.1* 11/01/2015 EGFR >60 11/01/2015 PROBLEM LIST Principal Problem: Chest pain, unspecified Active Problems: Nonrheumatic aortic valve stenosis Essential hypertension Depression ASSESSMENT & PLAN Chest pain: Recurrent unsure of the etiology. Plan is to check a d-dimer level to rule out a PE. EKG studies suggest no changes. Chest x-ray does not suggest any pneumonia. We will ad vise Pep[place]i for dyspepsia symptoms. GI would be willing to do EGD tomorrow. Dr. Lino gautam as already been informed. For now also continue with carvedilol. Aspirin might be put on hol d for the time being given that he is going for EGD tomorrow. Patient to stay npo after midn ight. Aortic valve stenosis: Does not seem to be the etiology behind his chest pain. Might consid er calling Dr. Hussein from cardiology come tomorrow. Hypertension: Patient usually is on listen up relative home. Also had been on carvedilol th at was added today. Had sudden drop in blood pressure when was given nitroglycerin and Pendl eton. Vitals seem to be doing just fine now. Depression: On Prozac. Deep vein thrombosis prophylaxis: Lovenox and SCDs Code Status: Full Code Primary Care Physician: SILVESTRE Clark MD 11/01/2015 documented in this e ncounter Consult Notes Diony Montenegro Jr., MD - 11/03/2015 2:12 PM PDT Consult* by Diony Montenegro MD at 11/03/151411 Author: Diony Montenegro MD Service: (none) Author Type: Physician Filed: 11/03/152140 Date of Service: 11/03/151411 Status: Signed General Car Yard Supervisor: Diony Montenegro MD (Physician) [facility] Service: Cardiothoracic Surgery Initial Consult Note Date of Admission: 11/01/2015 Reason for Consultation: Evaluation for aortic valve replacement Requesting Physician: Dr. Hussein, Cardiology History Obtained From: patient CHIEF COMPLAINT: Dyspnea/fatigue HISTORY OF PRESENT ILLNESS The patient is a 70 y.o. male with significant past medical history of HTN, and recently d iagnosed with severe aortic stenosis. The patient was admitted with chest pain and dyspnea o n 11/01/15. Cardiac angiography last month was negative. He underwent VÍCTOR today. I have revie wed the study. There is severe mitral regurgitation with multiple regurgitant jets. He compl ains of exertional dyspnea. Chest pain has resolved. We are asked to evaluate the patient fo r his valvular disease. REVIEW OF SYSTEMS Review of Systems Constitutional: Positive for fatigue. Respiratory: Positive for shortness of breath. All other systems reviewed and are negative. Past Medical History Diagnosis Date Depression Essential hypertension Aortic stenosis Past Surgical History Procedure Laterality Date Tonsillectomy Esophagogastroduodenoscopy N/A 11/02/2015 Procedure: ESOPHAGOGASTRODUODENOSCOPY; Surgeon: Ghassan Huynh MD; Location: [facility]; Service: Gastroenterology; Laterality: N/A; Allergies Allergen Reactions Penicillins Hives and Rash Prescriptions prior to admission Medication Sig Dispense Refill Last Dose aspirin 81 MG EC tablet Take 81 mg by mouth daily with breakfast. 11/01/2015 at Unknow n time FLUoxetine (PROZAC) 20 MG capsule Take 20 mg by mouth daily. 11/01/2015 at Unknown sean e lisinopril (ZESTRIL) 10 MG tablet Take 10 mg by mouth daily. 11/01/2015 at Unknown sean e polyethylene glycol (GOLYTELY) 236 G suspension Take 4,000 mLs by mouth See Admin Instr uctions. 1 mL 0 Unknown at Unknown time Scheduled Medications carvedilol 3.125 mg Oral BID WC enoxaparin 40 mg Subcutaneous Q24H famotidine 20 mg Oral BID Or famotidine 20 mg Intravenous BID FLUoxetine 20 mg Oral Daily lisinopril 10 mg Oral Daily sodium chloride (PF) 10 mL Intravenous Q8H sodium chloride 10 mL Intravenous Q8H Continuous Infusions PRN Medications acetaminophen OR acetaminophen, fentaNYL, ondansetron OR ondansetron, polyethylene glycol, zolpidem Family History Problem Relation Age of Onset Heart disease Mother Heart disease Father Diabetes type II Father Diabetes type II Brother Hypertension Brother History Smoking status Former Smoker -- 2.00 packs/day for 32 years Types: Cigarettes Quit date: 06/17/1980 Smokeless tobacco Never Used PHYSICAL EXAM Vital Signs: BP 112/66 mmHg | Pulse 60 | Temp(Src) 97.8 F (36.6 C) (Oral) | Resp 20 | Ht 1.829 m (6' ) | Wt 88.7 kg (195 lb 8.8 oz) | BMI 26.52 kg/m2 | SpO2 97% Temp: [97.6 F (36.4 C)-98.4 F (36.9 C)] 97.8 F (36.6 C) (11/02 105) BP: (88-121)/(51-70) 112/66 mmHg (11/02 105) Heart Rate: [60-78] 60 (11/02 105) Resp: [16-20] 20 (11/03 1051) SpO2: [95 %-98 %] 97 % (11/03 1051) Weight: [88.7 kg (195 lb 8.8 oz)] 88.7 kg (195 lb 8.8 oz) (11/02 325) Physical Exam Constitutional: He is oriented to person, place, and time. Vital signs are normal. He appea rs well-developed and well-nourished. HENT: Head: Normocephalic and atraumatic. Eyes: Conjunctivae and lids are normal. Neck: Trachea normal and normal range of motion. Neck supple. No JVD present. Cardiovascular: Normal rate and regular rhythm. Murmur heard. Pulmonary/Chest: Effort normal and breath sounds normal. Abdomina/Gl: Soft. Musculoskeletal: He exhibits no edema. Neurological: He is alert and oriented to person, place, and time. No cranial nerve deficit . Skin: Skin is warm. No cyanosis. DATA VÍCTOR reviewed:Severe MR PROBLEM LIST Principal Problem: Chest pain, unspecified Active Problems: Nonrheumatic aortic valve stenosis Essential hypertension Depression Vasovagal attack ASSESSMENT & PLAN 70 Y/O with severe aortic stenosis and severe mitral regurgitation. I have recommended doub le valve surgery. Risks and benefits of the procedure including but not limited to bleeding , infection, stroke, damage to the heart, lungs, kidneys and were discussed with the p atient. Risks and benefits of tissue and mechanical valves including the need for life-long coumadin therapy with mechanical valves and its attendant bleeding risk of 2.5% per year wer e also discussed with the patient. STS risk score was calculated and reviewed. Patient/famil y understand the risks and want to proceed with surgery. AVR/MVR planned for 11/04/15. Code Status: Full Code Primary Care Physician: SILVESTRE MORENO Thank you for allowing me to participate in the care of this patient. DIONY MONTENEGRO MD 11/03/2015 René, Beata Qureshi MD - 11/02/2015 7:42 AM PDTFormatting of this note might be different from the ham velazco. Consults by Ghassan Huynh MD at 11/02/15 0742 Author: Ghassan Huynh MD Service: Gastroenterology Author Type: Physician Filed: 11/02/15 0759 Date of Service: 11/02/15 0742 Status: Signed General Car Yard Supervisor: Ghassan Huynh MD (Physician) [facility] Service: Gastroenterology Initial Consult Note Date of Visit: 11/02/2015 Primary Care Physician: SILVESTRE MORENO Reason for Consultation: Dysphagia Requesting Physician: MD Eduardo History Obtained From: patient CHIEF COMPLAINT: Chief Complaint Patient presents with Chest Pain Shortness of Breath HISTORY OF PRESENT ILLNESS Waylon Rubin is a 70 y.o. male with a history of significant valvular cardiac disease. Pat ient is known to have severe aortic stenosis as well as mild coronary artery disease. Patien t has been undergoing an evaluation for possible aortic valve replacement. A transesophageal echocardiogram was planned and attempted. However, transesophageal echocardiogram probe cou ld not pass the upper esophagus and so patient was referred for GI evaluation. Patient repor ts a long-standing history of dysphagia. This has been to both solids and liquids but solids are more common. Dysphagia occurs almost daily. EGD and colonoscopy were planned as part of pre-cardiac surgery workup. However, patient d eveloped chest pain and presented to the ER. He was then transferred to [facility]. Is still camilo ving significant trouble swallowing. No chest pain since admission. REVIEW OF SYSTEMS 10 system review of systems obtained. See HPI, otherwise negative. Allergies Allergen Reactions Penicillins Hives and Rash Current Facility-Administered Medications Medication Dose Route Frequency Provider Last Rate Last Dose acetaminophen (TYLENOL) tablet 650 mg 650 mg Oral Q6H PRN Alanna Clark MD Or acetaminophen (TYLENOL) suppository 650 mg 650 mg Rectal Q6H PRN Alanna Clark MD carvedilol (COREG) tablet 3.125 mg 3.125 mg Oral BID Alanna Clark MD Stopped a t 11/01/152246 enoxaparin (LOVENOX) injection 40 mg 40 mg Subcutaneous Q24H Ghassan Huynh MD famotidine (PEPCID) tablet 20 mg 20 mg Oral BID Alanna Clark MD Or famotidine (PEPCID) IVPB 20 mg 20 mg Intravenous BID Alanna Clark MD 100 mL/hr at 0 11/01/152201 20 mg at 11/01/152201 fentaNYL (SUBLIMAZE) injection 25 mcg 25 mcg Intravenous Q1H PRN Alanna Clark MD 25 mcg at 11/01/152158 FLUoxetine (PROzac) capsule 20 mg 20 mg Oral Daily Alanna Clark MD Stopped at 2246 lisinopril (ZESTRIL) tablet 10 mg 10 mg Oral Daily Alanna Clark MD Stopped at 2247 ondansetron (ZOFRAN) tablet 4 mg 4 mg Oral Q6H PRN Alanna Clark MD Or ondansetron (ZOFRAN) injection 4 mg 4 mg Intravenous Q6H PRN Alanna Clark MD 4 mg at 11/01/15 2313 polyethylene glycol (GLYCOLAX) packet 17 g 17 g Oral Daily PRN Alanna Clark MD sodium chloride (PF) 0.9 % flush 10 mL 10 mL Intravenous Q8H Alanna Clark MD 10 m L at 11/01/152200 sodium chloride 0.9 % flush 10 mL 10 mL Intravenous Q8H Pamela Sotomayor DO sodium chloride 0.9 % infusion Intravenous Continuous Ghassan Huynh MD zolpidem (AMBIEN) tablet 5 mg 5 mg Oral Nightly PRN Alanna Clark MD Past Medical History Diagnosis Date Depression Essential hypertension Aortic stenosis Past Surgical History Procedure Laterality Date Tonsillectomy Family History Problem Relation Age of Onset Heart disease Mother Heart disease Father Diabetes type II Father Diabetes type II Brother Hypertension Brother History Social History Marital Status: Significant Other Spouse Name: N/A Number of Children: N/A Years of Education: N/A Occupational History Not on file. Social History Main Topics Smoking status: Former Smoker -- 2.00 packs/day for 32 years Types: Cigarettes Quit date: 06/17/1980 Smokeless tobacco: Never Used Alcohol Use: 1.2 oz/week 2 Cans of beer per week Drug Use: No Sexual Activity: Not on file Other Topics Concern Not on file Social History Narrative History Smoking status Former Smoker -- 2.00 packs/day for 32 years Types: Cigarettes Quit date: 06/17/1980 Smokeless tobacco Never Used History Alcohol Use 1.2 oz/week 2 Cans of beer per week History Drug Use No History Sexual Activity Sexual Activity: Not on file PHYSICAL EXAM Vital Signs: BP 106/64 mmHg | Pulse 78 | Temp(Src) 98 F (36.7 C) (Oral) | Resp 16 | Ht 1.829 m (6') | Wt 89.2 kg (196 lb 10.4 oz) | BMI 26.66 kg/m2 | SpO2 96% Gen:NAD CV:Regular, prominent systolic murmur Lungs: CTAB Abd:Non-tender, +BS, no masses or organomegaly Ext:No LE edema HENT: EOMI, no scleral icterus Skin: Warm, moist, intact Neuro:Intact and symmetric grossly DATA Lab Results Component Value Date WBC 7.32 09/22/2015 HGB 12.5* 11/01/2015 HCT 35.8* 11/01/2015 MCV 89.8 09/22/2015 PLT 215 09/22/2015 Lab Results Component Value Date CREATININE 1.2 11/01/2015 No results found for: INR, PROTIME ASSESSMENT & PLAN Dysphagia Severe aortic stenosis Coronary artery disease - Patient was admitted with chest pain - Troponin has been negative and EKG does not have any new changes - Patient would benefit from EGD so that cardiac intervention can move forward - Plan EGD today - Risks, benefits, and alternatives of the procedure were discussed in detail and patient is willing to proceed. We specifically discussed that his is at increased risk because of h is cardiac status. - We will definitely need anesthesia assistance - Pt is NPO Thank you for allowing me to participate in the care of this patient. I look forward to rekha landin along with you. Please don't hesitate to call with any questions. Ghassan Huynh MD [facility] Gastroenterology 11/02/2015 documented in th is encounter ED Notes Conversion Transaction, Provider Unknown - 11/01/2015 9:09 PM PDTFormatting of this note m ight be different from the original. ED Notes by Heriberto Santoro RN at 11/01/152108 Author: Heriberto Santoro RN Service: Emergency Department Author Type: Registered Nurse Filed: 11/01/152109 Date of Service: 11/01/152108 Status: Signed General Car Yard Supervisor: Heriberto Santoro RN (Registered Nurse) Report received from negro Marquez assumed by this RN. The pt has hd PO meds held at this point, he has been nauseated and vomiting over the past hr per prior RN. Heriberto Santoro RN 11/01/152109 onver reny Transaction, Provider Unknown - 11/01/2015 8:36 PM PDT ED Notes by SN Shelby at 11/01/152035 Author: SN Shelby Service: (none) Author Type: Die Cast Supervisor Filed: 11/01/152036 Date of Service: 11/01/152035 Status: Signed General Car Yard Supervisor: SN Shelby (Die Cast Supervisor) Cosigner: Jeannette Neil RN at 11/01/15 2 050 Patient ambulated to bathroom. Tolerated well. Once back to bed patient actively vomiting. Katie De Luna RN student 11/01/152036 onver reny Transaction, Provider Unknown - 11/01/2015 5:36 PM PDT ED Notes by Jeannette Neil RN at 11/01/151735 Author: Jeannette Neil RN Service: (none) Author Type: Registered Nurse Filed: 11/01/151735 Date of Service: 11/01/151735 Status: Signed General Car Yard Supervisor: Jeannette Neil RN (Registered Nurse) Patient returned from xray Jeannette Neil RN 11/01/151735 onver reny Transaction, Provider Unknown - 11/01/2015 5:33 PM PDT ED Notes by SN Shelby at 11/01/151732 Author: SN Shelby Service: (none) Author Type: Die Cast Supervisor Filed: 11/01/151733 Date of Service: 11/01/151732 Status: Signed General Car Yard Supervisor: SN Shelby (Die Cast Supervisor) Cosigner: Jeannette Neil RN at 11/01/15 1 735 Patient taken to X-ray. Katie De Luna RN student 11/01/151733 onver reny Transaction, Provider Unknown - 11/01/2015 5:04 PM PDT ED Notes by Jeannette Neil RN at 11/01/151703 Author: Jeannette Neil RN Service: (none) Author Type: Registered Nurse Filed: 11/01/151703 Date of Service: 11/01/151703 Status: Signed General Car Yard Supervisor: Jeannette Neil RN (Registered Nurse) Report received from Cynthia GILES. Jeannette Neil RN 11/01/151703 amela Sumner DO - 11/01/2015 5:03 PM PDTFormatting of this note might be different from the o riginal. ED Provider Notes by Pamela Sotomayor DO at 11/01/151702 Author: Pamela Sotomayor DO Service: Emergency Department Author Type: Physician Filed: 11/02/15 0036 Date of Service: 11/01/151702 Status: Signed General Car Yard Supervisor: Pamela Sotomayor DO (Physician) Procedure Orders: 1. POCT occult blood stool [[id number]] ordered by Pamela Sotomayor DO at 11/01/15 1756 [facility] Department of Emergency Medicine Pre-arrival Provider: Another ED Does provider wish to be contacted after eval?: No Pertinent History and Concerns: hx of Aortic Stenosis and "valve Issue", HTN, no surgeries. Lightning bolt chest pain this AM, Left sided, unable to resolve chest pain. Allergy to Ni tro, tried given dose with hypotension event. Relevant Labs or Studies: -troponin, -EKG, Relevant Medications: Nitro given x1 which resulted in systolic BP 145 to go to systolic 76 , 100mcg fentanyl x2, 1 mg dilaudid x2, 324 asa, 50 metoprolol, 30 imdur, 4 Zofran Current Reported Vital Signs: 125/77, 78 bpm, 13R.R., 97.7 temp, 100% sao2 on RA. (11/01/15 1517 : Maulik Dupont, RN) 5:03 PM History of Present Illness Patient Identification Waylon Rubin is a 70 y.o. male. Patient information was obtained from patient. History/Exam limitations: none. Patient presented to the Emergency Department by: [facility] Chief Complaint Chief Complaint Patient presents with Chest Pain Shortness of Breath 70 y.o. male with history of severe aortic stenosis presents to the ED complaining of chest pain. Onset of symptoms was 6:30 AM, with a constant course since that time. Pt states he was just getting out of the shower when pain began. Pt reports he went to [facility], [facility] [place], at 1 PM. Report from [facility] states: pt's BP initially was quite high at 1 84/111. Pt was given nitro which dropped his BP to 76/42. Pt was give full dose of aspirin , several doses of Fentanyl, and Dilaudid which gave some relief of pain. Pt's labs, from [facility] were: Hemoglobin 14.9, Platelets 227, INR 1, Creatinine 1.25, WBC 9.5, and LFTs normal. EKG showed no ischemia, LVH and Q waves inferiorly. Repeat EKG done 1 hour later, which was unchanged. Pt states that [facility] recommended pt be brought here for obser vation. The patient describes the symptoms as "a bowling ball on my chest and then hit like a lightening ball." Pt reports he has been told that it is possible his pain is coming fro m his bowels. No care prior to arrival reported. The patient also complains of sob, abdomi nal pain, and emesis. Patient denies black or bloody stools, hemoptysis, or any other sympt oms at this time. PMHx: Pt reports that he just had a heart catheretization done on 09/22/2015. Pt states he was told that he needed a valve replacement 2 months ago. Pt states he was told it needed t o happen "as soon as possible." However, procedure has yet to be scheduled. PCP: SILVESTRE MORENO Past Medical History Diagnosis Date Depression Essential hypertension Aortic stenosis Past Surgical History Procedure Laterality Date Tonsillectomy Prior to Admission medications Medication Sig Start Date End Date Taking? Authorizing Provider aspirin 81 MG EC tablet Take 81 mg by mouth daily with breakfast. Historical Provider FLUoxetine (PROZAC) 20 MG capsule Take 20 mg by mouth daily. Historical Provider lisinopril (ZESTRIL) 10 MG tablet Take 10 mg by mouth daily. Historical Provider polyethylene glycol (GOLYTELY) 236 G suspension Take 4,000 mLs by mouth See Admin Instructi ons. 10/21/15 Anna Navarrete, BAGGAGE CLERK Allergies Allergen Reactions Penicillins Hives and Rash History Social History Marital Status: Significant Other Spouse Name: N/A Number of Children: N/A Years of Education: N/A Occupational History Not on file. Social History Main Topics Smoking status: Former Smoker -- 2.00 packs/day for 32 years Types: Cigarettes Quit date: 06/17/1980 Smokeless tobacco: Never Used Alcohol Use: 1.2 oz/week 2 Cans of beer per week Drug Use: No Sexual Activity: Not on file Other Topics Concern Not on file Social History Narrative Family History Problem Relation Age of Onset Heart disease Mother Heart disease Father Diabetes type II Father Diabetes type II Brother Hypertension Brother Review of Systems Constitutional: Negative for fever, chills Negative for fatigue Eyes: Negative for vision changes or photophobia Nose: Negative for congestion Throat: Negative for sore throat or swelling CV/Resp: Positive for chest pain Positive for [id number] Negative for cough GI: Positive for abdominal pain Negative for nausea Positive for vomiting Negative for constipation Negative for diarrhea Negative for black or bloody stools : Negative for urinary frequency Negative for pain with urination Musculoskeletal: Negative for back pain Negative for neck pain or stiffness. Skin: Negative for rash Neuro/Psych: Negative for headache All other systems reviewed and negative except as noted. Physical Exam BP 148/83 mmHg | Pulse 72 | Resp 21 | SpO2 96% Vital signs interpretation: slightly hypertensive, slightly tachypneic, otherwise normal. Pt is requiring 0L O2 via nasal canula. Prehospital O2 saturation was 100 % on RA. Pulse Oximetry interpretation: Normal General: Alert, in no apparent distress Eyes: Normal inspection, PERRL, non-icteric, EOM's intact. Slightly pale conjunctiva. ENT: Ears normal Nose normal Pharynx normal, mucous membranes are moist. Neck: Normal inspection Supple, no lymphadenopathy Non-tender to palpation. Cardiovascular: Rate and rhythm normal Loud holosystolic murmur heard best over Lt sternal border. Heart sounds are easily auscultated Chest non-tender to palpation Respiratory: Normal work of breathing Breath sounds equal bilaterally No rales, wheezing or rhonchi Abdomen: Soft, non-tender, non-distended Normal bowel sounds No guarding or rebound No masses. No pulsatile masses. Genitourinary: Deferred Rectal exam: Deferred Back: Normal inspection, no CVA tenderness or spinal tenderness Skin: Color somewhat pale. Warm and dry No rash Extremities: No swelling or pitting edema. No calf tenderness or palpable cords. Neuro: Alert, no AMS, speech is clear. No gross motor/sensory deficits Medical Decision Making and Emergency Department Course ED Department Course Patient presents to ED with complaints of chest pain and sob. On exam the patient has a yosef d holosystolic murmur heard best over Lt sternal border. Pal is somewhat pale and has sligh tly pale conjunctiva. My DDx includes, but is not limited to: pain secondary to , recent c ardiac cath unremarkable therefore, unlikely,ly ACS, Cardiac dysrhythmia, GERD, vs other. W ill order CXR, BMP, Troponin, Hemoglobin, Hematocrit, BNP, Dilaudid, Zofran, and reevaluate the patient. Patient's condition is stable at this time. 5:50 PM CXR results show no radiographic evidence of acute cardiopulmonary disease. 5:56 PM Rectal exam preformed, bedside. Exam produced dark brown stool with no melena. He moccult is negative. Pt reports he was ashen in appearance when he checked in at [facility] y's earlier today. Medications sodium chloride 0.9 % flush 10 mL (not administered) HYDROmorphone (DILAUDID) injection 0.5 mg (0.5 mg Intravenous Given 11/01/151742) ondansetron (ZOFRAN) injection 4 mg (4 mg Intravenous Given 11/01/151738) Admission Upon review of the patient s history, physical and the results of studies I believe that the patient warrants admission to the hospital for further evaluation and treatment. I have spoken with the patient regarding the need for admission to the hospital, and the patient h as expressed understanding of this. I will call and arrange for admission at this time. 6:19 PM Discussed pt with Dr. Clark, Hospitalist, who is present in the ED. Dr. Mike carvajal accepts pt for admission. Records Reviewed Old medical records. Nursing notes. Nursing notes. Nursing notes reviewed for chief complaint, medications, clinical presentati on and vital signs. Old ED records reviewed (Using the electronic record system of [facility], Julian kumar reviewed the records with regard to the past medical/surgical history, previous medic ations, and allergies). Laboratory Evaluation Results Procedure Component Value Ref Range Date/Time D Dimer,Quantitative [[id number]] (Abnormal) Collected: 11/01/151720 Order Status: Completed Updated: 11/01/151940 D DIMER, QUANTITATIVE 1.38 (H) 0.19 - 0.50 mg/L FEU Troponin I, Lab [[id number]] Collected: 11/01/151720 Order Status: Completed Specimen Information: Blood Updated: 11/01/151750 TROPONIN I <0.020 0.00 - 0.10 ng/mL Basic Metabolic Panel [[id number]] (Abnormal) Collected: 11/01/151720 Order Status: Completed Specimen Information: Blood Updated: 11/01/151750 SODIUM 136 135 - 143 mmol/L POTASSIUM 4.7 3.5 - 4.9 mmol/L CHLORIDE 107 99 - 109 mmol/L CO2 19 (L) 23 - 32 mmol/L ANION GAP AGAP 15 5 - 20 mmol/L GLUCOSE 141 (H) 65 - 99 mg/dL BUN 24 8 - 25 mg/dL CREATININE 1.2 0.70 - 1.30 mg/dL BUN/CREAT 20 CALCIUM 8.1 (L) 8.5 - 10.5 mg/dL EGFR >60 >60 mL/min/1.73m2 BNP [[id number]] (Abnormal) Collected: 11/01/151720 Order Status: Completed Specimen Information: Blood Updated: 11/01/151746 BRAIN NATRIURETIC PEPTIDE 114 (H) 0 - 100 pg/mL Hemoglobin and Hematocrit [[id number]] (Abnormal) Collected: 11/01/151720 Order Status: Completed Updated: 11/01/151732 HGB 12.5 (L) 13.2 - 17.0 g/dL HCT 35.8 (L) 39.0 - 50.0 % I personally reviewed the lab results and they have been posted to the chart. Pertinent po sitive and negative findings have been addressed appropriately. EKG and Radiology Evaluation EKG performed at 1715 Normal Sinus Rhythm 65 bpm. Normal axis Intervals normal Q waves inferiorly No significant ST segment abnormalities T wave flattening V5 andV6 No acute ischemia. Interpreted by me at time of service Imaging Results XR Chest PA and Lateral (Final result) Result time: 11/01/15 17:50:12 Final result by Rad Results In Matt (11/01/15 17:50:12) Impression: No radiographic evidence of acute cardiopulmonary disease. Narrative: WAYLON RUBIN XR CHEST 2 VIEW FRONTAL AND LATERAL 11/01/2015 5:35 PM HISTORY: 70 years. Male. Chest pain TECHNIQUE: XR CHEST 2 VIEW FRONTAL AND LATERAL. 2 view(s) obtained. COMPARISON: None. FINDINGS: Normal cardiac size. Normal pulmonary vascular pattern. No focal consolidation, pulmonary n odule, pulmonary mass, pleural effusion or pneumothorax. No acute fracture. Multilevel degen erative disc disease in thoracic spine. Mild bilateral acromioclavicular osteoarthritis. Vis ualized portion of abdomen is unremarkable. Probably defibrillator pads project over left hemithorax. ED Diagnoses Final diagnoses Chest pain, unspecified type Severe aortic stenosis Secondary hypertension, hypertension with unspecified goal Anemia, unspecified type Disposition: ED Disposition Admit/Observation Bed request special needs: None Diagnosis?: chest pain Follow-up Information None Discharge Medications: Current Discharge Medication List This chart has been created using [employer] Speech Recognition software. The chart has been reviewed and there may still exist sound alike word errors. Procedures Additional Documentation Guaiac negative stool. Performed by ED provider. Hemoccult water quality specialist Passed. Attending Note: Documentation assistance provided by Dede Long (Scribe). Information recorded by the scribe has been reviewed and validated by me. I ag argenis with its contents. DO Pamela Guzman DO 11/02/15 0036 documented in this e ncounter Miscellaneous Notes Plan of Care - Conversion Transaction, Provider Unknown - 11/05/2015 5:58 PM PDT Plan of Care by Zena Mendoza RN at 11/05/151757 Author: Zena Mendoza RN Service: (none) Author Type: Registered Nurse Filed: 11/05/151757 Date of Service: 11/05/151757 Status: Signed General Car Yard Supervisor: Zena Mendoza RN (Registered Nurse) Daily Care Daily care needs are met Progressing Discharge Barriers Patient's discharge needs are met Progressing Mobility LTG - Patient will ambulate community distance Progressing LTG - Patient will ambulate household distance Progressing LTG - Patient will demonstrate safe mobility requirements Progressing STG - Patient will ambulate Progressing Pain Patient's pain/discomfort is manageable Progressing Psychosocial Needs Demonstrates ability to cope with hospitalization/illness Progressing Collaborate with patient/family/caregiver to identify patient specific goals for this h ospitalization Progressing Safety Patient will be injury free during hospitalization Progressing p Not e - Diony Montenegro Jr., MD - 11/04/2015 3:32 PM PDTFormatting of this note might be differ ent from the original. Op Note signed by Diony Montenegro MD at 11/04/151725 Author: Diony Montenegro MD Service: (none) Author Type: Physician Filed: 11/04/151725 Date of Service: 11/04/15 153 Status: Signed General Car Yard Supervisor: Diony Montenegro MD (Physician) WAYLON RUBIN Date of : 1945 DATE OF SERVICE November 04, 2015 PREOPERATIVE DIAGNOSES 1. Severe aortic stenosis. 2. Severe mitral insufficiency. 3. Depression. 4. Hypertension. POSTOPERATIVE DIAGNOSES 1. Severe aortic stenosis. 2. Severe mitral insufficiency. 3. Depression. 4. Hypertension. PROCEDURES 1. Aortic valve replacement with a #23 Magna valve. 2. Mitral valve replacement with a #29 Mosaic valve. SURGEON Diony Montenegro MD FLOOR REPRESENTATIVE CARRI Garcia ANESTHESIOLOGIST Zuhair Abbott MD ANESTHESIA General endotracheal. COMPLICATIONS None. DRAINS A #28 chest tube x1. INTRAVENOUS FLUIDS 1. 2500 mL. 2. 2 units of platelets. ESTIMATED BLOOD LOSS All recycled. INDICATIONS The patient is a 70-year-old white male with a history of hypertension who was recently deidra gnosed with severe aortic stenosis. The patient was admitted on November 01, 2015, with chest alan n and dyspnea. Cardiac angiography had been performed last month in anticipation of aortic v alve surgery. There was no evidence of obstructive coronary artery disease. He underwent tra nsesophageal echocardiography yesterday, which I reviewed. The patient has severe aortic yelitza nosis as well as severe mitral insufficiency. I saw the patient in consultation and I recomm ended aortic and mitral valve surgery. Risks and benefits of the procedure including but not limited to bleeding, infection, damage to heart, lungs, and kidneys, stroke and were discussed at length with the patient. He now presents for surgery. FINDINGS 1. 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 2. The ascending aorta was mildly calcified. 3. The aortic valve was trileaflet and heavily calcified. 4. 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 5. Transesophageal echocardiography after the procedure showed both the aortic and mitral v alve prostheses to be functioning well. DESCRIPTION OF PROCEDURE The patient was identified and taken to the operating room where he was placed supine on th e operating table. After the adequate induction of general endotracheal anesthesia, Edgerton-Bushra z catheter and arterial line were placed. The patient's neck, chest, abdomen, and lower extr emities were prepped and draped in the usual sterile fashion. A midline incision was made over the sternum and carried down to the sternal table. The yelitza rnum was divided in the midline. A sternal retractor was put into place. The pericardium was opened in the midline and suspended. The patient was then systemically heparinized. When th e ACT had reached 400, the patient was cannulated via the distal ascending aorta and bicaval ly cannulated with a #28 right-angle cannula in the SVC and a #32 right-angle cannula in the IVC. Coronary sinus catheter was placed via the mid right atrium. A left ventricular vent w as placed via the right superior pulmonary vein. A cardioplegia needle was placed in the pro ximal ascending aorta. Cardiopulmonary bypass was then instituted without difficulty. The he art decompressed. The patient's temperature was cooled to 32 degrees. The aorta was then diversified crops farmer ss clamped and the heart was arrested with 2 L of antegrade-retrograde cardioplegia solution . Myocardial septal temperatures were measured and kept below 15 degrees. Cardioplegia was g iven every 15 minutes during the cross clamp period. A transverse aortotomy was made 3 cm above the base of the aortic root. The aortic valve wa s exposed. It was trileaflet and heavily calcified. All 3 leaflets were sharply excised. The annulus was debrided of all calcium. The root was then copiously irrigated with saline. The valve sized to a #23 Magna valve. Snares were then passed around the SVC and IVC cannulas a nd tightened resulting in total cardiopulmonary bypass. A right atriotomy was made parallel to the right atrioventricular groove. The septum was exposed. The edges of the incision were retracted with 2-0 pledgeted Ethibond stitches. An incision was made in the fossa ovalis an d was extended cephalad onto the roof of the left atrium, and 2-0 Ethibond stitches were angelo dontae at the edges of the septal incision and retracted, exposing the mitral valve. The mitral valve was inspected. 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 The valve was tested. There were multiple area s of leakage. A triangular resection was performed on the posterior leaflet with the leaflet s reapproximated using 5-0 Prolene. After this was done, there were still several more areas of prolapse of the anterior leaflet. We attempted to repair these areas by plicating them, but the valve continued to leak. It was decided to replace the mitral valve. The anterior le aflet was excised. The posterior leaflet was left in place. The valve sized to a #29 Mosaic valve. Ethibond 2-0 pledgeted stitches were passed circumferentially around the annulus with the pledgets on the atrial side. The sutures were then passed through the sewing ring of th e valve and the valve was seated. After ensuring adequate seating, all sutures were tied and divided. The valve appeared to be functioning well. The transeptal incision was closed usin g a running 4-0 Prolene stitch. The right atriotomy was closed using a running 5-0 Prolene s titch. Silk 2-0 simple stitches were placed at each aortic valve commissure elevating the valve. T he valve was again sized to a #23 Magna valve. Ethibond 3-0 simple interrupted stitches were passed circumferentially around the annulus. They were then passed through the sewing ring of the valve and the valve was seated. After ensuring adequate seating of the aortic valve, all sutures were tied and divided. The patient was rewarmed. The aortotomy was closed in 2 l yanes using running 4-0 Prolene. The patient was then placed in deep Trendelenburg position and with high suction aortic vent the cross clamp was removed. The heart returned to a sinus rhythm after 1 cardioversion. A right ventricular pacing wire was placed. When the patient' s temperature had reached 36.5 degrees, he was weaned from cardiopulmonary bypass without di fficulty on no inotropic support. He remained hemodynamically stable. Protamine was then giv en to reverse the heparin. The patient was then decannulated in the usual fashion. All surgi deisy sites were inspected. There was adequate hemostasis. A small incision was made below the main incision. A #28 chest tube was placed anterior to the heart. The sternum was reapproximated with wires in the usual fashion. Subcutaneous tiss ues and skin were closed with running Vicryl stitches. A sterile dressing was applied to the wound. The patient tolerated the procedure well, was transferred to the intensive care unit in stable condition. P/ P/dlm/[id number] DIONY MONTENEGRO MD p Note - Diony Olivarez Jr., MD - 11/04/2015 3:23 PM PDTFormatting of this note might be different from t he original. 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 Findings: See note Complications: none Condition: Stable See dictated operative report for full details. DIONY MONTENEGRO MD 11/04/2015 lan of Care - C onversion Transaction, Provider Unknown - 11/04/2015 3:42 AM PDTFormatting of this note luis ht be different from the original. Plan of Care by Sandra Horn RN at 11/04/15341 Author: Sandra Horn RN Service: (none) Author Type: Registered Nurse Filed: 11/04/15341 Date of Service: 11/04/15341 Status: Signed General Car Yard Supervisor: Sandra Horn RN (Registered Nurse) Daily Care Daily care needs are met Progressing Discharge Barriers Patient's discharge needs are met Progressing Pain Patient's pain/discomfort is manageable Progressing Psychosocial Needs Demonstrates ability to cope with hospitalization/illness Progressing Collaborate with patient/family/caregiver to identify patient specific goals for this h ospitalization Progressing Safety Patient will be injury free during hospitalization Progressing lan o f Care - Conversion Transaction, Provider Unknown - 11/03/2015 4:11 AM PDTFormatting of thi s note might be different from the original. Plan of Care by Sandra Horn RN at 11/03/15410 Author: Sandra Horn RN Service: (none) Author Type: Registered Nurse Filed: 11/03/151 Date of Service: 11/03/15410 Status: Signed General Car Yard Supervisor: Sandra Horn RN (Registered Nurse) Daily Care Daily care needs are met Progressing Discharge Barriers Patient's discharge needs are met Progressing Pain Patient's pain/discomfort is manageable Progressing Psychosocial Needs Demonstrates ability to cope with hospitalization/illness Progressing Collaborate with patient/family/caregiver to identify patient specific goals for this h ospitalization Progressing Safety Patient will be injury free during hospitalization Progressing p Not e - Geldmacher, Ghassan Qureshi MD - 11/02/2015 8:24 AM PDTFormatting of this note might be differ ent from the original. Op Note by Ghassan Huynh MD at 11/02/15823 Author: Ghassan Huynh MD Service: Gastroenterology Author Type: Physician Filed: 11/02/1529 Date of Service: 11/02/15823 Status: Signed General Car Yard Supervisor: Ghassan Huynh MD (Physician) [facility] Service: Gastroenterology ENDOSCOPY SUITE PROCEDURE NOTE Esophagogastroduodenoscopy Procedure: Esophagogastroduodenoscopy (EGD) Indications: Dysphagia Referring Physician: SILVESTRE MORENO Consent: The benefits, risks (bleeding, perforation, infection and reaction to medication) , and alternatives to the procedure were discussed and informed consent was obtained from th e patient. Preparation: EKG, pulse, pulse oximetry, and blood pressure were monitored throughout the procedure. ASA Grade and Mallampati Classification per anesthesia service. Medications: See anesthesia documentation Procedure: The gastroscope was passed through the mouth under direct visualization and was advanced with ease to the 2nd portion of the duodenum. Retroflex exam performed in the fund us. The scope was withdrawn and the mucosa was carefully examined. The views were good. Ther e were no apparent complications. Findings: Esophagus: Stricture noted at GE junction with some mild esophagitis. No evid ence of neoplasm. Balloon dilation serially performed to maximum diameter of 16.5 mm. Smal l mucosal tear occurred at this size. No deep tears. Stomach: 4-6 cm hiatal hernia with likely shallow tawanna's erosions. 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 This is likely cause of d ysphagia as well as unsuccessful VÍCTOR. Medium sized hiatal hernia Complications: None; patient tolerated the procedure well. EBL: Minimal Recommendations: OK to proceed with VÍCTOR from GI standpoint. Can consider doing while inpa tient. Will give clear liquids for now Continue PPI BID To floor when criteria is met May benefit from future dilation of stricture but this can wait while cardiac interventi ons are performed. Dilation to 16.5 mm is usually large enough that a majority of patients can swallow with minimal difficulty. Continue dysphagia precautions Ghassan Huynh MD 11/02/2015 documented in th is encounter Plan of Treatment +--------+ + + + + | Date | Type | Specialty | Care Team | Description | +--------+ + + + + | 01/27/ | Appointment | Radiology | Sp [facility], | | | 2019 | | | [facility] | | | | | | [facility] [address] | | | | | | [place] [address] | | | | | | [phone] | | | | | | | | | | | | [employer] Professor, [employer] | | | | | | indra mortensen | | +--------+ + + + + | 03/17/ | Office | Cardiology | Chrystal Grimaldo | | | 2019 | Visit | | [address] | | | | | | [address] | | | | | | [place] [address] | | | | | | [phone] | | | | | | | | +--------+ + + + + documented as of this encounter Procedures + +--------+ + + + | Procedure Name | Priori | Date/Time | Associated Diagnosis | Comments | | | ty | | | | + +--------+ + + + | POC GLUCOSE | Routin | 11/09/2015 | | Results for this | | | e | 11:38 AM | | procedure are in the | | | | PDT | | results section. | + +--------+ + + + | POC GLUCOSE | Routin | 11/09/2015 | | Results for this | | | e | 5:29 AM | | procedure are in the | | | | PDT | | results section. | + +--------+ + + + | EXTERNAL LAB: CBC | Routin | 11/09/2015 | | Results for this | | | e | 4:55 AM | | procedure are in the | | | | PDT | | results section. | + +--------+ + + + | PROTIME INR | Routin | 11/09/2015 | | Results for this | | | e | 4:55 AM | | procedure are in the | | | | PDT | | results section. | + +--------+ + + + | PHOSPHORUS | Routin | 11/09/2015 | | Results for this | | | e | 4:55 AM | | procedure are in the | | | | PDT | | results section. | + +--------+ + + + | MAGNESIUM | Routin | 11/09/2015 | | Results for this | | | e | 4:55 AM | | procedure are in the | | | | PDT | | results section. | + +--------+ + + + | BASIC METABOLIC | Routin | 11/09/2015 | | Results for this | | PANEL | e | 4:55 AM | | procedure are in the | | | | PDT | | results section. | + +--------+ + + + | POC GLUCOSE | Routin | 11/08/2015 | | Results for this | | | e | 9:02 PM | | procedure are in the | | | | PDT | | results section. | + +--------+ + + + | POC GLUCOSE | Routin | 11/08/2015 | | Results for this | | | e | 4:40 PM | | procedure are in the | | | | PDT | | results section. | + +--------+ + + + | POC GLUCOSE | Routin | 11/08/2015 | | Results for this | | | e | 11:41 AM | | procedure are in the | | | | PDT | | results section. | + +--------+ + + + | XR CHEST 2 VIEWS | Routin | 11/08/2015 | | Results for this | | | e | 7:08 AM | | procedure are in the | | | | PDT | | results section. | + +--------+ + + + | POC GLUCOSE | Routin | 11/08/2015 | | Results for this | | | e | 5:39 AM | | procedure are in the | | | | PDT | | results section. | + +--------+ + + + | EXTERNAL LAB: CBC | Routin | 11/08/2015 | | Results for this | | | e | 4:25 AM | | procedure are in the | | | | PDT | | results section. | + +--------+ + + + | PHOSPHORUS | Routin | 11/08/2015 | | Results for this | | | e | 4:25 AM | | procedure are in the | | | | PDT | | results section. | + +--------+ + + + | MAGNESIUM | Routin | 11/08/2015 | | Results for this | | | e | 4:25 AM | | procedure are in the | | | | PDT | | results section. | + +--------+ + + + | BASIC METABOLIC | Routin | 11/08/2015 | | Results for this | | PANEL | e | 4:25 AM | | procedure are in the | | | | PDT | | results section. | + +--------+ + + + | POC GLUCOSE | Routin | 11/07/2015 | | Results for this | | | e | 9:08 PM | | procedure are in the | | | | PDT | | results section. | + +--------+ + + + | HEMOGLOBIN AND | Routin | 11/07/2015 | | Results for this | | HEMATOCRIT | e | 5:22 PM | | procedure are in the | | | | PDT | | results section. | + +--------+ + + + | BASIC METABOLIC | Routin | 11/07/2015 | | Results for this | | PANEL | e | 5:22 PM | | procedure are in the | | | | PDT | | results section. | + +--------+ + + + | POC GLUCOSE | Routin | 11/07/2015 | | Results for this | | | e | 4:52 PM | | procedure are in the | | | | PDT | | results section. | + +--------+ + + + | EXTERNAL LAB: OCCULT | Routin | 11/07/2015 | | Results for this | | BLOOD, SCREENING | e | 1:38 PM | | procedure are in the | | | | PDT | | results section. | + +--------+ + + + | POC GLUCOSE | Routin | 11/07/2015 | | Results for this | | | e | 11:23 AM | | procedure are in the | | | | PDT | | results section. | + +--------+ + + + | XR CHEST 2 VIEWS | Routin | 11/07/2015 | | Results for this | | | e | 7:51 AM | | procedure are in the | | | | PDT | | results section. | + +--------+ + + + | POC GLUCOSE | Routin | 11/07/2015 | | Results for this | | | e | 6:06 AM | | procedure are in the | | | | PDT | | results section. | + +--------+ + + + | EXTERNAL LAB: CBC | Routin | 11/07/2015 | | Results for this | | | e | 4:20 AM | | procedure are in the | | | | PDT | | results section. | + +--------+ + + + | PHOSPHORUS | Routin | 11/07/2015 | | Results for this | | | e | 4:20 AM | | procedure are in the | | | | PDT | | results section. | + +--------+ + + + | MAGNESIUM | Routin | 11/07/2015 | | Results for this | | | e | 4:20 AM | | procedure are in the | | | | PDT | | results section. | + +--------+ + + + | BASIC METABOLIC | Routin | 11/07/2015 | | Results for this | | PANEL | e | 4:20 AM | | procedure are in the | | | | PDT | | results section. | + +--------+ + + + | TISSUE REQUEST FOR | Routin | 11/07/2015 | | Results for this | | PATHOLOGY (NON-ORD) | e | 12:00 AM | | procedure are in the | | | | PDT | | results section. | + +--------+ + + + | POC GLUCOSE | Routin | 11/06/2015 | | Results for this | | | e | 9:02 PM | | procedure are in the | | | | PDT | | results section. | + +--------+ + + + | POC GLUCOSE | Routin | 11/06/2015 | | Results for this | | | e | 6:18 PM | | procedure are in the | | | | PDT | | results section. | + +--------+ + + + | POC GLUCOSE | Routin | 11/06/2015 | | Results for this | | | e | 12:55 PM | | procedure are in the | | | | PDT | | results section. | + +--------+ + + + | XR CHEST 1 VIEW | Routin | 11/06/2015 | | Results for this | | | e | 6:03 AM | | procedure are in the | | | | PDT | | results section. | + +--------+ + + + | POC GLUCOSE | Routin | 11/06/2015 | | Results for this | | | e | 5:42 AM | | procedure are in the | | | | PDT | | results section. | + +--------+ + + + | EXTERNAL LAB: CBC | Routin | 11/06/2015 | | Results for this | | | e | 3:51 AM | | procedure are in the | | | | PDT | | results section. | + +--------+ + + + | PHOSPHORUS | Routin | 11/06/2015 | | Results for this | | | e | 3:51 AM | | procedure are in the | | | | PDT | | results section. | + +--------+ + + + | MAGNESIUM | Routin | 11/06/2015 | | Results for this | | | e | 3:51 AM | | procedure are in the | | | | PDT | | results section. | + +--------+ + + + | COMPREHENSIVE | Routin | 11/06/2015 | | Results for this | | METABOLIC PANEL | e | 3:51 AM | | procedure are in the | | | | PDT | | results section. | + +--------+ + + + | POC GLUCOSE | Routin | 11/05/2015 | | Results for this | | | e | 9:13 PM | | procedure are in the | | | | PDT | | results section. | + +--------+ + + + | POC GLUCOSE | Routin | 11/05/2015 | | Results for this | | | e | 6:37 PM | | procedure are in the | | | | PDT | | results section. | + +--------+ + + + | POTASSIUM | Routin | 11/05/2015 | | Results for this | | | e | 6:12 PM | | procedure are in the | | | | PDT | | results section. | + +--------+ + + + | POC GLUCOSE | Routin | 11/05/2015 | | Results for this | | | e | 1:59 PM | | procedure are in the | | | | PDT | | results section. | + +--------+ + + + | POC GLUCOSE | Routin | 11/05/2015 | | Results for this | | | e | 11:27 AM | | procedure are in the | | | | PDT | | results section. | + +--------+ + + + | POTASSIUM | Routin | 11/05/2015 | | Results for this | | | e | 8:59 AM | | procedure are in the | | | | PDT | | results section. | + +--------+ + + + | POC GLUCOSE | Routin | 11/05/2015 | | Results for this | | | e | 7:21 AM | | procedure are in the | | | | PDT | | results section. | + +--------+ + + + | POC GLUCOSE | Routin | 11/05/2015 | | Results for this | | | e | 6:17 AM | | procedure are in the | | | | PDT | | results section. | + +--------+ + + + | XR CHEST 1 VIEW | Routin | 11/05/2015 | | Results for this | | | e | 5:36 AM | | procedure are in the | | | | PDT | | results section. | + +--------+ + + + | EXTERNAL LAB: CBC | Routin | 11/05/2015 | | Results for this | | | e | 4:04 AM | | procedure are in the | | | | PDT | | results section. | + +--------+ + + + | PHOSPHORUS | Routin | 11/05/2015 | | Results for this | | | e | 4:04 AM | | procedure are in the | | | | PDT | | results section. | + +--------+ + + + | MAGNESIUM | Routin | 11/05/2015 | | Results for this | | | e | 4:04 AM | | procedure are in the | | | | PDT | | results section. | + +--------+ + + + | COMPREHENSIVE | Routin | 11/05/2015 | | Results for this | | METABOLIC PANEL | e | 4:04 AM | | procedure are in the | | | | PDT | | results section. | + +--------+ + + + | POC GLUCOSE | Routin | 11/05/2015 | | Results for this | | | e | 4:02 AM | | procedure are in the | | | | PDT | | results section. | + +--------+ + + + | POC GLUCOSE | Routin | 11/05/2015 | | Results for this | | | e | 2:10 AM | | procedure are in the | | | | PDT | | results section. | + +--------+ + + + | POC GLUCOSE | Routin | 11/05/2015 | | Results for this | | | e | 12:28 AM | | procedure are in the | | | | PDT | | results section. | + +--------+ + + + | POTASSIUM | Routin | 11/04/2015 | | Results for this | | | e | 11:20 PM | | procedure are in the | | | | PDT | | results section. | + +--------+ + + + | POC GLUCOSE | Routin | 11/04/2015 | | Results for this | | | e | 10:24 PM | | procedure are in the | | | | PDT | | results section. | + +--------+ + + + | POC GLUCOSE | Routin | 11/04/2015 | | Results for this | | | e | 9:35 PM | | procedure are in the | | | | PDT | | results section. | + +--------+ + + + | POC GLUCOSE | Routin | 11/04/2015 | | Results for this | | | e | 8:26 PM | | procedure are in the | | | | PDT | | results section. | + +--------+ + + + | POTASSIUM | Routin | 11/04/2015 | | Results for this | | | e | 7:31 PM | | procedure are in the | | | | PDT | | results section. | + +--------+ + + + | POC GLUCOSE | Routin | 11/04/2015 | | Results for this | | | e | 7:17 PM | | procedure are in the | | | | PDT | | results section. | + +--------+ + + + | POC GLUCOSE | Routin | 11/04/2015 | | Results for this | | | e | 6:50 PM | | procedure are in the | | | | PDT | | results section. | + +--------+ + + + | POC GLUCOSE | Routin | 11/04/2015 | | Results for this | | | e | 6:06 PM | | procedure are in the | | | | PDT | | results section. | + +--------+ + + + | POC GLUCOSE | Routin | 11/04/2015 | | Results for this | | | e | 4:42 PM | | procedure are in the | | | | PDT | | results section. | + +--------+ + + + | EXTERNAL LAB: CBC | Routin | 11/04/2015 | | Results for this | | | e | 4:14 PM | | procedure are in the | | | | PDT | | results section. | + +--------+ + + + | PTT | Routin | 11/04/2015 | | Results for this | | | e | 4:14 PM | | procedure are in the | | | | PDT | | results section. | + +--------+ + + + | PROTIME INR | Routin | 11/04/2015 | | Results for this | | | e | 4:14 PM | | procedure are in the | | | | PDT | | results section. | + +--------+ + + + | FIBRINOGEN | Routin | 11/04/2015 | | Results for this | | | e | 4:14 PM | | procedure are in the | | | | PDT | | results section. | + +--------+ + + + | MAGNESIUM | Routin | 11/04/2015 | | Results for this | | | e | 4:14 PM | | procedure are in the | | | | PDT | | results section. | + +--------+ + + + | CALCIUM, IONIZED | Routin | 11/04/2015 | | Results for this | | | e | 4:14 PM | | procedure are in the | | | | PDT | | results section. | + +--------+ + + + | BASIC METABOLIC | Routin | 11/04/2015 | | Results for this | | PANEL | e | 4:14 PM | | procedure are in the | | | | PDT | | results section. | + +--------+ + + + | XR CHEST 1 VIEW | Routin | 11/04/2015 | | Results for this | | | e | 4:00 PM | | procedure are in the | | | | PDT | | results section. | + +--------+ + + + | ECG 12 LEAD | Routin | 11/04/2015 | | Results for this | | | e | 3:49 PM | | procedure are in the | | | | PDT | | results section. | + +--------+ + + + | POC GLUCOSE | Routin | 11/04/2015 | | Results for this | | | e | 3:41 PM | | procedure are in the | | | | PDT | | results section. | + +--------+ + + + | POC CG 4, ISTAT | Routin | 11/04/2015 | | Results for this | | ARTERIAL | e | 2:35 PM | | procedure are in the | | | | PDT | | results section. | + +--------+ + + + | ECHO | Routin | 11/04/2015 | | Results for this | | TRANSESOPHAGEAL(VÍCTOR) | e | 2:34 PM | | procedure are in the | | - PERIOPERATIVE | | PDT | | results section. | + +--------+ + + + | POC ISTAT, CG8, | Routin | 11/04/2015 | | Results for this | | ARTERIAL | e | 2:31 PM | | procedure are in the | | | | PDT | | results section. | + +--------+ + + + | JADE LARA, | Routin | 11/04/2015 | | Results for this | | ARTERIAL | e | 1:45 PM | | procedure are in the | | | | PDT | | results section. | + +--------+ + + + | JADE LARA, | Routin | 11/04/2015 | | Results for this | | ARTERIAL | e | 1:12 PM | | procedure are in the | | | | PDT | | results section. | + +--------+ + + + | JADE LARA, | Routin | 11/04/2015 | | Results for this | | ARTERIAL | e | 12:44 PM | | procedure are in the | | | | PDT | | results section. | + +--------+ + + + | JADE LARA, | Routin | 11/04/2015 | | Results for this | | ARTERIAL | e | 12:03 PM | | procedure are in the | | | | PDT | | results section. | + +--------+ + + + | JADE LARA, | Routin | 11/04/2015 | | Results for this | | ARTERIAL | e | 11:39 AM | | procedure are in the | | | | PDT | | results section. | + +--------+ + + + | JADE LARA, | Routin | 11/04/2015 | | Results for this | | ARTERIAL | e | 11:33 AM | | procedure are in the | | | | PDT | | results section. | + +--------+ + + + | JADE LARA, | Routin | 11/04/2015 | | Results for this | | ARTERIAL | e | 11:00 AM | | procedure are in the | | | | PDT | | results section. | + +--------+ + + + | MAHSA TETOTOMAS JADE, | Routin | 11/04/2015 | | Results for this | | ARTERIAL | e | 10:14 AM | | procedure are in the | | | | PDT | | results section. | + +--------+ + + + | POC NIKI Rodriguez TEMOIno | Routin | 11/04/2015 | | Results for this | | ARTERIAL | e | 9:37 AM | | procedure are in the | | | | PDT | | results section. | + +--------+ + + + | JADE LARA, | Routin | 11/04/2015 | | Results for this | | ARTERIAL | e | 9:33 AM | | procedure are in the | | | | PDT | | results section. | + +--------+ + + + | EXTERNAL LAB: JOE | Routin | 11/04/2015 | | Results for this | | | e | 5:10 AM | | procedure are in the | | | | PDT | | results section. | + +--------+ + + + | PHOSPHORUS | Routin | 11/04/2015 | | Results for this | | | e | 5:10 AM | | procedure are in the | | | | PDT | | results section. | + +--------+ + + + | MAGNESIUM | Routin | 11/04/2015 | | Results for this | | | e | 5:10 AM | | procedure are in the | | | | PDT | | results section. | + +--------+ + + + | COMPREHENSIVE | Routin | 11/04/2015 | | Results for this | | METABOLIC PANEL | e | 5:10 AM | | procedure are in the | | | | PDT | | results section. | + +--------+ + + + | XR CHEST 2 VIEWS | Routin | 11/03/2015 | | Results for this | | | e | 9:44 PM | | procedure are in the | | | | PDT | | results section. | + +--------+ + + + | MRSA NAAT | STAT | 11/03/2015 | | Results for this | | | | 8:49 PM | | procedure are in the | | | | PDT | | results section. | + +--------+ + + + | ECHO TRANSESOPHAGEAL | Routin | 11/03/2015 | | Results for this | | (VÍCTOR) | e | 3:51 PM | | procedure are in the | | | | PDT | | results section. | + +--------+ + + + | CT ANGIOGRAM | Routin | 11/02/2015 | | Results for this | | PULMONARY | e | 10:45 AM | | procedure are in the | | | | PDT | | results section. | + +--------+ + + + | EXTERNAL LAB: OCCULT | Routin | 11/02/2015 | | Results for this | | BLOOD, SCREENING | e | 12:36 AM | | procedure are in the | | | | PDT | | results section. | + +--------+ + + + | ECG 12 LEAD | Routin | 11/01/2015 | | Results for this | | | e | 8:45 PM | | procedure are in the | | | | PDT | | results section. | + +--------+ + + + | XR CHEST 2 VIEWS | Routin | 11/01/2015 | | Results for this | | | e | 5:35 PM | | procedure are in the | | | | PDT | | results section. | + +--------+ + + + | TROPONIN I | Routin | 11/01/2015 | | Results for this | | | e | 5:21 PM | | procedure are in the | | | | PDT | | results section. | + +--------+ + + + | HEMOGLOBIN AND | Routin | 11/01/2015 | | Results for this | | HEMATOCRIT | e | 5:21 PM | | procedure are in the | | | | PDT | | results section. | + +--------+ + + + | D-DIMER | Routin | 11/01/2015 | | Results for this | | | e | 5:21 PM | | procedure are in the | | | | PDT | | results section. | + +--------+ + + + | B TYPE NATRIURETIC | Routin | 11/01/2015 | | Results for this | | PEPTIDE | e | 5:21 PM | | procedure are in the | | | | PDT | | results section. | + +--------+ + + + | BASIC METABOLIC | Routin | 11/01/2015 | | Results for this | | PANEL | e | 5:21 PM | | procedure are in the | | | | PDT | | results section. | + +--------+ + + + | ECG 12 LEAD | Routin | 11/01/2015 | | Results for this | | | e | 5:15 PM | | procedure are in the | | | | PDT | | results section. | + +--------+ + + + | XR CHEST 1 VIEW | Routin | 11/01/2015 | | Results for this | | | e | 12:53 AM | | procedure are in the | | | | PDT | | results section. | + +--------+ + + + documented in this encounter Results POC Glucose (11/09/2015 11:38 AM PDT) + + + + + + | Component | Value | Ref Range | Performed | Pathologist | | | | | At | Signature | + + + + + + | Glucose, | 157 (H)Comment: Testing | 65 - 99 mg/dL | EXTERNAL | | | Fingerstick | performed at [facility];[address] | LAB | | | | [address];[place], [place] | | | | | | [id number] | | | | + + + + + + + + | Specimen | + + | | + + + +---------+ + + | Performing | Address | City/State/Zipcode | Phone Number | | Organization | | | | + +---------+ + + | EXTERNAL LAB | | | | + +---------+ + + POC Glucose (11/09/2015 5:29 AM PDT) + + + + + + | Component | Value | Ref Range | Performed | Pathologist | | | | | At | Signature | + + + + + + | Glucose, | 106 (H)Comment: Testing | 65 - 99 mg/dL | EXTERNAL | | | Fingerstick | performed at [facility];[address] | | LAB | | | | [address];[place], [place] | | | | | | [address] | | | | + + + + + + + + | Specimen | + + | | + + + +---------+ + + | Performing | Address | City/State/Zipcode | Phone Number | | Organization | | | | + +---------+ + + | EXTERNAL LAB | | | | + +---------+ + + Protime INR (11/09/2015 4:55 AM PDT) + + + + + + | Component | Value | Ref Range | Performed | Pathologist | | | | | At | Signature | + + + + + + | INR | 1.1Comment: REFERENCE | | EXTERNAL | | | | RANGE:0.9 - 1.2 | | LAB | | | | NON-ANTICOAGULATED2.0 | | | | | | - 3.0 ALL OTHER | | | | | | THERAPEUTIC | | | | | | INDICATIONS2.5 - 3.5 | | | | | | MECHANICAL HEART VALVES, | | | | | | RECURRENT OR SYSTEMIC | | | | | | EMBOLISMTesting | | | | | | performed at [facility] | | | | | | [facility];[place] | | | | | | [address] | | | | + + + [...] + +---------+ + + External Lab: CBC (11/09/2015 4:55 AM PDT) + + + + + + | Component | Value | Ref Range | Performed | Pathologist | | | | | At | Signature | + + + + + + | WBC | 6.26Comment: Testing | 3.80 - 11.00 | EXTERNAL | | | | performed at [facility], [address] | [address] | LAB | | | | [address], | | | | | | [place] [address] | | | | + + + + + + | Non- | 2.95 (L)Comment: Testing | 4.20 - 5.70 | EXTERNAL | | | Red Blood | performed at [facility], [address] | [address] | LAB | | | Cells | [address], | | | | | Counted | [place] [address] | | | | + + + + + + | Hemoglobin | 9.2 (L)Comment: Testing | 13.2 - 17.0 | EXTERNAL | | | | performed at [facility], [address] | g/dL | LAB | | | | [address], | | | | | | [place] [address] | | | | + + + + + + | Hematocrit, | 26.2 (L)Comment: Testing | 39.0 - 50.0 % | EXTERNAL | | | POC | performed at [facility], [address] | | LAB | | | | [address], | | | | | | [place] [address] | | | | + + + + + + | MCV | 89.0Comment: Testing | 80.0 - 100.0 fl | EXTERNAL | | | | performed at [facility], [address] | | LAB | | | | [address], | | | | | | [place] [address] | | | | + + + + + + | MCH | 31.2Comment: Testing | 27.0 - 34.0 pg | EXTERNAL | | | | performed at [facility], [address] | | LAB | | | | [address], | | | | | | [place] [address] | | | | + + + + + + | MCHC | 35.1Comment: Testing | 32.0 - 35.5 | EXTERNAL | | | | performed at [facility], [address] | g/dL | LAB | | | | [address], | | | | | | [place] [address] | | | | + + + + + + | RDW-CV | 45.1Comment: Testing | 37 - 53 fl | EXTERNAL | | | | performed at [facility], [address] | | LAB | | | | [address], | | | | | | [place] [address] | | | | + + + + + + | Platelet | 177Comment: Testing | 150 - 400 K/uL | EXTERNAL | | | Count | performed at [facility], [address] | | LAB | | | Plasma | [address], | | | | | | [place] [address] | | | | + + + + + + | MPV | 7.7Comment: Testing | fl | EXTERNAL | | | | performed at [facility], [address] | | LAB | | | | [address], | | | | | | [place] [address] | | | | + + + + + + | Differentia | AUTOMATEDComment: | | EXTERNAL | | | l Type | Testing performed at | | LAB | | | | [facility], [address] | | | | | | [place] | | | | | | [address] | | | | + + + + + + | % Segmented | 63.83Comment: Testing | % | EXTERNAL | | | | performed at [facility], [address] | | LAB | | | Neutrophils | [address], | | | | | | [place] [address] | | | | + + + + + + | % | 14.69Comment: Testing | % | EXTERNAL | | | Lymphocytes | performed at [facility], [address] | | LAB | | | | [address], | | | | | | [place] [address] | | | | + + + + + + | % Monocytes | 16.50Comment: Testing | % | EXTERNAL | | | | performed at [facility], [address] | | LAB | | | | [address], | | | | | | [place] [address] | | | | + + + + + + | % | 4.32Comment: Testing | % | EXTERNAL | | | Eosinophils | performed at [facility], [address] | | LAB | | | | [address], | | | | | | [place] [address] | | | | + + + + + + | % Basophils | 0.66Comment: Testing | % | EXTERNAL | | | | performed at [facility], [address] | | LAB | | | [address], | | | | | | [place] [address] | | | | + + + + + + | Absolute | 4.00Comment: Testing | 1.90 - 7.40 | EXTERNAL | | | Segmented | performed at [facility], [address] | K/uL | LAB | | | Neutrophils | [address], | | | | | | [place] [address] | | | | + + + + + + | Absolute | 0.92 (L)Comment: Testing | 1.00 - 3.90 | EXTERNAL | | | Lymphocytes | performed at [facility], [address] | [address] | LAB | | | | [address], | | | | | | [place] [address] | | | | + + + + + + | Absolute | 1.03 (H)Comment: Testing | 0.00 - 0.80 | EXTERNAL | | | Monocytes | performed at [facility], [address] | [address] | LAB | | | | [address], | | | | | | [place] [address] | | | | + + + + + + | Absolute | 0.27Comment: Testing | 0.00 - 0.50 | EXTERNAL | | | Eosinophils | performed at [facility], [address] | K/u[address] | LAB | | | [address], | | | | | | [place] [address] | | | | + + + + + + | Absolute | 0.04Comment: Testing | 0.00 - 0.10 | EXTERNAL | | | Basophils | performed at [facility], [address] | K/[address] | LAB | | | | [address], | | | | | | [place] [address] | | | | + + + + + + + + | Specimen | + + | Blood specimen | | (specimen) | + + + +---------+ + + | Performing | Address | City/State/Zipcode | Phone Number | | Organization | | | | + +---------+ + + | EXTERNAL LAB | | | | + +---------+ + + Phosphorus (11/09/2015 4:55 AM PDT) + + + + + + | Component | Value | Ref Range | Performed | Pathologist | | | | | At | Signature | + + + + + + | PHOSPHORUS | 3.1Comment: Testing | 2.3 - 4.8 mg/dL | EXTERNAL | | | | performed at [facility], [address] | | LAB | | | | [address], | | | | | | [place] [address] | | | | + + + + + + + + | Specimen | + + | Blood specimen | | (specimen) | + + + +---------+ + + | Performing | Address | City/State/Zipcode | Phone Number | | Organization | | | | + +---------+ + + | EXTERNAL LAB | | | | + +---------+ + + Magnesium (11/09/2015 4:55 AM PDT) + + + + + + | Component | Value | Ref Range | Performed | Pathologist | | | | | At | Signature | + + + + + + | Magnesium | 2.1Comment: Testing | 1.7 - 2.4 mg/dL | EXTERNAL | | | | performed at [facility], [address] | | LAB | | | | [address], | | | | | | [place] [address] | | | | + + + [...] + +---------+ + + Basic Metabolic Panel (11/09/2015 4:55 AM PDT) + + + + + + | Component | Value | Ref Range | Performed | Pathologist | | | | | At | Signature | + + + + + + | Na | 134 (L)Comment: Testing | 135 - 143 | EXTERNAL | | | | performed at [facility], [address] | mmol/L | LAB | | | | [address], | | | | | | [place] [address] | | | | + + + + + + | K | 3.9Comment: Testing | 3.5 - 4.9 | EXTERNAL | | | | performed at [facility], [address] | mmol/L | LAB | | | | [address], | | | | | | [place] [address] | | | | + + + + + + | Cl | 101Comment: Testing | 99 - 109 mmol/L | EXTERNAL | | | | performed at [facility], [address] | | LAB | | | | [address], | | | | | | [place] [address] | | | | + + + + + + | CO2 | 28Comment: Testing | 23 - 32 mmol/L | EXTERNAL | | | | performed at [facility], [address] | | LAB | | | | [address], | | | | | | [place] [address] | | | | + + + + + + | Anion Gap | 9Comment: Testing | 5 - 20 mmol/L | EXTERNAL | | | | performed at [facility], [address] | | LAB | | | | [address], | | | | | | [place] [address] | | | | + + + + + + | Glucose, | 96Comment: Testing | 65 - 99 mg/dL | EXTERNAL | | | Fasting | performed at [facility], [address] | | LAB | | | | [address], | | | | | | [place] [address] | | | | + + + + + + | BUN | 25Comment: Testing | 8 - 25 mg/dL | EXTERNAL | | | | performed at [facility], [address] | | LAB | | | [address], | | | | | | [place] [address] | | | | + + + + + + | Creatinine | 1.10Comment: Testing | 0.70 - 1.30 | EXTERNAL | | | | performed at [facility], [address] | mg/dL | LAB | | | | [address], | | | | | | [place] [address] | | | | + + + + + + | BUN/Creatin | 23Comment: Testing | | EXTERNAL | | | ine Ratio | performed at [facility], [address] | | LAB | | | | [address], | | | | | | [place] [address] | | | | + + + + + + | Calcium | 8.3 (L)Comment: Testing | 8.5 - 10.5 | EXTERNAL | | | | performed at [facility], [address] | mg/dL | LAB | | | | [address] [facility], | | | | | | [place] [address] | | | | + + + + + + | Estimated | >60Comment: GFR <60: | mL/min/1.73m2 | EXTERNAL | | | GFR | CHRONIC KIDNEY DISEASE, | | LAB | | | | IF FOUND OVER A 3 MONTH | | | | | | PERIOD.GFR <15: KIDNEY | | | | | | FAILURE.FOR | | | | | | AMERICANS, MULTIPLY THE | | | | | | CALCULATED GFR BY | | | | | | 1.210.Testing performed | | | | | | at [facility], [address] | | | | | | [facility], | | | | | | [place] [address] | | | | + + + + + + + + | Specimen | + + | Blood specimen | | (specimen) | + + + +---------+ + + | Performing | Address | City/State/Zipcode | Phone Number | | Organization | | | | + +---------+ + + | EXTERNAL LAB | | | | + +---------+ + + POC Glucose (11/08/2015 9:02 PM PDT) + + + + + + | Component | Value | Ref Range | Performed | Pathologist | | | | | At | Signature | + + + + + + | Glucose, | 143 (H)Comment: Testing | 65 - 99 mg/dL | EXTERNAL | | | Fingerstick | performed at [facility];[address] | | LAB | | | | [address];[place] | | | | | | [address] | | | | + + + + + + + + | Specimen | + + | | + + + +---------+ + + | Performing | Address | City/State/Zipcode | Phone Number | | Organization | | | | + +---------+ + + | EXTERNAL LAB | | | | + +---------+ + + POC Glucose (11/08/2015 4:40 PM PDT) + + + + + + | Component | Value | Ref Range | Performed | Pathologist | | | | | At | Signature | + + + + + + | Glucose, | 102 (H)Comment: Testing | 65 - 99 mg/dL | EXTERNAL | | | Fingerstick | performed at [facility];[address] | | LAB | | | | [address];[place], [place] | | | | | | [address] | | | | + + + + + + + + | Specimen | + + | | + + + +---------+ + + | Performing | Address | City/State/Zipcode | Phone Number | | Organization | | | | + +---------+ + + | EXTERNAL LAB | | | | + +---------+ + + POC Glucose (11/08/2015 11:41 AM PDT) + + + + + + | Component | Value | Ref Range | Performed | Pathologist | | | | | At | Signature | + + + + + + | Glucose, | 113 (H)Comment: Testing | 65 - 99 mg/dL | EXTERNAL | | | Fingerstick | performed at [facility];[address] | | [address] | | | [address];[place], [place] | | | | | | [address] | | | | + + + + + + + + | Specimen | + + | | + + + +---------+ + + | Performing | Address | City/State/Zipcode | Phone Number | | Organization | | | | + +---------+ + + | EXTERNAL LAB | | | | + +---------+ + + XR Chest 2 Vws (11/08/2015 7:08 AM PDT) + + | Specimen | + + | | + + + + + | Impressions | Performed At | + + + | 1. Mediastinal drain is no longer seen, and may have been removed. | | | 2. Persistent bibasilar atelectasis. | | + + + + + + | Narrative | Performed At | + + + | HISTORY: Evaluate tubes and lines. COMPARISON: 11/07/15. | | | TECHNIQUE: PA and lateral films of the chest. FINDINGS: Aortic | | | valve replacement post median sternotomy with normal heart size. The | | | mediastinal drain is not seen today. Epicardial pacer wires remain. | | | Persistent bibasilar atelectasis. No pneumothorax. Old mid right | | | clavicular fracture with deformity. | | + + + + + | Procedure Note | + + | Matt, Rad Conversion - 01/29/2019 6:13 PM PDT HISTORY:Evaluate tubes and lines. | | COMPARISON:11/07/15. TECHNIQUE:PA and lateral films of the chest. FINDINGS:Aortic valve | | replacement post median sternotomy with normal heart size. The mediastinal drain is not | | seen today. Epicardial pacer wires remain. Persistent bibasilar atelectasis. No | | pneumothorax. Old mid right clavicular fracture with deformity. IMPRESSION: 1. | | Mediastinal drain is no longer seen, and may have been removed.2. Persistent bibasilar | | atelectasis. | |PA and lateral films of the chest. | | | |FINDINGS: | |Aortic valve replacement post median sternotomy with normal heart size. The mediastinal neto in is not seen today. Epicardial pacer wires remain. Persistent bibasilar atelectasis. No pn eumothorax. Old mid right clavicular fracture with deformity. | | | |IMPRESSION: | |1. Mediastinal drain is no longer seen, and may have been removed. | |2. Persistent bibasilar atelectasis. | | | | | + + POC Glucose (11/08/2015 5:39 AM PDT) + + + + + + | Component | Value | Ref Range | Performed | Pathologist | | | | | At | Signature | + + + + + + | Glucose, | 106 (H)Comment: Testing | 65 - 99 mg/dL | EXTERNAL | | | Fingerstick | performed at [facility];[address] | | LAB | | | | [address];[place], [place] | | | | | | [address] | | | | + + + + + + + + | Specimen | + + | | + + + +---------+ + + | Performing | Address | City/State/Zipcode | Phone Number | | Organization | | | | + +---------+ + + | EXTERNAL LAB | | | | + +---------+ + + External Lab: JOE (11/08/2015 4:25 AM PDT) + + + + + + | Component | Value | Ref Range | Performed | Pathologist | | | | | At | Signature | + + + + + + | WBC | 7.24Comment: Testing | 3.80 - 11.00 | EXTERNAL | | | | performed at [facility], [address] | K/uL | LAB | | | | [address], | | | | | | [place] [address] | | | | + + + + + + | Non- | 2.82 (L)Comment: Testing | 4.20 - 5.70 | EXTERNAL | | | Red Blood | performed at [facility], [address] | M/uL | LAB | | | Cells | [address], | | | | | Counted | [place] [address] | | | | + + + + + + | Hemoglobin | 8.9 (L)Comment: Testing | 13.2 - 17.0 | EXTERNAL | | | | performed at [facility], [address] | g/dL | LAB | | | | [address], | | | | | | [place] [address] | | | | + + + + + + | Hematocrit, | 25.1 (L)Comment: Testing | 39.0 - 50.0 % | EXTERNAL | | | POC | performed at [facility], [address] | | LAB | | | | [address], | | | | | | [place] [address] | | | | + + + + + + | MCV | 89.0Comment: Testing | 80.0 - 100.0 fl | EXTERNAL | | | | performed at [facility], [address] | | LAB | | | | [address], | | | | | | [place] [address] | | | | + + + + + + | MCH | 31.4Comment: Testing | 27.0 - 34.0 pg | EXTERNAL | | | | performed at [facility], [address] | | LAB | | | | [address], | | | | | | [place] [address] | | | | + + + + + + | MCHC | 35.3Comment: Testing | 32.0 - 35.5 | EXTERNAL | | | | performed at [facility], [address] | g/dL | LAB | | | | [address], | | | | | | [place] [address] | | | | + + + + + + | RDW-CV | 43.8Comment: Testing | 37 - 53 fl | EXTERNAL | | | | performed at [facility], [address] | | LAB | | | | [address], | | | | | | [place] [address] | | | | + + + + + + | Platelet | 160Comment: Testing | 150 - 400 K/uL | EXTERNAL | | | Count | performed at [facility], [address] | | LAB | | | Plasma | [address], | | | | | | [place] [address] | | | | + + + + + + | MPV | 8.4Comment: Testing | fl | EXTERNAL | | | | performed at [facility], [address] | | LAB | | | | [address], | | | | | | [place] [address] | | | | + + + + + + | Differentia | AUTOMATEDComment: | | EXTERNAL | | | l Type | Testing performed at | | LAB | | | | [facility], [address] | | | | | | [place] | | | | | | [address] | | | | + + + + + + | % Segmented | 65.13Comment: Testing | % | EXTERNAL | | | | performed at [facility], [address] | | LAB | | | Neutrophils | [address], | | | | | | [place] [address] | | | | + + + + + + | % | 16.69Comment: Testing | % | EXTERNAL | | | Lymphocytes | performed at [facility], [address] | | LAB | | | | [address], | | | | | | [place] [address] | | | | + + + + + + | % Monocytes | 13.23Comment: Testing | % | EXTERNAL | | | | performed at [facility], [address] | | LAB | | | | [address], | | | | | | [place] [address] | | | | + + + + + + | % | 4.30Comment: Testing | % | EXTERNAL | | | Eosinophils | performed at [facility], [address] | | LAB | | | | [address], | | | | | | [place] [address] | | | | + + + + + + | % Basophils | 0.65Comment: Testing | % | EXTERNAL | | | | performed at [facility], [address] | | LAB | | | | [address], | | | | | | [place] [address] | | | | + + + + + + | Absolute | 4.72Comment: Testing | 1.90 - 7.40 | EXTERNAL | | | Segmented | performed at [facility], [address] | K/uL | LAB | | | Neutrophils | [address], | | | | | | [place] [address] | | | | + + + + + + | Absolute | 1.21Comment: Testing | 1.00 - 3.90 | EXTERNAL | | | Lymphocytes | performed at [facility], [address] | K[address] | LAB | | | | [address], | | | | | | [place] [address] | | | | + + + + + + | Absolute | 0.96 (H)Comment: Testing | 0.00 - 0.80 | EXTERNAL | | | Monocytes | performed at [facility], [address] | K[address] | LAB | | | | [address], | | | | | | [place] [address] | | | | + + + + + + | Absolute | 0.31Comment: Testing | 0.00 - 0.50 | EXTERNAL | | | Eosinophils | performed at [facility], [address] | K/[address] | LAB | | | | [address], | | | | | | [place] [address] | | | | + + + + + + | Absolute | 0.05Comment: Testing | 0.00 - 0.10 | EXTERNAL | | | Basophils | performed at [facility], [address] | [address] | LAB | | | | [address], | | | | | | [place] [address] | | | | + + + + + + + + | Specimen | + + | Blood specimen | | (specimen) | + + + +---------+ + + | Performing | Address | City/State/Zipcode | Phone Number | | Organization | | | | + +---------+ + + | EXTERNAL LAB | | | | + +---------+ + + Phosphorus (11/08/2015 4:25 AM PDT) + + + + + + | Component | Value | Ref Range | Performed | Pathologist | | | | | At | Signature | + + + + + + | PHOSPHORUS | 2.4Comment: Testing | 2.3 - 4.8 mg/dL | EXTERNAL | | | | performed at [facility], [address] | | LAB | | | | [address], | | | | | | [place] [address] | | | | + + + + + + + + | Specimen | + + | Blood specimen | | (specimen) | + + + +---------+ + + | Performing | Address | City/State/Zipcode | Phone Number | | Organization | | | | + +---------+ + + | EXTERNAL LAB | | | | + +---------+ + + Magnesium (11/08/2015 4:25 AM PDT) + + + + + + | Component | Value | Ref Range | Performed | Pathologist | | | | | At | Signature | + + + + + + | Magnesium | 2.2Comment: Testing | 1.7 - 2.4 mg/dL | EXTERNAL | | | | performed at [facility], [address] | | LAB | | | | [address], | | | | | | [place], [place] [address] | | | | + + + [...] + +---------+ + + Basic Metabolic Panel (11/08/2015 4:25 AM PDT) + + + + + + | Component | Value | Ref Range | Performed | Pathologist | | | | | At | Signature | + + + + + + | Na | 135Comment: Testing | 135 - 143 | EXTERNAL | | | | performed at [facility], [address] | mmol/L | LAB | | | | [address], | | | | | | [place] [address] | | | | + + + + + + | K | 4.0Comment: Testing | 3.5 - 4.9 | EXTERNAL | | | | performed at [facility], [address] | mmol/L | LAB | | | | [address], | | | | | | [place] [address] | | | | + + + + + + | Cl | 102Comment: Testing | 99 - 109 mmol/L | EXTERNAL | | | | performed at [facility], [address] | | LAB | | | | [address], | | | | | | [place] [address] | | | | + + + + + + | CO2 | 27Comment: Testing | 23 - 32 mmol/L | EXTERNAL | | | | performed at [facility], [address] | | LAB | | | | [address], | | | | | | [place] [address] | | | | + + + + + + | Anion Gap | 10Comment: Testing | 5 - 20 mmol/L | EXTERNAL | | | | performed at [facility], [address] | | LAB | | | | [address], | | | | | | [place] [address] | | | | + + + + + + | Glucose, | 99Comment: Testing | 65 - 99 mg/dL | EXTERNAL | | | Fasting | performed at [facility], [address] | | LAB | | | | [address], | | | | | | [place] [address] | | | | + + + + + + | BUN | 30 (H)Comment: Testing | 8 - 25 mg/dL | EXTERNAL | | | | performed at [facility], [address] | | LAB | | | | [address], | | | | | | [place] [address] | | | | + + + + + + | Creatinine | 1.13Comment: Testing | 0.70 - 1.30 | EXTERNAL | | | | performed at [facility], [address] | mg/dL | LAB | | | | [address], | | | | | | [place] [address] | | | | + + + + + + | BUN/Creatin | 27Comment: Testing | | EXTERNAL | | | ine Ratio | performed at [facility], [address] | | LAB | | | | [address], | | | | | | [place] [address] | | | | + + + + + + | Calcium | 7.7 (L)Comment: Testing | 8.5 - 10.5 | EXTERNAL | | | | performed at [facility], [address] | mg/dL | LAB | | | | [address], | | | | | | [place] [address] | | | | + + + + + + | Estimated | >60Comment: GFR <60: | mL/min/1.73m2 | EXTERNAL | | | GFR | CHRONIC KIDNEY DISEASE, | | LAB | | | | IF FOUND OVER A 3 MONTH | | | | | | PERIOD.GFR <15: KIDNEY | | | | | | FAILURE.FOR | | | | | | AMERICANS, MULTIPLY THE | | | | | | CALCULATED GFR BY | | | | | | 1.210.Testing performed | | | | | | at [facility], [address] | | | | | | [facility], | | | | | | [place] [address] | | | | + + + + + + + + | Specimen | + + | Blood specimen | | (specimen) | + + + +---------+ + + | Performing | Address | City/State/Zipcode | Phone Number | | Organization | | | | + +---------+ + + | EXTERNAL LAB | | | | + +---------+ + + POC Glucose (11/07/2015 9:08 PM PDT) + + + + + + | Component | Value | Ref Range | Performed | Pathologist | | | | | At | Signature | + + + + + + | Glucose, | 118 (H)Comment: Testing | 65 - 99 mg/dL | EXTERNAL | | | Fingerstick | performed at [facility];[address] | | LAB | | | | [address];[place] | | | | | | [address] | | | | + + + + + + + + | Specimen | + + | | + + + +---------+ + + | Performing | Address | City/State/Zipcode | Phone Number | | Organization | | | | + +---------+ + + | EXTERNAL LAB | | | | + +---------+ + + Hemoglobin and Hematocrit (11/07/2015 5:22 PM PDT) + + + + + + | Component | Value | Ref Range | Performed | Pathologist | | | | | At | Signature | + + + + + + | Hemoglobin | 9.3 (L)Comment: Testing | 13.2 - 17.0 | EXTERNAL | | | | performed at [facility];[address] | g/dL | LAB | | | | [address];[place] | | | | | | [address] | | | | + + + + + + | Hematocrit, | 26.2 (L)Comment: Testing | 39.0 - 50.0 % | EXTERNAL | | | POC | performed at [facility];[address] | | LAB | | | | [address];[place] | | | | | | [address] | | | | + + + + + + + + | Specimen | + + | | + + + +---------+ + + | Performing | Address | City/State/Zipcode | Phone Number | | Organization | | | | + +---------+ + + | EXTERNAL LAB | | | | + +---------+ + + Basic Metabolic Panel (11/07/2015 5:22 PM PDT) + + + + + + | Component | Value | Ref Range | Performed | Pathologist | | | | | At | Signature | + + + + + + | Na | 137Comment: Testing | 135 - 143 | EXTERNAL | | | | performed at [facility];888 | mmol/L | LAB | | | | [address];[place] | | | | | | [address] | | | | + + + + + + | K | 4.4Comment: Testing | 3.5 - 4.9 | EXTERNAL | | | | performed at [facility];888 | mmol/L | LAB | | | | [address];[place] | | | | | | [address] | | | | + + + + + + | Cl | 103Comment: Testing | 99 - 109 mmol/L | EXTERNAL | | | | performed at [facility];[address] | | LAB | | | | [address];[place] | | | | | | [address] | | | | + + + + + + | CO2 | 30Comment: Testing | 23 - 32 mmol/L | EXTERNAL | | | | performed at [facility];[address] | | LAB | | | | [address];[place] | | | | | | [address] | | | | + + + + + + | Anion Gap | 8Comment: Testing | 5 - 20 mmol/L | EXTERNAL | | | | performed at [facility];[address] | | LAB | | | | [address];[place] | | | | | | [address] | | | | + + + + + + | Glucose, | 101 (H)Comment: Testing | 65 - 99 mg/dL | EXTERNAL | | | Fasting | performed at [facility];[address] | | LAB | | | | [address];[place] | | | | | | [address] | | | | + + + + + + | BUN | 30 (H)Comment: Testing | 8 - 25 mg/dL | EXTERNAL | | | | performed at [facility];[address] | | LAB | | | | [address];[place] | | | | | | [address] | | | | + + + + + + | Creatinine | 1.3Comment: Testing | 0.70 - 1.30 | EXTERNAL | | | | performed at [facility];888 | mg/dL | LAB | | | | [address];[place] | | | | | | [address] | | | | + + + + + + | BUN/Creatin | 23Comment: Testing | | EXTERNAL | | | ine Ratio | performed at [facility];[address] | | LAB | | | | [address];[place] | | | | | | [address] | | | | + + + + + + | Calcium | 7.5 (L)Comment: Testing | 8.5 - 10.5 | EXTERNAL | | | | performed at [facility];[address] | mg/dL | LAB | | | | [address];[place], [place] | | | | | | [address] | | | | + + + + + + | Estimated | 58 (L)Comment: GFR <60: | mL/min/1.73m2 | EXTERNAL | | | GFR | CHRONIC KIDNEY DISEASE, | | LAB | | | | IF FOUND OVER A 3 MONTH | | | | | | PERIOD.GFR <15: KIDNEY | | | | | | FAILURE.FOR | | | | | | AMERICANS, MULTIPLY THE | | | | | | CALCULATED GFR BY | | | | | | 1.210.Testing performed | | | | | | at [facility];[address];[place] [address] | | | | + + + + + + + + | Specimen | + + | Blood specimen | | (specimen) | + + + +---------+ + + | Performing | Address | City/State/Zipcode | Phone Number | | Organization | | | | + +---------+ + + | EXTERNAL LAB | | | | + +---------+ + + POC Glucose (11/07/2015 4:52 PM PDT) + + + + + + | Component | Value | Ref Range | Performed | Pathologist | | | | | At | Signature | + + + + + + | Glucose, | 129 (H)Comment: Testing | 65 - 99 mg/dL | EXTERNAL | | | Fingerstick | performed at [facility] | | LAB | | | | [address];[place] | | | | | | [address] | | | | + + + + + + + + | Specimen | + + | | + + + +---------+ + + | Performing | Address | City/State/Zipcode | Phone Number | | Organization | | | | + +---------+ + + | EXTERNAL LAB | | | | + +---------+ + + External Lab: Occult Blood, Screening (11/07/2015 1:38 PM PDT) + + | Specimen | + + | Stool specimen | | (specimen) | + + + + + | Narrative | Performed At | + + + | Fecal Occult Blood NEGATIVE Testing | EXTERNAL LAB | | performed at [facility];[address] [facility];[place] [address] | | + + + + +---------+ + + | Performing | Address | City/State/Zipcode | Phone Number | | Organization | | | | + +---------+ + + | EXTERNAL LAB | | | | + +---------+ + + POC Glucose (11/07/2015 11:23 AM PDT) + + + + + + | Component | Value | Ref Range | Performed | Pathologist | | | | | At | Signature | + + + + + + | Glucose, | 166 (H)Comment: Testing | 65 - 99 mg/dL | EXTERNAL | | | Fingerstick | performed at [facility];[address] | | LAB | | | | [address];[place] | | | | | | [address] | | | | + + + + + + + + | Specimen | + + | | + + + +---------+ + + | Performing | Address | City/State/Zipcode | Phone Number | | Organization | | | | + +---------+ + + | EXTERNAL LAB | | | | + +---------+ + + XR Chest 2 Vws (11/07/2015 7:51 AM PDT) + + | Specimen | + + | | + + + + + | Impressions | Performed At | + + + | 1. Small bilateral pleural effusions. 2. Improving lower lobe | | | atelectasis. 3. Tip of the LEFT brachial PICC line in the upper | | | LEFT arm. Electronically signed by Harry Rocha MD on | | | 11/07/2015 8:30 AM | | + + + + + + | Narrative | Performed At | + + + | WAYLON RUBIN XR CHEST 2 VIEW FRONTAL AND LATERAL 11/07/2015 7:51 | | | AM History: 70 years. Male. 3 day status post heart surgery. | | | Technique: PA and lateral views of the chest. Comparison: | | | 11/06/15. Findings: Small bilateral pleural effusions are | | | visualized on the lateral view. Persistent mild subsegmental | | | atelectasis is visualized in both lung bases, significantly improved | | | on the LEFT as compared with 11/04/15, with better visualization of | | | the LEFT hemidiaphragm. Borderline cardiomegaly is still | | | present. No pulmonary edema or pneumothorax identified. 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 There may be a residual mediastinal | | | drainage catheter. The tip of a LEFT brachial PICC line is | | | visualized in the LEFT axilla. | | + + + + + | Procedure Note | + + | Afshin Gutierrez Conversion - 01/29/2019 6:13 PM PDT WAYLON AMARAL CHEST 2 VIEW FRONTAL | | AND LATERAL11/07/2015 7:51 AM History: 70 years. Male. 3 day status post heart | | surgery. Technique: PA and lateral views of the chest.Comparison: 11/06/15. Findings: | | Small bilateral pleural effusions are visualized on the lateral view. Persistent mild | | subsegmental atelectasis is visualized in both lung bases, significantly improved on the | | LEFT as compared with 11/04/15, with better visualization of the LEFT hemidiaphragm. | | Borderline cardiomegaly is still present. No pulmonary edema or pneumothorax | | identified. 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 There is also evidence of a mitral | | valve prosthesis. There may be a residual mediastinal drainage catheter. The tip of a | | LEFT brachial PICC line is visualized in the LEFT axilla. IMPRESSION: 1. Small | | bilateral pleural effusions.2. Improving lower lobe atelectasis.3. Tip of the LEFT | | brachial PICC line in the upper LEFT arm. | | | |A prosthetic aortic valve is identified. There is also evidence of a mitral valve prosthes is. There may be a residual mediastinal drainage catheter. The tip of a LEFT brachial PICC line is visualized in the LEFT axilla. | | | |IMPRESSION: | |1. Small bilateral pleural effusions. | |2. Improving lower lobe atelectasis. | |3. Tip of the LEFT brachial PICC line in the upper LEFT arm. | | | | | + + POC Glucose (11/07/2015 6:06 AM PDT) + + + + + + | Component | Value | Ref Range | Performed | Pathologist | | | | | At | Signature | + + + + + + | Glucose, | 151 (H)Comment: Testing | 65 - 99 mg/dL | EXTERNAL | | | Fingerstick | performed at [facility];[address] | | LAB | | | | [address];[place] | | | | | | [address] | | | | + + + + + + + + | Specimen | + + | | + + + +---------+ + + | Performing | Address | City/State/Zipcode | Phone Number | | Organization | | | | + +---------+ + + | EXTERNAL LAB | | | | + +---------+ + + External Lab: CBC (11/07/2015 4:20 AM PDT) + + + + + + | Component | Value | Ref Range | Performed | Pathologist | | | | | At | Signature | + + + + + + | WBC | 7.96Comment: Testing | 3.80 - 11.00 | EXTERNAL | | | | performed at [facility], [address] | K/uL | LAB | | | | [address], | | | | | | [place] [address] | | | | + + + + + + | Non- | 2.27 (L)Comment: Testing | 4.20 - 5.70 | EXTERNAL | | | Red Blood | performed at [facility], [address] | M/uL | LAB | | | Cells | [address], | | | | | Counted | [place] [address] | | | | + + + + + + | Hemoglobin | 7.4 (L)Comment: Testing | 13.2 - 17.0 | EXTERNAL | | | | performed at [facility], [address] | g/dL | LAB | | | | [address], | | | | | | [place] [address] | | | | + + + + + + | Hematocrit, | 20.7 (LL)Comment: RESULT | 39.0 - 50.0 % | EXTERNAL | | | POC | READ BACK BY:DONY | | LAB | | | | Marshall/CHAN/4RP/NOVEMBER 06, | | | | | | :26/CMSTesting | | | | | | performed at [facility], [address] | | | | | | [address], | | | | | | [place] [address] | | | | + + + + + + | MCV | 90.9Comment: Testing | 80.0 - 100.0 fl | EXTERNAL | | | | performed at [facility], [address] | | LAB | | | | [address], | | | | | | [place] [address] | | | | + + + + + + | MCH | 32.3Comment: Testing | 27.0 - 34.0 pg | EXTERNAL | | | | performed at [facility], [address] | | LAB | | | | [address], | | | | | | [place] [address] | | | | + + + + + + | MCHC | 35.6 (H)Comment: Testing | 32.0 - 35.5 | EXTERNAL | | | | performed at [facility], [address] | g/dL | LAB | | | | [address], | | | | | | [place] [address] | | | | + + + + + + | RDW-CV | 44.6Comment: Testing | 37 - 53 fl | EXTERNAL | | | | performed at [facility], [address] | | LAB | | | | [address], | | | | | | [place] [address] | | | | + + + + + + | Platelet | 123 (L)Comment: Testing | 150 - 400 K/uL | EXTERNAL | | | Count | performed at [facility], [address] | | LAB | | | Plasma | [address], | | | | | | [place] [address] | | | | + + + + + + | MPV | 8.7Comment: Testing | fl | EXTERNAL | | | | performed at [facility], [address] | | LAB | | | | [address], | | | | | | [place] [address] | | | | + + + + + + | Differentia | AUTOMATEDComment: | | EXTERNAL | | | l Type | Testing performed at | | LAB | | | | [facility], [address] | | | | | | [place] | | | | | | [address] | | | | + + + + + + | % Segmented | 76.00Comment: Testing | % | EXTERNAL | | | | performed at [facility], [address] | | LAB | | | Neutrophils | [address], | | | | | | [place] [address] | | | | + + + + + + | % | 10.65Comment: Testing | % | EXTERNAL | | | Lymphocytes | performed at [facility], [address] | | LAB | | | | [address], | | | | | | [place] [address] | | | | + + + + + + | % Monocytes | 10.87Comment: Testing | % | EXTERNAL | | | | performed at [facility], [address] | | LAB | | | | [address], | | | | | | [place] [address] | | | | + + + + + + | % | 2.21Comment: Testing | % | EXTERNAL | | | Eosinophils | performed at [facility], [address] | | LAB | | | | [address], | | | | | | [place] [address] | | | | + + + + + + | % Basophils | 0.27Comment: Testing | % | EXTERNAL | | | | performed at [facility], [address] | | LAB | | | | [address], | | | | | | [place] [address] | | | | + + + + + + | Absolute | 6.05Comment: Testing | 1.90 - 7.40 | EXTERNAL | | | Segmented | performed at [facility], [address] | K/uL | LAB | | | Neutrophils | [address], | | | | | | [place] [address] | | | | + + + + + + | Absolute | 0.85 (L)Comment: Testing | 1.00 - 3.90 | EXTERNAL | | | Lymphocytes | performed at [facility], [address] | K/uL | LAB | | | | [address], | | | | | | [place] [address] | | | | + + + + + + | Absolute | 0.87 (H)Comment: Testing | 0.00 - 0.80 | EXTERNAL | | | Monocytes | performed at [facility], [address] | K/uL | LAB | | | | [address], | | | | | | [place] [address] | | | | + + + + + + | Absolute | 0.18Comment: Testing | 0.00 - 0.50 | EXTERNAL | | | Eosinophils | performed at [facility], [address] | K/uL | LAB | | | | [address], | | | | | | [place] [address] | | | | + + + + + + | Absolute | 0.02Comment: Testing | 0.00 - 0.10 | EXTERNAL | | | Basophils | performed at [facility], [address] | K/uL | LAB | | | | [address], | | | | | | [place] [address] | | | | + + + + + + + + | Specimen | + + | Blood specimen | | (specimen) | + + + +---------+ + + | Performing | Address | City/State/Zipcode | Phone Number | | Organization | | | | + +---------+ + + | EXTERNAL LAB | | | | + +---------+ + + Phosphorus (11/07/2015 4:20 AM PDT) + + + + + + | Component | Value | Ref Range | Performed | Pathologist | | | | | At | Signature | + + + + + + | PHOSPHORUS | 2.2 (L)Comment: Testing | 2.3 - 4.8 mg/dL | EXTERNAL | | | | performed at [facility], [address] | | LAB | | | | [address], | | | | | | [place] [address] | | | | + + + + + + + + | Specimen | + + | Blood specimen | | (specimen) | + + + +---------+ + + | Performing | Address | City/State/Zipcode | Phone Number | | Organization | | | | + +---------+ + + | EXTERNAL LAB | | | | + +---------+ + + Magnesium (11/07/2015 4:20 AM PDT) + + + + + + | Component | Value | Ref Range | Performed | Pathologist | | | | | At | Signature | + + + + + + | Magnesium | 2.2Comment: Testing | 1.7 - 2.4 mg/dL | EXTERNAL | | | | performed at [facility], [address] | | LAB | | | | [address], | | | | | | [place] [address] | | | | + + + [...] + +---------+ + + Basic Metabolic Panel (11/07/2015 4:20 AM PDT) + + + + + + | Component | Value | Ref Range | Performed | Pathologist | | | | | At | Signature | + + + + + + | Na | 134 (L)Comment: Testing | 135 - 143 | EXTERNAL | | | | performed at [facility], [address] | mmol/L | LAB | | | | [address], | | | | | | [place] [address] | | | | + + + + + + | K | 4.1Comment: Testing | 3.5 - 4.9 | EXTERNAL | | | | performed at [facility], [address] | mmol/L | LAB | | | | [address], | | | | | | [place] [address] | | | | + + + + + + | Cl | 103Comment: Testing | 99 - 109 mmol/L | EXTERNAL | | | | performed at [facility], [address] | | LAB | | | | [address], | | | | | | [place] [address] | | | | + + + + + + | CO2 | 27Comment: Testing | 23 - 32 mmol/L | EXTERNAL | | | | performed at [facility], [address] | | LAB | | | | [address], | | | | | | [place] [address] | | | | + + + + + + | Anion Gap | 8Comment: Testing | 5 - 20 mmol/L | EXTERNAL | | | | performed at [facility], [address] | | LAB | | | | [address], | | | | | | [place] [address] | | | | + + + + + + | Glucose, | 113 (H)Comment: Testing | 65 - 99 mg/dL | EXTERNAL | | | Fasting | performed at [facility], [address] | | LAB | | | | [address], | | | | | | [place] [address] | | | | + + + + + + | BUN | 27 (H)Comment: Testing | 8 - 25 mg/dL | EXTERNAL | | | | performed at [facility], [address] | | LAB | | | | [address], | | | | | | [place] [address] | | | | + + + + + + | Creatinine | 1.30Comment: Testing | 0.70 - 1.30 | EXTERNAL | | | | performed at [facility], [address] | mg/dL | LAB | | | | [address], | | | | | | [place] [address] | | | | + + + + + + | BUN/Creatin | 21Comment: Testing | | EXTERNAL | | | ine Ratio | performed at [facility], [address] | | LAB | | | | [address], | | | | | | [place] [address] | | | | + + + + + + | Calcium | 7.8 (L)Comment: Testing | 8.5 - 10.5 | EXTERNAL | | | | performed at [facility], [address] | mg/dL | LAB | | | | [address], | | | | | | [place] [address] | | | | + + + + + + | Estimated | 58 (L)Comment: GFR <60: | mL/min/1.73m2 | EXTERNAL | | | GFR | CHRONIC KIDNEY DISEASE, | | LAB | | | | IF FOUND OVER A 3 MONTH | | | | | | PERIOD.GFR <15: KIDNEY | | | | | | FAILURE.FOR | | | | | | AMERICANS, MULTIPLY THE | | | | | | CALCULATED GFR BY | | | | | | 1.210.Testing performed | | | | | | at [facility], [address] | | | | | | [address], | | | | | | [place] [address] | | | | + + + + + + + + | Specimen | + + | Blood specimen | | (specimen) | + + + +---------+ + + | Performing | Address | City/State/Zipcode | Phone Number | | Organization | | | | + +---------+ + + | EXTERNAL LAB | | | | + +---------+ + + Tissue Request For Pathology (11/07/2015 12:00 AM PDT) + + | Specimen | + + | Soft tissue sample | | (specimen) | + + + + + | Narrative | Performed At | + + + | SPECIMEN(S): A AORTIC VALVE SPECIMEN(S): B MITRAL VALVE | EXTERNAL LAB | | SPECIMEN SOURCE: A. AORTIC VALVE B. MITRAL VALVE CLINICAL HISTORY: | | | 11/04/2015 at 1150 H. Aortic stenosis, MR. FINAL PATHOLOGIC | | | DIAGNOSIS: A. Aortic valve: - Cardiac valve tissue with | | | thickening, fibrosis and calcification - Negative for | | | inflammation and vegetations B. 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 Received in formalin designated | | | "aortic valve tissue", consists three valve leaflets that have a free | | | edge length of 1.9 cm, 2.2 cm, 2.0 cm, and a free edge to resection | | | margin distance of 1.1 cm, 1.0 cm, and 0.8 cm respectively. These | | | cusps are yellow-denise and rubbery with areas of calcification. No | | | fenestrations or vegetations are grossly identified. Separate within | | | the container is 2.4 x 1.0 x 0.8 cm aggregate of yellow-denise and | | | focally calcified tissue fragments. Intravenous Therapy Nurse sections are | | | submitted in cassette A1. (Cassette A1 is placed into decal prior to | | | processing.) FM B. Received in formalin designated "mitral valve | | | tissue ", consists of 3.8 x 3.1 x 0.8 cm aggregate of yellow-denise | | | rubbery valve tissue with attached chordae tendineae. One tissue | | | fragment contains blue suture material. Intravenous Therapy Nurse sections are | | | submitted in cassette B1. FM The gross description section of this | | | report has been prepared using a voice recognition system. The report | | | was reviewed for accuracy, however, sound-alike word errors, addition | | | and/or deletions may occur. If there is any question about this | | | report please contact the pathology department. MICROSCOPIC | | | EXAMINATION: A/B. Histologic sections of all submitted blocks are | | | examined by light microscopy. These findings, together with the | | | gross examination, support the pathologic diagnosis. PERFORMING | | | LABORATORY: Professional interpretation and technical preparation was | | | performed by [employer], [facility], [facility] | | | [place] [address] (Parts Counter Associate: Ihsan Sher | Nikky Montano M.D.; [facility]#: [id number]). Diagnostician: Ihsan Sher | | Pathologist Electronically Signed 11/08/2015 | | + + + + +---------+ + + | Performing | Address | City/State/Zipcode | Phone Number | | Organization | | | | + +---------+ + + | EXTERNAL LAB | | | | + +---------+ + + POC Glucose (11/06/2015 9:02 PM PDT) + + + + + + | Component | Value | Ref Range | Performed | Pathologist | | | | | At | Signature | + + + + + + | Glucose, | 154 (H)Comment: Testing | 65 - 99 mg/dL | EXTERNAL | | | Fingerstick | performed at [facility];[address] | | LAB | | | | [address];[place] | | | | | | [address] | | | | + + + + + + + + | Specimen | + + | | + + + +---------+ + + | Performing | Address | City/State/Zipcode | Phone Number | | Organization | | | | + +---------+ + + | EXTERNAL LAB | | | | + +---------+ + + POC Glucose (11/06/2015 6:18 PM PDT) + + + + + + | Component | Value | Ref Range | Performed | Pathologist | | | | | At | Signature | + + + + + + | Glucose, | 134 (H)Comment: Testing | 65 - 99 mg/dL | EXTERNAL | | | Fingerstick | performed at [facility];[address] | | LAB | | | | [address];[place], [place] | | | | | | [address] | | | | + + + + + + + + | Specimen | + + | | + + + +---------+ + + | Performing | Address | City/State/Zipcode | Phone Number | | Organization | | | | + +---------+ + + | EXTERNAL LAB | | | | + +---------+ + + POC Glucose (11/06/2015 12:55 PM PDT) + + + + + + | Component | Value | Ref Range | Performed | Pathologist | | | | | At | Signature | + + + + + + | Glucose, | 136 (H)Comment: Testing | 65 - 99 mg/dL | EXTERNAL | | | Fingerstick | performed at [facility];[address] | | LAB | | | | [address];[place] | | | | | | [address] | | | | + + + + + + + + | Specimen | + + | | + + + +---------+ + + | Performing | Address | City/State/Zipcode | Phone Number | | Organization | | | | + +---------+ + + | EXTERNAL LAB | | | | + +---------+ + + XR Chest 1 Vw (11/06/2015 6:03 AM PDT) + + | Specimen | + + | | + + + + + | Impressions | Performed At | + + + | 1. Removal Edgerton-Bradford catheter and sheath without pneumothorax. 2. | | | Faintly seen midline mediastinal drain. 3. Persistent bilateral | | | perihilar and left basilar atelectasis, perhaps slightly increased in | | | the left lung base. 4. Question subtle left effusion. | | | | | + + + + + + | Narrative | Performed At | + + + | HISTORY: Evaluate tubes and lines. COMPARISON: 11/05/15. | | | TECHNIQUE: AP portable film of the chest at 0513 hours FINDINGS: | | | Median sternotomy. Aortic and mitral valve replacement. Removal of | | | the Edgerton-Bradford catheter and sheath. No pneumothorax. Mild bilateral | | | perihilar and left basilar atelectasis persists, perhaps subtly | | | increased in the left lung base. There may be a subtle left | | | effusion. Midline mediastinal drain is faintly seen. | | + + + + + | Procedure Note | + + | Matt, Rad Conversion - 01/29/2019 6:13 PM PDT HISTORY:Evaluate tubes and lines. | | COMPARISON:11/05/15. TECHNIQUE:AP portable film of the chest at 0513 hours | | FINDINGS:Median sternotomy. Aortic and mitral valve replacement. Removal of the | | Edgerton-Bradford catheter and sheath. No pneumothorax. Mild bilateral perihilar and left | | basilar atelectasis persists, perhaps subtly increased in the left lung base. There may | | be a subtle left effusion. Midline mediastinal drain is faintly seen. IMPRESSION: 1. | | Removal Edgerton-Bradford catheter and sheath without pneumothorax.2. Faintly seen midline | | mediastinal drain.3. Persistent bilateral perihilar and left basilar atelectasis, | | perhaps slightly increased in the left lung base.4. Question subtle left effusion. | | | |Median sternotomy. Aortic and mitral valve replacement. Removal of the Edgerton-Bradford catheter a nd sheath. No pneumothorax. Mild bilateral perihilar and left basilar atelectasis persists, perhaps subtly increased in the | |left lung base. There may be a subtle | |left effusion. Midline mediastinal drain is faintly seen. | | | |IMPRESSION: | |1. Removal Edgerton-Bradford catheter and sheath without pneumothorax. | |2. Faintly seen midline mediastinal drain. | |3. Persistent bilateral perihilar and left basilar atelectasis, perhaps slightly increased in the left lung base. | |4. Question subtle left effusion. | | | | | + + POC Glucose (11/06/2015 5:42 AM PDT) + + + + + + | Component | Value | Ref Range | Performed | Pathologist | | | | | At | Signature | + + + + + + | Glucose, | 135 (H)Comment: Testing | 65 - 99 mg/dL | EXTERNAL | | | Fingerstick | performed at [facility];[address] | | LAB | | | | [address];[place], [place] | | | | | | [address] | | | | + + + + + + + + | Specimen | + + | | + + + +---------+ + + | Performing | Address | City/State/Zipcode | Phone Number | | Organization | | | | + +---------+ + + | EXTERNAL LAB | | | | + +---------+ + + External Lab: JOE (11/06/2015 3:51 AM PDT) + + + + + + | Component | Value | Ref Range | Performed | Pathologist | | | | | At | Signature | + + + + + + | WBC | 7.71Comment: Testing | 3.80 - 11.00 | EXTERNAL | | | | performed at [facility], [address] | K/uL | LAB | | | | [address], | | | | | | [place] [address] | | | | + + + + + + | Non- | 2.35 (L)Comment: Testing | 4.20 - 5.70 | EXTERNAL | | | Red Blood | performed at [facility], [address] | M/uL | LAB | | | Cells | [address], | | | | | Counted | [place] [address] | | | | + + + + + + | Hemoglobin | 7.5 (L)Comment: Testing | 13.2 - 17.0 | EXTERNAL | | | | performed at [facility], [address] | g/dL | LAB | | | | [address], | | | | | | [place] [address] | | | | + + + + + + | Hematocrit, | 21.6 (L)Comment: Testing | 39.0 - 50.0 % | EXTERNAL | | | POC | performed at [facility], [address] | | LAB | | | | [address], | | | | | | [place] [address] | | | | + + + + + + | MCV | 92.0Comment: Testing | 80.0 - 100.0 fl | EXTERNAL | | | | performed at [facility], [address] | | LAB | | | | [address], | | | | | | [place] [address] | | | | + + + + + + | MCH | 31.9Comment: Testing | 27.0 - 34.0 pg | EXTERNAL | | | | performed at [facility], [address] | | LAB | | | | [address], | | | | | | [place] [address] | | | | + + + + + + | MCHC | 34.7Comment: Testing | 32.0 - 35.5 | EXTERNAL | | | | performed at [facility], [address] | g/dL | LAB | | | | [address], | | | | | | [place] [address] | | | | + + + + + + | RDW-CV | 45.9Comment: Testing | 37 - 53 fl | EXTERNAL | | | | performed at [facility], [address] | | LAB | | | | [address], | | | | | | [place] [address] | | | | + + + + + + | Platelet | 106 (L)Comment: Testing | 150 - 400 K/uL | EXTERNAL | | | Count | performed at [facility], [address] | | LAB | | | Plasma | [address], | | | | | | [place] [address] | | | | + + + + + + | MPV | 8.9Comment: Testing | fl | EXTERNAL | | | | performed at [facility], [address] | | LAB | | | | [address], | | | | | | [place] [address] | | | | + + + + + + | Differentia | AUTOMATEDComment: | | EXTERNAL | | | l Type | Testing performed at | | LAB | | | | [facility], [address] | | | | | | [place] | | | | | | [address] | | | | + + + + + + | % Segmented | 77.89Comment: Testing | % | EXTERNAL | | | | performed at [facility], [address] | | LAB | | | Neutrophils | [address], | | | | | | [place] [address] | | | | + + + + + + | % | 8.29Comment: Testing | % | EXTERNAL | | | Lymphocytes | performed at [facility], [address] | | LAB | | | | [address], | | | | | | [place] [address] | | | | + + + + + + | % Monocytes | 12.89Comment: Testing | % | EXTERNAL | | | | performed at [facility], [address] | | LAB | | | | [address], | | | | | | [place] [address] | | | | + + + + + + | % | 0.62Comment: Testing | % | EXTERNAL | | | Eosinophils | performed at [facility], [address] | | LAB | | | | [address], | | | | | | [place] [address] | | | | + + + + + + | % Basophils | 0.31Comment: Testing | % | EXTERNAL | | | | performed at [facility], [address] | | LAB | | | | [address], | | | | | | [place] [address] | | | | + + + + + + | Absolute | 6.01Comment: Testing | 1.90 - 7.40 | EXTERNAL | | | Segmented | performed at [facility], [address] | K/uL | LAB | | | Neutrophils | [address], | | | | | | [place] [address] | | | | + + + + + + | Absolute | 0.64 (L)Comment: Testing | 1.00 - 3.90 | EXTERNAL | | | Lymphocytes | performed at [facility], [address] | [address] | LAB | | | | [address], | | | | | | [place] [address] | | | | + + + + + + | Absolute | 0.99 (H)Comment: Testing | 0.00 - 0.80 | EXTERNAL | | | Monocytes | performed at [facility], [address] | [address] | LAB | | | | [address], | | | | | | [place] [address] | | | | + + + + + + | Absolute | 0.05Comment: Testing | 0.00 - 0.50 | EXTERNAL | | | Eosinophils | performed at [facility], [address] | K[address] | LAB | | | | [address], | | | | | | [place] [address] | | | | + + + + + + | Absolute | 0.02Comment: Testing | 0.00 - 0.10 | EXTERNAL | | | Basophils | performed at [facility], [address] | K/[address] | LAB | | | | [address], | | | | | | [place] [address] | | | | + + + + + + + + | Specimen | + + | Blood specimen | | (specimen) | + + + +---------+ + + | Performing | Address | City/State/Zipcode | Phone Number | | Organization | | | | + +---------+ + + | EXTERNAL LAB | | | | + +---------+ + + Phosphorus (11/06/2015 3:51 AM PDT) + + + + + + | Component | Value | Ref Range | Performed | Pathologist | | | | | At | Signature | + + + + + + | PHOSPHORUS | 2.9Comment: Testing | 2.3 - 4.8 mg/dL | EXTERNAL | | | | performed at [facility], [address] | | LAB | | | | [address], | | | | | | [place] [address] | | | | + + + + + + + + | Specimen | + + | Blood specimen | | (specimen) | + + + +---------+ + + | Performing | Address | City/State/Zipcode | Phone Number | | Organization | | | | + +---------+ + + | EXTERNAL LAB | | | | + +---------+ + + Magnesium (11/06/2015 3:51 AM PDT) + + + + + + | Component | Value | Ref Range | Performed | Pathologist | | | | | At | Signature | + + + + + + | Magnesium | 2.2Comment: Testing | 1.7 - 2.4 mg/dL | EXTERNAL | | | | performed at [facility], [address] | | LAB | | | | [address], | | | | | | [place] [address] | | | | + + + [...] + +---------+ + + Comprehensive Metabolic Panel (11/06/2015 3:51 AM PDT) + + + + + + | Component | Value | Ref Range | Performed | Pathologist | | | | | At | Signature | + + + + + + | Na | 137Comment: Testing | 135 - 143 | EXTERNAL | | | | performed at [facility], [address] | mmol/L | LAB | | | | [address], | | | | | | [place] [address] | | | | + + + + + + | K | 4.1Comment: Testing | 3.5 - 4.9 | EXTERNAL | | | | performed at [facility], [address] | mmol/L | LAB | | | | [address], | | | | | | [place] [address] | | | | + + + + + + | Cl | 107Comment: Testing | 99 - 109 mmol/L | EXTERNAL | | | | performed at [facility], [address] | | LAB | | | | [address], | | | | | | [place] [address] | | | | + + + + + + | CO2 | 24Comment: Testing | 23 - 32 mmol/L | EXTERNAL | | | | performed at [facility], [address] | | LAB | | | | [address], | | | | | | [place] [address] | | | | + + + + + + | Anion Gap | 10Comment: Testing | 5 - 20 mmol/L | EXTERNAL | | | | performed at [facility], [address] | | LAB | | | | [address], | | | | | | [place] [address] | | | | + + + + + + | Glucose, | 119 (H)Comment: Testing | 65 - 99 mg/dL | EXTERNAL | | | Fasting | performed at [facility], [address] | | LAB | | | | [address], | | | | | | [place] [address] | | | | + + + + + + | BUN | 24Comment: Testing | 8 - 25 mg/dL | EXTERNAL | | | | performed at [facility], [address] | | LAB | | | | [address], | | | | | | [place] [address] | | | | + + + + + + | Creatinine | 1.55 (H)Comment: Testing | 0.70 - 1.30 | EXTERNAL | | | | performed at [facility], [address] | mg/dL | LAB | | | | [address], | | | | | | [place] [address] | | | | + + + + + + | BUN/Creatin | 15Comment: Testing | | EXTERNAL | | | ine Ratio | performed at [facility], [address] | | LAB | | | | [address], | | | | | | [place] [address] | | | | + + + + + + | Calcium | 7.8 (L)Comment: Testing | 8.5 - 10.5 | EXTERNAL | | | | performed at [facility], [address] | mg/dL | LAB | | | | [address], | | | | | | [place] [address] | | | | + + + + + + | Protein, | 5.2 (L)Comment: Testing | 6.3 - 8.2 g/dL | EXTERNAL | | | Total | performed at [facility], [address] | | LAB | | | | [address], | | | | | | [place] [address] | | | | + + + + + + | Albumin | 3.0 (L)Comment: Testing | 3.3 - 4.8 g/dL | EXTERNAL | | | | performed at [facility], [address] | | LAB | | | | [address], | | | | | | [place] [address] | | | | + + + + + + | Globulin | 2.2Comment: Testing | 1.3 - 4.9 g/dL | EXTERNAL | | | | performed at [facility], [address] | | LAB | | | | [address], | | | | | | [place] [address] | | | | + + + + + + | A/G Ratio | 1.4Comment: Testing | 1.0 - 2.4 | EXTERNAL | | | | performed at [facility], [address] | | LAB | | | | [address], | | | | | | [place] [address] | | | | + + + + + + | Bilirubin | 0.6Comment: Testing | 0.1 - 1.5 mg/dL | EXTERNAL | | | Total | performed at [facility], [address] | | LAB | | | | [address], | | | | | | [place] [address] | | | | + + + + + + | ALP, | 41Comment: Testing | 35 - 115 U/L | EXTERNAL | | | External | performed at [facility], [address] | | LAB | | | | [address], | | | | | | [place] [address] | | | | + + + + + + | AST | 38Comment: Testing | 10 - 45 U/L | EXTERNAL | | | | performed at [facility], [address] | | LAB | | | | [address], | | | | | | [place] [address] | | | | + + + + + + | ALT | 18Comment: Testing | 10 - 65 U/L | EXTERNAL | | | | performed at [facility], [address] | | LAB | | | [address], | | | | | | [place] [address] | | | | + + + + + + | Estimated | 47 (L)Comment: GFR <60: | mL/min/1.73m2 | EXTERNAL | | | GFR | CHRONIC KIDNEY DISEASE, | | LAB | | | | IF FOUND OVER A 3 MONTH | | | | | | PERIOD.GFR <15: KIDNEY | | | | | | FAILURE.FOR | | | | | | AMERICANS, MULTIPLY THE | | | | | | CALCULATED GFR BY | | | | | | 1.210.Testing performed | | | | | | at [facility], [address] | | | | | | [address], | | | | | | [place] [address] | | | | + + + + + + + + | Specimen | + + | Blood specimen | | (specimen) | + + + +---------+ + + | Performing | Address | City/State/Zipcode | Phone Number | | Organization | | | | + +---------+ + + | EXTERNAL LAB | | | | + +---------+ + + POC Glucose (11/05/2015 9:13 PM PDT) + + + + + + | Component | Value | Ref Range | Performed | Pathologist | | | | | At | Signature | + + + + + + | Glucose, | 176 (H)Comment: Testing | 65 - 99 mg/dL | EXTERNAL | | | Fingerstick | performed at [facility] | | LAB | | | | [address];[place] | | | | | | [address] | | | | + + + + + + + + | Specimen | + + | | + + + +---------+ + + | Performing | Address | City/State/Zipcode | Phone Number | | Organization | | | | + +---------+ + + | EXTERNAL LAB | | | | + +---------+ + + POC Glucose (11/05/2015 6:37 PM PDT) + + + + + + | Component | Value | Ref Range | Performed | Pathologist | | | | | At | Signature | + + + + + + | Glucose, | 222 (H)Comment: Testing | 65 - 99 mg/dL | EXTERNAL | | | Fingerstick | performed at [facility];[address] | | LAB | | | | [address];[place] | | | | | | [address] | | | | + + + + + + + + | Specimen | + + | | + + + +---------+ + + | Performing | Address | City/State/Zipcode | Phone Number | | Organization | | | | + +---------+ + + | EXTERNAL LAB | | | | + +---------+ + + Potassium (11/05/2015 6:12 PM PDT) + + + + + + | Component | Value | Ref Range | Performed | Pathologist | | | | | At | Signature | + + + + + + | K | 4.2Comment: Testing | 3.5 - 4.9 | EXTERNAL | | | | performed at [facility];[address] | mmol/L | LAB | | | | [address];[place], [place] | | | | | | [address] | | | | + + + + + + + + | Specimen | + + | Blood specimen | | (specimen) | + + + +---------+ + + | Performing | Address | City/State/Zipcode | Phone Number | | Organization | | | | + +---------+ + + | EXTERNAL LAB | | | | + +---------+ + + POC Glucose (11/05/2015 1:59 PM PDT) + + + + + + | Component | Value | Ref Range | Performed | Pathologist | | | | | At | Signature | + + + + + + | Glucose, | 171 (H)Comment: Testing | 65 - 99 mg/dL | EXTERNAL | | | Fingerstick | performed at [facility];[address] | | LAB | | | | [address];[place], [place] | | | | | | [address] | | | | + + + + + + + + | Specimen | + + | | + + + +---------+ + + | Performing | Address | City/State/Zipcode | Phone Number | | Organization | | | | + +---------+ + + | EXTERNAL LAB | | | | + +---------+ + + POC Glucose (11/05/2015 11:27 AM PDT) + + + + + + | Component | Value | Ref Range | Performed | Pathologist | | | | | At | Signature | + + + + + + | Glucose, | 160 (H)Comment: Testing | 65 - 99 mg/dL | EXTERNAL | | | Fingerstick | performed at [facility];[address] | | LAB | | | | [address];[place] | | | | | | [address] | | | | + + + + + + + + | Specimen | + + | | + + + +---------+ + + | Performing | Address | City/State/Zipcode | Phone Number | | Organization | | | | + +---------+ + + | EXTERNAL LAB | | | | + +---------+ + + Potassium (11/05/2015 8:59 AM PDT) + + + + + + | Component | Value | Ref Range | Performed | Pathologist | | | | | At | Signature | + + + + + + | K | 4.5Comment: Testing | 3.5 - 4.9 | EXTERNAL | | | | performed at [facility];[address] | mmol/L | LAB | | | | [address];[place], [place] | | | | | | [address] | | | | + + + + + + + + | Specimen | + + | Blood specimen | | (specimen) | + + + +---------+ + + | Performing | Address | City/State/Zipcode | Phone Number | | Organization | | | | + +---------+ + + | EXTERNAL LAB | | | | + +---------+ + + POC Glucose (11/05/2015 7:21 AM PDT) + + + + + + | Component | Value | Ref Range | Performed | Pathologist | | | | | At | Signature | + + + + + + | Glucose, | 152 (H)Comment: Testing | 65 - 99 mg/dL | EXTERNAL | | | Fingerstick | performed at [facility];[address] | | LAB | | | | [address];[place] | | | | | | [address] | | | | + + + + + + + + | Specimen | + + | | + + + +---------+ + + | Performing | Address | City/State/Zipcode | Phone Number | | Organization | | | | + +---------+ + + | EXTERNAL LAB | | | | + +---------+ + + POC Glucose (11/05/2015 6:17 AM PDT) + + + + + + | Component | Value | Ref Range | Performed | Pathologist | | | | | At | Signature | + + + + + + | Glucose, | 162 (H)Comment: Testing | 65 - 99 mg/dL | EXTERNAL | | | Fingerstick | performed at [facility];[address] | | LAB | | | | [address];[place], [place] | | | | | | [address] | | | | + + + + + + + + | Specimen | + + | | + + + +---------+ + + | Performing | Address | City/State/Zipcode | Phone Number | | Organization | | | | + +---------+ + + | EXTERNAL LAB | | | | + +---------+ + + XR Chest 1 Vw (11/05/2015 5:36 AM PDT) + + | Specimen | + + | | + + + + + | Impressions | Performed At | + + + | 1. Minimal bibasilar subsegmental atelectasis. Electronically | | | signed by Trey Addison DO on 11/05/2015 7:39 AM | | + + + + + + | Narrative | Performed At | + + + | [facility] XR CHEST 1 VIEW HISTORY: 70 years. Male. | | | Evaluate tubes and lines. TECHNIQUE: Single portable anterior | | | view of the chest was obtained. COMPARISON: 11/04/2015 | | | FINDINGS: The heart is mildly enlarged. Right IJ Edgerton-Bradford catheter | | | tip located in the region of pulmonary outflow tract. 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 Nasogastric tube and endotracheal tube has | | | been removed. No pulmonary vascular congestion. Minimal bibasilar | | | subsegmental atelectasis. No pneumothorax. Old healed right clavicular | | | fracture. | | + + + + + | Procedure Note | + + | Matt, Rad Conversion - 01/29/2019 6:13 PM PDT [facility] AMARAL CHEST 1 VIEW HISTORY:70 | | years. Male. Evaluate tubes and lines. TECHNIQUE:Single portable anterior view of the | | chest was obtained. COMPARISON:11/04/2015 FINDINGS:The heart is mildly enlarged. Right IJ | | Edgerton-Bradford catheter tip located in the region of pulmonary outflow tract. Note is made | | of prosthetic cardiac valve. Nasogastric tube and endotracheal tube has been removed. No | | pulmonary vascular congestion. Minimal bibasilar subsegmental atelectasis. No | | pneumothorax. Old healed right clavicular fracture. IMPRESSION: 1. Minimal bibasilar | | subsegmental atelectasis. | | AM | |COMPARISON: | |11/04/2015 | | | |FINDINGS: | |The heart is mildly enlarged. Right IJ Edgerton-Bradford catheter tip located in the region of pulm onary outflow tract. 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 Nasogastric tube and endotrac heal tube has been removed. No | |pulmonary vascular congestion. Minimal | |bibasilar subsegmental atelectasis. No pneumothorax. Old healed right clavicular fracture. | | | |IMPRESSION: | |1. Minimal bibasilar subsegmental atelectasis. | | | | | + + External Lab: CBC (11/05/2015 4:04 AM PDT) + + + + + + | Component | Value | Ref Range | Performed | Pathologist | | | | | At | Signature | + + + + + + | WBC | 10.19Comment: Testing | 3.80 - 11.00 | EXTERNAL | | | | performed at [facility], [address] | K/u[address] | LAB | | | | [address], | | | | | | [place] [address] | | | | + + + + + + | Non- | 2.66 (L)Comment: Testing | 4.20 - 5.70 | EXTERNAL | | | Red Blood | performed at [facility], [address] | M/uL | LAB | | | Cells | [address], | | | | | Counted | [place] [address] | | | | + + + + + + | Hemoglobin | 8.4 (L)Comment: Testing | 13.2 - 17.0 | EXTERNAL | | | | performed at [facility], [address] | g/dL | LAB | | | | [address], | | | | | | [place] [address] | | | | + + + + + + | Hematocrit, | 24.3 (L)Comment: Testing | 39.0 - 50.0 % | EXTERNAL | | | POC | performed at [facility], [address] | | LAB | | | | [address], | | | | | | [place] [address] | | | | + + + + + + | MCV | 91.3Comment: Testing | 80.0 - 100.0 fl | EXTERNAL | | | | performed at [facility], [address] | | LAB | | | | [address], | | | | | | [place] [address] | | | | + + + + + + | MCH | 31.7Comment: Testing | 27.0 - 34.0 pg | EXTERNAL | | | | performed at [facility], [address] | | LAB | | | | [address], | | | | | | [place] [address] | | | | + + + + + + | MCHC | 34.7Comment: Testing | 32.0 - 35.5 | EXTERNAL | | | | performed at [facility], [address] | g/dL | LAB | | | | [address], | | | | | | [place] [address] | | | | + + + + + + | RDW-CV | 45.1Comment: Testing | 37 - 53 fl | EXTERNAL | | | | performed at [facility], [address] | | LAB | | | | [address], | | | | | | [place] [address] | | | | + + + + + + | Platelet | 149 (L)Comment: Testing | 150 - 400 K/uL | EXTERNAL | | | Count | performed at [facility], [address] | | LAB | | | Plasma | [address], | | | | | | [place] [address] | | | | + + + + + + | MPV | 8.6Comment: Testing | fl | EXTERNAL | | | | performed at [facility], [address] | | LAB | | | | [address], | | | | | | [place] [address] | | | | + + + + + + | Differentia | MANUALComment: Testing | | EXTERNAL | | | l Type | performed at [facility], [address] | | LAB | | | | [address], | | | | | | [place] [address] | | | | + + + + + + | Segmented | 83Comment: Testing | % | EXTERNAL | | | Neutrophils | performed at [facility], [address] | | LAB | | | Manual | [address], | | | | | | [place] [address] | | | | + + + + + + | % Bands | 8Comment: Testing | % | EXTERNAL | | | | performed at [facility], [address] | | LAB | | | | [address], | | | | | | [place] [address] | | | | + + + + + + | Lymphocytes | 5Comment: Testing | % | EXTERNAL | | | Manual | performed at [facility], [address] | | LAB | | | | [address], | | | | | | [place] [address] | | | | + + + + + + | Monocytes | 4Comment: Testing | % | EXTERNAL | | | Manual | performed at [facility], [address] | | LAB | | | | [address], | | | | | | [place] [address] | | | | + + + + + + | Absolute | 8.45 (H)Comment: Testing | 1.90 - 7.40 | EXTERNAL | | | Neutrophils | performed at [facility], [address] | K/uL | LAB | | | | [address], | | | | | | [place] [address] | | | | + + + + + + | Bands | 0.82 (H)Comment: Testing | 0.00 - 0.20 | EXTERNAL | | | Manual | performed at [facility], [address] | [address] | LAB | | | | [address], | | | | | | [place] [address] | | | | + + + + + + | Absolute | 0.51 (L)Comment: Testing | 1.00 - 3.90 | EXTERNAL | | | Lymphocytes | performed at [facility], [address] | [address]L | LAB | | | | [address], | | | | | | [place] [address] | | | | + + + + + + | Absolute | 0.41Comment: Testing | 0.00 - 0.80 | EXTERNAL | | | Monocytes | performed at [facility], [address] | K/uL | LAB | | | | [address], | | | | | | [place] [address] | | | | + + + + + + | RBC | RBC AND PLT MORPHOLOGY | | EXTERNAL | | | Morphology | APPEAR NORMALComment: | | LAB | | | | Testing performed at | | | | | | [facility], [address] [facility] | | | | | | [place] | | | | | | [address] | | | | + + + + + + + + | Specimen | + + | Blood specimen | | (specimen) | + + + +---------+ + + | Performing | Address | City/State/Zipcode | Phone Number | | Organization | | | | + +---------+ + + | EXTERNAL LAB | | | | + +---------+ + + Phosphorus (11/05/2015 4:04 AM PDT) + + + + + + | Component | Value | Ref Range | Performed | Pathologist | | | | | At | Signature | + + + + + + | PHOSPHORUS | 3.3Comment: Testing | 2.3 - 4.8 mg/dL | EXTERNAL | | | | performed at [facility];[address] | | LAB | | | | [address];[place], [place] | | | | | | [address] | | | | + + + + + + + + | Specimen | + + | Blood specimen | | (specimen) | + + + +---------+ + + | Performing | Address | City/State/Zipcode | Phone Number | | Organization | | | | + +---------+ + + | EXTERNAL LAB | | | | + +---------+ + + Magnesium (11/05/2015 4:04 AM PDT) + + + + + + | Component | Value | Ref Range | Performed | Pathologist | | | | | At | Signature | + + + + + + | Magnesium | 2.3Comment: Testing | 1.7 - 2.4 mg/dL | EXTERNAL | | | | performed at [facility];[address] | | LAB | | | | [address];[place], [place] | | | | | | [address] | | | | + + + [...] + +---------+ + + Comprehensive Metabolic Panel (11/05/2015 4:04 AM PDT) + + + + + + | Component | Value | Ref Range | Performed | Pathologist | | | | | At | Signature | + + + + + + | Na | 143Comment: Testing | 135 - 143 | EXTERNAL | | | | performed at [facility];[address] | mmol/L | LAB | | | | [address];[place] | | | | | | [address] | | | | + + + + + + | K | 4.7Comment: Testing | 3.5 - 4.9 | EXTERNAL | | | | performed at [facility];[address] | mmol/L | LAB | | | | [address];[place] | | | | | | [address] | | | | + + + + + + | Cl | 112 (H)Comment: Testing | 99 - 109 mmol/L | EXTERNAL | | | | performed at [facility];[address] | | LAB | | | | [address];[place] | | | | | | [address] | | | | + + + + + + | CO2 | 24Comment: Testing | 23 - 32 mmol/L | EXTERNAL | | | | performed at [facility];[address] | | LAB | | | | [address];[place] | | | | | | [address] | | | | + + + + + + | Anion Gap | 11Comment: Testing | 5 - 20 mmol/L | EXTERNAL | | | | performed at [facility];[address] | | LAB | | | | [address];[place] | | | | | | [address] | | | | + + + + + + | Glucose, | 122 (H)Comment: Testing | 65 - 99 mg/dL | EXTERNAL | | | Fasting | performed at [facility];[address] | | LAB | | | | [address];[place] | | | | | | [address] | | | | + + + + + + | BUN | 15Comment: Testing | 8 - 25 mg/dL | EXTERNAL | | | | performed at [facility];[address] | | LAB | | | | [address];[place] | | | | | | [address] | | | | + + + + + + | Creatinine | 1.2Comment: Testing | 0.70 - 1.30 | EXTERNAL | | | | performed at [facility];[address] | mg/dL | LAB | | | | [address];[place] | | | | | | [address] | | | | + + + + + + | BUN/Creatin | 13Comment: Testing | | EXTERNAL | | | ine Ratio | performed at [facility];[address] | | LAB | | | | [address];[place] | | | | | | [address] | | | | + + + + + + | Calcium | 7.2 (L)Comment: Testing | 8.5 - 10.5 | EXTERNAL | | | | performed at [facility];[address] | mg/dL | LAB | | | | [address];[place] | | | | | | [address] | | | | + + + + + + | Protein, | 5.5 (L)Comment: Testing | 6.3 - 8.2 g/dL | EXTERNAL | | | Total | performed at [facility];[address] | | LAB | | | | [address];[place] | | | | | | [address] | | | | + + + + + + | Albumin | 3.1 (L)Comment: Testing | 3.3 - 4.8 g/dL | EXTERNAL | | | | performed at [facility];[address] | | LAB | | | | [address];[place] | | | | | | [address] | | | | + + + + + + | Globulin | 2.4Comment: Testing | 1.3 - 4.9 g/dL | EXTERNAL | | | | performed at [facility];[address] | | LAB | | | | [address];[place] | | | | | | [address] | | | | + + + + + + | A/G Ratio | 1.3Comment: Testing | 1.0 - 2.4 | EXTERNAL | | | | performed at [facility];[address] | | LAB | | | | [address];[place] | | | | | | [address] | | | | + + + + + + | Bilirubin | 0.8Comment: Testing | 0.1 - 1.5 mg/dL | EXTERNAL | | | Total | performed at [facility];[address] | | [address] | | | | [address];[place] | | | | | | [id number] | | | | + + + + + + | ALP, | 44Comment: Testing | 35 - 115 U/L | EXTERNAL | | | External | performed at [facility];[address] | | LAB | | | | [address];[place] | | | | | | [address] | | | | + + + + + + | AST | 65 (H)Comment: Testing | 10 - 45 U/L | EXTERNAL | | | | performed at [facility];[address] | | [address] | | | | [address];[place] | | | | | | [address] | | | | + + + + + + | ALT | 22Comment: Testing | 10 - 65 U/L | EXTERNAL | | | | performed at [facility];[address] | | [address] | | | | [address];[place] | | | | | | [id number] | | | | + + + + + + | Estimated | >60Comment: GFR <60: | mL/min/1.73m2 | EXTERNAL | | | GFR | CHRONIC KIDNEY DISEASE, | | LAB | | | | IF FOUND OVER A 3 MONTH | | | | | | PERIOD.GFR <15: KIDNEY | | | | | | FAILURE.FOR | | | | | | AMERICANS, MULTIPLY THE | | | | | | CALCULATED GFR BY | | | | | | 1.210.Testing performed | | | | | | at [facility];[address] | | | [address];[place] [address] | | | | + + + + + + + + | Specimen | + + | Blood specimen | | (specimen) | + + + +---------+ + + | Performing | Address | City/State/Zipcode | Phone Number | | Organization | | | | + +---------+ + + | EXTERNAL LAB | | | | + +---------+ + + POC Glucose (11/05/2015 4:02 AM PDT) + + + + + + | Component | Value | Ref Range | Performed | Pathologist | | | | | At | Signature | + + + + + + | Glucose, | 141 (H)Comment: Testing | 65 - 99 mg/dL | EXTERNAL | | | Fingerstick | performed at [facility];[address] | | LAB | | | | [address];[place], [place] | | | | | | [address] | | | | + + + + + + + + | Specimen | + + | | + + + +---------+ + + | Performing | Address | City/State/Zipcode | Phone Number | | Organization | | | | + +---------+ + + | EXTERNAL LAB | | | | + +---------+ + + POC Glucose (11/05/2015 2:10 AM PDT) + + + + + + | Component | Value | Ref Range | Performed | Pathologist | | | | | At | Signature | + + + + + + | Glucose, | 147 (H)Comment: Testing | 65 - 99 mg/dL | EXTERNAL | | | Fingerstick | performed at [facility];[address] | | LAB | | | | [address];[place], [place] | | | | | | [address] | | | | + + + + + + + + | Specimen | + + | | + + + +---------+ + + | Performing | Address | City/State/Zipcode | Phone Number | | Organization | | | | + +---------+ + + | EXTERNAL LAB | | | | + +---------+ + + POC Glucose (11/05/2015 12:28 AM PDT) + + + + + + | Component | Value | Ref Range | Performed | Pathologist | | | | | At | Signature | + + + + + + | Glucose, | 137 (H)Comment: Testing | 65 - 99 mg/dL | EXTERNAL | | | Fingerstick | performed at [facility];[address] | | LAB | | | | [address];[place] | | | | | | [address] | | | | + + + + + + + + | Specimen | + + | | + + + +---------+ + + | Performing | Address | City/State/Zipcode | Phone Number | | Organization | | | | + +---------+ + + | EXTERNAL LAB | | | | + +---------+ + + Potassium (11/04/2015 11:20 PM PDT) + + + + + + | Component | Value | Ref Range | Performed | Pathologist | | | | | At | Signature | + + + + + + | K | 4.7Comment: Testing | 3.5 - 4.9 | EXTERNAL | | | | performed at [facility];888 | mmol/L | LAB | | | | [address];[place] | | | | | | [address] | | | | + + + + + + + + | Specimen | + + | Blood specimen | | (specimen) | + + + +---------+ + + | Performing | Address | City/State/Zipcode | Phone Number | | Organization | | | | + +---------+ + + | EXTERNAL LAB | | | | + +---------+ + + POC Glucose (11/04/2015 10:24 PM PDT) + + + + + + | Component | Value | Ref Range | Performed | Pathologist | | | | | At | Signature | + + + + + + | Glucose, | 135 (H)Comment: Testing | 65 - 99 mg/dL | EXTERNAL | | | Fingerstick | performed at [facility];[address] | | LAB | | | | [address];[place] | | | | | | [address] | | | | + + + + + + + + | Specimen | + + | | + + + +---------+ + + | Performing | Address | City/State/Zipcode | Phone Number | | Organization | | | | + +---------+ + + | EXTERNAL LAB | | | | + +---------+ + + POC Glucose (11/04/2015 9:35 PM PDT) + + + + + + | Component | Value | Ref Range | Performed | Pathologist | | | | | At | Signature | + + + + + + | Glucose, | 137 (H)Comment: Testing | 65 - 99 mg/dL | EXTERNAL | | | Fingerstick | performed at [facility];[address] | | LAB | | | | [address];[place] | | | | | | [address] | | | | + + + + + + + + | Specimen | + + | | + + + +---------+ + + | Performing | Address | City/State/Zipcode | Phone Number | | Organization | | | | + +---------+ + + | EXTERNAL LAB | | | | + +---------+ + + POC Glucose (11/04/2015 8:26 PM PDT) + + + + + + | Component | Value | Ref Range | Performed | Pathologist | | | | | At | Signature | + + + + + + | Glucose, | 153 (H)Comment: Testing | 65 - 99 mg/dL | EXTERNAL | | | Fingerstick | performed at [facility];[address] | | LAB | | | | [address];[place] | | | | | | [address] | | | | + + + + + + + + | Specimen | + + | | + + + +---------+ + + | Performing | Address | City/State/Zipcode | Phone Number | | Organization | | | | + +---------+ + + | EXTERNAL LAB | | | | + +---------+ + + Potassium (11/04/2015 7:31 PM PDT) + + + + + + | Component | Value | Ref Range | Performed | Pathologist | | | | | At | Signature | + + + + + + | K | 4.6Comment: Testing | 3.5 - 4.9 | EXTERNAL | | | | performed at [facility];[address] | mmol/L | LAB | | | | [address];[place], [place] | | | | | | [address] | | | | + + + + + + + + | Specimen | + + | Blood specimen | | (specimen) | + + + +---------+ + + | Performing | Address | City/State/Zipcode | Phone Number | | Organization | | | | + +---------+ + + | EXTERNAL LAB | | | | + +---------+ + + POC Glucose (11/04/2015 7:17 PM PDT) + + + + + + | Component | Value | Ref Range | Performed | Pathologist | | | | | At | Signature | + + + + + + | Glucose, | 161 (H)Comment: Testing | 65 - 99 mg/dL | EXTERNAL | | | Fingerstick | performed at [facility];[address] | | LAB | | | | [address];[place] | | | | | | [address] | | | | + + + + + + + + | Specimen | + + | | + + + +---------+ + + | Performing | Address | City/State/Zipcode | Phone Number | | Organization | | | | + +---------+ + + | EXTERNAL LAB | | | | + +---------+ + + POC Glucose (11/04/2015 6:50 PM PDT) + + + + + + | Component | Value | Ref Range | Performed | Pathologist | | | | | At | Signature | + + + + + + | Glucose, | 142 (H)Comment: Testing | 65 - 99 mg/dL | EXTERNAL | | | Fingerstick | performed at [facility];[address] | | LAB | | | | [address];[place] | | | | | | [address] | | | | + + + + + + + + | Specimen | + + | | + + + +---------+ + + | Performing | Address | City/State/Zipcode | Phone Number | | Organization | | | | + +---------+ + + | EXTERNAL LAB | | | | + +---------+ + + POC Glucose (11/04/2015 6:06 PM PDT) + + + + + + | Component | Value | Ref Range | Performed | Pathologist | | | | | At | Signature | + + + + + + | Glucose, | 113 (H)Comment: Testing | 65 - 99 mg/dL | EXTERNAL | | | Fingerstick | performed at [facility];[address] | | LAB | | | | [address];[place] | | | | | | [address] | | | | + + + + + + + + | Specimen | + + | | + + + +---------+ + + | Performing | Address | City/State/Zipcode | Phone Number | | Organization | | | | + +---------+ + + | EXTERNAL LAB | | | | + +---------+ + + POC Glucose (11/04/2015 4:42 PM PDT) + + + + + + | Component | Value | Ref Range | Performed | Pathologist | | | | | At | Signature | + + + + + + | Glucose, | 101 (H)Comment: Testing | 65 - 99 mg/dL | EXTERNAL | | | Fingerstick | performed at [facility];[address] | | LAB | | | | [address];[place] | | | | | | [address] | | | | + + + + + + + + | Specimen | + + | | + + + +---------+ + + | Performing | Address | City/State/Zipcode | Phone Number | | Organization | | | | + +---------+ + + | EXTERNAL LAB | | | | + +---------+ + + PTT (11/04/2015 4:14 PM PDT) + + + + + + | Component | Value | Ref Range | Performed | Pathologist | | | | | At | Signature | + + + + + + | aPTT, | 31Comment: Testing | 23 - 32 seconds | EXTERNAL | | | Patient | performed at [facility];[address] | | LAB | | | | [address];[place], [place] | | | | | | [address] | | | | + + + + + + + + | Specimen | + + | Blood specimen | | (specimen) | + + + +---------+ + + | Performing | Address | City/State/Zipcode | Phone Number | | Organization | | | | + +---------+ + + | EXTERNAL LAB | | | | + +---------+ + + Janiceime INR (11/04/2015 4:14 PM PDT) + + + + + + | Component | Value | Ref Range | Performed | Pathologist | | | | | At | Signature | + + + + + + | INR | 1.4Comment: REFERENCE | | EXTERNAL | | | | RANGE:0.9 - 1.2 | | LAB | | | | NON-ANTICOAGULATED2.0 | | | | | | - 3.0 ALL OTHER | | | | | | THERAPEUTIC | | | | | | INDICATIONS2.5 - 3.5 | | | | | | MECHANICAL HEART VALVES, | | | | | | RECURRENT OR SYSTEMIC | | | | | | EMBOLISMTesting | | | | | | performed at [facility] | | | | | | [facility];[place], [place] | | | | | | [address] | | | | + + + + + + + + | Specimen | + + | Blood specimen | | (specimen) | + + + +---------+ + + | Performing | Address | City/State/Zipcode | Phone Number | | Organization | | | | + +---------+ + + | EXTERNAL LAB | | | | + +---------+ + + Fibrinogen (11/04/2015 4:14 PM PDT) + + + + + + | Component | Value | Ref Range | Performed | Pathologist | | | | | At | Signature | + + + + + + | Fibrinogen | 252Comment: Testing | 200 - 450 mg/dL | EXTERNAL | | | | performed at [facility];[address] | | LAB | | | | [address] [facility];[place], [place] | | | | | | [address] | | | | + + + [...] + +---------+ + + External Lab: CBC (11/04/2015 4:14 PM PDT) + + + + + + | Component | Value | Ref Range | Performed | Pathologist | | | | | At | Signature | + + + + + + | WBC | 10.63Comment: Testing | 3.80 - 11.00 | EXTERNAL | | | | performed at [facility];[address] | K/uL | LAB | | | | [address];[place] | | | | | | [address] | | | | + + + + + + | Non- | 2.79 (L)Comment: Testing | 4.20 - 5.70 | EXTERNAL | | | Red Blood | performed at [facility];[address] | M/uL | LAB | | | Cells | [address];[place] | | | | | Counted | [id number] | | | | + + + + + + | Hemoglobin | 8.7 (L)Comment: Testing | 13.2 - 17.0 | EXTERNAL | | | | performed at [facility];[address] | g/dL | LAB | | | | [address];[place] | | | | | | [address] | | | | + + + + + + | Hematocrit, | 25.5 (L)Comment: Testing | 39.0 - 50.0 % | EXTERNAL | | | POC | performed at [facility];[address] | | LAB | | | | [address];[place] | | | | | | [address] | | | | + + + + + + | MCV | 91.4Comment: Testing | 80.0 - 100.0 fl | EXTERNAL | | | | performed at [facility];[address] | | LAB | | | | [address];[place] | | | | | | [address] | | | | + + + + + + | MCH | 31.0Comment: Testing | 27.0 - 34.0 pg | EXTERNAL | | | | performed at [facility];[address] | | LAB | | | | [address];[place] | | | | | | [address] | | | | + + + + + + | MCHC | 33.9Comment: Testing | 32.0 - 35.5 | EXTERNAL | | | | performed at [facility];[address] | g/dL | LAB | | | | [address];[place] | | | | | | [address] | | | | + + + + + + | RDW-CV | 45.1Comment: Testing | 37 - 53 fl | EXTERNAL | | | | performed at [facility];[address] | | LAB | | | | [address];[place] | | | | | | [address] | | | | + + + + + + | Platelet | 148 (L)Comment: Testing | 150 - 400 K/uL | EXTERNAL | | | Count | performed at [facility];[address] | | LAB | | | Plasma | [address];[place] | | | | | | [address] | | | | + + + + + + | MPV | 7.4Comment: Testing | fl | EXTERNAL | | | | performed at [facility];[address] | | LAB | | | | [address];[place] | | | | | | [address] | | | | + + + + + + | Differentia | MANUALComment: Testing | | EXTERNAL | | | l Type | performed at [facility];[address] | | LAB | | | | [address];[place] | | | | | | [address] | | | | + + + + + + | Segmented | 55Comment: Testing | % | EXTERNAL | | | Neutrophils | performed at [facility];[address] | | LAB | | | Manual | [address];[place] | | | | | | [address] | | | | + + + + + + | % Bands | 30Comment: Testing | % | EXTERNAL | | | | performed at [facility];[address] | | LAB | | | | [address];[place] | | | | | | [address] | | | | + + + + + + | Lymphocytes | 7Comment: Testing | % | EXTERNAL | | | Manual | performed at [facility];[address] | | LAB | | | | [address];[place] | | | | | | [address] | | | | + + + + + + | Monocytes | 5Comment: Testing | % | EXTERNAL | | | Manual | performed at [facility];[address] | | LAB | | | | [address];[place] | | | | | | [address] | | | | + + + + + + | Eosinophils | 3Comment: Testing | % | EXTERNAL | | | Manual | performed at [facility];[address] | | LAB | | | | [address];[place] | | | | | | [address] | | | | + + + + + + | Absolute | 5.85Comment: Testing | 1.90 - 7.40 | EXTERNAL | | | Neutrophils | performed at [facility];[address] | K/uL | LAB | | | | [address];[place] | | | | | | [address] | | | | + + + + + + | Bands | 3.19 (H)Comment: Testing | 0.00 - 0.20 | EXTERNAL | | | Manual | performed at [facility];[address] | K/uL | LAB | | | | [address];[place] | | | | | | [address] | | | | + + + + + + | Absolute | 0.74 (L)Comment: Testing | 1.00 - 3.90 | EXTERNAL | | | Lymphocytes | performed at [facility];[address] | K/uL | LAB | | | | [address];[place] | | | | | | [address] | | | | + + + + + + | Absolute | 0.53Comment: Testing | 0.00 - 0.80 | EXTERNAL | | | Monocytes | performed at [facility];[address] | K/uL | LAB | | | | [address];[place] | | | | | | [address] | | | | + + + + + + | Absolute | 0.32Comment: Testing | 0.00 - 0.50 | EXTERNAL | | | Eosinophils | performed at [facility];[address] | K/uL | LAB | | | | [address];[place] | | | | | | [address] | | | | + + + + + + | RBC | RBC AND PLT MORPHOLOGY | | EXTERNAL | | | Morphology | APPEAR NORMALComment: | | LAB | | | | Testing performed at | | | | | | [facility];[address];[place] [address] | | | | + + + + + + + + | Specimen | + + | Blood specimen | | (specimen) | + + + +---------+ + + | Performing | Address | City/State/Zipcode | Phone Number | | Organization | | | | + +---------+ + + | EXTERNAL LAB | | | | + +---------+ + + Magnesium (11/04/2015 4:14 PM PDT) + + + + + + | Component | Value | Ref Range | Performed | Pathologist | | | | | At | Signature | + + + + + + | Magnesium | 2.7 (H)Comment: Testing | 1.7 - 2.4 mg/dL | EXTERNAL | | | | performed at [facility];8 | | LAB | | | | [address];[place] | | | | | | [address] | | | | + + + + + + + + | Specimen | + + | Blood specimen | | (specimen) | + + + +---------+ + + | Performing | Address | City/State/Zipcode | Phone Number | | Organization | | | | + +---------+ + + | EXTERNAL LAB | | | | + +---------+ + + Calcium, Ionized (11/04/2015 4:14 PM PDT) + + + + + + | Component | Value | Ref Range | Performed | Pathologist | | | | | At | Signature | + + + + + + | Calcium | 0.96 (L)Comment: Testing | 1.08 - 1.25 | EXTERNAL | | | (Calc) | performed at [facility];[address] | mmol/L | LAB | | | | [address];[place] | | | | | | [address] | | | | + + + + + + | pH, Bld | 7.338Comment: Testing | 7.300 - 7.450 | EXTERNAL | | | | performed at [facility];[address] | | LAB | | | | [address];[place] | | | | | | [address] | | | | + + + [...] + +---------+ + + Basic Metabolic Panel (11/04/2015 4:14 PM PDT) + + + + + + | Component | Value | Ref Range | Performed | Pathologist | | | | | At | Signature | + + + + + + | Na | 144 (H)Comment: Testing | 135 - 143 | EXTERNAL | | | | performed at [facility];[address] | mmol/L | LAB | | | | [address];[place] | | | | | | [address] | | | | + + + + + + | K | 4.8Comment: Testing | 3.5 - 4.9 | EXTERNAL | | | | performed at [facility];[address] | mmol/L | LAB | | | | [address];[place] | | | | | | [address] | | | | + + + + + + | Cl | 113 (H)Comment: Testing | 99 - 109 mmol/L | EXTERNAL | | | | performed at [facility];[address] | | LAB | | | | [address];[place] | | | | | | [address] | | | | + + + + + + | CO2 | 21 (L)Comment: Testing | 23 - 32 mmol/L | EXTERNAL | | | | performed at [facility];[address] | | LAB | | | | [address];[place] | | | | | | [address] | | | | + + + + + + | Anion Gap | 15Comment: Testing | 5 - 20 mmol/L | EXTERNAL | | | | performed at [facility];[address] | | LAB | | | | [address];[place] | | | | | | [address] | | | | + + + + + + | Glucose, | 103 (H)Comment: Testing | 65 - 99 mg/dL | EXTERNAL | | | Fasting | performed at [facility];[address] | | LAB | | | | [address];[place] | | | | | | [address] | | | | + + + + + + | BUN | 14Comment: Testing | 8 - 25 mg/dL | EXTERNAL | | | | performed at [facility];[address] | | LAB | | | | [address];[place] | | | | | | [address] | | | | + + + + + + | Creatinine | 1.1Comment: Testing | 0.70 - 1.30 | EXTERNAL | | | | performed at [facility];[address] | mg/dL | LAB | | | | [address];[place] | | | | | | [address] | | | | + + + + + + | BUN/Creatin | 13Comment: Testing | | EXTERNAL | | | ine Ratio | performed at [facility];[address] | | LAB | | | | [address];[place] | | | | | | [address] | | | | + + + + + + | Calcium | 6.7 (L)Comment: Testing | 8.5 - 10.5 | EXTERNAL | | | | performed at [facility];888 | mg/dL | LAB | | | | [facility] | | | | | | [address] | | | | + + + + + + | Estimated | >60Comment: GFR <60: | mL/min/1.73m2 | EXTERNAL | | | GFR | CHRONIC KIDNEY DISEASE, | | LAB | | | | IF FOUND OVER A 3 MONTH | | | | | | PERIOD.GFR <15: KIDNEY | | | | | | FAILURE.FOR | | | | | | AMERICANS, MULTIPLY THE | | | | | | CALCULATED GFR BY | | | | | | 1.210.Testing performed | | | | | | at [facility];[address] | | | | | [address];[place] [address] | | | | + + + + + + + + | Specimen | + + | Blood specimen | | (specimen) | + + + +---------+ + + | Performing | Address | City/State/Zipcode | Phone Number | | Organization | | | | + +---------+ + + | EXTERNAL LAB | | | | + +---------+ + + XR Chest 1 Vw (11/04/2015 4:00 PM PDT) + + | Specimen | + + | | + + + + + | Impressions | Performed At | + + + | 1. NG tube tip is in the distal esophagus and should be advanced | | | at least 15 cm into the stomach. 2. Endotracheal tube, mediastinal | | | drain and right-sided Edgerton-Bradford catheter are in satisfactory position. | | | Findings were reported to ICU unit control worker Dafne by telephone | | | at 11/04/2015 4:01 PM. | | + + + + + + | Narrative | Performed At | + + + | WAYLON RUBIN XR CHEST 1 VIEW 11/04/2015 4:00 PM HISTORY: 70 | | | years. Male. Severe aortic stenosis status post aortic valve | | | replacement. Assess line and tube position. TECHNIQUE: 1 view | | | of the chest obtained at 1545 hours. COMPARISON: 11/03/2015. | | | FINDINGS: Transcutaneous pacing pads are noted. A right-sided | | | Edgerton-Bradford catheter is seen with its tip in the main pulmonary artery. | | | The endotracheal tube tip is 7.8 cm above the hal. A | | | nasogastric tube is seen with its tip in the distal esophagus. This | | | should be advanced 15 cm into the stomach. A mediastinal drain is | | | present. Median sternotomy wires and aortic valve replacement ring | | | are seen. The lungs are well aerated. No pneumothorax or pleural | | | effusion is noted. The osseous structures show thoracic | | | spondylosis but are otherwise intact. | | + + + + + | Procedure Note | + + | Afshin Gutierrez Conversion - 01/29/2019 6:13 PM PDT WAYLON RUBINXR CHEST 1 VIEW11/04/2015 | | 4:00 PM HISTORY:70 years. Male. Severe aortic stenosis status post aortic valve | | replacement. Assess line and tube position. TECHNIQUE:1 view of the chest obtained at | | 1545 hours. COMPARISON:11/03/2015. FINDINGS:Transcutaneous pacing pads are noted. A | | right-sided Edgerton-Bradford catheter is seen with its tip in the main pulmonary artery. The | | endotracheal tube tip is 7.8 cm above the hal. A nasogastric tube is seen with its | | tip in the distal esophagus. This should be advanced 15 cm into the stomach. A | | mediastinal drain is present. Median sternotomy wires and aortic valve replacement ring | | are seen. The lungs are well aerated. No pneumothorax or pleural effusion is noted. | | The osseous structures show thoracic spondylosis but are otherwise intact. IMPRESSION: | | 1. NG tube tip is in the distal esophagus and should be advanced at least 15 cm into | | the stomach.2. Endotracheal tube, mediastinal drain and right-sided Edgerton-Bradford catheter | | are in satisfactory position. Findings were reported to ICU unit control worker Dafne by | | telephone at 11/04/2015 4:01 PM. | | 4:06 PM | |should be advanced 15 cm into the stomach. A mediastinal drain is present. Median sternot shaina wires and aortic valve replacement ring are seen. The lungs are well aerated. No pneum othorax or pleural effusion is noted. The osseous structures show | |thoracic spondylosis but are otherwise intact. | | | |IMPRESSION: | |1. NG tube tip is in the distal esophagus and should be advanced at least 15 cm into the s tomach. | |2. Endotracheal tube, mediastinal drain and right-sided Edgerton-Bradford catheter are in satisfac tory position. | | | |Findings were reported to ICU unit control worker Dafne by telephone at 11/04/2015 4:01 PM. | | | | | + + ECG 12 lead (11/04/2015 3:49 PM PDT) + + + + + + | Component | Value | Ref Range | Performed | Pathologist | | | | | At | Signature | + + + + + + | DIAGNOSIS: | Sinus rhythm with 1st | | EXTERNAL | | | | degree A-V blockRight | | LAB | | | | bundle branch blockLeft | | | | | | anterior fascicular | | | | | | block Bifascicular | | | | | | block Nonspecific ST | | | | | | and/or T wave | | | | | | abnormalitiesAbnormal | | | | | | ECG Bifascicular | | | | | | block new or more | | | | | | evident since previous | | | | | | ECGNonspecific ST and/or | | | | | | T wave abnormalities | | | | | | new or more evident | | | | | | since previous ECG | | | | | | Confirmed by AYESHA | | | | | | MARICRUZ ([id number]) on 11/04/2015 | | | | | | 5:02:49 PM | | | | + + + + + + + + | Specimen | + + | | + + + + + | Narrative | Performed At | + + + | Historically converted procedure from [facility] Epic environment | EXTERNAL LAB | + + + + +---------+ + + | Performing | Address | City/State/Zipcode | Phone Number | | Organization | | | | + +---------+ + + | EXTERNAL LAB | | | | + +---------+ + + POC Glucose (11/04/2015 3:41 PM PDT) + + + + + + | Component | Value | Ref Range | Performed | Pathologist | | | | | At | Signature | + + + + + + | Glucose, | 101 (H)Comment: Testing | 65 - 99 mg/dL | EXTERNAL | | | Fingerstick | performed at [facility];[address] | | LAB | | | | [address];[place] | | | | | | [address] | | | | + + + + + + + + | Specimen | + + | | + + + +---------+ + + | Performing | Address | City/State/Zipcode | Phone Number | | Organization | | | | + +---------+ + + | EXTERNAL LAB | | | | + +---------+ + + POC CG 4, ISTAT Arterial (11/04/2015 2:35 PM PDT) + + + + + + | Component | Value | Ref Range | Performed | Pathologist | | | | | At | Signature | + + + + + + | PH ART | 7.335 (L)Comment: | 7.350 - 7.450 | EXTERNAL | | | | Testing performed at | | LAB | | | | [facility];[address];[place] [id number] | | | | + + + + + + | PCO2 ART | 39Comment: Testing | 35 - 45 mmHg | EXTERNAL | | | | performed at [facility];[address] | | [address] | | | [address];[place] | | | | | | [address] | | | | + + + + + + | PO2 ART | 377 (H)Comment: Testing | 80 - 105 mmHg | EXTERNAL | | | | performed at [facility];[address] | | LAB | | | | [address];[place] | | | | | | [id number] | | | | + + + + + + | Lactate, | 2.5 (H)Comment: Testing | 0.36 - 1.25 | EXTERNAL | | | Arterial | performed at [facility];[address] | mmol/L | LAB | | | | [address];[place] | | | | | | [address] | | | | + + + + + + | HCO3 ART | 21 (L)Comment: Testing | 22 - 26 mmol/L | EXTERNAL | | | | performed at [facility];[address] | | LAB | | | | [address];[place] | | | | | | [address] | | | | + + + + + + | POC | 22 (L)Comment: Testing | 23 - 27 mEq/L | EXTERNAL | | | APPEARANCE | performed at [facility];[address] | | LAB | | | [address] | [address];[place] | | | | | | [id number] | | | | + + + + + + | Base | 5 (H)Comment: Testing | 0.0 - 2.0 | EXTERNAL | | | deficit | performed at [facility];[address] | mmol/L | LAB | | | | [address];[place] | | | | | | [address] | | | | + + + + + + | O2 SAT ART | 100 (H)Comment: Testing | 95 - 98 % | EXTERNAL | | | | performed at [facility];[address] | | LAB | | | | [address];[place] | | | | | | [address] | | | | + + + + + + + + | Specimen | + + | | + + + +---------+ + + | Performing | Address | City/State/Zipcode | Phone Number | | Organization | | | | + +---------+ + + | EXTERNAL LAB | | | | + +---------+ + + ECHO Transesophageal (VÍCTOR) - Periop (11/04/2015 2:34 PM PDT) + + | Specimen | + + | | + + + + + | Narrative | Performed At | + + + | Patient Name: Waylon Rubin Date of : 1945 | | | Performing Physician: Zuhair Ramirez | | | | | | INDICATIONS CONCLUSIONS FINDINGS | | | -------- Procedure Details: 2D, Color-flow Doppler, Pulsed-wave and | | | Continuous-wave. Procedure Details: Intubated: Y Procedure Details: | | | Anesthetic Type: General anesthesia Procedure Details: Insertion: | | | Easy Procedure Details: Probe type: Omniplane Procedure Details: | | | Complications: N Ascending Aorta: Normal size. Ascending Aorta: | | | Plaque is present with a thickness of 0-3mm. Ascending Aorta: Plaque | | | is not mobile. Aortic Arch: Normal size. Aortic Arch: Plaque is | | | present with a thickness of 0-3mm. Aortic Arch: Plaque is not mobile. | | | Descending Aorta: Normal size. Aortic Valve: Normal annulus. | | | Aortic Valve: Moderate-severe stenosis. Aortic Valve: Mild-moderate | | | regurgitation. Mitral Valve: Moderate to severe mitral | | | regurgitation. Right Atrium: Normal size. Left Ventricle: LV size, | | | wall thickness and systolic function are normal, with an EF greater | | | than 55%. Right Ventricle: The right ventricle is normal in size and | | | function. Pericardium: The pericardium is normal. Pericardium: There | | | is no pericardial effusion. Post-Op: Mitral valve perivalvular | | | regurgitation: None Post-Op: Aortic valve perivalvular | | | regurgitation: None Post-Op: Mechanical/tissue valve function: | | | Normal Complications: None. MEASUREMENTS | | | Mine Wedge Sawyer: INGRIS Authenticated by: Zuhair Ramirez Report Date/Time: | | | 01-13-2016 09:28:58 | | + + + + + | Procedure Note | + + | Afshin Gutierrez Conversion - 01/29/2019 6:13 PM PDT Patient Name: Ne Rubin of | | : 1945 Performing Physician: Zuhair | | Bretti INDICATIONS | | CONCLUSIONS FINDINGS--------Procedure Details: 2D, Color-flow Doppler, | | Pulsed-wave and Continuous-wave.Procedure Details: Intubated: YProcedure Details: | | Anesthetic Type: General anesthesiaProcedure Details: Insertion: EasyProcedure | | Details: Probe type: OmniplaneProcedure Details: Complications: NAscending Aorta: | | Normal size.Ascending Aorta: Plaque is present with a thickness of 0-3mm.Ascending | | Aorta: Plaque is not mobile.Aortic Arch: Normal size.Aortic Arch: Plaque is present with | | a thickness of 0-3mm.Aortic Arch: Plaque is not mobile.Descending Aorta: Normal | | size.Aortic Valve: Normal annulus.Aortic Valve: Moderate-severe stenosis.Aortic Valve: | | Mild-moderate regurgitation.Mitral Valve: Moderate to severe mitral regurgitation.Right | | Atrium: Normal size.Left Ventricle: LV size, wall thickness and systolic function are | | normal, with an EF greater than 55%.Right Ventricle: The right ventricle is normal in | | size and function.Pericardium: The pericardium is normal.Pericardium: There is no | | pericardial effusion.Post-Op: Mitral valve perivalvular regurgitation: NonePost-Op: | | Aortic valve perivalvular regurgitation: NonePost-Op: Mechanical/tissue valve function: | | NormalComplications: None. MEASUREMENTS Mine Wedge Sawyer: CMAuthenticated by: | | Zuhair Schultz Date/Time: 01-13-2016 09:28:58 | |Procedure Details: Anesthetic Type: General anesthesia | |Procedure Details: Insertion: Easy | |Procedure Details: Probe type: Omniplane | |Procedure Details: Complications: N | |Ascending Aorta: Normal size. | |Ascending Aorta: Plaque is present with a thickness of 0-3mm. | |Ascending Aorta: Plaque is not mobile. | |Aortic Arch: Normal size. | |Aortic Arch: Plaque is present with a thickness of 0-3mm. | |Aortic Arch: Plaque is not mobile. | |Descending Aorta: Normal size. | |Aortic Valve: Normal annulus. | |Aortic Valve: Moderate-severe stenosis. | |Aortic Valve: Mild-moderate regurgitation. | |Mitral Valve: Moderate to severe mitral regurgitation. | |Right Atrium: Normal size. | |Left Ventricle: LV size, wall thickness and systolic function are normal, with an EF greate r than 55%. | |Right Ventricle: The right ventricle is normal in size and function. | |Pericardium: The pericardium is normal. | |Pericardium: There is no pericardial effusion. | |Post-Op: Mitral valve perivalvular regurgitation: None | |Post-Op: Aortic valve perivalvular regurgitation: None | |Post-Op: Mechanical/tissue valve function: Normal | |Complications: None. | | | |MEASUREMENTS | | | | | |Mine Wedge Sawyer: CM | |Authenticated by: Zuhair Ramirez | |Report Date/Time: 01-13-2016 09:28:58 | + + POC ISTOMAS, CG8, Arterial (11/04/2015 2:31 PM PDT) + + + + + + | Component | Value | Ref Range | Performed | Pathologist | | | | | At | Signature | + + + + + + | PH ART | 7.343 (L)Comment: | 7.350 - 7.450 | EXTERNAL | | | | Testing performed at | | LAB | | | | [facility];[address] [place] [address] | | | | | | Blvd;[place] [address] | | | | + + + + + + | PCO2 ART | 42Comment: Testing | 35 - 45 mmHg | EXTERNAL | | | | performed at [facility];[address] | | LAB | | | | [address];[place] | | | | | | [address] | | | | + + + + + + | PO2 ART | 481 (H)Comment: Testing | 80 - 105 mmHg | EXTERNAL | | | | performed at [facility];[address] | | LAB | | | | [address];[place] | | | | | | [address] | | | | + + + + + + | HCO3 ART | 23Comment: Testing | 22 - 26 mmol/L | EXTERNAL | | | | performed at [facility];[address] | | LAB | | | | [address];[place] | | | | | | [address] | | | | + + + + + + | POC | 24Comment: Testing | 23 - 27 mEq/L | EXTERNAL | | | APPEARANCE | performed at [facility];[address] | | LAB | | | UA | [address];[place] | | | | | | [address] | | | | + + + + + + | Base | 3 (H)Comment: Testing | 0.0 - 2.0 | EXTERNAL | | | deficit | performed at [facility];[address] | mmol/L | LAB | | | | [address] | | | | | | [address] | | | | + + + + + + | O2 SAT ART | 100 (H)Comment: Testing | 95 - 98 % | EXTERNAL | | | | performed at [facility];[address] | | LAB | | | | [address] | | | | | | [address] | | | | + + + + + + | Sodium, POC | 137Comment: Testing | 135 - 145 mEq/L | EXTERNAL | | | | performed at [facility];[address] | | LAB | | | | [address] | | | | | | [address] | | | | + + + + + + | Potassium, | 4.7Comment: Testing | 3.5 - 5.0 mEq/L | EXTERNAL | | | POC | performed at [facility];[address] | | LAB | | | | [address];[place] | | | | | | [address] | | | | + + + + + + | Ionized | 1.01 (L)Comment: Testing | 1.12 - 1.32 | EXTERNAL | | | Calcium, | performed at [facility];[address] | mmol/L | LAB | | | POC | [address];[place] | | | | | | [address] | | | | + + + + + + | Glucose, | 152 (H)Comment: Testing | 65 - 99 mg/dL | EXTERNAL | | | POC | performed at [facility];[address] | | LAB | | | | [address];[place] | | | | | | [address] | | | | + + + + + + | Hematocrit, | 21 (LL)Comment: Testing | 40.0 - 50.0 % | EXTERNAL | | | POC | performed at [facility];[address] | | LAB | | | | [address] | | | | | | [address] | | | | + + + + + + | Hemoglobin, | 7.1 (LL)Comment: Testing | 13.7 - 16.7 | EXTERNAL | | | POC | performed at [facility];888 | g/dL | LAB | | | | [address] | | | | | | [address] | | | | + + + + + + + + | Specimen | + + | | + + + +---------+ + + | Performing | Address | City/State/Zipcode | Phone Number | | Organization | | | | + +---------+ + + | EXTERNAL LAB | | | | + +---------+ + + POC ISTOMAS, CG8, Arterial (11/04/2015 1:45 PM PDT) + + + + + + | Component | Value | Ref Range | Performed | Pathologist | | | | | At | Signature | + + + + + + | PH ART | 7.365Comment: Testing | 7.350 - 7.450 | EXTERNAL | | | | performed at [facility];[address] | | LAB | | | | [facility];[place], [place] | | | | | | [address] | | | | + + + + + + | PCO2 ART | 40Comment: Testing | 35 - 45 mmHg | EXTERNAL | | | | performed at [facility];[address] | | LAB | | | | [address] | | | | | | [address] | | | | + + + + + + | PO2 ART | 196 (H)Comment: Testing | 80 - 105 mmHg | EXTERNAL | | | | performed at [facility];[address] | | LAB | | | | [address] | | | | | | [address] | | | | + + + + + + | HCO3 ART | 23Comment: Testing | 22 - 26 mmol/L | EXTERNAL | | | | performed at [facility];[address] | | LAB | | | | [address];[place] | | | | | | [address] | | | | + + + + + + | POC | 24Comment: Testing | 23 - 27 mEq/L | EXTERNAL | | | APPEARANCE | performed at [facility];[address] | | LAB | | | UA | [address] | | | | | | [address] | | | | + + + + + + | Base | 2Comment: Testing | 0.0 - 2.0 | EXTERNAL | | | deficit | performed at [facility];[address] | mmol/L | LAB | | | | [address] | | | | | | [address] | | | | + + + + + + | O2 SAT ART | 100 (H)Comment: Testing | 95 - 98 % | EXTERNAL | | | | performed at [facility];[address] | | LAB | | | | [address] | | | | | | [address] | | | | + + + + + + | Sodium, POC | 137Comment: Testing | 135 - 145 mEq/L | EXTERNAL | | | | performed at [facility];[address] | | LAB | | | | [address] | | | | | | [address] | | | | + + + + + + | Potassium, | 6.3 (HH)Comment: Testing | 3.5 - 5.0 mEq/L | EXTERNAL | | | POC | performed at [facility];[address] | | LAB | | | | [address];[place] | | | | | | [address] | | | | + + + + + + | Ionized | 0.97 (L)Comment: Testing | 1.12 - 1.32 | EXTERNAL | | | Calcium, | performed at [facility];[address] | mmol/L | LAB | | | POC | [address];[place] | | | | | | [address] | | | | + + + + + + | Glucose, | 128 (H)Comment: Testing | 65 - 99 mg/dL | EXTERNAL | | | POC | performed at [facility];[address] | | LAB | | | | [address] | | | | | | [address] | | | | + + + + + + | Hematocrit, | 26 (L)Comment: Testing | 40.0 - 50.0 % | EXTERNAL | | | POC | performed at [facility];[address] | | LAB | | | | [address] | | | | | | [address] | | | | + + + + + + | Hemoglobin, | 8.8 (L)Comment: Testing | 13.7 - 16.7 | EXTERNAL | | | POC | performed at [facility];888 | g/dL | LAB | | | | [address] | | | | | | [address] | | | | + + + + + + + + | Specimen | + + | | + + + +---------+ + + | Performing | Address | City/State/Zipcode | Phone Number | | Organization | | | | + +---------+ + + | EXTERNAL LAB | | | | + +---------+ + + POC BEULAH CG8, Arterial (11/04/2015 1:12 PM PDT) + + + + + + | Component | Value | Ref Range | Performed | Pathologist | | | | | At | Signature | + + + + + + | PH ART | 7.400Comment: Testing | 7.350 - 7.450 | EXTERNAL | | | | performed at [facility];[address] | | LAB | | | | [address] | | | | | | [address] | | | | + + + + + + | PCO2 ART | 37Comment: Testing | 35 - 45 mmHg | EXTERNAL | | | | performed at [facility];[address] | | LAB | | | | [address] | | | | | | [address] | | | | + + + + + + | PO2 ART | 193 (H)Comment: Testing | 80 - 105 mmHg | EXTERNAL | | | | performed at [facility];[address] | | LAB | | | | [address] | | | | | | [address] | | | | + + + + + + | HCO3 ART | 23Comment: Testing | 22 - 26 mmol/L | EXTERNAL | | | | performed at [facility];[address] | | LAB | | | | [address] | | | | | | [address] | | | | + + + + + + | POC | 24Comment: Testing | 23 - 27 mEq/L | EXTERNAL | | | APPEARANCE | performed at [facility];[address] | | LAB | | | UA | [address] | | | | | | [address] | | | | + + + + + + | Base | 2Comment: Testing | 0.0 - 2.0 | EXTERNAL | | | deficit | performed at [facility];[address] | mmol/L | LAB | | | | [address] | | | | | | [address] | | | | + + + + + + | O2 SAT ART | 100 (H)Comment: Testing | 95 - 98 % | EXTERNAL | | | | performed at [facility];[address] | | LAB | | | | [address] | | | | | | [address] | | | | + + + + + + | Sodium, POC | 137Comment: Testing | 135 - 145 mEq/L | EXTERNAL | | | | performed at [facility];[address] | | LAB | | | | [address] | | | | | | [address] | | | | + + + + + + | Potassium, | 6.4 (HH)Comment: Testing | 3.5 - 5.0 mEq/L | EXTERNAL | | | POC | performed at [facility];[address] | | LAB | | | | [address] | | | | | | [address] | | | | + + + + + + | Ionized | 0.98 (L)Comment: Testing | 1.12 - 1.32 | EXTERNAL | | | Calcium, | performed at [facility];[address] | mmol/L | LAB | | | POC | [address];[place] | | | | | | [address] | | | | + + + + + + | Glucose, | 129 (H)Comment: Testing | 65 - 99 mg/dL | EXTERNAL | | | POC | performed at [facility];[address] | | LAB | | | | [address] | | | | | | [address] | | | | + + + + + + | Hematocrit, | 26 (L)Comment: Testing | 40.0 - 50.0 % | EXTERNAL | | | POC | performed at [facility];[address] | | LAB | | | | [address] | | | | | | [address] | | | | + + + + + + | Hemoglobin, | 8.8 (L)Comment: Testing | 13.7 - 16.7 | EXTERNAL | | | POC | performed at [facility];[address] | g/dL | LAB | | | | [address];[place], [place] | | | | | | [address] | | | | + + + + + + + + | Specimen | + + | | + + + +---------+ + + | Performing | Address | City/State/Zipcode | Phone Number | | Organization | | | | + +---------+ + + | EXTERNAL LAB | | | | + +---------+ + + POC BEULAH, CG8, Arterial (11/04/2015 12:44 PM PDT) + + + + + + | Component | Value | Ref Range | Performed | Pathologist | | | | | At | Signature | + + + + + + | PH ART | 7.325 (L)Comment: | 7.350 - 7.450 | EXTERNAL | | | | Testing performed at | | LAB | | | | [facility];[address];[place] [address] | | | | + + + + + + | PCO2 ART | 42Comment: Testing | 35 - 45 mmHg | EXTERNAL | | | | performed at [facility];[address] | | LAB | | | | [address] | | | | | | [address] | | | | + + + + + + | PO2 ART | 203 (H)Comment: Testing | 80 - 105 mmHg | EXTERNAL | | | | performed at [facility];[address] | | LAB | | | | [address];[place] | | | | | | [address] | | | | + + + + + + | HCO3 ART | 22Comment: Testing | 22 - 26 mmol/L | EXTERNAL | | | | performed at [facility];[address] | | LAB | | | | [address] | | | | | | [address] | | | | + + + + + + | POC | 23Comment: Testing | 23 - 27 mEq/L | EXTERNAL | | | APPEARANCE | performed at [facility];[address] | | LAB | | | UA | [address] | | | | | | [address] | | | | + + + + + + | Base | 4 (H)Comment: Testing | 0.0 - 2.0 | EXTERNAL | | | deficit | performed at [facility];[address] | mmol/L | LAB | | | | [address] | | | | | | [address] | | | | + + + + + + | O2 SAT ART | 100 (H)Comment: Testing | 95 - 98 % | EXTERNAL | | | | performed at [facility];[address] | | LAB | | | | [address] | | | | | | [address] | | | | + + + + + + | Sodium, POC | 137Comment: Testing | 135 - 145 mEq/L | EXTERNAL | | | | performed at [facility];[address] | | LAB | | | | [address] | | | | | | [address] | | | | + + + + + + | Potassium, | 6.1 (H)Comment: Testing | 3.5 - 5.0 mEq/L | EXTERNAL | | | POC | performed at [facility];[address] | | LAB | | | | [address] | | | | | | [address] | | | | + + + + + + | Ionized | 0.99 (L)Comment: Testing | 1.12 - 1.32 | EXTERNAL | | | Calcium, | performed at [facility];[address] | mmol/L | LAB | | | POC | [address];[place] | | | | | | [address] | | | | + + + + + + | Glucose, | 132 (H)Comment: Testing | 65 - 99 mg/dL | EXTERNAL | | | POC | performed at [facility];[address] | | LAB | | | | [address] | | | | | | [address] | | | | + + + + + + | Hematocrit, | 27 (L)Comment: Testing | 40.0 - 50.0 % | EXTERNAL | | | POC | performed at [facility];[address] | | LAB | | | | [address] | | | | | | [address] | | | | + + + + + + | Hemoglobin, | 9.2 (L)Comment: Testing | 13.7 - 16.7 | EXTERNAL | | | POC | performed at [facility];888 | g/dL | LAB | | | | [address];[place], [place] | | | | | | [address] | | | | + + + + + + + + | Specimen | + + | | + + + +---------+ + + | Performing | Address | City/State/Zipcode | Phone Number | | Organization | | | | + +---------+ + + | EXTERNAL LAB | | | | + +---------+ + + MAHSA RIOJAS CG8, Arterial (11/04/2015 12:03 PM PDT) + + + + + + | Component | Value | Ref Range | Performed | Pathologist | | | | | At | Signature | + + + + + + | PH ART | 7.402Comment: Testing | 7.350 - 7.450 | EXTERNAL | | | | performed at [facility];[address] | | LAB | | | | [address];[place] | | | | | | [address] | | | | + + + + + + | PCO2 ART | 36Comment: Testing | 35 - 45 mmHg | EXTERNAL | | | | performed at [facility];[address] | | LAB | | | | [address];[place] | | | | | | [address] | | | | + + + + + + | PO2 ART | 187 (H)Comment: Testing | 80 - 105 mmHg | EXTERNAL | | | | performed at [facility];[address] | | LAB | | | | [address];[place] | | | | | | [address] | | | | + + + + + + | HCO3 ART | 23Comment: Testing | 22 - 26 mmol/L | EXTERNAL | | | | performed at [facility];[address] | | LAB | | | | [address];[place] | | | | | | [address] | | | | + + + + + + | POC | 24Comment: Testing | 23 - 27 mEq/L | EXTERNAL | | | APPEARANCE | performed at [facility];[address] | | LAB | | | UA | [address] | | | | | | [address] | | | | + + + + + + | Base | 2Comment: Testing | 0.0 - 2.0 | EXTERNAL | | | deficit | performed at [facility];[address] | mmol/L | LAB | | | | [address] | | | | | | [address] | | | | + + + + + + | O2 SAT ART | 100 (H)Comment: Testing | 95 - 98 % | EXTERNAL | | | | performed at [facility];[address] | | LAB | | | | [address] | | | | | | [address] | | | | + + + + + + | Sodium, POC | 136Comment: Testing | 135 - 145 mEq/L | EXTERNAL | | | | performed at [facility];[address] | | LAB | | | | [address] | | | | | | [address] | | | | + + + + + + | Potassium, | 6.2 (H)Comment: Testing | 3.5 - 5.0 mEq/L | EXTERNAL | | | POC | performed at [facility];[address] | | LAB | | | | [address] | | | | | | [address] | | | | + + + + + + | Ionized | 1.04 (L)Comment: Testing | 1.12 - 1.32 | EXTERNAL | | | Calcium, | performed at [facility];[address] | mmol/L | LAB | | | POC | [address];[place] | | | | | | [address] | | | | + + + + + + | Glucose, | 144 (H)Comment: Testing | 65 - 99 mg/dL | EXTERNAL | | | POC | performed at [facility];[address] | | LAB | | | | [address] | | | | | | [address] | | | | + + + + + + | Hematocrit, | 26 (L)Comment: Testing | 40.0 - 50.0 % | EXTERNAL | | | POC | performed at [facility];[address] | | LAB | | | | [address] | | | | | | [address] | | | | + + + + + + | Hemoglobin, | 8.8 (L)Comment: Testing | 13.7 - 16.7 | EXTERNAL | | | POC | performed at [facility];888 | g/dL | LAB | | | | [address] | | | | | | [address] | | | | + + + + + + + + | Specimen | + + | | + + + +---------+ + + | Performing | Address | City/State/Zipcode | Phone Number | | Organization | | | | + +---------+ + + | EXTERNAL LAB | | | | + +---------+ + + POC BEULAH CG8, Arterial (11/04/2015 11:39 AM PDT) + + + + + + | Component | Value | Ref Range | Performed | Pathologist | | | | | At | Signature | + + + + + + | PH ART | 7.401Comment: Testing | 7.350 - 7.450 | EXTERNAL | | | | performed at [facility];[address] | | LAB | | | | [address] | | | | | | [address] | | | | + + + + + + | PCO2 ART | 35Comment: Testing | 35 - 45 mmHg | EXTERNAL | | | | performed at [facility];[address] | | LAB | | | | [address] | | | | | | [address] | | | | + + + + + + | PO2 ART | 50 (L)Comment: Testing | 80 - 105 mmHg | EXTERNAL | | | | performed at [facility];[address] | | LAB | | | | [address] | | | | | | [address] | | | | + + + + + + | HCO3 ART | 22Comment: Testing | 22 - 26 mmol/L | EXTERNAL | | | | performed at [facility];[address] | | LAB | | | | [address];[place] | | | | | | [address] | | | | + + + + + + | POC | 23Comment: Testing | 23 - 27 mEq/L | EXTERNAL | | | APPEARANCE | performed at [facility];[address] | | LAB | | | UA | [address];[place] | | | | | | [address] | | | | + + + + + + | Base | 3 (H)Comment: Testing | 0.0 - 2.0 | EXTERNAL | | | deficit | performed at [facility];888 | mmol/L | LAB | | | | [address];[place] | | | | | | [address] | | | | + + + + + + | O2 SAT ART | 86 (L)Comment: Testing | 95 - 98 % | EXTERNAL | | | | performed at [facility];[address] | | LAB | | | | [address];[place] | | | | | | [address] | | | | + + + + + + | Sodium, POC | 137Comment: Testing | 135 - 145 mEq/L | EXTERNAL | | | | performed at [facility];[address] | | LAB | | | | [address];[place] | | | | | | [address] | | | | + + + + + + | Potassium, | 6.3 (HH)Comment: Testing | 3.5 - 5.0 mEq/L | EXTERNAL | | | POC | performed at [facility];[address] | | LAB | | | | [address];[place] | | | | | | [address] | | | | + + + + + + | Ionized | 1.05 (L)Comment: Testing | 1.12 - 1.32 | EXTERNAL | | | Calcium, | performed at [facility];888 | mmol/L | LAB | | | POC | [address];[place] | | | | | | [address] | | | | + + + + + + | Glucose, | 138 (H)Comment: Testing | 65 - 99 mg/dL | EXTERNAL | | | POC | performed at [facility];[address] | | LAB | | | | [address];[place] | | | | | | [address] | | | | + + + + + + | Hematocrit, | 22 (LL)Comment: Testing | 40.0 - 50.0 % | EXTERNAL | | | POC | performed at [facility];[address] | | LAB | | | | [address];[place] | | | | | | [address] | | | | + + + + + + | Hemoglobin, | 7.5 (LL)Comment: Testing | 13.7 - 16.7 | EXTERNAL | | | POC | performed at [facility];888 | g/dL | LAB | | | | [address] | | | | | | [address] | | | | + + + + + + + + | Specimen | + + | | + + + +---------+ + + | Performing | Address | City/State/Zipcode | Phone Number | | Organization | | | | + +---------+ + + | EXTERNAL LAB | | | | + +---------+ + + [facility] [id number], Arterial (11/04/2015 11:33 AM PDT) + + + + + + | Component | Value | Ref Range | Performed | Pathologist | | | | | At | Signature | + + + + + + | PH ART | 7.451 (H)Comment: | 7.350 - 7.450 | EXTERNAL | | | | Testing performed at | | LAB | | | | [facility];[address] [place] [address] | | | | | | [place] [phone] | | | | + + + + + + | PCO2 ART | 34 (L)Comment: Testing | 35 - 45 mmHg | EXTERNAL | | | | performed at [facility];[address] | | LAB | | | | [address];[place] | | | | | | [address] | | | | + + + + + + | PO2 ART | 297 (H)Comment: Testing | 80 - 105 mmHg | EXTERNAL | | | | performed at [facility];[address] | | LAB | | | | [address];[place] | | | | | | [address] | | | | + + + + + + | HCO3 ART | 24Comment: Testing | 22 - 26 mmol/L | EXTERNAL | | | | performed at [facility];[address] | | LAB | | | | [address];[place] | | | | | | [address] | | | | + + + + + + | POC | 24Comment: Testing | 23 - 27 mEq/L | EXTERNAL | | | APPEARANCE | performed at [facility];[address] | | LAB | | | UA | [address];[place] | | | | | | [address] | | | | + + + + + + | Base | 0Comment: Testing | 0 - 3 mEq/L | EXTERNAL | | | Excess, | performed at [facility];[address] | | LAB | | | Arterial | [address];[place] | | | | | | [address] | | | | + + + + + + | O2 SAT ART | 100 (H)Comment: Testing | 95 - 98 % | EXTERNAL | | | | performed at [facility];[address] | | LAB | | | | [address];[place] | | | | | | [address] | | | | + + + + + + | Sodium, POC | 136Comment: Testing | 135 - 145 mEq/L | EXTERNAL | | | | performed at [facility];[address] | | LAB | | | | [address];[place] | | | | | | [address] | | | | + + + + + + | Potassium, | 5.5 (H)Comment: Testing | 3.5 - 5.0 mEq/L | EXTERNAL | | | POC | performed at [facility];[address] | | LAB | | | | [address];[place] | | | | | | [address] | | | | + + + + + + | Ionized | 1.02 (L)Comment: Testing | 1.12 - 1.32 | EXTERNAL | | | Calcium, | performed at [facility];888 | mmol/L | LAB | | | POC | [address];[place] | | | | | | [address] | | | | + + + + + + | Glucose, | 140 (H)Comment: Testing | 65 - 99 mg/dL | EXTERNAL | | | POC | performed at [facility];[address] | | LAB | | | | [address];[place] | | | | | | [address] | | | | + + + + + + | Hematocrit, | 22 (LL)Comment: Testing | 40.0 - 50.0 % | EXTERNAL | | | POC | performed at [facility];[address] | | LAB | | | | [address];[place] | | | | | | [address] | | | | + + + + + + | Hemoglobin, | 7.5 (LL)Comment: Testing | 13.7 - 16.7 | EXTERNAL | | | POC | performed at [facility];888 | g/dL | LAB | | | | [address];[place] | | | | | | [address] | | | | + + + + + + + + | Specimen | + + | | + + + +---------+ + + | Performing | Address | City/State/Zipcode | Phone Number | | Organization | | | | + +---------+ + + | EXTERNAL LAB | | | | + +---------+ + + POC BEULAH, CG8, Arterial (11/04/2015 11:00 AM PDT) + + + + + + | Component | Value | Ref Range | Performed | Pathologist | | | | | At | Signature | + + + + + + | PH ART | 7.423Comment: Testing | 7.350 - 7.450 | EXTERNAL | | | | performed at [facility];[address] | | LAB | | | | [address];[place] | | | | | | [address] | | | | + + + + + + | PCO2 ART | 40Comment: Testing | 35 - 45 mmHg | EXTERNAL | | | | performed at [facility];[address] | | LAB | | | | [address];[place] | | | | | | [address] | | | | + + + + + + | PO2 ART | 414 (H)Comment: Testing | 80 - 105 mmHg | EXTERNAL | | | | performed at [facility];[address] | | LAB | | | | [address];[place] | | | | | | [address] | | | | + + + + + + | HCO3 ART | 26Comment: Testing | 22 - 26 mmol/L | EXTERNAL | | | | performed at [facility];[address] | | LAB | | | | [address];[place] | | | | | | [address] | | | | + + + + + + | POC | 27Comment: Testing | 23 - 27 mEq/L | EXTERNAL | | | APPEARANCE | performed at [facility];[address] | | LAB | | | UA | [address];[place] | | | | | | [address] | | | | + + + + + + | Base | 2Comment: Testing | 0 - 3 mEq/L | EXTERNAL | | | Excess, | performed at [facility];[address] | | LAB | | | Arterial | [address];[place] | | | | | | [address] | | | | + + + + + + | O2 SAT ART | 100 (H)Comment: Testing | 95 - 98 % | EXTERNAL | | | | performed at [facility];[address] | | LAB | | | | [address];[place] | | | | | | [address] | | | | + + + + + + | Sodium, POC | 134 (L)Comment: Testing | 135 - 145 mEq/L | EXTERNAL | | | | performed at [facility];[address] | | LAB | | | | [address];[place] | | | | | | [address] | | | | + + + + + + | Potassium, | 5.5 (H)Comment: Testing | 3.5 - 5.0 mEq/L | EXTERNAL | | | POC | performed at [facility];[address] | | LAB | | | | [address];[place] | | | | | | [address] | | | | + + + + + + | Ionized | 1.02 (L)Comment: Testing | 1.12 - 1.32 | EXTERNAL | | | Calcium, | performed at [facility];[address] | mmol/L | LAB | | | POC | [address];[place] | | | | | | [address] | | | | + + + + + + | Glucose, | 136 (H)Comment: Testing | 65 - 99 mg/dL | EXTERNAL | | | POC | performed at [facility];[address] | | LAB | | | | [address];[place] | | | | | | [address] | | | | + + + + + + | Hematocrit, | 24 (L)Comment: Testing | 40.0 - 50.0 % | EXTERNAL | | | POC | performed at [facility];[address] | | LAB | | | | [address];[place] | | | | | | [address] | | | | + + + + + + | Hemoglobin, | 8.2 (L)Comment: Testing | 13.7 - 16.7 | EXTERNAL | | | POC | performed at [facility];888 | g/dL | LAB | | | | [address];[place] | | | | | | [address] | | | | + + + + + + + + | Specimen | + + | | + + + +---------+ + + | Performing | Address | City/State/Zipcode | Phone Number | | Organization | | | | + +---------+ + + | EXTERNAL LAB | | | | + +---------+ + + POC ISTAT, CG8, Arterial (11/04/2015 10:14 AM PDT) + + + + + + | Component | Value | Ref Range | Performed | Pathologist | | | | | At | Signature | + + + + + + | PH ART | 7.288 (L)Comment: | 7.350 - 7.450 | EXTERNAL | | | | Testing performed at | | LAB | | | | [facility];[address];[place] [address] | | | | + + + + + + | PCO2 ART | 51 (H)Comment: Testing | 35 - 45 mmHg | EXTERNAL | | | | performed at [facility];[address] | | LAB | | | | [address];[place] | | | | | | [address] | | | | + + + + + + | PO2 ART | 545 (H)Comment: Testing | 80 - 105 mmHg | EXTERNAL | | | | performed at [facility];[address] | | LAB | | | | [address];[place] | | | | | | [address] | | | | + + + + + + | HCO3 ART | 25Comment: Testing | 22 - 26 mmol/L | EXTERNAL | | | | performed at [facility];[address] | | LAB | | | | [address];[place] | | | | | | [address] | | | | + + + + + + | POC | 26Comment: Testing | 23 - 27 mEq/L | EXTERNAL | | | APPEARANCE | performed at [facility];[address] | | LAB | | | UA | [address];[place] | | | | | | [address] | | | | + + + + + + | Base | 2Comment: Testing | 0.0 - 2.0 | EXTERNAL | | | deficit | performed at [facility];[address] | mmol/L | LAB | | | | [address];[place] | | | | | | [address] | | | | + + + + + + | O2 SAT ART | 100 (H)Comment: Testing | 95 - 98 % | EXTERNAL | | | | performed at [facility];[address] | | LAB | | | | [address];[place] | | | | | | [address] | | | | + + + + + + | Sodium, POC | 136Comment: Testing | 135 - 145 mEq/L | EXTERNAL | | | | performed at [facility];[address] | | LAB | | | | [address];[place] | | | | | | [address] | | | | + + + + + + | Potassium, | 4.1Comment: Testing | 3.5 - 5.0 mEq/L | EXTERNAL | | | POC | performed at [facility];[address] | | LAB | | | | [address] | | | | | | [address] | | | | + + + + + + | Ionized | 1.12Comment: Testing | 1.12 - 1.32 | EXTERNAL | | | Calcium, | performed at [facility];[address] | mmol/L | LAB | | | POC | [address];[place] | | | | | | [address] | | | | + + + + + + | Glucose, | 120 (H)Comment: Testing | 65 - 99 mg/dL | EXTERNAL | | | POC | performed at [facility];[address] | | LAB | | | | [address];[place] | | | | | | [address] | | | | + + + + + + | Hematocrit, | 28 (L)Comment: Testing | 40.0 - 50.0 % | EXTERNAL | | | POC | performed at [facility];[address] | | LAB | | | | [address];[place] | | | | | | [address] | | | | + + + + + + | Hemoglobin, | 9.5 (L)Comment: Testing | 13.7 - 16.7 | EXTERNAL | | | POC | performed at [facility];[address] | g/dL | LAB | | | | [address];[place], [place] | | | | | | [address] | | | | + + + + + + + + | Specimen | + + | | + + + +---------+ + + | Performing | Address | City/State/Zipcode | Phone Number | | Organization | | | | + +---------+ + + | EXTERNAL LAB | | | | + +---------+ + + POC CG 4, ISTAT Arterial (11/04/2015 9:37 AM PDT) + + + + + + | Component | Value | Ref Range | Performed | Pathologist | | | | | At | Signature | + + + + + + | PH ART | 7.373Comment: Testing | 7.350 - 7.450 | EXTERNAL | | | | performed at [facility];[address] | | LAB | | | | [address];[place] | | | | | | [address] | | | | + + + + + + | PCO2 ART | 40Comment: Testing | 35 - 45 mmHg | EXTERNAL | | | | performed at [facility];[address] | | LAB | | | | [address];[place] | | | | | | [address] | | | | + + + + + + | PO2 ART | 482 (H)Comment: Testing | 80 - 105 mmHg | EXTERNAL | | | | performed at [facility];[address] | | LAB | | | | [address];[place] | | | | | | [address] | | | | + + + + + + | Lactate, | 1.6 (H)Comment: Testing | 0.36 - 1.25 | EXTERNAL | | | Arterial | performed at [facility];[address] | mmol/L | LAB | | | | [address];[place] | | | | | | [address] | | | | + + + + + + | HCO3 ART | 23Comment: Testing | 22 - 26 mmol/L | EXTERNAL | | | | performed at [facility];[address] | | LAB | | | | [address];[place] | | | | | | [address] | | | | + + + + + + | POC | 25Comment: Testing | 23 - 27 mEq/L | EXTERNAL | | | APPEARANCE | performed at [facility];[address] | | LAB | | | UA | [address];[place] | | | | | | [address] | | | | + + + + + + | Base | 2Comment: Testing | 0.0 - 2.0 | EXTERNAL | | | deficit | performed at [facility];[address] | mmol/L | LAB | | | | [address];[place] | | | | | | [address] | | | | + + + + + + | O2 SAT ART | 100 (H)Comment: Testing | 95 - 98 % | EXTERNAL | | | | performed at [facility];[address] | | LAB | | | | [address] | | | | | | [address] | | | | + + + + + + + + | Specimen | + + | | + + + +---------+ + + | Performing | Address | City/State/Zipcode | Phone Number | | Organization | | | | + +---------+ + + | EXTERNAL LAB | | | | + +---------+ + + POC BEULAH, CG8, Arterial (11/04/2015 9:33 AM PDT) + + + + + + | Component | Value | Ref Range | Performed | Pathologist | | | | | At | Signature | + + + + + + | PH ART | 7.384Comment: Testing | 7.350 - 7.450 | EXTERNAL | | | | performed at [facility];[address] | | LAB | | | | [address];[place] | | | | | | [address] | | | | + + + + + + | PCO2 ART | 42Comment: Testing | 35 - 45 mmHg | EXTERNAL | | | | performed at [facility];[address] | | LAB | | | | [address];[place] | | | | | | [address] | | | | + + + + + + | PO2 ART | 495 (H)Comment: Testing | 80 - 105 mmHg | EXTERNAL | | | | performed at [facility];[address] | | LAB | | | | [address];[place] | | | | | | [address] | | | | + + + + + + | HCO3 ART | 25Comment: Testing | 22 - 26 mmol/L | EXTERNAL | | | | performed at [facility];[address] | | LAB | | | | [address];[place] | | | | | | [address] | | | | + + + + + + | POC | 26Comment: Testing | 23 - 27 mEq/L | EXTERNAL | | | APPEARANCE | performed at [facility];[address] | | LAB | | | UA | [address];[place] | | | | | | [address] | | | | + + + + + + | Base | 0Comment: Testing | 0 - 3 mEq/L | EXTERNAL | | | Excess, | performed at [facility];[address] | | LAB | | | Arterial | [address];[place] | | | | | | [address] | | | | + + + + + + | O2 SAT ART | 100 (H)Comment: Testing | 95 - 98 % | EXTERNAL | | | | performed at [facility];[address] | | LAB | | | | [address];[place] | | | | | | [address] | | | | + + + + + + | Sodium, POC | 137Comment: Testing | 135 - 145 mEq/L | EXTERNAL | | | | performed at [facility];[address] | | LAB | | | | [address];[place] | | | | | | [address] | | | | + + + + + + | Potassium, | 4.3Comment: Testing | 3.5 - 5.0 mEq/L | EXTERNAL | | | POC | performed at [facility];[address] | | LAB | | | | [address];[place] | | | | | | [address] | | | | + + + + + + | Ionized | 1.12Comment: Testing | 1.12 - 1.32 | EXTERNAL | | | Calcium, | performed at [facility];[address] | mmol/L | LAB | | | POC | [address];[place] | | | | | | [address] | | | | + + + + + + | Glucose, | 113 (H)Comment: Testing | 65 - 99 mg/dL | EXTERNAL | | | POC | performed at [facility];[address] | | LAB | | | | [address];[place] | | | | | | [address] | | | | + + + + + + | Hematocrit, | 31 (L)Comment: Testing | 40.0 - 50.0 % | EXTERNAL | | | POC | performed at [facility];[address] | | LAB | | | | [address];[place] | | | | | | [address] | | | | + + + + + + | Hemoglobin, | 10.5 (L)Comment: Testing | 13.7 - 16.7 | EXTERNAL | | | POC | performed at [facility];[address] | g/dL | LAB | | | | [address];[place] | | | | | | [address] | | | | + + + + + + + + | Specimen | + + | | + + + +---------+ + + | Performing | Address | City/State/Zipcode | Phone Number | | Organization | | | | + +---------+ + + | EXTERNAL LAB | | | | + +---------+ + + External Lab: CBC (11/04/2015 5:10 AM PDT) + + + + + + | Component | Value | Ref Range | Performed | Pathologist | | | | | At | Signature | + + + + + + | WBC | 5.72Comment: Testing | 3.80 - 11.00 | EXTERNAL | | | | performed at [facility], [address] | K/uL | LAB | | | | [address], | | | | | | [place] [address] | | | | + + + + + + | Non- | 3.62 (L)Comment: Testing | 4.20 - 5.70 | EXTERNAL | | | Red Blood | performed at [facility], [address] | M/uL | LAB | | | Cells | [address], | | | | | Counted | [place] [address] | | | | + + + + + + | Hemoglobin | 11.6 (L)Comment: Testing | 13.2 - 17.0 | EXTERNAL | | | | performed at [facility], [address] | g/dL | LAB | | | | [address], | | | | | | [place] [address] | | | | + + + + + + | Hematocrit, | 32.7 (L)Comment: Testing | 39.0 - 50.0 % | EXTERNAL | | | POC | performed at [facility], [address] | | LAB | | | | [address], | | | | | | [place] [address] | | | | + + + + + + | MCV | 90.5Comment: Testing | 80.0 - 100.0 fl | EXTERNAL | | | | performed at [facility], [address] | | LAB | | | | [address], | | | | | | [place] [address] | | | | + + + + + + | MCH | 32.2Comment: Testing | 27.0 - 34.0 pg | EXTERNAL | | | | performed at [facility], [address] | | LAB | | | | [address], | | | | | | [place] [address] | | | | + + + + + + | MCHC | 35.5Comment: Testing | 32.0 - 35.5 | EXTERNAL | | | | performed at [facility], [address] | g/dL | LAB | | | | [address], | | | | | | [place] [address] | | | | + + + + + + | RDW-CV | 44.2Comment: Testing | 37 - 53 fl | EXTERNAL | | | | performed at [facility], [address] | | LAB | | | | [address], | | | | | | [place] [address] | | | | + + + + + + | Platelet | 142 (L)Comment: Testing | 150 - 400 K/uL | EXTERNAL | | | Count | performed at [facility], [address] | | LAB | | | Plasma | [address], | | | | | | [place] [address] | | | | + + + + + + | MPV | 8.1Comment: Testing | fl | EXTERNAL | | | | performed at [facility], [address] | | LAB | | | | [address], | | | | | | [place] [address] | | | | + + + + + + | Differentia | AUTOMATEDComment: | | EXTERNAL | | | l Type | Testing performed at | | LAB | | | | [facility], [address] | | | | | | [place] | | | | | | [address] | | | | + + + + + + | % Segmented | 64.69Comment: Testing | % | EXTERNAL | | | | performed at [facility], [address] | | LAB | | | Neutrophils | [address], | | | | | | [place] [address] | | | | + + + + + + | % | 19.81Comment: Testing | % | EXTERNAL | | | Lymphocytes | performed at [facility], [address] | | LAB | | | | [address], | | | | | | [place] [address] | | | | + + + + + + | % Monocytes | 10.63Comment: Testing | % | EXTERNAL | | | | performed at [facility], [address] | | LAB | | | | [address], | | | | | | [place] [address] | | | | + + + + + + | % | 4.20Comment: Testing | % | EXTERNAL | | | Eosinophils | performed at [facility], [address] | | LAB | | | | [address], | | | | | | [place] [address] | | | | + + + + + + | % Basophils | 0.67Comment: Testing | % | EXTERNAL | | | | performed at [facility], [address] | | LAB | | | | [address], | | | | | | [place] [address] | | | | + + + + + + | Absolute | 3.70Comment: Testing | 1.90 - 7.40 | EXTERNAL | | | Segmented | performed at [facility], [address] | K/uL | LAB | | | Neutrophils | [address], | | | | | | [place] [address] | | | | + + + + + + | Absolute | 1.13Comment: Testing | 1.00 - 3.90 | EXTERNAL | | | Lymphocytes | performed at [facility], [address] | K/uL | LAB | | | | [address], | | | | | | [place] [address] | | | | + + + + + + | Absolute | 0.61Comment: Testing | 0.00 - 0.80 | EXTERNAL | | | Monocytes | performed at [facility], [address] | K/uL | LAB | | | | [address], | | | | | | [place] [address] | | | | + + + + + + | Absolute | 0.24Comment: Testing | 0.00 - 0.50 | EXTERNAL | | | Eosinophils | performed at [facility], [address] | K/uL | LAB | | | | [address], | | | | | | [place] [address] | | | | + + + + + + | Absolute | 0.04Comment: Testing | 0.00 - 0.10 | EXTERNAL | | | Basophils | performed at [facility], [address] | K/uL | LAB | | | | [address], | | | | | | [place] [address] | | | | + + + + + + + + | Specimen | + + | Blood specimen | | (specimen) | + + + +---------+ + + | Performing | Address | City/State/Zipcode | Phone Number | | Organization | | | | + +---------+ + + | EXTERNAL LAB | | | | + +---------+ + + Phosphorus (11/04/2015 5:10 AM PDT) + + + + + + | Component | Value | Ref Range | Performed | Pathologist | | | | | At | Signature | + + + + + + | PHOSPHORUS | 3.1Comment: Testing | 2.3 - 4.8 mg/dL | EXTERNAL | | | | performed at [facility], [address] | | LAB | | | | [address], | | | | | | [place] [address] | | | | + + + + + + + + | Specimen | + + | Blood specimen | | (specimen) | + + + +---------+ + + | Performing | Address | City/State/Zipcode | Phone Number | | Organization | | | | + +---------+ + + | EXTERNAL LAB | | | | + +---------+ + + Magnesium (11/04/2015 5:10 AM PDT) + + + + + + | Component | Value | Ref Range | Performed | Pathologist | | | | | At | Signature | + + + + + + | Magnesium | 1.8Comment: Testing | 1.7 - 2.4 mg/dL | EXTERNAL | | | | performed at [facility], [address] | | LAB | | | | [address], | | | | | | [place] [address] | | | | + + + [...] + +---------+ + + Comprehensive Metabolic Panel (11/04/2015 5:10 AM PDT) + + + + + + | Component | Value | Ref Range | Performed | Pathologist | | | | | At | Signature | + + + + + + | Na | 136Comment: Testing | 135 - 143 | EXTERNAL | | | | performed at [facility], [address] | mmol/L | LAB | | | | [address], | | | | | | [place] [address] | | | | + + + + + + | K | 4.0Comment: Testing | 3.5 - 4.9 | EXTERNAL | | | | performed at [facility], [address] | mmol/L | LAB | | | | [address], | | | | | | [place] [address] | | | | + + + + + + | Cl | 106Comment: Testing | 99 - 109 mmol/L | EXTERNAL | | | | performed at [facility], [address] | | LAB | | | | [address], | | | | | | [place] [address] | | | | + + + + + + | CO2 | 24Comment: Testing | 23 - 32 mmol/L | EXTERNAL | | | | performed at [facility], [address] | | LAB | | | [address], | | | | | | [place] [address] | | | | + + + + + + | Anion Gap | 10Comment: Testing | 5 - 20 mmol/L | EXTERNAL | | | | performed at [facility], [address] | | LAB | | | | [address], | | | | | | [place] [address] | | | | + + + + + + | Glucose, | 88Comment: Testing | 65 - 99 mg/dL | EXTERNAL | | | Fasting | performed at [facility], [address] | | LAB | | | | [address], | | | | | | [place] [address] | | | | + + + + + + | BUN | 18Comment: Testing | 8 - 25 mg/dL | EXTERNAL | | | | performed at [facility], [address] | | LAB | | | | [address], | | | | | | [place] [address] | | | | + + + + + + | Creatinine | 1.11Comment: Testing | 0.70 - 1.30 | EXTERNAL | | | | performed at [facility], [address] | mg/dL | LAB | | | | [address], | | | | | | [place] [address] | | | | + + + + + + | BUN/Creatin | 16Comment: Testing | | EXTERNAL | | | ine Ratio | performed at [facility], [address] | | LAB | | | | [address], | | | | | | [place] [address] | | | | + + + + + + | Calcium | 8.5Comment: Testing | 8.5 - 10.5 | EXTERNAL | | | | performed at [facility], [address] | mg/dL | LAB | | | | [address], | | | | | | [place] [address] | | | | + + + + + + | Protein, | 5.9 (L)Comment: Testing | 6.3 - 8.2 g/dL | EXTERNAL | | | Total | performed at [facility], [address] | | LAB | | | | [address], | | | | | | [place] [address] | | | | + + + + + + | Albumin | 3.5Comment: Testing | 3.3 - 4.8 g/dL | EXTERNAL | | | | performed at [facility], [address] | | LAB | | | | [address], | | | | | | [place] [address] | | | | + + + + + + | Globulin | 2.4Comment: Testing | 1.3 - 4.9 g/dL | EXTERNAL | | | | performed at [facility], [address] | | LAB | | | | [address], | | | | | | [place] [address] | | | | + + + + + + | A/G Ratio | 1.5Comment: Testing | 1.0 - 2.4 | EXTERNAL | | | | performed at [facility], [address] | | LAB | | | | [address], | | | | | | [place] [address] | | | | + + + + + + | Bilirubin | 0.5Comment: Testing | 0.1 - 1.5 mg/dL | EXTERNAL | | | Total | performed at [facility], [address] | | LAB | | | | [address], | | | | | | [place] [address] | | | | + + + + + + | ALP, | 49Comment: Testing | 35 - 115 U/L | EXTERNAL | | | External | performed at [facility], [address] | | LAB | | | | [address], | | | | | | [place] [address] | | | | + + + + + + | AST | 17Comment: Testing | 10 - 45 U/L | EXTERNAL | | | | performed at [facility], [address] | | LAB | | | | [address], | | | | | | [place] [address] | | | | + + + + + + | ALT | 15Comment: Testing | 10 - 65 U/L | EXTERNAL | | | | performed at [facility], [address] | | LAB | | | | [address], | | | | | | [place] [address] | | | | + + + + + + | Estimated | >60Comment: GFR <60: | mL/min/1.73m2 | EXTERNAL | | | GFR | CHRONIC KIDNEY DISEASE, | | LAB | | | | IF FOUND OVER A 3 MONTH | | | | | | PERIOD.GFR <15: KIDNEY | | | | | | FAILURE.FOR | | | | | | AMERICANS, MULTIPLY THE | | | | | | CALCULATED GFR BY | | | | | | 1.210.Testing performed | | | | | | at [facility], [address] | | | | | | [address], | | | | | | [place] [address] | | | | + + + + + + + + | Specimen | + + | Blood specimen | | (specimen) | + + + +---------+ + + | Performing | Address | City/State/Zipcode | Phone Number | | Organization | | | | + +---------+ + + | EXTERNAL LAB | | | | + +---------+ + + XR Chest 2 [facility] (11/03/2015 9:44 PM PDT) + + | Specimen | + + | | + + + + + | Impressions | Performed At | + + + | 1. No active intrathoracic disease. | | + + + + + + | Narrative | Performed At | + + + | HISTORY: Preoperative evaluation. COMPARISON: 11/01/15. | | | TECHNIQUE: PA and lateral films of the chest. FINDINGS: Lungs | | | remain clear. Heart size is normal. Ectasia and tortuosity thoracic | | | aorta. Mild to moderate degenerative spurring of the thoracic spine. | | | | | + + + + + | Procedure Note | + + | Afshin Gutierrez Conversion - 01/29/2019 6:13 PM PDT HISTORY:Preoperative evaluation. | | COMPARISON:11/01/15. TECHNIQUE:PA and lateral films of the chest. FINDINGS:Lungs remain | | clear. Heart size is normal. Ectasia and tortuosity thoracic aorta. Mild to moderate | | degenerative spurring of the thoracic spine. IMPRESSION: 1. No active intrathoracic | | disease. | | | |TECHNIQUE: | |PA and lateral films of the chest. | | | |FINDINGS: | |Lungs remain clear. Heart size is normal. Ectasia and tortuosity thoracic aorta. Mild to mo derate degenerative spurring of the thoracic spine. | | | |IMPRESSION: | |1. No active intrathoracic disease. | | | | | + + MRSA NAAT (11/03/2015 8:49 PM PDT) + + | Specimen | + + | | + + + + + | Narrative | Performed At | + + + | [facility](NOSE) | EXTERNAL LAB | | Testing performed at [facility];[address] [place] [address];[place] [address] MRSA PCR | | | NEGATIVE Testing performed at | | | [address];[place] [address] | | + + + + +---------+ + + | Performing | Address | City/State/Zipcode | Phone Number | | Organization | | | | + +---------+ + + | EXTERNAL LAB | | | | + +---------+ + + ECHO Transesophageal (VÍCTOR) (11/03/2015 3:51 PM PDT) + + | Specimen | + + | | + + + + + | Impressions | Performed At | + + + | 1. Overall left ventricular systolic function is normal with, an EF | | | between 55 - 60 %. 2. The left atrium is markedly dilated. 3. There | | | is vqzz-hp-edfyogkk aortic regurgitation. 4. There is severe aortic | | | stenosis present. 5. Severe mitral regurgitation is present. 6. | | | Flail/partial flail of the posterior leaflet. 7. Moderate to severe | | | tricuspid regurgitation present. 8. The right ventricular systolic | | | pressure, as measured by Doppler, is 67.40mmHg. | | + + + + + + | Narrative | Performed At | + + + | Patient Name: Waylon Rubin Date of : 1945 | | | Performing Physician: Edd Hussein MD | | | | | | INDICATIONS severe as CONCLUSIONS 1. | | | Overall left ventricular systolic function is normal with, an EF | | | between 55 - 60 %. 2. The left atrium is markedly dilated. 3. There | | | is aqfv-cq-cxpielic aortic regurgitation. 4. There is severe aortic | | | stenosis present. 5. Severe mitral regurgitation is present. 6. | | | Flail/partial flail of the posterior leaflet. 7. Moderate to severe | | | tricuspid regurgitation present. 8. The right ventricular systolic | | | pressure, as measured by Doppler, is 67.40mmHg. FINDINGS -------- | | | Procedure: Transesophageal echocardiogram with spectral and color | | | flow Doppler was performed. Procedure: VÍCTOR was done at the bedside in | | | the fasting state. Informed consent was obtained after benefits and | | | risks of the procedure were discussed with the patient including but | | | not limited to the potential for esophageal puncture and . The | | | oropharynx was anesthetized with 1% Hurricane spray. After | | | conscious sedation, the transesophageal probe was advanced and placed | | | in the esophagus and multiple projections of the cardiovascular | | | structures were acquired and recorded. This was followed by | | | advancement of the probe into the stomach for transgastric imaging. | | | Finally, interrogation of the descending aorta and arch was | | | performed. The probe was removed. The patient tolerated the | | | procedure well. There were no immediate complications. 2 D, | | | pulsed and continuous wave form and color images were interpreted in | | | real time. Medications: 3 mg of Versed and Medications: 75 mcg of | | | Fentanyl was given intraveonously for conscious sedation. Study | | | quality: This was a technically adequate study. Left Ventricle: The | | | left ventricle size is normal. Left Ventricle: Left Ventricle: | | | Overall left ventricular systolic function is normal with, an EF | | | between 55 - 60 %. Left Atrium: The left atrium is markedly dilated. | | | Left Atrium: Normal left atrial appendage without evidence for | | | thrombi. Right Ventricle: The right ventricle is normal in size | | | measuring < 33 mm. Right Atrium: The right atrial size is normal. | | | Interatrial Septum: No shunt seen with color Doppler. Interatrial | | | Septum: No shunt seen with bubble study. Aortic Valve: Aortic valve | | | is trileaflet and is moderately thickened. Aortic Valve: There is | | | buha-il-ygmsjkkh aortic regurgitation. Aortic Valve: There is severe | | | aortic stenosis present. Mitral Valve: Severe mitral regurgitation is | | | present. Mitral Valve: Flail/partial flail of the posterior leaflet. | | | Tricuspid Valve: The tricuspid valve appears structurally normal. | | | Tricuspid Valve: Moderate to severe tricuspid regurgitation present. | | | Tricuspid Valve: The right ventricular systolic pressure, as measured | | | by Doppler, is 67.40mmHg. Pulmonic Valve: The pulmonic valve is | | | normal. Pulmonic Valve: Trace pulmonic regurgitation. Aorta: | | | Ascending aorta, aortic arch and descending thoracic aorta are of | | | normal caliber with no significant atherosclerotic disease. | | | Pericardium: There is no pericardial effusion. MEASUREMENTS | | | LVEF MOD A2C: 60.93 % SV MOD A2C: 115.17 ml | | | LVEF MOD A4C: 57.38 % SV MOD A4C: 112.06 ml EF Biplane: | | | 53.90 % LVEDV MOD BP: 189.90 ml LVESV MOD BP: 87.54 ml LVEDV | | | MOD A2C: 189.02 ml LVLd A2C: 9.45 cm LVEDV MOD A4C: 195.26 | | | ml LVLd A4C: 9.07 cm LVESV MOD A2C: 73.84 ml LVLs A2C: | | | 7.11 cm LVESV MOD A4C: 83.20 ml LVLs A4C: 7.92 cm HR: | | | 85.37 BPM AV maxP.45 mmHg AV meanP.85 mmHg AV Vmax: | | | 4.37 m/s AV Vmean: 3.34 m/s AV VTI: 145.14 cm RAP: 5 | | | mmHg RVSP: 67.40 mmHg TR maxP.40 mmHg TR Vmax: 3.94 | | | m/s Mine Wedge Sawyer: CM Authenticated by: Edd Hussein MD Report | | | Date/Time: 11-04-2015 06:39:21 | | + + + + + | Procedure Note | + + | Afshin Gutierrez Conversion - 01/29/2019 6:13 PM PDT Patient Name: Ne Rubin of | | : 1945 Performing Physician: Edd Hussein | | MD INDICATIONS s | | evere as CONCLUSIONS 1. Overall left ventricular systolic function is normal | | with, an EF between 55 - 60 %.2. The left atrium is markedly dilated.3. There is | | zpmo-pp-gyzkxocb aortic regurgitation.4. There is severe aortic stenosis present.5. | | Severe mitral regurgitation is present.6. Flail/partial flail of the posterior | | leaflet.7. Moderate to severe tricuspid regurgitation present.8. The right ventricular | | systolic pressure, as measured by Doppler, is 67.40mmHg. FINDINGS--------Procedure: | | Transesophageal echocardiogram with spectral and color flow Doppler was | | performed.Procedure: VÍCTOR was done at the bedside in the fasting state. Informed consent | | was obtained after benefits and risks of the procedure were discussed with the patient | | including but not limited to the potential for esophageal puncture and . The | | oropharynx was anesthetized with 1% Hurricane spray. After conscious sedation, the | | transesophageal probe was advanced and placed in the esophagus and multiple projections | | of the cardiovascular structures were acquired and recorded. This was followed by | | advancement of the probe into the stomach for transgastric imaging. Finally, | | interrogation of the descending aorta and arch was performed. The probe was removed. | | The patient tolerated the procedure well. There were no immediate complications. 2 | | D, pulsed and continuous wave form and color images were interpreted in real | | time.Medications: 3 mg of Versed andMedications: 75 mcg of Fentanyl was given | | intraveonously for conscious sedation.Study quality: This was a technically adequate | | study.Left Ventricle: The left ventricle size is normal.Left Ventricle:Left Ventricle: | | Overall left ventricular systolic function is normal with, an EF between 55 - 60 %.Left | | Atrium: The left atrium is markedly dilated.Left Atrium: Normal left atrial appendage | | without evidence for thrombi.Right Ventricle: The right ventricle is normal in size | | measuring < 33 mm.Right Atrium: The right atrial size is normal.Interatrial Septum: No | | shunt seen with color Doppler.Interatrial Septum: No shunt seen with bubble study.Aortic | | Valve: Aortic valve is trileaflet and is moderately thickened.Aortic Valve: There is | | ktgk-le-aibxcpuv aortic regurgitation.Aortic Valve: There is severe aortic stenosis | | present.Mitral Valve: Severe mitral regurgitation is present.Mitral Valve: Flail/partial | | flail of the posterior leaflet.Tricuspid Valve: The tricuspid valve appears | | structurally normal.Tricuspid Valve: Moderate to severe tricuspid regurgitation | | present.Tricuspid Valve: The right ventricular systolic pressure, as measured by | | Doppler, is 67.40mmHg.Pulmonic Valve: The pulmonic valve is normal.Pulmonic Valve: Trace | | pulmonic regurgitation.Aorta: Ascending aorta, aortic arch and descending thoracic | | aorta are of normal caliber with no significant atherosclerotic disease.Pericardium: | | There is no pericardial effusion. MEASUREMENTS LVEF MOD A2C: 60.93 %SV MOD | | A2C: 115.17 mlLVEF MOD A4C: 57.38 %SV MOD A4C: 112.06 mlEF Biplane: 53.90 | | %LVEDV MOD BP: 189.90 mlLVESV MOD BP: 87.54 mlLVEDV MOD A2C: 189.02 mlLVLd A2C: | | 9.45 cmLVEDV MOD A4C: 195.26 mlLVLd A4C: 9.07 cmLVESV MOD A2C: 73.84 mlLVLs A2C: | | 7.11 cmLVESV MOD A4C: 83.20 mlLVLs A4C: 7.92 cmHR: 85.37 BPMAV maxP.45 | | mmHgAV meanP.85 mmHgAV Vmax: 4.37 m/Brien Vmean: 3.34 m/Brien VTI: 145.14 | | cmRAP: 5 mmHgRVSP: 67.40 mmHgTR maxP.40 mmHgTR Vmax: 3.94 m/s Mine Wedge Sawyer: | | CMAuthenticated by: Edd Hussein MDReport Date/Time: 11-04-2015 06:39:21 IMPRESSION: 1. | | Overall left ventricular systolic function is normal with, an EF between 55 - 60 %.2. | | The left atrium is markedly dilated.3. There is eblc-wq-dxufqkrb aortic regurgitation.4. | | There is severe aortic stenosis present.5. Severe mitral regurgitation is present.6. | | Flail/partial flail of the posterior leaflet.7. Moderate to severe tricuspid | | regurgitation present.8. The right ventricular systolic pressure, as measured by | | Doppler, is 67.40mmHg. | |Tricuspid Valve: The right ventricular systolic pressure, as measured by Doppler, is 67.40m mHg. | |Pulmonic Valve: The pulmonic valve is normal. | |Pulmonic Valve: Trace pulmonic regurgitation. | |Aorta: Ascending aorta, aortic arch and descending thoracic aorta are of normal caliber wit h no significant atherosclerotic disease. | |Pericardium: There is no pericardial effusion. | | | |MEASUREMENTS | | | |LVEF MOD A2C: 60.93 % | |SV MOD A2C: 115.17 ml | |LVEF MOD A4C: 57.38 % | |SV MOD A4C: 112.06 ml | |EF Biplane: 53.90 % | |LVEDV MOD BP: 189.90 ml | |LVESV MOD BP: 87.54 ml | |LVEDV MOD A2C: 189.02 ml | |LVLd A2C: 9.45 cm | |LVEDV MOD A4C: 195.26 ml | |LVLd A4C: 9.07 cm | |LVESV MOD A2C: 73.84 ml | |LVLs A2C: 7.11 cm | |LVESV MOD A4C: 83.20 ml | |LVLs A4C: 7.92 cm | |HR: 85.37 BPM | |AV maxP.45 mmHg | |AV meanP.85 mmHg | |AV Vmax: 4.37 m/s | |AV Vmean: 3.34 m/s | |AV VTI: 145.14 cm | |RAP: 5 mmHg | |RVSP: 67.40 mmHg | |TR maxP.40 mmHg | |TR Vmax: 3.94 m/s | | | |Mine Wedge Sawyer: CM | |Authenticated by: Edd Hussein MD | |Report Date/Time: 11-04-2015 06:39:21 | | | |IMPRESSION: | |1. Overall left ventricular systolic function is normal with, an EF between 55 - 60 %. | |2. The left atrium is markedly dilated. | |3. There is slaq-ce-hislofrs aortic regurgitation. | |4. There is severe aortic stenosis present. | |5. Severe mitral regurgitation is present. | |6. Flail/partial flail of the posterior leaflet. | |7. Moderate to severe tricuspid regurgitation present. | |8. The right ventricular systolic pressure, as measured by Doppler, is 67.40mmHg. | + + CT Angiogram Pulmonary w Contrast (11/02/2015 10:45 AM PDT) + + | Specimen | + + | | + + + + + | Impressions | Performed At | + + + | 1. No pulmonary embolism evaluated to the level of the | | | subsegmental pulmonary arteries. 2. Moderate to large hiatal | | | hernia. | | | AM | | + + + + + + | Narrative | Performed At | + + + | WAYLON RUBIN 1945 70 years Male CTA CHEST PULMONARY | | | EMBOLISM W CONTRAST 11/02/2015 10:45 AM HISTORY: Pulmonary | | | embolism. COMPARISON: None. TECHNIQUE: 1.5-mm axial images of | | | the chest were acquired in the arterial phase according to a CT | | | angiography protocol. Coronal CT angiographic MIP reconstructions | | | were performed by lead cytogenetic technologist. No 3-D imaging. Automated | | | exposure control done to minimize dose. IV contrast: 100 mL | | | Isovue-370 FINDINGS: Pulmonary arteries: No pulmonary | | | embolism evaluated to the level of the subsegmental pulmonary | | | arteries. Lungs: Calcified 2 mm granuloma of the right lung base | | | (6/206). left lower lobe pulmonary lung nodule (6/216) measuring 5 mm | | | in diameter. No mediastinal adenopathy. Thyroid gland is normal. | | | Mild cardiomegaly. No pericardial effusion. Upper Abdomen: | | | Moderate to large hiatal hernia. No other acute abnormality of the | | | visualized portions of the upper abdomen. Skeleton: Old traumatic | | | deformity of the right clavicle. Moderate degeneration of the | | | bilateral glenohumeral joints. Degeneration of the thoracic spine with | | | osteophyte formation and mild dextroscoliotic scoliotic curvature . | | + + + + + | Procedure Note | + + | Afshin Gutierrez Conversion - 01/29/2019 6:13 PM PDT WAYLON Gautam [id number] years MaleCTA | | CHEST PULMONARY EMBOLISM W CONTRAST11/02/2015 10:45 AM HISTORY: Pulmonary embolism. | | COMPARISON: None. TECHNIQUE:1.5-mm axial images of the chest were acquired in the | | arterial phase according to a CT angiography protocol. Coronal CT angiographic MIP | | reconstructions were performed by lead cytogenetic technologist. No 3-D imaging. Automated exposure | | control done to minimize dose.IV contrast: 100 mL Isovue-370 FINDINGS: Pulmonary | | arteries: No pulmonary embolism evaluated to the level of the subsegmental pulmonary | | arteries. Lungs: Calcified 2 mm granuloma of the right lung base (6/206). left lower | | lobe pulmonary lung nodule (6/216) measuring 5 mm in diameter. No mediastinal | | adenopathy. Thyroid gland is normal. Mild cardiomegaly. No pericardial effusion. Upper | | Abdomen: Moderate to large hiatal hernia. No other acute abnormality of the visualized | | portions of the upper abdomen. Skeleton: Old traumatic deformity of the right clavicle. | | Moderate degeneration of the bilateral glenohumeral joints. Degeneration of the thoracic | | spine with osteophyte formation and mild dextroscoliotic scoliotic | | curvature.IMPRESSION: 1. No pulmonary embolism evaluated to the level of the | | subsegmental pulmonary arteries.2. Moderate to large hiatal hernia. Electronically | | signed by Duke Weldon MD on 11/02/2015 11:09 AM | |Pulmonary arteries: No pulmonary embolism evaluated to the level of the subsegmental pulmo nary arteries. | | | |Lungs: Calcified 2 mm granuloma of the right lung base (6/206). left lower lobe pulmonary l blake nodule (6/216) measuring 5 mm in diameter. | | | |No mediastinal adenopathy. Thyroid gland is normal. Mild cardiomegaly. No pericardial effus ion. | | | |Upper Abdomen: Moderate to large hiatal hernia. No other acute abnormality of the visualize d portions of the upper abdomen. | | | |Skeleton: Old traumatic deformity of the right clavicle. Moderate degeneration of the bilat eral glenohumeral joints. Degeneration of the thoracic spine with osteophyte formation and m ild dextroscoliotic scoliotic curvature | |. | |IMPRESSION: | |1. No pulmonary embolism evaluated to the level of the subsegmental pulmonary arteries. | |2. Moderate to large hiatal hernia. | | | | | + + External Lab: Occult Blood, Screening (11/02/2015 12:36 AM PDT) + + | Specimen | + + | Stool specimen | | (specimen) | + + + + + | Narrative | Performed At | + + + | Pamela Sotomayor DO 11/02/2015:36 AM [facility] | EXTERNAL LAB | | [facility] Department of Emergency Medicine Pre-arrival | | | Provider: Another ED Does provider wish to be contacted after eval?: | | | No Pertinent History and Concerns: hx of Aortic Stenosis and "valve | | | Issue", HTN, no surgeries. Lightning bolt chest pain this AM, | | | Left sided, unable to resolve chest pain. Allergy to Nitro, tried | | | given dose with hypotension event. Relevant Labs or Studies: | | | -troponin, -EKG, Relevant Medications: Nitro given x1 which resulted | | | in systolic BP 145 to go to systolic 76, 100mcg fentanyl x2, 1 mg | | | dilaudid x2, 324 asa, 50 metoprolol, 30 imdur, 4 Zofran Current | | | Reported Vital Signs: 125/77, 78 bpm, 13R.R., 97.7 temp, 100% sao2 | | | on RA. (11/01/15 1517 : Maulik Dupont RN) 5:03 PM History | | | of Present Illness Patient Identification Waylon Rubin is a 70 | | | y.o. male. Patient information was obtained from patient. | | | History/Exam limitations: none. Patient presented to the Emergency | | | Department by: [facility] Chief Complaint Chief Complaint | | | Patient presents with | | | Chest Pain | | | Shortness of Breath 70 y.o. male with history of severe | | | aortic stenosis presents to the ED complaining of chest pain. | | | Onset of symptoms was 6:30 AM, with a constant course since that | | | time. Pt states he was just getting out of the shower when pain | | | began. Pt reports he went to [facility], in [place], at 1 PM. | | | Report from [facility] states: pt's BP initially was quite high | | | at 184/111. Pt was given nitro which dropped his BP to 76/42. Pt | | | was give full dose of aspirin, several doses of Fentanyl, and | | | Dilaudid which gave some relief of pain. Pt's labs, from [facility] | | | [facility] were: Hemoglobin 14.9, Platelets 227, INR 1, Creatinine | | | 1.25, WBC 9.5, and LFTs normal. EKG showed no ischemia, LVH and Q | | | waves inferiorly. Repeat EKG done 1 hour later, which was | | | unchanged. Pt states that [facility] recommended pt be brought | | | here for observation. The patient describes the symptoms as "a | | | bowling ball on my chest and then hit like a lightening ball." Pt | | | reports he has been told that it is possible his pain is coming | | | from his bowels. No care prior to arrival reported. The patient | | | also complains of sob, abdominal pain, and emesis. Patient denies | | | black or bloody stools, hemoptysis, or any other symptoms at this | | | time. PMHx: Pt reports that he just had a heart catheretization | | | done on 09/22/2015. Pt states he was told that he needed a valve | | | replacement 2 months ago. Pt states he was told it needed to | | | happen "as soon as possible." However, procedure has yet to be | | | scheduled. PCP: SILVESTRE MORENO Past Medical History | | | Diagnosis Date | | | Depression | | | Essential hypertension | | | Aortic stenosis Past Surgical History Procedure Laterality | | | Date | | | Tonsillectomy Prior to Admission medications Medication | | | Sig Start Date End Date Taking? Authorizing Provider aspirin 81 MG | | | EC tablet Take 81 mg by mouth daily with breakfast. Historical | | | Provider FLUoxetine (PROZAC) 20 MG capsule Take 20 mg by mouth | | | daily. Historical Provider lisinopril (ZESTRIL) 10 MG tablet | | | Take 10 mg by mouth daily. Historical Provider polyethylene | | | glycol (GOLYTELY) 236 G suspension Take 4,000 mLs by mouth See Admin | | | Instructions. 10/21/15 PRASANNA Matias Allergies | | | Allergen Reactions | | | Penicillins Hives and Rash History Social History | | | Marital Status: Significant Other Spouse Name: N/A | | | Number of Children: N/A | | | Years of Education: N/A Occupational History | | | Not on file. Social History Main Topics | | | Smoking status: Former Smoker -- 2.00 packs/day for 32 years | | | Types: Cigarettes Quit date: 06/17/1980 | | | Smokeless tobacco: Never Used | | | Alcohol Use: 1.2 oz/week 2 Cans of beer per week | | | Drug Use: No | | | Sexual Activity: Not on file Other Topics Concern | | | Not on file Social History Narrative Family History | | | Problem Relation Age of Onset | | | Heart disease Mother | | | Heart disease Father | | | Diabetes type II Father | | | Diabetes type II Brother | | | Hypertension Brother Review of Systems Constitutional: | | | Negative for fever, chills Negative for fatigue Eyes: | | | Negative for vision changes or photophobia Nose: Negative for | | | congestion Throat: Negative for sore throat or swelling CV/Resp: | | | Positive for chest pain Positive for vzodqodpx-au-cmqufu | | | Negative for cough GI: Positive for abdominal pain Negative | | | for nausea Positive for vomiting Negative for constipation | | | Negative for diarrhea Negative for black or bloody stools | | | : Negative for urinary frequency Negative for pain with | | | urination Musculoskeletal: Negative for back pain Negative | | | for neck pain or stiffness. Skin: Negative for rash | | | Neuro/Psych: Negative for headache All other systems | | | reviewed and negative except as noted. Physical Exam BP | | | 148/83 mmHg - Pulse 72 - Resp 21 - SpO2 96% Vital signs | | | interpretation: slightly hypertensive, slightly tachypneic, | | | otherwise normal. Pt is requiring 0L O2 via nasal canula. | | | Prehospital O2 saturation was 100 % on RA. Pulse Oximetry | | | interpretation: Normal General: Alert, in no apparent distress | | | Eyes: Normal inspection, PERRL, non-icteric, EOM's intact. | | | Slightly pale conjunctiva. ENT: Ears normal Nose normal | | | Pharynx normal, mucous membranes are moist. Neck: Normal | | | inspection Supple, no lymphadenopathy Non-tender to palpation. | | | Cardiovascular: Rate and rhythm normal Loud holosystolic murmur | | | heard best over Lt sternal border. Heart sounds are easily | | | auscultated Chest non-tender to palpation Respiratory: Normal | | | work of breathing Breath sounds equal bilaterally No rales, | | | wheezing or rhonchi Abdomen: Soft, non-tender, non-distended | | | Normal bowel sounds No guarding or rebound No masses. No | | | pulsatile masses. Genitourinary: Deferred Rectal exam: Deferred | | | Back: Normal inspection, no CVA tenderness or spinal tenderness | | | Skin: Color somewhat pale. Warm and dry No rash | | | Extremities: No swelling or pitting edema. No calf tenderness or | | | palpable cords. Neuro: Alert, no AMS, speech is clear. No | | | gross motor/sensory deficits Medical Decision Making and | | | Emergency Department Course ED Department Course Patient | | | presents to ED with complaints of chest pain and sob. On exam the | | | patient has a loud holosystolic murmur heard best over Lt sternal | | | border. Pal is somewhat pale and has slightly pale conjunctiva. My | | | DDx includes, but is not limited to: pain secondary to , recent | | | cardiac cath unremarkable therefore, unlikely,ly ACS, Cardiac | | | dysrhythmia, GERD, vs other. Will order CXR, BMP, Troponin, | | | Hemoglobin, Hematocrit, BNP, Dilaudid, Zofran, and reevaluate the | | | patient. Patient's condition is stable at this time. 5:50 PM | | | CXR results show no radiographic evidence of acute cardiopulmonary | | | disease. 5:56 PM Rectal exam preformed, bedside. Exam produced | | | dark brown stool with no melena. Hemoccult is negative. Pt | | | reports he was ashen in appearance when he checked in at [facility] | | | [facility] earlier today. Medications sodium chloride 0.9 % | | | flush 10 mL (not administered) HYDROmorphone (DILAUDID) injection 0.5 | | | mg (0.5 mg Intravenous Given 11/01/151742) ondansetron (ZOFRAN) | | | injection 4 mg (4 mg Intravenous Given 11/01/151738) Admission | | | Upon review of the patient | | | | | | s history, physical and the results of studies I believe that the | | | patient warrants admission to the hospital for further evaluation | | | and treatment. I have spoken with the patient regarding the need | | | for admission to the hospital, and the patient has expressed | | | understanding of this. I will call and arrange for admission at | | | this time. 6:19 PM Discussed pt with Dr. Clark, Hospitalist, | | | who is present in the ED. Dr. Fields accepts pt for admission. | | | Records Reviewed Old medical records. Nursing notes. Nursing | | | notes. Nursing notes reviewed for chief complaint, medications, | | | clinical presentation and vital signs. Old ED records reviewed | | | (Using the electronic record system of [facility], I | | | carefully reviewed the records with regard to the past | | | medical/surgical history, previous medications, and allergies). | | | Laboratory Evaluation Results Procedure Component Value Ref | | | Range Date/Time D Dimer,Quantitative [[id number]] (Abnormal) | | | Collected: 11/01/151720 Order Status: Completed Updated: | | | 11/01/151940 D DIMER, QUANTITATIVE 1.38 (H) 0.19 - 0.50 mg/L | | | FEU Troponin I, Lab [[id number]] Collected: 11/01/151720 | | | Order Status: Completed Specimen Information: Blood Updated: | | | 11/01/151750 TROPONIN I <0.020 0.00 - 0.10 ng/mL Basic | | | Metabolic Panel [[id number]] (Abnormal) Collected: 11/01/151720 | | | Order Status: Completed Specimen Information: Blood Updated: | | | 11/01/151750 SODIUM 136 135 - 143 mmol/L POTASSIUM 4.7 | | | 3.5 - 4.9 mmol/L CHLORIDE 107 99 - 109 mmol/L CO2 19 (L) | | | 23 - 32 mmol/L ANION GAP AGAP 15 5 - 20 mmol/L GLUCOSE | | | 141 (H) 65 - 99 mg/dL BUN 24 8 - 25 mg/dL CREATININE 1.2 | | | 0.70 - 1.30 mg/dL BUN/CREAT 20 CALCIUM 8.1 (L) 8.5 - | | | 10.5 mg/dL EGFR >60 >60 mL/min/1.73m2 BNP [[id number]] | | | (Abnormal) Collected: 11/01/151720 Order Status: Completed | | | Specimen Information: Blood Updated: 11/01/15 1747 BRAIN | | | NATRIURETIC PEPTIDE 114 (H) 0 - 100 pg/mL Hemoglobin and | | | Hematocrit [[id number]] (Abnormal) Collected: 11/01/15 1721 | | | Order Status: Completed Updated: 11/01/15 1733 HGB 12.5 (L) | | | 13.2 - 17.0 g/dL HCT 35.8 (L) 39.0 - 50.0 % I | | | personally reviewed the lab results and they have been posted to the | | | chart. Pertinent positive and negative findings have been | | | addressed appropriately. EKG and Radiology Evaluation EKG | | | performed at 1715 Normal Sinus Rhythm 65 bpm. Normal axis Intervals | | | normal Q waves inferiorly No significant ST segment abnormalities | | | T wave flattening V5 andV6 No acute ischemia. Interpreted by me | | | at time of service Imaging Results XR Chest PA and | | | Lateral (Final result) Result time: 11/01/15 17:50:12 Final | | | result by Rad Results In Matt (11/01/15 17:50:12) Impression: No | | | radiographic evidence of acute cardiopulmonary disease. | | | | | | Narrative: WAYLON RUBIN XR CHEST 2 VIEW FRONTAL AND LATERAL | | | 11/01/2015 5:35 PM HISTORY: 70 years. Male. Chest pain | | | TECHNIQUE: XR CHEST 2 VIEW FRONTAL AND LATERAL. 2 view(s) obtained. | | | COMPARISON: None. FINDINGS: Normal cardiac size. Normal | | | pulmonary vascular pattern. No focal consolidation, pulmonary | | | nodule, pulmonary mass, pleural effusion or pneumothorax. No acute | | | fracture. 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 | | | Mild bilateral acromioclavicular osteoarthritis. Visualized portion | | | of abdomen is unremarkable. Probably defibrillator pads project | | | over left hemithorax. ED Diagnoses Final | | | diagnoses Chest pain, unspecified type Severe aortic stenosis | | | Secondary hypertension, hypertension with unspecified goal | | | Anemia, unspecified type Disposition: ED Disposition | | | Admit/Observation Bed request special needs: None Diagnosis?: chest | | | pain Follow-up Information None Discharge | | | Medications: Current Discharge Medication List This | | | chart has been created using [employer] Speech Recognition | | | software. The chart has been reviewed and there may still exist | | | sound alike word errors. Procedures Additional Documentation | | | Guaiac negative stool. Performed by ED provider. Hemoccult quality | | | control Passed. Attending Note: Documentation | | | assistance provided by Dede Long (Scribe). Information | | | recorded by the scribe has been reviewed and validated by me. I | | | agree with its contents. Pamela Sotomayor, DO | | + + + + +---------+ + + | Performing | Address | City/State/Zipcode | Phone Number | | Organization | | | | + +---------+ + + | EXTERNAL LAB | | | | + +---------+ + + ECG 12 lead (11/01/2015 8:45 PM PDT) + + + + + + | Component | Value | Ref Range | Performed | Pathologist | | | | | At | Signature | + + + + + + | DIAGNOSIS: | Normal sinus | | EXTERNAL | | | | rhythmMinimal voltage | | LAB | | | | criteria for LVH, may be | | | | | | normal | | | | | | variantNonspecific T | | | | | | wave | | | | | | abnormalityProlonged | | | | | | QTAbnormal ECGWhen | | | | | | compared with ECG of | | | | | | 01-NOV-2015 17:15,No | | | | | | significant change was | | | | | | foundThis ECG contains | | | | | | Unconfirmed | | | | | | Interpretation | | | | | | Statements. See ED | | | | | | Record for Physician | | | | | | Interpretation. | | | | | | Confirmed by MUSE READ | | | | | | ONLY, -COMPUTER ([id number]), | | | | | | slot editor Adrianne Gilliland | | | | | | (15) on 11/02/2015 | | | | | | 4:09:53 AM | | | | + + + + + + + + | Specimen | + + | | + + + + + | Narrative | Performed At | + + + | Historically converted procedure from [facility] Epic environment | EXTERNAL LAB | + + + + +---------+ + + | Performing | Address | City/State/Zipcode | Phone Number | | Organization | | | | + +---------+ + + | EXTERNAL LAB | | | | + +---------+ + + XR Chest 2 Vws (11/01/2015 5:35 PM PDT) + + | Specimen | + + | | + + + + + | Impressions | Performed At | + + + | No radiographic evidence of acute cardiopulmonary disease. | | | | | + + + + + + | Narrative | Performed At | + + + | WAYLON RUBIN XR CHEST 2 VIEW FRONTAL AND LATERAL 11/01/2015 5:35 | | | PM HISTORY: 70 years. Male. Chest pain TECHNIQUE: XR | | | CHEST 2 VIEW FRONTAL AND LATERAL. 2 view(s) obtained. | | | COMPARISON: None. FINDINGS: Normal cardiac size. Normal | | | pulmonary vascular pattern. No focal consolidation, pulmonary nodule, | | | pulmonary mass, pleural effusion or pneumothorax. No acute fracture. 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 Mild bilateral | | | acromioclavicular osteoarthritis. Visualized portion of abdomen is | | | unremarkable. Probably defibrillator pads project over left | | | hemithorax. | | + + + + + | Procedure Note | + + | Matt, Rad Conversion - 01/29/2019 6:13 PM PDT WAYLON AMARAL CHEST 2 VIEW FRONTAL | | AND LATERAL11/01/2015 5:35 PM HISTORY:70 years. Male. Chest pain TECHNIQUE:XR CHEST 2 | | VIEW FRONTAL AND LATERAL. 2 view(s) obtained. COMPARISON:None. FINDINGS:Normal cardiac | | size. Normal pulmonary vascular pattern. No focal consolidation, pulmonary nodule, | | pulmonary mass, pleural effusion or pneumothorax. No acute fracture. Multilevel | | degenerative disc disease in thoracic spine. Mild bilateral acromioclavicular | | osteoarthritis. Visualized portion of abdomen is unremarkable. Probably defibrillator | | pads project over left hemithorax. IMPRESSION: No radiographic evidence of acute | | cardiopulmonary disease. | | | |COMPARISON: | |None. | | | |FINDINGS: | |Normal cardiac size. Normal pulmonary vascular pattern. No focal consolidation, pulmonary n odule, pulmonary mass, pleural effusion or pneumothorax. No acute fracture. Multilevel degen erative disc disease in thoracic spine. Mild bilateral | |acromioclavicular osteoarthritis. Visualized portion of abdomen is unremarkable. | | | |Probably defibrillator pads project over left hemithorax. | | | |IMPRESSION: | |No radiographic evidence of acute cardiopulmonary disease. | | | | | + + Hemoglobin and Hematocrit (11/01/2015 5:21 PM PDT) + + + + + + | Component | Value | Ref Range | Performed | Pathologist | | | | | At | Signature | + + + + + + | Hemoglobin | 12.5 (L)Comment: Testing | 13.2 - 17.0 | EXTERNAL | | | | performed at [facility];888 | g/dL | LAB | | | | [address];[place] | | | | | | [address] | | | | + + + + + + | Hematocrit, | 35.8 (L)Comment: Testing | 39.0 - 50.0 % | EXTERNAL | | | POC | performed at [facility];[address] | | LAB | | | | [address];[place] | | | | | | [address] | | | | + + + + + + + + | Specimen | + + | | + + + +---------+ + + | Performing | Address | City/State/Zipcode | Phone Number | | Organization | | | | + +---------+ + + | EXTERNAL LAB | | | | + +---------+ + + Troponin I (11/01/2015 5:21 PM PDT) + + + + + + | Component | Value | Ref Range | Performed | Pathologist | | | | | At | Signature | + + + + + + | Troponin I, | <0.020Comment: 0.00 to | 0.00 - 0.10 | EXTERNAL | | | Qual | 0.10 CONSISTENT WITH | ng/mL | LAB | | | | NORMAL POPULATION0.11 | | | | | | to 0.60 CONSISTENT | | | | | | WITH INCREASED RISK FOR | | | | | | ADVERSE OUTCOMES> 0.60 | | | | | | CONSISTENT | | | | | | WITH WHO CRITERIA FOR | | | | | | ACUTE SD Testing | | | | | | performed at [facility];[address] | | | | | | [address];[place], [place] | | | | | | [address] | | | | + + + + + + + + | Specimen | + + | Blood specimen | | (specimen) | + + + +---------+ + + | Performing | Address | City/State/Zipcode | Phone Number | | Organization | | | | + +---------+ + + | EXTERNAL LAB | | | | + +---------+ + + D-Dimer (11/01/2015 5:21 PM PDT) + + + + + + | Component | Value | Ref Range | Performed | Pathologist | | | | | At | Signature | + + + + + + | D-DIMER, | 1.38 (H)Comment: D Dimer | 0.19 - 0.50 | EXTERNAL | | | MANUAL | results less than 0.50 | mg/L FEU | LAB | | | | mg/L FEU may rule out | | | | | | DVT and PE. However, | | | | | | all laboratory results | | | | | | should be interpreted in | | | | | | the context of all | | | | | | available clinical, | | | | | | radiologic and | | | | | | laboratory | | | | | | information.Testing | | | | | | performed at [facility];[address] | | | | | | [facility];[place], [place] | | | | | | [address] | | | | + + + + + + + + | Specimen | + + | | + + + +---------+ + + | Performing | Address | City/State/Zipcode | Phone Number | | Organization | | | | + +---------+ + + | EXTERNAL LAB | | | | + +---------+ + + B Type Natriuretic Peptide (11/01/2015 5:21 PM PDT) + + + + + + | Component | Value | Ref Range | Performed | Pathologist | | | | | At | Signature | + + + + + + | BNP | 114 (H)Comment: Testing | 0 - 100 pg/mL | EXTERNAL | | | | performed at [facility] | | LAB | | | | [facility];[place], [place] | | | | | | [address] | | | | + + + [...] + +---------+ + + Basic Metabolic Panel (11/01/2015 5:21 PM PDT) + + + + + + | Component | Value | Ref Range | Performed | Pathologist | | | | | At | Signature | + + + + + + | Na | 136Comment: Testing | 135 - 143 | EXTERNAL | | | | performed at [facility];[address] | mmol/L | LAB | | | | [address];[place], [place] | | | | | | [address] | | | | + + + + + + | K | 4.7Comment: Testing | 3.5 - 4.9 | EXTERNAL | | | | performed at [facility];[address] | mmol/L | LAB | | | | [address];[place] | | | | | | [address] | | | | + + + + + + | Cl | 107Comment: Testing | 99 - 109 mmol/L | EXTERNAL | | | | performed at [facility];[address] | | LAB | | | | [address];[place] | | | | | | [address] | | | | + + + + + + | CO2 | 19 (L)Comment: Testing | 23 - 32 mmol/L | EXTERNAL | | | | performed at [facility];[address] | | LAB | | | | [address];[place] | | | | | | [address] | | | | + + + + + + | Anion Gap | 15Comment: Testing | 5 - 20 mmol/L | EXTERNAL | | | | performed at [facility];[address] | | LAB | | | | [address];[place] | | | | | | [address] | | | | + + + + + + | Glucose, | 141 (H)Comment: Testing | 65 - 99 mg/dL | EXTERNAL | | | Fasting | performed at [facility];[address] | | LAB | | | | [address];[place] | | | | | | [address] | | | | + + + + + + | BUN | 24Comment: Testing | 8 - 25 mg/dL | EXTERNAL | | | | performed at [facility];[address] | | LAB | | | | [address];[place] | | | | | | [address] | | | | + + + + + + | Creatinine | 1.2Comment: Testing | 0.70 - 1.30 | EXTERNAL | | | | performed at [facility];[address] | mg/dL | LAB | | | | [address];[place] | | | | | | [address] | | | | + + + + + + | BUN/Creatin | 20Comment: Testing | | EXTERNAL | | | ine Ratio | performed at [facility];[address] | | LAB | | | | [address];[place] | | | | | | [address] | | | | + + + + + + | Calcium | 8.1 (L)Comment: Testing | 8.5 - 10.5 | EXTERNAL | | | | performed at [facility];[address] | mg/dL | LAB | | | | [address];[place] | | | | | | [address] | | | | + + + + + + | Estimated | >60Comment: GFR <60: | mL/min/1.73m2 | EXTERNAL | | | GFR | CHRONIC KIDNEY DISEASE, | | LAB | | | | IF FOUND OVER A 3 MONTH | | | | | | PERIOD.GFR <15: KIDNEY | | | | | | FAILURE.FOR | | | | | | AMERICANS, MULTIPLY THE | | | | | | CALCULATED GFR BY | | | | | | 1.210.Testing performed | | | | | | at [facility];[address];[place] [address] | | | | + + + + + + + + | Specimen | + + | Blood specimen | | (specimen) | + + + +---------+ + + | Performing | Address | City/State/Zipcode | Phone Number | | Organization | | | | + +---------+ + + | EXTERNAL LAB | | | | + +---------+ + + ECG 12 lead (11/01/2015 5:15 PM PDT) + + + + + + | Component | Value | Ref Range | Performed | Pathologist | | | | | At | Signature | + + + + + + | DIAGNOSIS: | Normal sinus | | EXTERNAL | | | | rhythmMinimal voltage | | LAB | | | | criteria for LVH, may be | | | | | | normal variantInferior | | | | | | infarct , age | | | | | | undeterminedAbnormal | | | | | | ECGWhen compared with | | | | | | ECG of 22-SEP-2015 | | | | | | 17:04,No significant | | | | | | change was foundThis ECG | | | | | | contains Unconfirmed | | | | | | Interpretation | | | | | | Statements. See ED | | | | | | Record for Physician | | | | | | Interpretation. | | | | | | Confirmed by MUSE READ | | | | | | ONLY, -COMPUTER ([id number]), | | | | | | slot editor Adrianne Gilliland | | | | | | (15) on 11/02/2015 | | | | | | 4:09:52 AM | | | | + + + + + + + + | Specimen | + + | | + + + + + | Narrative | Performed At | + + + | Historically converted procedure from [facility] environment | EXTERNAL LAB | + + + + +---------+ + + | Performing | Address | City/State/Zipcode | Phone Number | | Organization | | | | + +---------+ + + | EXTERNAL LAB | | | | + +---------+ + + XR Chest 1 Pankaj (11/01/2015 12:53 AM PDT) + + | Specimen | + + | | + + + + + | Narrative | Performed At | + + + | This is a non-reportable procedure without a radiologist report and | | | is used for image storage only | | + + + + + | Procedure Note | + + | Afshin Gutierrez - 01/29/2019 6:13 PM PDT This is a non-reportable procedure | | without a radiologist report and isused for image storage only | + + documented in this encounter Visit Diagnoses + + | Diagnosis | + + | Chest pain, unspecified type | + + | Severe aortic stenosis Aortic valve disorders | + + | Secondary hypertension, hypertension with unspecified goal | + + | Anemia, unspecified type | + + documented in this encounter
--- OUTSIDE RECORDS SUMMARY | ~2020-01-27 | XMS | Encounter Summary ---
Demographics + + + | Address | [address] | | | [place] [address] | + + + | Home Phone | | + + + | Preferred Language | Unknown | + + + | Marital Status | Unknown | + + + | Jewish Affiliation | 1028 | + + + | Race | Unknown | + + + | Ethnic Group | Unknown | + + + Author + + + | Author | [facility] | | | and [place] | + + + | Organization | [facility] | | | [...] Team Providers + +------+ + | Care Proposal Specialist Name | Role | Phone | + +------+ + | Pcp, Prov Inactive | PCP | | + +------+ + Encounter Details +--------+ + + + + | Date | Type | Department | Care Team | Description | +--------+ + + + + | 09/21/ | Hospital | [facility] | Conversion | Nonrheumatic aortic | | 2016 | Encounter | [facility] | Transaction, | valve stenosis | | | | CLINICAL DECISION | Provider Unknown | | | | | [address] | [phone] | | | | | [place], [place] | | | | | | [address] | Edd Hussein MD | | | | | [phone] | [address] | | | | | | [place] [address] | | | | | | [phone] | | | | | | | [...] + + documented as of this encounter Medications at Time of Discharge [...] documented as of this encounter Progress Notes Conversion Transaction, Provider Unknown - 09/22/2015 9:35 PM PDTFormatting of this note m ight be different from the original. Progress Notes by Adrianne Newman RN at 09/22/152134 Author: Adrianne Newman RN Service: (none) Author Type: Registered Nurse Filed: 09/22/15 4036 Date of Service: 09/22/152134 Status: Signed Equipment Mechanic Specialist: Adrianne Newman RN (Registered Nurse) Bilateral carotid doppler ultrasound unable to be completed at this time. Dr. Harrison notif ied. No new orders received. Pt updated on plan of care and discharge instructions reviewed. Pt and spouse stated understanding. Right radial site clean, dry, soft. Vital signs stable. Pt wheeled to private vehicle and spouse will transport home. Adrianne Newman RN onver reny Transaction, Provider Unknown - 09/22/2015 8:35 PM PDT Progress Notes by Adrianne Newman RN at 09/22/152034 Author: Adrianne Newman RN Service: (none) Author Type: Registered Nurse Filed: 09/22/15 2332 Date of Service: 09/22/152034 Status: Signed Equipment Mechanic Specialist: Adrianne Newman RN (Registered Nurse) Dr. Harrison at bedside. Adrianne Newman RN docume nted in this encounter H&P Notes Edd Hussein - 09/22/2015 1:40 PM PDT H&P by Edd Hussein MD at 09/22/151339 Author: Edd Hussein MD Service: Cardiology Author Type: Physician Filed: 09/22/15 1341 Date of Service: 09/22/151339 Status: Signed Equipment Mechanic Specialist: Edd Hussein MD (Physician) Service: Cardiology Pre-Operative History & Physical Interval Update There have been no significant clinical changes since the completion of the above H&P. Moderate Sedation Presedation Assessment completed. ASA Classification: ASA 2: Patient with a mild systemic disease Edd Hussein MD 09/22/2015 *CORE MEASURES REMINDER: If the patient has a known or suspected infection prior to surger y, please add diagnosis to the problem list (consider: Infection 136.9). [facility], Yvonne Hunter 1945 Date of Service 09/19/2015 CARDIOLOGY CONSULTATION REQUESTED BY: Dr Granados. CHIEF COMPLAINT: Chief Complaint Patient presents with Referral per Dr. Rachna Granados 70yo WM, with relatively new onset chest discomfort, shortness of breath, and recently a co uple of syncopal episodes. In talking with him, he thinks that this may have started around Thanksgiving, he noticed increasing exertional shortness of breath and fatigue, and chest di scomfort. Apparently a couple weeks ago, while coming out of anglican, sudden sharp chest disc omfort bradycardia throughout his entire body, causing him to collapse to the ground. He chaparro s not think he lost consciousness, but admits he was quite weak. He had been relatively acti ve in the past up until this last , and then symptoms progressively worsening. F or tonight, he does not have any symptoms at rest, physical activity appears to aggravate hi s symptoms. He has a history of childhood asthma, denying any history of rheumatic fever. De nies any history of coronary artery disease, myocardial infarction, congestive heart failure , congenital heart disease, rheumatic heart disease, palpitations. He saw his PCP, Dr. Willow hinton, who appreciated a loud murmur, sent him for an echocardiogram today. Echocardiogram showi ng severe valvular heart disease. He is instructed to come to this office. 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 EC G from Dr. Granados's office is reviewed, as are today's echo results. Past Medical History Diagnosis Date Depression Essential hypertension Past Surgical History Procedure Laterality Date Tonsillectomy Allergies Allergen Reactions Penicillins Hives and Rash Encounter Medications Outpatient Encounter Prescriptions as of 09/19/2015 Medication Sig Dispense Refill aspirin 81 MG EC tablet Take 81 mg by mouth daily with breakfast. FLUoxetine (PROZAC) 20 MG capsule Take 20 mg by mouth daily. lisinopril (ZESTRIL) 10 MG tablet Take 10 mg by mouth daily. No facility-administered encounter medications on file as of 09/19/2015. Family History Problem Relation Age of Onset Heart disease Mother Heart disease Father Diabetes type II Father Diabetes type II Brother Hypertension Brother History Smoking status Former Smoker -- 2.00 packs/day for 32 years Types: Cigarettes Quit date: 06/17/1980 Smokeless tobacco Never Used History Alcohol Use 10.8 oz/week 18 Not specified per week Comment: beer History Drug Use No REVIEW OF SYSTEMS Review of Systems Constitutional: Negative for fever. HENT: Negative for nosebleeds. Eyes: Negative for blurred vision and double vision. Respiratory: Positive for shortness of breath. Negative for cough, hemoptysis, sputum produ ction and wheezing. Cardiovascular: Positive for chest pain. Gastrointestinal: Negative for heartburn, nausea, vomiting, abdominal pain, diarrhea, const ipation, blood in stool and melena. Genitourinary: Negative for dysuria and hematuria. Musculoskeletal: Negative for myalgias. Skin: Negative for rash. Neurological: Positive for loss of consciousness. Negative for dizziness, tingling, sensory change, speech change, focal weakness, seizures, weakness and headaches. Endo/Heme/Allergies: Does not bruise/bleed easily. Psychiatric/Behavioral: Negative for depression. The following portions of the patient's history were reviewed and updated as appropriate: a llergies, current medications, past family history, past medical history, past social histor y, past surgical history and problem list. PHYSICAL EXAM Vital Signs: BP 140/80 mmHg | Pulse 68 | Resp 19 | Ht 1.778 m (5' 10") | Wt 92.08 kg (203 lb) | BMI 29.1 3 kg/m2 | SpO2 97% Physical Exam Constitutional: He is oriented to person, place, and time and well-developed, well-nourishe d, and in no distress. HENT: Complete upper dentures. Eyes: EOM are normal. Neck: No JVD present. Cardiovascular: Normal rate, regular rhythm, S1 normal and S2 normal. No extrasystoles are present. PMI is not displaced. Exam reveals no S3, no S4 and no friction rub. Murmur heard. Systolic murmur is present with a grade of 3/6 No diastolic murmur is present Pulses: Carotid pulses are 1+ on the right side with bruit, and 1+ on the left side with bruit. Radial pulses are 2+ on the right side, and 2+ on the left side. Femoral pulses are 2+ on the right side, and 2+ on the left side. Dorsalis pedis pulses are 2+ on the right side, and 2+ on the left side. Posterior tibial pulses are 2+ on the right side, and 2+ on the left side. Pulmonary/Chest: No respiratory distress. He has no wheezes. He has no rales. He exhibits n o tenderness. Abdominal: Bowel sounds are normal. He exhibits no distension and no mass. There is no tend erness. Musculoskeletal: He exhibits no edema. Neurological: He is alert and oriented to person, place, and time. Skin: Skin is warm and dry. No bruising, no ecchymosis and no rash noted. No cyanosis. Nail s show no clubbing. IMPRESSIONS/RECOMMENDATIONS: Assessment/Plan Essential hypertension Hypertension, controlled, continue current meds at currrent dose (lisinopril). Lab, 09/15/2015: T Chol: 174, LDL-Chol: 107, HDL-Chol: 46, Tri Liver enzymes NML, K: 4.7, BUN/Cr"22/1.1 (GFR 63), glu: 95 TSH: 1.47, WBC: 5.1, H/H: 13.9/40.9, plt: 183 Nonrheumatic aortic valve stenosis Critical . 70yo WM, with relatively new onset chest discomfort, shortness of breath, and recently a couple of syncopal episodes. In talking with him, he thinks that this may have st arted around , he noticed increasing exertional shortness of breath and fatigue, and chest discomfort. Apparently a couple weeks ago, while coming out of anglican, sudden sha rp chest discomfort bradycardia throughout his entire body, causing him to collapse to the g round. He does not think he lost consciousness, but admits he was quite weak. He had been re latively active in the past up until this last , and then symptoms progressively worsening. For tonight, he does not have any symptoms at rest, physical activity appears to aggravate his symptoms. He has a history of childhood asthma, denying any history of rheuma tic fever. Denies any history of coronary artery disease, myocardial infarction, congestive heart failure, congenital heart disease, rheumatic heart disease, palpitations. He saw his P CP, Dr. Granados, who appreciated a loud murmur, sent him for an echocardiogram today. Echocar diogram showing severe valvular heart disease. He is instructed to come to this office. 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 ECG from Dr. Granados's office is reviewed, as are today's echo results. The patien t has clinically critical aortic stenosis, possibly coronary disease. I've asked him to renetta in from strenuous activity. Coronary angiogram recommended, risks and benefits explained, in formed consent is obtained. Valvular heart disease as surgical heart disease, the patient is aware that his symptoms suggests severe to critical disease, and that valve replacement bright kristi may be necessary. Last Cath: na Last Echo, 09/19/2015 ([facility]): severe /mild AI (calc BRITNEY 0.7cm2, peak/mean gradients 64/44mmHg), moderate MR, mild TR, mild PI, moderate concentric LVH, distal inferior segment hypokinetic, LVEF 52%, mild LAE, est systolic PAP 36-41mmHg. Last Stress Test: na ECG, 09/15/2015 (Dr Granados): sinus rhythm, 79bpm, voltage for LVH. Primary Care Physician: CAROLINA GRANADOS Thank you for allowing me to participate in the care of this patient. I will continue to follow with you. This note prepared with voice recognition software, if any questions concerning spelling an d/or grammar, please call. DUSTY VASQUEZ DO documented in this encount er Consult Notes Anne Harrison MD - 09/22/2015 8:33 PM PDTFormatting of this note might be different fro m the original. Consult* by Anne Harrison MD at 09/22/152032 Author: Anne Harrison MD Service: Cardiac, Thoracic, and Vascular Surgery Author Type: Physician Filed: 10/03/15 1236 Date of Service: 09/22/152032 Status: Addendum Equipment Mechanic Specialist: Anne Harrison MD (Physician) Related Notes: Original Note by Anne Harrison MD (Physician) filed at 10/03/15 1233 Service: Cardiothoracic Surgery Initial Consult Note Date of Admission: 09/22/2015 Reason for Consultation: Consideration for aortic valve replacement Requesting Physician: Reema Hussein, Cardiology History Obtained From: patient, spouse CHIEF COMPLAINT: SOB, ankle edema HISTORY OF PRESENT ILLNESS The patient is a 70 y.o. male with significant past medical history of depression, essenti al hypertension, and aortic stenosis who presents with worsening shortness of breath on mini mal exertion. Echocardiogram showed severe aortic stenosis with calculated aortic valve are a of 0.7 cm. Patient has had a couple of episode of syncope denies orthopnea or palpitati on or lower extremity swelling. Coronary angiogram performed on today showed nonocclusive c oronary.artery disease. REVIEW OF SYSTEMS Review of Systems Constitutional: Negative for fever, chills, activity change and fatigue. HENT: Negative for hearing loss, nosebleeds, sore throat, tinnitus and voice change. Eyes: Negative for pain, discharge, redness and visual disturbance. Respiratory: Positive for shortness of breath. Negative for cough, chest tightness and whee zing. Cardiovascular: Positive for leg swelling. Negative for chest pain and palpitations. Gastrointestinal: Negative for nausea, abdominal pain, diarrhea, constipation, blood in sto ol, abdominal distention and anal bleeding. Genitourinary: Negative for dysuria, urgency, frequency and hematuria. Musculoskeletal: Negative for back pain, arthralgias and neck stiffness. Skin: Negative for color change, pallor and wound. Neurological: Negative for dizziness, tremors, seizures, syncope, facial asymmetry, speech difficulty, weakness and light-headedness. Hematological: Negative for adenopathy. Does not bruise/bleed easily. Psychiatric/Behavioral: Negative for suicidal ideas, behavioral problems, confusion, sleep disturbance and agitation. Past Medical History Diagnosis Date Depression Essential hypertension Aortic stenosis Past Surgical History Procedure Laterality Date Tonsillectomy Allergies Allergen Reactions Penicillins Hives and Rash Prescriptions prior to admission Medication Sig Dispense Refill Last Dose aspirin 81 MG EC tablet Take 81 mg by mouth daily with breakfast. 09/21/2015 at Unknown time FLUoxetine (PROZAC) 20 MG capsule Take 20 mg by mouth daily. 09/21/2015 at Unknown time lisinopril (ZESTRIL) 10 MG tablet Take 10 mg by mouth daily. 09/21/2015 at Unknown time sulfamethoxazole-trimethoprim (BACTRIM DS) 800-160 MG per tablet Take 1 tablet by mouth 2 (two) times daily. Scheduled Medications [START ON 09/23/2015] influenza vaccine quadrivalent 0.5 mL Intramuscular Once Immunizat ion [START ON 09/23/2015] pneumococcal 23-valent vaccine 0.5 mL Intramuscular Once Immunizat ion Continuous Infusions sodium chloride (IV) sodium chloride (IV) PRN Medications acetaminophen, fentaNYL, nitroGLYCERIN Family History Problem Relation Age of Onset [...] 06/17/1980 Smokeless tobacco: Never Used Alcohol Use: 10.8 oz/week 18 Not specified per week Comment: beer Drug Use: No Sexual Activity: Not on file Other Topics Concern Not on file Social History Narrative History Smoking status Former Smoker -- 2.00 packs/day for 32 years Types: Cigarettes Quit date: 06/17/1980 Smokeless tobacco Never Used History Alcohol Use 10.8 oz/week 18 Not specified per week Comment: beer History Drug Use No PHYSICAL EXAM Vital Signs: BP 126/71 mmHg | Pulse 66 | Temp(Src) 98 F (36.7 C) (Oral) | Resp 16 | Ht 1.803 m (5' 1 0.98") | Wt 92.987 kg (205 lb) | BMI 28.60 kg/m2 | SpO2 97% Temp: [98 F (36.7 C)-98.2 F (36.8 C)] 98 F (36.7 C) (09/21 1932) BP: (117-181)/(66-91) 126/71 mmHg (09/21 1932) Heart Rate: [64-87] 66 (09/21 1932) Resp: [16-20] 16 (09/21 1932) SpO2: [95 %-99 %] 97 % (09/21 1932) Height: [180.3 cm (5' 10.98")] 180.3 cm (5' 10.98") (09/22 1351) Weight: [92.987 kg (205 lb)] 92.987 kg (205 lb) (09/22 1351) BMI (Calculated): [28.7] 28.7 (09/22 1351) Physical Exam Constitutional: He is oriented to person, place, and time. Vital signs are normal. He appea rs well-developed and well-nourished. HENT: Head: Normocephalic and atraumatic. Eyes: Conjunctivae and lids are normal. Neck: Trachea normal and normal range of motion. Neck supple. No JVD present. Cardiovascular: Normal rate and regular rhythm. Murmur heard. Ejection systolic murmur best heard in the aortic region and radiating to the carotid arter ies. Pulmonary/Chest: Effort normal and breath sounds normal. Abdominal: Soft. Musculoskeletal: He exhibits no edema. Neurological: He is alert and oriented to person, place, and time. No cranial nerve deficit . Skin: Skin is warm. No cyanosis. DATA CBC: Lab Results Component Value Date WBC 7.32 09/22/2015 RBC 4.86 09/22/2015 HGB 14.8 09/22/2015 HCT 43.7 09/22/2015 MCV 89.8 09/22/2015 MCH 30.4 09/22/2015 MCHC 33.8 09/22/2015 RDW 43.3 09/22/2015 PLT 215 09/22/2015 MPV 7.8 09/22/2015 DIFFTYPE AUTOMATED 09/22/2015 CMP: Lab Results Component Value Date NA 136 09/22/2015 K 4.3 09/22/2015 CL 108 09/22/2015 CO2 21* 09/22/2015 ANIONGAP 12 09/22/2015 GLUF 109* 09/22/2015 BUN 22 09/22/2015 CREATININE 1.4* 09/22/2015 BCR 16 09/22/2015 CA 8.8 09/22/2015 EGFR 53* 09/22/2015 PROBLEM LIST Active Problems: * No active hospital problems. * ASSESSMENT & PLAN 70-year-old male, with worsening exertional shortness of breath. Workup revealed severe ao rtic stenosis, and nonocclusive coronary artery disease. Patient will benefit from aortic v alve replacement. I had a long chat with the patient, explained to him the echo and angiogr am finding and need for aortic valve replacement. I have discussed with him the procedure, risks involved, benefits, alternatives, complications, STS risk score, pros and cons of tiss ue versus mechanical valve. In view of his age I have recommended a tissue valve. I am arianna ing arrangements for Mr. Hunter to LETY to better evaluate his mitral valve prior to aortic va lve replacement. Code Status: No Order Primary Care Physician: CAROLINA GRANADOS Thank you for allowing me to participate in the care of this patient. ANNE HARRISON MD 09/22/2015 documente d in this encounter Miscellaneous Notes Plan of Care - Conversion Transaction, Provider Unknown - 09/22/2015 9:30 PM PDT Plan of Care by Adrianne Newman RN at 09/22/152129 Author: Adrianne Newman RN Service: (none) Author Type: Registered Nurse Filed: 09/22/152213 Date of Service: 09/22/152129 Status: Signed Equipment Mechanic Specialist: Adrianne Newman RN (Registered Nurse) Problem: Pain Goal: Patient s pain/discomfort is manageable Assess and monitor patient s pain using appropriate pain scale. Collaborate with interdis ciplinary team and initiate plan and interventions as ordered. Re-assess patient s pain le yamileth approximately 1-2 hours after pain management intervention. Premedicate as needed. Outcome: Completed Date Met: 09/22/15 Pt reports pain level as tolerable. Problem: Psychosocial Needs Goal: Demonstrates ability to cope with hospitalization/illness Assess and monitor patients ability to cope with his/her illness. Outcome: Completed Date Met: 09/22/15 Plan of care discussed and expression of feelings encouraged. Pt denies concerns at this ti me. docume nted in this encounter Plan of Treatment +--------+ + + + + | Date | Type | Specialty | Care Team | Description | +--------+ + + + + | 01/27/ | Appointment | Radiology | Sp Gibbs, | | | 2019 | | | PA-C [address] | | | | | | [facility] | | | | | | [place] [address] | | | | | | [phone] | | | | | | | | | | | | [place] | | | | | | festus mortensen | | +--------+ + + + + | 03/17/ | Office | Cardiology | Chrystal Grimaldo | | | 2019 | Visit | | [facility] [address] | | | | | | [address] | | | | | | [place] [address] | | | | | | [phone] | | | | | | | | +--------+ + + + + documented as of this encounter Procedures + +--------+ + + + | Procedure Name | Priori | Date/Time | Associated Diagnosis | Comments | | | ty | | | | + +--------+ + + + | CULTURE, BLOOD, 2ND | STAT | 09/22/2015 | | Results for this | | SPECIMEN (NON-ORD) | | 11:07 PM | | procedure are in the | | | | PDT | | results section. | + +--------+ + + + | CULTURE, BLOOD | STAT | 09/22/2015 | | Results for this | | | | 11:07 PM | | procedure are in the | | | | PDT | | results section. | + +--------+ + + + | ECG 12 LEAD | Routin | 09/22/2015 | | Results for this | | | e | 5:04 PM | | procedure are in the | | | | PDT | | results section. | + +--------+ + + + | EXTERNAL LAB: CBC | Routin | 09/22/2015 | | Results for this | | | e | 1:43 PM | | procedure are in the | | | | PDT | | results section. | + +--------+ + + + | BASIC METABOLIC | Routin | 09/22/2015 | | Results for this | | PANEL | e | 1:43 PM | | procedure are in the | | | | PDT | | results section. | + +--------+ + + + documented in this encounter Results Culture, Blood, 2nd Specimen (09/22/2015 11:07 PM PDT) + + | Specimen | + + | Blood specimen | | (specimen) | + + + + + | Narrative | Performed At | + + + | Specimen Description ENTERED IN ERROR CULTURE | EXTERNAL LAB | | ENTERED IN ERROR REPORT | | | STATUS ENTERED IN ERROR | | + + + + +---------+ + + | Performing | Address | City/State/Zipcode | Phone Number | | Organization | | | | + +---------+ + + | EXTERNAL LAB | | | | + +---------+ + + Culture, Blood (09/22/2015 11:07 PM PDT) + + | Specimen | + + | Blood specimen | | (specimen) | + + + + + | Narrative | Performed At | + + + | Specimen Description ENTERED IN ERROR CULTURE | EXTERNAL LAB | | ENTERED IN ERROR REPORT | | | STATUS ENTERED IN ERROR | | + + + + +---------+ + + | Performing | Address | City/State/Zipcode | Phone Number | | Organization | | | | + +---------+ + + | EXTERNAL LAB | | | | + +---------+ + + ECG 12 lead (09/22/2015 5:04 PM PDT) + + + + + + | Component | Value | Ref Range | Performed | Pathologist | | | | | At | Signature | + + + + + + | DIAGNOSIS: | Normal sinus rhythm | | EXTERNAL | | | | Upper normal [place] | | LAB | | | | intervalLeft atrial | | | | | | abnormalityLeftward | | | | | | axisModerate voltage | | | | | | criteria for LVH, may be | | | | | | normal | | | | | | variantNonspecific T | | | | | | wave abnormalityAbnormal | | | | | | ECGNo previous ECGs | | | | | | availableConfirmed by | | | | | | MARICRUZ HODGE ([id number]) on | | | | | | 09/22/2015 5:26:21 PM | | | | + + + + + + + + | Specimen | + + | | + + + + + | Narrative | Performed At | + + + | [facility] | EXTERNAL LAB | + + + + +---------+ + + | Performing | Address | City/State/Zipcode | Phone Number | | Organization | | | | + +---------+ + + | EXTERNAL LAB | | | | + +---------+ + + External Lab: CBC (09/22/2015 1:43 PM PDT) + + + + + + | Component | Value | Ref Range | Performed | Pathologist | | | | | At | Signature | + + + + + + | WBC | 7.32Comment: Testing | 3.80 - 11.00 | EXTERNAL | | | | performed at [facility];888 | K/uL | LAB | | | | [address];[place] | | | | | | [id number] | | | | + + + + + + | Non- | 4.86Comment: Testing | 4.20 - 5.70 | EXTERNAL | | | Red Blood | performed at [facility];888 | M/uL | LAB | | | Cells | [address];[place] | | | | | Counted | [id number] | | | | + + + + + + | Hemoglobin | 14.8Comment: Testing | 13.2 - 17.0 | EXTERNAL | | | | performed at [facility];888 | g/dL | LAB | | | | [address];[place] | | | | | | [address] | | | | + + + + + + | Hematocrit, | 43.7Comment: Testing | 39.0 - 50.0 % | EXTERNAL | | | POC | performed at [facility];[address] | | LAB | | | | [address];[place] | | | | | | [address] | | | | + + + + + + | MCV | 89.8Comment: Testing | 80.0 - 100.0 fl | EXTERNAL | | | | performed at [facility];[address] | | LAB | | | | [address];[place] | | | | | | [address] | | | | + + + + + + | MCH | 30.4Comment: Testing | 27.0 - 34.0 pg | EXTERNAL | | | | performed at [facility];[address] | | LAB | | | | [address];[place] | | | | | | [address] | | | | + + + + + + | MCHC | 33.8Comment: Testing | 32.0 - 35.5 | EXTERNAL | | | | performed at [facility];888 | g/dL | LAB | | | | [address] | | | | | | [address] | | | | + + + + + + | RDW-CV | 43.3Comment: Testing | 37 - 53 fl | EXTERNAL | | | | performed at [facility];[address] | | LAB | | | | [address] | | | | | | [address] | | | | + + + + + + | Platelet | 215Comment: Testing | 150 - 400 K/uL | EXTERNAL | | | Count | performed at [facility] [facility];888 | | LAB | | | Plasma | [address];[place] | | | | | | [address] | | | | + + + + + + | MPV | 7.8Comment: Testing | fl | EXTERNAL | | | | performed at [facility];[address] | | LAB | | | | [address];[place] | | | | | | [address] | | | | + + + + + + | Differentia | AUTOMATEDComment: | | EXTERNAL | | | l Type | Testing performed at | | LAB | | | | [facility];[address] | | [address];[place] [id number] | | | | + + + + + + | % Segmented | 71.90Comment: Testing | % | EXTERNAL | | | | performed at [facility];[address] | | LAB | | | Neutrophils | [address];[place] | | | | | | [address] | | | | + + + + + + | % | 16.69Comment: Testing | % | EXTERNAL | | | Lymphocytes | performed at [facility];[address] | | LAB | | | | [address];[place] | | | | | | [address] | | | | + + + + + + | % Monocytes | 8.70Comment: Testing | % | EXTERNAL | | | | performed at [facility];[address] | | LAB | | | | [address];[place] | | | | | | [address] | | | | + + + + + + | % | 1.35Comment: Testing | % | EXTERNAL | | | Eosinophils | performed at [facility];[address] | | LAB | | | | [address];[place] | | | | | | [address] | | | | + + + + + + | % Basophils | 1.36Comment: Testing | % | EXTERNAL | | | | performed at [facility];[address] | | LAB | | | | [address];[place] | | | | | | [address] | | | | + + + + + + | Absolute | 5.27Comment: Testing | 1.90 - 7.40 | EXTERNAL | | | Segmented | performed at [facility];888 | K/uL | LAB | | | Neutrophils | [address];[place] | | | | | | [address] | | | | + + + + + + | Absolute | 1.22Comment: Testing | 1.00 - 3.90 | EXTERNAL | | | Lymphocytes | performed at [facility];888 | K/uL | LAB | | | | [address];[place] | | | | | | [address] | | | | + + + + + + | Absolute | 0.64Comment: Testing | 0.00 - 0.80 | EXTERNAL | | | Monocytes | performed at [facility];888 | K/uL | LAB | | | | [address];[place] | | | | | | [address] | | | | + + + + + + | Absolute | 0.10Comment: Testing | 0.00 - 0.50 | EXTERNAL | | | Eosinophils | performed at [facility];888 | K/uL | LAB | | | | [address];[place] | | | | | | [address] | | | | + + + + + + | Absolute | 0.10Comment: Testing | 0.00 - 0.10 | EXTERNAL | | | Basophils | performed at [facility];888 | K/uL | LAB | | | | [address];[place], [place] | | | | | | [address] | | | | + + + [...] + +---------+ + + Basic Metabolic Panel (09/22/2015 1:43 PM PDT) + + + + + + | Component | Value | Ref Range | Performed | Pathologist | | | | | At | Signature | + + + + + + | Na | 136Comment: Testing | 135 - 143 | EXTERNAL | | | | performed at [facility];888 | mmol/L | LAB | | | | [address];[place] | | | | | | [address] | | | | + + + + + + | K | 4.3Comment: Testing | 3.5 - 4.9 | EXTERNAL | | | | performed at [facility];888 | mmol/L | LAB | | | | [address];[place] | | | | | | [address] | | | | + + + + + + | Cl | 108Comment: Testing | 99 - 109 mmol/L | EXTERNAL | | | | performed at [facility];[address] | | LAB | | | | [address];[place] | | | | | | [address] | | | | + + + + + + | CO2 | 21 (L)Comment: Testing | 23 - 32 mmol/L | EXTERNAL | | | | performed at [facility];[address] | | LAB | | | | [address];[place] | | | | | | [address] | | | | + + + + + + | Anion Gap | 12Comment: Testing | 5 - 20 mmol/L | EXTERNAL | | | | performed at [facility];[address] | | LAB | | | | [address];[place] | | | | | | [address] | | | | + + + + + + | Glucose, | 109 (H)Comment: Testing | 65 - 99 mg/dL | EXTERNAL | | | Fasting | performed at [facility];[address] | | LAB | | | | [address];[place] | | | | | | [address] | | | | + + + + + + | BUN | 22Comment: Testing | 8 - 25 mg/dL | EXTERNAL | | | | performed at [facility];[address] | | LAB | | | | [address];[place] | | | | | | [address] | | | | + + + + + + | Creatinine | 1.4 (H)Comment: Testing | 0.70 - 1.30 | EXTERNAL | | | | performed at [facility];888 | mg/dL | LAB | | | | [address];[place] | | | | | | [address] | | | | + + + + + + | BUN/Creatin | 16Comment: Testing | | EXTERNAL | | | ine Ratio | performed at [facility];[address] | | LAB | | | | [address];[place] | | | | | | [address] | | | | + + + + + + | Calcium | 8.8Comment: Testing | 8.5 - 10.5 | EXTERNAL | | | | performed at [facility];888 | mg/dL | LAB | | | | [address];[place], [place] | | | | | | [address] | | | | + + + + + + | Estimated | 53 (L)Comment: GFR <60: | mL/min/1.73m2 | EXTERNAL [...] | | | | | | at [facility];[address];[place] [address] | | | | + + + [...] + | Diagnosis | + + | Nonrheumatic aortic valve stenosis Aortic valve disorders | + + documented in this encounter
--- OUTSIDE RECORDS SUMMARY | ~2020-01-27 | XMS | Encounter Summary ---
Demographics + + + | Address | [address] | | | [place] [address] | + + + | Home Phone | | + + + | Preferred Language | Unknown | + + + | Marital Status | Unknown | + + + | Jehovah'S Witness Affiliation | 1028 | + + + | Race | Unknown | + + + | Ethnic Group | Unknown | + + + Author + + + | Author | [facility] | | | and [place] | + + + | Organization | [facility] | | | [...] Team Providers + +------+ + | Care Child Care Name | Role | Phone | + +------+ + | Ivan Ren MD | PCP | | + +------+ + Encounter Details +--------+ + + + + | Date | Type | Department | Care Team | Description | +--------+ + + + + | 10/26/ | Abstract | [facility] [place] | Provider, | | | 2020 | | PHYSIATRY [address] | [address] | | | | | [address] | [address] | | | | | [place] | [place] [address] | | | | | [address] | | | | | | [phone] | | | +--------+ + + + [...] Radiology | Sp Gibbs, | | | 2020 | | | PA-C [address] | | | | | | [address] [place] | | | | | | [place] [address] | | | | | | [phone] | | | | | | | [...] | | | | | [place] [address] | | | | | | [phone] | | | | | | | | +--------+ + + + + documented as of this encounter Visit Diagnoses Not on filedocumented in this encounter"
--- OUTSIDE RECORDS SUMMARY | ~2020-01-27 | XMS | Encounter Summary ---
Demographics + + + | Address | [address] | | | [place] [address] | + + + | Home Phone | | + + + | Preferred Language | Unknown | + + + | Marital Status | Unknown | + + + | Advent Affiliation | 1028 | + + + | Race | Unknown | + + + | Ethnic Group | Unknown | + + + Author + + + | Author | [facility] | | | and [place] | + + + | Organization | [facility] | | | [...] Team Providers + +------+ + | Care Lvn Home Health Name | Role | Phone | + +------+ + | Ivan Ren MD | PCP | | + +------+ + Encounter Details +--------+ + + + + | Date | Type | Department | Care Team | Description | +--------+ + + + + | 10/01/ | Orders Only | [facility] | Chrystal Grimaldo | | | 2018 | | CONVERSION [address] | [address] | | | | | [address] | [address] | | | | | [place] | [place] [address] | | | | | [address] | [phone] | | | | | [phone] | | | +--------+ + + + [...] INDRA | | | | | | [place] [address] | | | | | | [phone] | | | | | | | | | | | | Radiology Physician, [facility] | | | | | | indra mortensen | | +--------+ + + + + | 03/17/ | Office | Cardiology | [facility] | | | 2020 | Visit | | [address] | | | | | | [address] | | | | | | [place] [address] | | | | | | [phone] | | | | | | | | +--------+ + + + + documented as of this encounter Procedures + +--------+ + + + | Procedure Name | Priori | Date/Time | Associated Diagnosis | Comments | | | ty | | | | + +--------+ + + + | ECHO INTERPRETATION | Routin | 10/01/2017 | | Results for this | | OF OUTSIDE FILMS | e | 12:21 PM | | procedure are in the | | | | PDT | | results section. | + +--------+ + + + documented in this encounter Results ECHO Interpretation of Outside Films (10/01/2017 12:21 PM PDT) + + | Specimen | + + | | + + + + + | Impressions | Performed At | + + + | 1. Overall left ventricular systolic function is normal with an EF | | | between 60 - 65 %. An apical septal wall motion abnormality is | | | noted, which was not present on the previous study. 2. The right | | | ventricle is normal in size and function. 3. The left atrium is | | | moderately enlarged. It was reported to be mildly enlarged on the | | | previous study (no measurements were reported). 4. The right atrium | | | is mildly enlarged, which was also noted on the prior study. 5. | | | Normally functioning bioprosthetic Aortic valve (known to be a #23 | | | Magna Ease AVR). 6. 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 7. There are minor | | | changes noted in comparison to the previous echocardiographic study, | | | done 12/23/15, as noted below. 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 Overall left | | | ventricular systolic function is normal with an EF between 60 - 65 %. | | | An apical septal wall motion abnormality is noted, which was not | | | present on the previous study. 2. The right ventricle is normal in | | | size and function. 3. The left atrium is moderately enlarged. It | | | was reported to be mildly enlarged on the previous study (no | | | measurements were reported). 4. The right atrium is mildly enlarged, | | | which was also noted on the prior study. 5. Normally functioning | | | bioprosthetic Aortic valve (known to be a #23 Magna Ease AVR). 6. 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 7. There are minor changes noted in | | | comparison to the previous echocardiographic study, done 12/23/15, as | | | noted below. FINDINGS -------- ECG rhythm: Sinus rhythm. Study: | | | A 2-dimensional transthoracic echocardiogram with m-mode, spectral | | | and color flow Doppler was perfomed. Study: This was a technically | | | adequate study. Left Ventricle: Overall left ventricular systolic | | | function is normal with, an EF between 60 - 65 %. Left Ventricle: The | | | left ventricle cavity size is normal. Left Ventricle: Left | | | ventricular wall thickness is normal. Left Ventricle: The following | | | regional wall motion abnormalities include: Left Ventricle: apical | | | septum - severely hypokinetic; Left Ventricle: The remaining left | | | ventricular segments contract normally. On the prior study, there was | | | only a postoperative paradoxical septal wall motion abnormality. Left | | | Ventricle: Poor endocardial border definition prevents accurate | | | regional wall motion abnormality identification. Right Ventricle: The | | | right ventricle is normal in size and function. Left Atrium: The | | | left atrium is moderately enlarged. It was reported to be mildly | | | enlarged on the previous study (no measurements were reported). Right | | | Atrium: The right atrium is mildly enlarged, which was also noted on | | | the prior study. Aortic Valve: There is no evidence of aortic | | | regurgitation. Aortic Valve: Normally functioning bioprosthetic | | | aortic valve (known to be a #23 Magna Ease AVR). Mitral Valve: No | | | mitral regurgitation. Mitral Valve: Bioprosthetic MVR (known to be a | | | #29 Mosaic valve) is well seated, with normal function. Peak | | | transvalvular gradient 12.5 mm Hg, mean transvalvular gradient 4.6 mm | | | Hg. MVA by PHT 2.1 cm . Tricuspid Valve: The tricuspid valve | | | appears structurally normal. Tricuspid Valve: Mild tricuspid | | | regurgitation present. Tricuspid Valve: There is no evidence of | | | pulmonary hypertension. Tricuspid Valve: The right ventricular | | | systolic pressure (pulmonary artery systolic pressure), as measured by | | | Doppler, is 24.12mmHg. Pulmonic Valve: The pulmonic valve was not | | | well visualized. Pulmonic Valve: Trace pulmonic regurgitation. | | | Pericardium: There is no pericardial effusion. IVC/Hepatic Veins: The | | | inferior vena cava is normal in size and collapses > 50 % with sniff, | | | indicating normal central venous pressures. Aorta: The aortic root, | | | ascending aorta and aortic arch are normal. Mass: No mass visualized | | | Thrombus: No clot visualized Thrombus: No vegetation visualized. | | | Septum: No ASD observed. Septum: No VSD observed. MEASUREMENTS | | | Ao asc: 3.40 cm Ao sinus: 3.[address] junct: | | | 2.53 cm IVC: 1.66 cm LA Diam: 3.98 cm EDV(Teich): 96.20 | | | ml IVSd: 1.01 cm LVIDd: 4.57 cm LVPWd: 0.78 cm LVOT | | | Area: 4.26 cm2 LVOT Diam: 2.33 cm %FS: 24.55 % EF(Teich): | | | 48.80 % ESV(Teich): 49.25 ml LVIDs: 3.45 cm SV(Teich): | | | 46.95 ml RVIDd: 4.01 cm LAESV(A-L): 115.72 ml LAESV Index | | | (A-L): 52.84 ml/m2 LAAs A2C: 28.32 cm2 LAESV A-L A2C: | | | 110.80 ml LALs A2C: 6.14 cm LAAs A4C: 28.89 cm2 LAESV A-L | | | A4C: 118.05 ml LALs A4C: 6.00 cm RAAs: 21.58 cm2 RAESV | | | A-L: 70.23 ml RAESV MOD: 67.55 ml RALs: 5.63 cm TAPSE: | | | 1.63 cm AV maxP.92 mmHg AV meanP.61 mmHg AV Vmax: | | | 2.11 m/s AV Vmean: 1.42 m/s AV VTI: 47.47 cm BRITNEY Vmax: | | | 2.06 cm2 BRITNEY (VTI): 1.81 cm2 AVAI (Vmax): 0.00 cm2/m2 AVAI | | | (VTI): 0.00 cm2/m2 LVOT maxP.19 mmHg LVOT meanP.82 | | | mmHg LVSI Dopp: 39.25 ml/m2 LVSV Dopp: 85.95 ml LVOT Vmax: | | | 1.02 m/s LVOT Vmean: 0.60 m/s LVOT VTI: 20.14 cm MV A Eduardo: | | | 1.42 m/s MV Dec Fleming: 4.79 m/s2 MV DecT: 368.24 ms MV E | | | Eduardo: 1.76 m/s MV E/A Ratio: 1.23 MV PHT: 106.78 ms MVA By | | | PHT: 2.06 cm2 MV maxP.62 mmHg MV meanP.33 mmHg MV | | | Vmax: 1.70 m/s MV Vmean: 0.96 m/s MV VTI: 66.68 cm MVA | | | (VTI): 1.28 cm2 Septal e': 0.05 m/s Septal E/e': 34.51 | | | Lateral e': 0.07 m/s Lateral E/e': 23.01 RAP: 5 mmHg RVSP: | | | 24.12 mmHg TR maxP.12 mmHg TR Vmax: 2.18 m/s | | | Print Support Specialist: DBS Authenticated by: YAMILEX SMITH MD Report | | | Date/Time: 10-02-2017 8:23:36 | | + + + + + | Procedure Note | + + | Matt, Rad Conversion - 02/05/2019 4:47 PM PDT Patient Name: Ne Hunter of | | : 1945 Performing Physician: YAMILEX SMITH, | | MD INDICATIONS S | | /P AV REPLACEMENT #23 MAGNA, S/P MV REPLACEMENT #29 MOSAIC CONCLUSIONS 1. | | Overall left ventricular systolic function is normal with an EF between 60 - 65 %. An | | apical septal wall motion abnormality is noted, which was not present on the previous | | study.2. The right ventricle is normal in size and function.3. The left atrium is | | moderately enlarged. It was reported to be mildly enlarged on the previous study (no | | measurements were reported).4. The right atrium is mildly enlarged, which was also noted | | on the prior study.5. Normally functioning bioprosthetic Aortic valve (known to be a | | #23 Magna Ease AVR).6. Bioprosthetic MVR (known to be a #29 Mosaic valve) is well | | seated, with normal function. 7. There are minor changes noted in comparison to the | | previous echocardiographic study, done 12/23/15, as noted below. FINDINGS--------ECG | | rhythm: Sinus rhythm.Study: A 2-dimensional transthoracic echocardiogram with m-mode, | | spectral and color flow Doppler was perfomed.Study: This was a technically adequate | | study.Left Ventricle: Overall left ventricular systolic function is normal with, an EF | | between 60 - 65 %.Left Ventricle: The left ventricle cavity size is normal.Left | | Ventricle: Left ventricular wall thickness is normal.Left Ventricle: The following | | regional wall motion abnormalities include:Left Ventricle: apical septum - severely | | hypokinetic;Left Ventricle: The remaining left ventricular segments contract normally. | | On the prior study, there was only a postoperative paradoxical septal wall motion | | abnormality.Left Ventricle: Poor endocardial border definition prevents accurate | | regional wall motion abnormality identification.Right Ventricle: The right ventricle is | | normal in size and function.Left Atrium: The left atrium is moderately enlarged. It was | | reported to be mildly enlarged on the previous study (no measurements were | | reported).Right Atrium: The right atrium is mildly enlarged, which was also noted on the | | prior study.Aortic Valve: There is no evidence of aortic regurgitation.Aortic Valve: | | Normally functioning bioprosthetic aortic valve (known to be a #23 Magna Ease | | AVR).Mitral Valve: No mitral regurgitation.Mitral Valve: Bioprosthetic MVR (known to be | | a #29 Mosaic valve) is well seated, with normal function. Peak transvalvular gradient | | 12.5 mm Hg, mean transvalvular gradient 4.6 mm Hg. MVA by PHT 2.1 cm .Tricuspid | | Valve: The tricuspid valve appears structurally normal.Tricuspid Valve: Mild tricuspid | | regurgitation present.Tricuspid Valve: There is no evidence of pulmonary | | hypertension.Tricuspid Valve: The right ventricular systolic pressure (pulmonary artery | | systolic pressure), as measured by Doppler, is 24.12mmHg.Pulmonic Valve: The pulmonic | | valve was not well visualized.Pulmonic Valve: Trace pulmonic regurgitation.Pericardium: | | There is no pericardial effusion.IVC/Hepatic Veins: The inferior vena cava is normal in | | size and collapses > 50 % with sniff, indicating normal central venous pressures.Aorta: | | The aortic root, ascending aorta and aortic arch are normal.Mass: No mass | | visualizedThrombus: No clot visualizedThrombus: No vegetation visualized.Septum: No ASD | | observed.Septum: No VSD observed. MEASUREMENTS Ao asc: 3.40 cmAo sinus: | | 3.[address] junct: 2.53 cmIVC: 1.66 cmLA Diam: 3.98 cmEDV(Teich): 96.20 mlIVSd: | | 1.01 cmLVIDd: 4.57 cmLVPWd: 0.78 cmLVOT Area: 4.26 [id number] Diam: 2.33 cm%FS: | | 24.55 %EF(Teich): 48.80 %ESV(Teich): 49.25 mlLVIDs: 3.45 cmSV(Teich): 46.95 | | mlRVIDd: 4.01 cmLAESV(A-L): 115.72 mlLAESV Index (A-L): 52.84 ml/m2LAAs A2C: | | 28.32 [id number] A-L A2C: 110.80 mlLALs A2C: 6.14 cmLAAs A4C: 28.89 [id number] A-L | | A4C: 118.05 mlLALs A4C: 6.00 cmRAAs: 21.58 [id number] A-L: 70.23 mlRAESV MOD: | | 67.55 mlRALs: 5.63 cmTAPSE: 1.63 cmAV maxP.92 mmHgAV meanP.61 mmHgAV | | Vmax: 2.11 m/Brien Vmean: 1.42 m/Brien VTI: 47.47 cmAVA Vmax: 2.06 cm2AVA (VTI): | | 1.81 [id number] (Vmax): 0.00 cm2/m2AVAI (VTI): 0.00 cm2/m2LVOT maxP.19 mmHgLVOT | | meanP.82 mmHgLVSI Dopp: 39.25 ml/m2LVSV Dopp: 85.95 mlLVOT Vmax: 1.02 | | m/sLVOT Vmean: 0.60 m/sLVOT VTI: 20.14 cmMV A Eduardo: 1.42 m/sMV Dec Fleming: 4.79 | | m/s2MV DecT: 368.24 msMV E Eduardo: 1.76 m/sMV E/A Ratio: 1.23MV PHT: 106.78 msMVA | | By PHT: 2.06 cm2MV maxP.62 mmHgMV meanP.33 mmHgMV Vmax: 1.70 m/sMV | | Vmean: 0.96 m/sMV VTI: 66.68 cmMVA (VTI): 1.28 [id number] e': 0.05 m/sSeptal | | E/e': 34.51Lateral e': 0.07 m/sLateral E/e': 23.01RAP: 5 mmHgRVSP: 24.12 | | mmHgTR maxP.12 mmHgTR Vmax: 2.18 m/s Print Support Specialist: SARANYAAuthenticated by: YAMILEX | | Geovanni SMITH Date/Time: 10-02-2017 8:23:36 IMPRESSION: 1. Overall left ventricular | | systolic function is normal with an EF between 60 - 65 %. An apical septal wall motion | | abnormality is noted, which was not present on the previous study.2. The right ventricle | | is normal in size and function.3. The left atrium is moderately enlarged. It was | | reported to be mildly enlarged on the previous study (no measurements were reported).4. | | The right atrium is mildly enlarged, which was also noted on the prior study.5. Normally | | functioning bioprosthetic Aortic valve (known to be a #23 Magna Ease AVR).6. 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 | | 7. There are minor changes noted in comparison to the previous echocardiographic | | study, done 12/23/15, as noted below. | |LVOT Diam: 2.33 cm | |%FS: 24.55 % | |EF(Teich): 48.80 % | |ESV(Teich): 49.25 ml | |LVIDs: 3.45 cm | |SV(Teich): 46.95 ml | |RVIDd: 4.01 cm | |LAESV(A-L): 115.72 ml | |LAESV Index (A-L): 52.84 ml/m2 | |LAAs A2C: 28.32 cm2 | |LAESV A-L A2C: 110.80 ml | |LALs A2C: 6.14 cm | |LAAs A4C: 28.89 cm2 | |LAESV A-L A4C: 118.05 ml | |LALs A4C: 6.00 cm | |RAAs: 21.58 cm2 | |RAESV A-L: 70.23 ml | |RAESV MOD: 67.55 ml | |RALs: 5.63 cm | |TAPSE: 1.63 cm | |AV maxP.92 mmHg | |AV meanP.61 mmHg | |AV Vmax: 2.11 m/s | |AV Vmean: 1.42 m/s | |AV VTI: 47.47 cm | |BRITNEY Vmax: 2.06 cm2 | |BRITNEY (VTI): 1.81 cm2 | |AVAI (Vmax): 0.00 cm2/m2 | |AVAI (VTI): 0.00 cm2/m2 | |LVOT maxP.19 mmHg | |LVOT meanP.82 mmHg | |LVSI Dopp: 39.25 ml/m2 | |LVSV Dopp: 85.95 ml | |LVOT Vmax: 1.02 m/s | |LVOT Vmean: 0.60 m/s | |LVOT VTI: 20.14 cm | |MV A Eduardo: 1.42 m/s | |MV Dec Fleming: 4.79 m/s2 | |MV DecT: 368.24 ms | |MV E Eduardo: 1.76 m/s | |MV E/A Ratio: 1.23 | |MV PHT: 106.78 ms | |MVA By PHT: 2.06 cm2 | |MV maxP.62 mmHg | |MV meanP.33 mmHg | |MV Vmax: 1.70 m/s | |MV Vmean: 0.96 m/s | |MV VTI: 66.68 cm | |MVA (VTI): 1.28 cm2 | |Septal e': 0.05 m/s | |Septal E/e': 34.51 | |Lateral e': 0.07 m/s | |Lateral E/e': 23.01 | |RAP: 5 mmHg | |RVSP: 24.12 mmHg | |TR maxP.12 mmHg | |TR Vmax: 2.18 m/s | | | |Print Support Specialist: DBS | |Authenticated by: YAMILEX SMITH MD | |Report Date/Time: 10-02-2017 8:23:36 | | | |IMPRESSION: | |1. Overall left ventricular systolic function is normal with an EF between 60 - 65 %. An a pical septal wall motion abnormality is noted, which was not present on the previous study. | |2. The right ventricle is normal in size and function. | |3. The left atrium is moderately enlarged. It was reported to be mildly enlarged on the pr evious study (no measurements were reported). | |4. The right atrium is mildly enlarged, which was also noted on the prior study. | |5. Normally functioning bioprosthetic Aortic valve (known to be a #23 Magna Ease AVR). | |6. 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 7. There are minor changes noted in comparison to the previous echocardiographic study, d one 12/23/15, as noted below. | + + documented in this encounter Visit Diagnoses Not on filedocumented in this encounter"
--- OUTSIDE RECORDS SUMMARY | ~2020-01-27 | XMS | Encounter Summary ---
Demographics + + + | Address | [address] | | | [place] [address] | + + + | Home Phone | | + + + | Preferred Language | Unknown | + + + | Marital Status | Unknown | + + + | Scientologist Affiliation | [id number] | + + + | Race | Unknown | + + + | Ethnic Group | Unknown | + + + Author + + + | Author | [facility] | | | and [place] | + + + | Organization | [facility] | | | [...] Team Providers + +------+ + | Care Drilling Foreman Name | Role | Phone | + +------+ + | Bridgett Nails MD | PCP | | + +------+ + Encounter Details +--------+ + + + + | Date | Type | Department | Care Team | Description | +--------+ + + + + | 02/27/ | Abstract | [facility] | [facility] | | | 2011 | | Conversion Location | SR | | | | | [address] | | | | | | [place], [place] | | | | | | [address] | | | | | | [phone] | | | +--------+ + + + [...] + + + | Blood Pressure | 154/90 | 12/04/2010 12:00 AM | | | | | PDT | | + + + + + | Pulse | - | - | | + + + + + | Temperature | - | - | | + + + + + | Respiratory Rate | - | - | | + + + + + | Oxygen Saturation | - | - | | + + + + + | Inhaled Oxygen | - | - | | | Concentration | | | | + + + + + | Weight | 97.1 kg (214 lb) | 12/04/2010 12:00 AM | | | | | PDT | | + + + + + | Height | 177.8 cm (5' 10") | 10/05/2010 12:00 AM | | | | | PDT | | + + + + + | Body Mass Index | 30.71 | 10/05/2010 12:00 AM | | | | | PDT | | + + + + + documented in this encounter Plan of Treatment [...] | | | | | [place] [address] | | | | | | [phone] | | | | | | | | | | | | Supervisory It Specialist, [facility] | | | | | | indra mortensen | | +--------+ + + + + | 03/17/ | Office | Cardiology | RickyvandanaChrystal | | | 2019 | Visit | | [address] | | | | | | [place] | | | | | | [place] [address] | | | | | | [phone] | | | | | | | | +--------+ + + + + documented as of this encounter Visit Diagnoses Not on filedocumented in this encounter
--- OUTSIDE RECORDS SUMMARY | ~2020-01-27 | XMS | Encounter Summary ---
Demographics + + + | Address | [address] | | | [place] [address] | + + + | Home Phone [...] + + + | Author | [facility] | | | and [place] | + + + | Organization | [facility] | | | [...] Team Providers + +------+ + | Care Sales Planner Name | Role | Phone | + +------+ + | Ivan Ren MD | PCP | | + +------+ + Encounter Details +--------+ + + + + | Date | Type | Department | Care Team | Description | +--------+ + + + + | 03/03/ | Orders Only | [facility] | Conversion | | | 2018 | | NEPHROLOGY KEVIN | Transaction, | | | | | [address] | Provider Unknown | | | | | [address] [place] | | | | | | [address] | (Fax) | | | | | [phone] | | | +--------+ + + + [...] | | | | | [place] [address] | | | | | | [phone] | | | | | | | | | | | | Associate Professor Of Art History, [facility] | | | | | | festus mortensen | | +--------+ + + + + | 03/17/ | Office | Cardiology | Chrystal Grimaldo | | | 2020 | Visit | | [address] | | | | | | [place] | | | | | | [place] [address] | | | | | | [phone] | | | | | | | | +--------+ + + + + documented as of this encounter Procedures + +--------+ + + + | Procedure Name | Priori | Date/Time | Associated Diagnosis | Comments | | | ty | | | | + +--------+ + + + | CULTURE, URINE | Routin | 03/03/2018 | | Results for this | | | e | 8:35 AM | | procedure are in the | | | | PDT | | results section. | + +--------+ + + + documented in this encounter Results Culture, Urine (03/03/2018 8:35 AM PDT) + + | Specimen | + + | Urine specimen | | (specimen) | + + + + + | Narrative | Performed At | + + + | Specimen Description Urine CULTURE | EXTERNAL LAB | | Escherichia | | | Coli REPORT STATUS Final | | + + + + +---------+ + + | Performing | Address | City/State/Zipcode | Phone Number | | Organization | | | | + +---------+ + + | EXTERNAL LAB | | | | + +---------+ + + documented in this encounter Visit Diagnoses Not on filedocumented in this encounter"
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
--- OUTSIDE RECORDS SUMMARY | ~2020-01-27 | XMS | Encounter Summary ---
Demographics + + + | Address | [address] | | | [place] [address] | + + + | Home Phone | | + + + | Preferred Language | Unknown | + + + | Marital Status | Unknown | + + + | Druze Affiliation | 1028 | + + + | Race | Unknown | + + + | Ethnic Group | Unknown | + + + Author + + + | Author | [facility] | | | and [place] | + + + | Organization | [facility] | | | [...] Team Providers + +------+ + | Care Outside Sales Professional Name | Role | Phone | + +------+ + | Ivan Ren MD | PCP | | + +------+ + Reason for Visit Service/Procedure (Routine) +--------+--------+ + + + + | Status | Reason | Specialty | Diagnoses / | Referred By | Referred To | | | | | Procedures | Contact | Contact | +--------+--------+ + + + + | Closed | | Pain Medicine | Diagnoses | Mikla, | 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, | 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, | [place], | [place] | | | | | unspecified | [place] [address] | [address] | | | | | | Phone: | Phone: | | | | | | [phone] | [phone] | | | | | | Fax: | Fax: | | | | | | [phone] | [phone] | +--------+--------+ + + + + Encounter Details +--------+ + + + + | Date | Type | Department | Care Team | Description | +--------+ + + + + | 05/29/ | Procedure | [facility] | Drew Pena, | Weakness of both | | 2019 | visit | [facility] | DO [address] | lower extremities | | | | DOLOROLOGY [address] | [place] | | | | | [address] [place] | [address] | | | | | [place] | | | | | | [address] | | | | | | [phone] | | | +--------+ + + + [...] + documented as of this encounter Progress Drew Honeycutt DO - 05/29/2019 9:00 AM PSTFormatting of this note might be different fr om the original. [facility] Procedure EMG/ NCV Report 05/29/2019 Maximus Hunter is a 73 y.o. male who presents today for electrodiagnostics. Please see report at end. 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 Patient complained about pain and weakness in both lower extremities for the past 3 to 4 ye ars although it goes back to 9 years or more. Patient states that the left lower extremity is worse than the right. Apparently patient has a history of chronic renal disease,, and cardiovascular disease as w gregorio. EMG testing was pointed patient he wished to proceed. Both lower extremities were warm to greater than 32 C. Current Outpatient Medications on File Prior to Visit Medication Sig Dispense Refill acetaminophen (TYLENOL) 500 mg tablet Take 500 mg by mouth every 6 (six) hours as neede d for Pain. aspirin (ADULT ASPIRIN EC LOW STRENGTH) 81 MG EC tablet Take 81 mg by mouth Daily. aspirin 81 MG tablet Take 81 mg by mouth daily. atenolol (TENORMIN) 25 mg tablet Take 25 mg by mouth Daily. Cholecalciferol (VITAMIN D-3) 5000 units CAPS Take 5,000 Units by mouth daily. FLUoxetine (PROZAC) 20 mg capsule Take 20 mg by mouth daily. IBUPROFEN PO TABS otc ibuprofen he says 2 tablets daily metoprolol tartrate (LOPRESSOR) 25 mg tablet Take 12.5 mg by mouth 2 (two) times daily. simvastatin (ZOCOR) 20 mg tablet Take 20 mg by mouth nightly. warfarin (COUMADIN) 2.5 mg tablet Take 2.5 mg by mouth daily. 2.5 mg every day except Saturday , when 1.25 mg, being regulated by coumadin clinic for target INR 2.5-3.5 No current facility-administered medications on file prior to visit. Allergies Allergen Reactions Penicillins Hives and Rash Nitroglycerin Other (See Comments) Per pt. And family dropped his BP and "made me feel like a zombie and hard to breath" The following portions of the patient's history were reviewed and updated as appropriate: a llergies, current medications, past family history, past medical history, past social histor y, past surgical history and problem list. Past Medical History: Diagnosis Date Aortic stenosis Depression Essential hypertension Infective urethritis 03/10/2018 Past Surgical History: Procedure Laterality Date AORTIC VALVE REPLACEMENT 11/04/2015 Procedure: AORTIC VALVE REPLACEMENT; Surgeon: Diony Valle MD; Location: [facility]; Service: Cardiac; Laterality: N/A; MITRAL VALVE REPLACEMENT 11/04/2015 Procedure: MITRAL VALVE REPLACEMENT; Surgeon: Diony Valle MD; Location: [facility]; Service: Cardiac; Laterality: N/A; possible repair TONSILLECTOMY AND ADENOIDECTOMY UPPER GASTROINTESTINAL ENDOSCOPY 11/02/2015 Procedure: ESOPHAGOGASTRODUODENOSCOPY; Surgeon: Ghassan Huynh MD; Location: [facility]; Service: Gastroenterology; Laterality: N/A; Family History Problem Relation Age of Onset Heart disease Mother Heart disease Father Diabetes, NIDDM Father Diabetes, NIDDM Brother Hypertension Brother Kidney disease Neg Hx Social History Socioeconomic History Marital status: Spouse name: Not on file Number of children: Not on file Years of education: Not on file Highest education level: Not on file Tobacco Use Smoking status: Former Smoker Packs/day: 2.00 Review of Systems As in HPI. PERTINENT PHYSICAL EXAM (to presenting complaints) Please see Report at end. Imaging @[id number]@ Most Recent Pertinent Labs Impression/ Plan : EMG demonstrates Possible left L4 Moderate radiculopathy and L5 wh ich is mild Right lower extremity demonstrates mild possible S1 radiculopathy with significantLoss of m uscle fibers and anterior tibialis which is historic in nature. Recommendations at this point would be to obtain an MRI of the lumbar spine to further eval uate any possible radiculopathies. Thank you very much No diagnosis found. EMG/ NCV Report: EMG testing was explained to the patient and wishes to proceed. Both lower extremities were warm to greater than 32 C. EMG testing was conducted with Juan-coated concentric needle electrode. Muscles tested included bilateral vastus medialis, in multiple locations, anterior tibialis in multiple locations, medial gastrocnemius in multiple locations, extensor digitorum brevi s, biceps femoris ,, gluteus rolan and medius, lumbar paraspinals at L4-5 and S1. Left vastus medialis, demonstrated normal insertional activity, 1/4+ sharp waves and fibril lation potentials, large appearing motor unit action potentials with slightly decreased recr uitment pattern pattern. Left anterior tibialis demonstrated normal insertional activity, rare positive sharp wave, large appearing motor unit action potentials with decreased recruitment pattern. Right anterior tibialis demonstrated normal insertional activity, rare positive sharp wave, with significantly decreased recruitment pattern. Right medial gastrocnemius demonstrated normal insertional activity, 1/4+ sharp waves, larg e appearing motor unit action potentials with decreased recruitment patterns, and biceps fem giuseppe demonstrated normal insertional activity, rare positive sharp wave, large appearing mo tor unit action potential with slightly decreased recruitment pattern. All other muscles tested showed normal insertional activity, no spontaneous activity, large appearing motor unit action potential with slightly decreased recruitment pattern CC: This entry has been completed with the use of [employer] Voice Recognition software and macros. This document has been reviewed and there may still exist sound alike grammerical errors. Total time spent with the patient excluding the actual test performed was 45 minutes of whi ch more than 50 % was spent discussing above evaluation findings, treatment options and coor dination of care. NCS tracings available per request. Drew Pena DO 05/29/2019 9:07 AM documented in this encounter Plan of Treatment +--------+ + + + + | Date | Type | Specialty | Care Team | Description | +--------+ + + + + | 01/27/ | Appointment | Radiology | Sp Gibbs, | | | 2019 | | | [address] | | | | | | [facility] | | | | | | [place] [address] | | | | | | [phone] | | | | | | | | | | | | Microfilm Equipment Inspector, [facility] | | | | | | festus mortensen | | +--------+ + + + + | 03/17/ | Office | Cardiology | Chrystla Grimaldo | | | 2019 | Visit | | [address] | | | | | | [address] | | | | | | [place] [address] | | | | | | [phone] | | | | | | | | +--------+ + + + + documented as of this encounter Visit Diagnoses + + | Diagnosis | + + | Weakness of both lower extremities | + + documented in this encounter
--- OUTSIDE RECORDS SUMMARY | ~2020-01-27 | XMS | Encounter Summary ---
Demographics + + + | Address | [address] | | | [place] [address] | + + + | Home Phone | | + + + | Preferred Language | Unknown | + + + | Marital Status | Unknown | + + + | Synagogue Affiliation | 1028 | + + + | Race | Unknown | + + + | Ethnic Group | Unknown | + + + Author + + + | Author | [facility] | | | and [place] | + + + | Organization | [facility] | | | and [...] Team Providers + +------+ + | Care Assembler Mechanical Ordnance Name | Role | Phone | + +------+ + | Ivan Ren MD | PCP | | + +------+ + Encounter Details +--------+ + + + + | Date | Type | Department | Care Team | Description | +--------+ + + + + | 12/26/ | Orders Only | [facility] | Tryone Parr, | | | 2019 | | NEPHROLOGY KEVIN | [address] | | | | | [address] | [facility] | | | | | [address] [place], [place] | [place], [place] | | | | | [address] | [address] | | | | | [phone] | [phone] | | | | | | | [...] | | | | | [place] [address] | | | | | | [phone] | | | | | | | | | | | | Commissary ClerkGila | | | | | | [place] | | +--------+ + + + + | 03/17/ | Office | Cardiology | Chrystal Grimaldo | | | 2019 | Visit | | [address] | | | | | | [address] | | | | | | [place] [address] | | | | | | [phone] | | | | | | | | +--------+ + + + + documented as of this encounter Procedures + +--------+ + + + | Procedure Name | Priori | Date/Time | Associated Diagnosis | Comments | | | ty | | | | + +--------+ + + + | EXTERNAL LAB: CBC | Routin | 12/26/2018 | | Results for this | | | e | 11:39 AM | | procedure are in the | | | | PDT | | results section. | + +--------+ + + + | PROTEIN/CREATININE | Routin | 12/26/2018 | | Results for this | | RATIO, URINE | e | 11:39 AM | | procedure are in the | | | | PDT | | results section. | + +--------+ + + + | URIC ACID | Routin | 12/26/2018 | | Results for this | | | e | 11:39 AM | | procedure are in the | | | | PDT | | results section. | + +--------+ + + + | MAGNESIUM | Routin | 12/26/2018 | | Results for this | | | e | 11:39 AM | | procedure are in the | | | | PDT | | results section. | + +--------+ + + + | RENAL FUNCTION PANEL | Routin | 12/26/2018 | | Results for this | | | e | 11:39 AM | | procedure are in the | | | | PDT | | results section. | + +--------+ + + + documented in this encounter Results Protein/Creatinine Ratio, Urine (12/26/2018 11:39 AM PDT) + + + + + + | Component | Value | Ref Range | Performed | Pathologist | | | | | At | Signature | + + + + + + | Protein/Cre | 1624.7 (A) | 0 - 150 | EXTERNAL | [...] + +---------+ + + External Lab: CBC (12/26/2018 11:39 AM PDT) + + + + + + | Component | Value | Ref Range | Performed | Pathologist | | | | | At | Signature | + + + + + + | WBC | 6.2 | 4.5 - 11.0 10 | EXTERNAL | | | | | | LAB | | + + + + + + | Non- | 4.49 | 4.3 - 5.7 10 | EXTERNAL | | | Red Blood | | | LAB | | | Cells | | | | | | Counted | | | | | + + + + + + | Hemoglobin | 14.0 | 13.5 - 18.0 | EXTERNAL | | | | | g/dL | LAB | | + + + + + + | Hematocrit, | 40.6 (A) | 41 - 50 % | EXTERNAL | | | POC | | | LAB | | + + + + + + | MCV | 90.6 | 81 - 99 fL | EXTERNAL | | | | | | LAB | | + + + + + + | MCH | 31 | 27 - 33 pg | EXTERNAL | | | | | | LAB | | + + + + + + | MCHC | 34 | 30 - 36 g/dL | EXTERNAL | | | | | | LAB | | + + + + + + | Platelet | 185 | 140 - 440 K/ L | EXTERNAL | | | Count | | | LAB | | | Plasma | | | | | + + + + + + | RDW-CV | 14.1 | 10.5 - 15.0 % | EXTERNAL | | | | [...] + + + | % Segmented | 56.9 | 39 - 80 % | EXTERNAL | | | | | | LAB | | | Neutrophils | | | | | + + + + + + | % | 26.8 | 24 - 44 % | EXTERNAL | | | Lymphocytes | | | LAB | | + + + + + + | % Monocytes | 10.1 | 0 - 12 % | EXTERNAL | | | | | | LAB | | + + + + + + | % | 5.8 | 0 - 6 % | EXTERNAL | | | Eosinophils | | | LAB | | + + + + + + | % Basophils | 0.4 | 0 - 2 % | EXTERNAL | | | | [...] | + +---------+ + + Uric Acid (12/26/2018 11:39 AM PDT) + +---------+ + + + | Component | Value | Ref Range | Performed | Pathologist | | | | | At | Signature | + +---------+ + + + | Uric Acid | 8.4 (A) | 4.4 - 7.6 | EXTERNAL | | | | | | LAB | | + +---------+ + + + + + | Specimen | + + | Blood specimen | | (specimen) | + + + +---------+ + + | Performing | Address | City/State/Zipcode | Phone Number | | Organization | | | | + +---------+ + + | EXTERNAL LAB | | | | + +---------+ + + Magnesium (12/26/2018 11:39 AM PDT) + +-------+ + + + | Component | Value | Ref Range | Performed | Pathologist | | | | | At | Signature | + +-------+ + + + | Magnesium | 1.9 | 1.7 - 2.5 mg/dL | EXTERNAL | | | | [...] | | | + +---------+ + + Renal Function Panel (12/26/2018 11:39 AM PDT) + + + + + + | Component | Value | Ref Range | Performed | Pathologist | | | | | At | Signature | + + + + + + | Glucose, | 94 | 70 - 100 mg/dL | EXTERNAL | | | Fasting | | | LAB | | + + + + + + | BUN | 30 (A) | 6 - 23 mg/dL | EXTERNAL | | | | | | LAB | | + + + + + + | Creatinine | 1.53 (A) | 0.70 - 1.18 | EXTERNAL | | | | | mg/dL | LAB | | + + + + + + | PHOSPHORUS | 3.4 | 2.5 - 5.0 mg/dL | EXTERNAL | | | | | | LAB | | + + + + + + | Albumin | 4.3 | 3.5 - 5.0 | EXTERNAL | | | | | | LAB | | + + + + + + | Na | 135 | 132 - 143 | EXTERNAL | | | | | mmol/L | LAB | | + + + + + + | K | 4.9 | 3.6 - 5.1 | EXTERNAL | | | | | mmol/L | LAB | | + + + + + + | Cl | 103 | 95 - 112 mmol/L | EXTERNAL | | | | | | LAB | | + + + + + + | CO2 | 24 | 19 - 31 mmol/L | EXTERNAL | | | | | | LAB | | + + + + + + | Anion Gap | 12.9 | 7 - 21 mmol/L | EXTERNAL | | | | | | LAB | | + + + + + + | eGFR, | | | EXTERNAL | | | non- | | | LAB | | | Irish | | | | | + + + + + + | Phosphorus, | | | EXTERNAL | | | Inorganic | | | LAB | | + + + + + + | BUN/Creatin | 19.6 | 6.0 - 28.6 | EXTERNAL | | | ine Ratio | | | LAB | | + + + + + + | Calcium | 9.2 | 8.5 - 10.3 | EXTERNAL | | | | | mg/dL | LAB | | + + + + + + | Estimated | 45 (A) | 60 - 140 mg/dL | EXTERNAL | | | GFR [...]
--- OUTSIDE RECORDS SUMMARY | ~2020-01-27 | XMS | Encounter Summary ---
Demographics + + + | Address | [address] | | | [place] [address] | + + + | Home Phone | | + + + | Preferred Language | Unknown | + + + | Marital Status | Unknown | + + + | Scientologist Affiliation | 1028 | + + + | Race | Unknown | + + + | Ethnic Group | Unknown | + + + Author + + + | Author | [facility] | | | and [place] | + + + | Organization | [facility] | | | [...] Team Providers + +------+ + | Care Sheet Roller Operator Name | Role | Phone | + +------+ + | Pcp, Prov Inactive | PCP | | + +------+ + Encounter Details +--------+ + + + + | Date | Type | Department | Care Team | Description | +--------+ + + + + | 10/05/ | Hospital | [facility] | Conversion | | | 2016 | Encounter | CENTER CV INTRA OP | Transaction, | | | | | [address] | Provider Unknown | | | | | [place] | [phone] | | | | | [address] | | | | | | [phone] | Edd Hussein MD | | | | | | [address] | | | | | | [place] [address] | | | | | | [phone] | | | | | | | [...] + + + | Blood Pressure | 158/76 | 10/06/2015 9:30 AM | | | | | PDT | | + + + + + | Pulse | 82 | 10/06/2015 9:30 AM | | | | | PDT | | + + + + + | Temperature | 36.8 C (98.3 F) | 10/06/2015 9:30 AM | | | | | PDT | | + + + + + | Respiratory Rate | 16 | 10/06/2015 9:30 AM | | | | | PDT | | + + + + + | Oxygen Saturation | - | - | | + + + + + | Inhaled Oxygen | - | - | | | Concentration | | | | + + + + + | Weight | - | - | | + + + + + | Height | - | - | | + + + + + | Body Mass Index | - | - | | + + + + + documented in this encounter Medications at Time of [...] + + documented as of this encounter H&P Notes Edd Hussein - 10/06/2015 9:12 AM PDT H&P by Edd Hussein MD at 10/06/15911 Author: Edd Hussein MD Service: Cardiology Author Type: Physician Filed: 10/06/15912 Date of Service: 10/06/15911 Status: Signed High Lift Operator: Edd Hussein MD (Physician) [facility] Service: Cardiology Pre-Operative History & Physical Interval Update There have been Cardiac catheterization on September 22, 2015 showing insignificant coronary art karis disease since the completion of the above H&P. Patient here for transesophageal echocardiogram for better evaluation of the mitral valve r egurgitation. Moderate Sedation Presedation Assessment completed. ASA Classification: ASA 2: Patient with a mild systemic disease Edd Hussein MD 10/06/2015 *CORE MEASURES REMINDER: If the patient has a known or suspected infection prior to surger y, please add diagnosis to the problem list (consider: Infection 136.9). [facility], Yvonne Hunter 1945 Date of Service 09/19/2015 CARDIOLOGY CONSULTATION REQUESTED BY: Dr Granados. CHIEF COMPLAINT: Chief Complaint Patient presents with Referral per Dr. Racnha Granados 70yo WM, with relatively new onset chest discomfort, shortness of breath, and recently a co uple of syncopal episodes. In talking with him, he thinks that this may have started around , he noticed increasing exertional shortness of breath and fatigue, and chest di scomfort. Apparently a couple weeks ago, while coming out of yazidism, sudden sharp chest disc omfort bradycardia throughout [...] couple weeks ago, while coming out of yazidism, sudden sha rp chest discomfort bradycardia throughout his entire body, causing him to collapse to the round. He does not think he lost [...] VASQUEZ DO documented in this encount er ED Notes Conversion Transaction, Provider Unknown - 10/06/2015 9:29 AM PDTFormatting of this note m ight be different from the original. ED Notes by Tyrone Whitfield RN at 10/06/15928 Author: Tyrone Whitfield RN Service: (none) Author Type: Registered Nurse Filed: 10/06/15929 Date of Service: 10/06/15928 Status: Signed High Lift Operator: Tyrone Whitfield RN (Registered Nurse) LETY probe removed. Procedure stopped due to PT coughing and esophageal resistance. onver reny Transaction, Provider Unknown - 10/06/2015 9:21 AM PDT ED Notes by Tyrone Whitfield RN at 10/06/15920 Author: Tyrone Whitfield RN Service: (none) Author Type: Registered Nurse Filed: 10/06/15920 Date of Service: 10/06/15920 Status: Signed High Lift Operator: Tyrone Whitfield RN (Registered Nurse) LETY probe inserted docume nted in this encounter Plan of Treatment +--------+ + + + + | Date | Type | Specialty | Care Team | Description | +--------+ + + + + | 01/27/ | Appointment | Radiology | Sp Gibbs, | | | 2019 | | | [address] | | | | | | [address] | | | | | | [place] [address] | | | | | | [phone] | | | | | | | | | | | | Top Cutter, [facility] | | | | | | indra mortensen | | +--------+ + + + + | 03/17/ | Office | Cardiology | Chrystal Grimaldo | | | 2020 | Visit | | [address] | | | | | | [address] | | | | | | [place] [address] | | | | | | [phone] | | | | | | | | +--------+ + + + + documented as of this encounter Visit Diagnoses Not on filedocumented in this encounter
--- OUTSIDE RECORDS SUMMARY | ~2020-01-27 | XMS | Encounter Summary ---
Demographics + + + | Address | [address] | | | [place] [address] | + + + | Home Phone | | + + + | Preferred Language | Unknown | + + + | Marital Status | Unknown | + + + | Buddhist Affiliation | 1028 | + + + | Race | Unknown | + + + | Ethnic Group | Unknown | + + + Author + + + | Author | [facility] | | | and [place] | + + + | Organization | [facility] | | [...] Providers + +------+ + | Care Core Setter Name | Role | Phone | + +------+ + | Ivan Ren MD | PCP | | + +------+ + Encounter Details +--------+ + + + + | Date | Type | Department | Care Team | Description | +--------+ + + + + | 12/14/ | Imaging | [facility] | Provider, | | | 2019 | Exam | [facility] | MD [address] | | | | | IMAGING [address] | [address] | | | | | [address] [place] | [place] [address] | | | | | [place] [address] | | | | | | [phone] | | | +--------+ + + + [...] [place] | | | | | | [place] [address] | | | | | | [phone] | | | | | | | | | | | | Director Data, [facility] | | | | | | [place] | | +--------+ + + + + | 03/17/ | Office | Cardiology | Chrystal Grimaldo | | | 2020 | Visit | | [address] | | | | | | [address] | | | | | | [place] [address] | | | | | | [phone] | | | | | | | | +--------+ + + + + documented as of this encounter Procedures + +--------+ + + + | Procedure Name | Priori | Date/Time | Associated Diagnosis | Comments | | | ty | | | | + +--------+ + + + | MRI LUMBAR SPINE WO | Routin | 12/10/2019 | | Results for this | | CONTRAST | e | 12:00 AM | | procedure are in the | | | | PDT | | results section. | + +--------+ + + + documented in this encounter Results MRI Lumbar Spine wo Contrast (12/10/2019 12:00 AM PDT) + + | Specimen [...]
--- OUTSIDE RECORDS SUMMARY | ~2020-01-27 | XMS | Encounter Summary ---
Demographics + + + | Address | [address] | | | [place] [address] | + + + | Home Phone | | + + + | Preferred Language | Unknown | + + + | Marital Status | Unknown | + + + | Scientology Affiliation | 1028 | + + + [...] Team Providers + +------+ + | Care Clean Room Operator Name | Role | Phone | + +------+ + | Bridgett Nails MD | PCP | | + +------+ + Encounter Details +--------+ + + + + | Date | Type | Department | Care Team | Description | +--------+ + + + + | 08/31/ | Hospital | [facility] | Glendy Patrick | | | 2010 | Encounter | MED CTR XRAY [address] | DO [address] | | | | | [place] | [place], [place] | | | | | [place] [address] | [address] | | | | | [phone] | | | +--------+ + + + [...] [place] | | | | | | [place] [id number] | | | | | | [phone] | | | | | | | | | | | | Community Theater Actor, [facility] | | | | | | [place] | | +--------+ + + + + | 03/17/ | Office | Cardiology | Chrystal Grimaldo | | | 2019 | Visit | | [address] | | | | | | [address] | | | | | | [place] [address] | | | | | | [phone] | | | | | | | | +--------+ + + + + documented as of this encounter Procedures + +--------+ + + + | Procedure Name | Priori | Date/Time | Associated Diagnosis | Comments | | | ty | | | | + +--------+ + + + | XR CHEST PA AND | | 08/31/2010 | | Results for this | | LATERAL | | 6:58 PM | | procedure are in the | | | | PDT | | results section. | + +--------+ + + + documented in this encounter Results XR Chest PA and Lateral (08/31/2010 6:58 PM PDT) + + | Specimen | + + | | + + + + + | Narrative | Performed At | + + + | [facility] Diagnostic Imaging Department | [facility] | | [address] [facility] | [facility] | | TWO VIEW CHEST, 08/31/2010 | DIAG IMG | | CLINICAL HISTORY: COUGH. TECHNIQUE: Two views of the chest | | | were obtained without prior studies available for comparison. | | | FINDINGS: The mediastinal and cardiac silhouette are unremarkable | | | beyond tortuosity and calcification of the thoracic aorta. No | | | significant central pulmonary vascular prominence is seen. No | | | radiographically detectable pleural effusion or pneumothorax is | | | identified. Lung hidalgo are clear without infiltrate or | | | consolidate. The appearance of prior healed rib fracture on the | | | anterolateral aspect of the right upper thorax. Degenerative | | | changes and dextroscoliotic curvature of the thoracic spine is | | | present. IMPRESSION: 1. NO ACUTE-APPEARING AIRSPACE PROCESS | | | IS SEEN. Dictated Date/Time: 09/01/2010 09:54 Transcribed | | | Date/Time: 09/01/2010 10:01 Marketing Executive: | | | <Electronically Signed by Faisal Kolb, > 09/01/10 1055 | | + + + + + | Procedure Note | + + | Matt, Rad Conversion - 07/24/2013 2:29 PM [facility] | | Diagnostic Imaging Department [address] [place] [address] | | TWO VIEW CHEST, 08/31/2010 CLINICAL HISTORY: COUGH. | | TECHNIQUE: Two views of the chest were obtained without prior studies available for | | comparison. FINDINGS: The mediastinal and cardiac silhouette are unremarkable beyond | | tortuosity and calcification of the thoracic aorta. No significant central pulmonary | | vascular prominence is seen. No radiographically detectable pleural effusion or | | pneumothorax is identified. Lung hidalgo are clear without infiltrate or consolidate. | | The appearance of prior healed rib fracture on the anterolateral aspect of the right | | upper thorax. Degenerative changes and dextroscoliotic curvature of the thoracic spine | | is present. IMPRESSION: 1. NO ACUTE-APPEARING AIRSPACE PROCESS IS SEEN. Dictated | | Date/Time: 09/01/2010 09:54 Transcribed Date/Time: 09/01/2010 10:01 Marketing Executive: | | <Electronically Signed by Faisal Kolb DO> 09/01/10 4472 | |FINDINGS: The mediastinal and cardiac silhouette are unremarkable beyond tortuosity and | |calcification of the thoracic aorta. No significant central pulmonary vascular prominence is seen. | | | |No radiographically detectable pleural effusion or pneumothorax is identified. Lung hidalgo are clear | | | |without infiltrate or consolidate. The appearance of prior healed rib fracture on the ante rolateral | | | |aspect of the right upper thorax. Degenerative changes and dextroscoliotic curvature of th e thoracic | | | |spine is present. | | | |IMPRESSION: | |1. NO ACUTE-APPEARING AIRSPACE PROCESS IS SEEN. | | | |Dictated Date/Time: 09/01/2010 09:54 | |Transcribed Date/Time: 09/01/2010 10:01 | |Marketing Executive: | |<Electronically Signed by Faisal Kolb DO> 09/01/10 1055 | + + + +---------+ + + | Performing | Address | City/State/Zipcode | Phone Number | | Organization | | | | + +---------+ + + | [place] | | | | | [facility] | | | | + +---------+ + + documented in this encounter Visit Diagnoses Not on filedocumented in this encounter"
--- OUTSIDE RECORDS SUMMARY | ~2020-01-27 | XMS | Encounter Summary ---
Demographics + + + | Address | [address] | | | [place] [address] | + + + | Home Phone | | + + + | Preferred Language | Unknown | + + + | Marital Status | Unknown | + + + | Catholic Affiliation | 1028 | + + + | Race | Unknown | + + + | Ethnic Group | Unknown | + + + Author + + + | Author | [facility] | | | and [place] | + + + | Organization | [facility] | | [...] Team Providers + +------+ + | Care Product Development Chemist Name | Role | Phone | + +------+ + | Ivan Ren MD | PCP | | + +------+ + Encounter Details +--------+ + + + + | Date | Type | Department | Care Team | Description | +--------+ + + + + | 05/05/ | Orders Only | [facility] | Conversion | | | 2018 | | NEPHROLOGY KEVIN | Transaction, | | | | | [address] | Provider Unknown | | | | | [address] | | | | | | [address] | (Fax) | | | | | [phone] | | | +--------+ + + + [...] | | | | | [place] [address] | | | | | | [phone] | | | | | | | | | | | | Public Relations Professional, [facility] | | | | | | [place] | | +--------+ + + + + | 03/17/ | Office | Cardiology | Chrystal Grimaldo | | | 2020 | Visit | | [address] | | | | | | [address] | | | | | | [place] [address] | | | | | | [phone] | | | | | | | | +--------+ + + + + documented as of this encounter Procedures + +--------+ + + + | Procedure Name | Priori | Date/Time | Associated Diagnosis | Comments | | | ty | | | | + +--------+ + + + | CULTURE, URINE | Routin | 05/05/2018 | | Results for this | | | e | 12:00 AM | | procedure are in the | | | | PST | | results section. | + +--------+ + + + | RENAL FUNCTION PANEL | Routin | 05/05/2018 | | Results for this | | | e | 12:00 AM | | procedure are in the | | | | PST | | results section. | + +--------+ + + + documented in this encounter Results Culture, Urine (05/05/2018 12:00 AM PST) + + | Specimen | + + | Urine specimen | | (specimen) | + + + + + | Narrative | Performed At | + + + | Specimen Description urine CULTURE | EXTERNAL LAB | | REPORT STATUS | | | final | | | | | + + + + +---------+ + + | Performing | Address | City/State/Zipcode | Phone Number | | Organization | | | | + +---------+ + + | EXTERNAL LAB | | | | + +---------+ + + Renal Function Panel (05/05/2018 12:00 AM PST) + + + + + + | Component | Value | Ref Range | Performed | Pathologist | | | | | At | Signature | + + + + + + | Glucose, | 115 (A) | 70 - 100 mg/dL | EXTERNAL | | | Fasting | | | LAB | | + + + + + + | BUN | 43 (A) | 6 - 23 mg/dL | EXTERNAL | | | | | | LAB | | + + + + + + | Creatinine | 1.82 (A) | 0.70 - 1.18 | EXTERNAL | | | | | mg/dL | LAB | | + + + + + + | PHOSPHORUS | 3.8 | 2.5 - 5.0 mg/dL | EXTERNAL | | | | | | LAB | | + + + + + + | Albumin | 4.4 | 3.5 - 5.0 | EXTERNAL | | | | | | LAB | | + + + + + + | Na | 137 | 132 - 143 | EXTERNAL | | | | | mmol/L | LAB | | + + + + + + | K | 4.6 | 3.6 - 5.1 | EXTERNAL | | | | | mmol/L | LAB | | + + + + + + | Cl | 104 | 94 - 112 mmol/L | EXTERNAL | | | | | | LAB | | + + + + + + | CO2 | 23 | 19 - 31 mmol/L | EXTERNAL | | | | | | LAB | | + + + + + + | Anion Gap | 14.6 | 7 - 21 mmol/L | EXTERNAL | | | | | | LAB | | + + + + + + | eGFR, | | | EXTERNAL | | | non- | | | LAB | | | [place] | | | | | + + + + + + | Phosphorus, | | | EXTERNAL | | | Inorganic | | | LAB | | + + + + + + | BUN/Creatin | 23.6 | 6 - 28.6 | EXTERNAL | | | ine Ratio | | | LAB | | + + + + + + | Calcium | 9.5 | 8.5 - 10.3 | EXTERNAL | | | | | mg/dL | LAB | | + + + + + + | Estimated | 37 | mg/dL | EXTERNAL | | | [...]
--- OUTSIDE RECORDS SUMMARY | ~2020-01-27 | XMS | Encounter Summary ---
Demographics + + + | Address | [address] | | | [place] [address] | + + + | Home Phone | | + + + | Preferred Language | Unknown | + + + | Marital Status | Unknown | + + + | Holiness Affiliation | 1028 | + + + | Race | Unknown | + + + | Ethnic Group | Unknown | + + + Author + + + | Author | [facility] | | | and [place] | + + + | Organization | [facility] | | | and [...] Team Providers + +------+ + | Care Special Forces Specialist Name | Role | Phone | + +------+ + PCP | Unavailable | + +------+ + Encounter Details +--------+ + + + + | Date | Type | Department | Care Team | Description | +--------+ + + + + | 06/29/ | [facility] | [facility] | Gurwinder Caballero MD | | | 1999 | Encounter | MED CTR GENERIC OP | [address] | | | | | CONV DEPT [address] | [place], [place] | | | | | [place], | [address] | | | | | [place] [address] | | | | | | [phone] | | | +--------+ + + + [...] | | | | | | [place] [address] | | | | | | [phone] | | | | | | | | | | | | Math Tutor, [facility] | | | | | | festus [place] | | +--------+ + + + + | 03/17/ | Office | Cardiology | Chrystal Grimaldo | | | 2019 | Visit | | [address] | | | | | | [address] | | | | | | [place] [address] | | | | | | [phone] | | | | | | | | +--------+ + + + + documented as of this encounter Visit Diagnoses Not on filedocumented in this encounter"
--- OUTSIDE RECORDS SUMMARY | ~2020-01-27 | XMS | Encounter Summary ---
Demographics + + + | Address | [address] | | | [place] [address] | + + + | Home Phone | | + + + | Preferred Language | Unknown | + + + | Marital Status | Unknown | + + + | Restorationism Affiliation | 1028 | + + + [...] Team Providers + +------+ + | Care Business Consultant Name | Role | Phone | + +------+ + PCP | Unavailable | + +------+ + Encounter Details +--------+ + + + + | Date | Type | Department | Care Team | Description | +--------+ + + + + | 08/04/ | [facility] | [facility] | Gurwinder Caballero MD | | | 1997 | Encounter | MED CTR GENERIC OP | [address] | | | | | CONV DEPT [address] | [place], [place] | | | | | [place], | [address] | | | | | [place] [address] | | | | | | [phone] | | | +--------+ + + + [...] | | | | | | [place] [address] | | | | | | [phone] | | | | | | | | | | | | Senior Control Systems Engineer, [facility] | | | | | | [place] | | +--------+ + + + + | 03/17/ | Office | Cardiology | Chrystal Grimaldo | | | 2019 | Visit | | [address] | | | | | | [address] | | | | | | [place] [address] | | | | | | [phone] | | | | | | | | +--------+ + + + + documented as of this encounter Visit Diagnoses Not on filedocumented in this encounter"
--- OUTSIDE RECORDS SUMMARY | ~2020-01-27 | XMS | Encounter Summary ---
Demographics + + + | Address | [address] | | | [place] [address] | + + + | Home Phone | | + + + | Preferred Language | Unknown | + + + | Marital Status | Unknown | + + + | Anabaptism Affiliation | 1028 | + + + [...] Team Providers + +------+ + | Care Radiochemical Technician Name | Role | Phone | + +------+ + | Ivan Ren MD | PCP | | + +------+ + Reason for Visit +--------+--------+ + | Reason | Onset | Comments | | | Date | | +--------+--------+ + | Other | 06/24/ | Appointment reminder call | | | 2020 | | +--------+--------+ + Encounter Details +--------+ + + + + | Date | Type | Department | Care Team | Description | +--------+ + + + + | 06/24/ | Telephone | [facility] | Edd Johnson MD | Other (Appointment | | 2020 | | NEPHROLOGY [place] | [address] [place] | reminder call) | | | | [address] [place] | [address] [facility] [place] | | | | | [address] [place], [place] | [address] | | | | | [address] | | | | | | [phone] | | | +--------+ + + + [...] encounter Miscellaneous Notes Telephone Encounter - Tierney Santiago Mail Carrier And Clerk - 06/24/2019 11:41 AM PSTThis call is to remind patient of labs and appointment. Left message with clinic name and number for him to call back with any questions. documented in this encounter Plan of Treatment +--------+ + + + + | Date | Type | Specialty | Care Team | Description | +--------+ + + + + | 01/27/ | Appointment | Radiology | Sp Gibbs, | | 2019 | | | [facility] | | | | | | [address] | | | | | | [place] [address] | | | | | | [phone] | | | | | | | | | | | | Correctional Medicine Physician, [facility] | | | | | | indra mortensen | | +--------+ + + + + | 03/17/ | Office | Cardiology | RudylucioChrystal | | 2019 | Visit | | [address] | | | | | | [address] | | | | | | [place] [address] | | | | | | [phone] | | | | | | | | +--------+ + + + + documented as of this encounter Visit Diagnoses Not on filedocumented in this encounter"
--- OUTSIDE RECORDS SUMMARY | ~2020-01-27 | XMS | Encounter Summary ---
Demographics + + + | Address | [address] | | | [place] [address] | + + + | Home Phone | | + + + | Preferred Language | Unknown | + + + | Marital Status | Unknown | + + + | Mosque Affiliation | 1028 | + + + [...] Team Providers + +------+ + | Care Cash Register Repairer Name | Role | Phone | + +------+ + PCP | Unavailable | + +------+ + Encounter Details +--------+ + + + + | Date | Type | Department | Care Team | Description | +--------+ + + + + | 07/19/ | Hospital | [facility] | Gurwinder Caballero MD | | | 1999 | Encounter | MED CTR GENERIC OP | [address] | | | | | CONV DEPT [address] | [place], [place] | | | | | [place], | [address] | | | | | [place] [address] | | | | | | [phone] | | | +--------+ + + + [...] | | | | | | [place] [address] | | | | | | [phone] | | | | | | | | | | | | Grant Specialist, [facility] | | | | | | fest[place] | | +--------+ + + + + | 03/17/ | Office | Cardiology | Chrystal Grimaldo | | | 2019 | Visit | | [address] | | | | | | [address] | | | | | | [place] [address] | | | | | | [phone] | | | | | | | | +--------+ + + + + documented as of this encounter Visit Diagnoses Not on filedocumented in this encounter"
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
--- OUTSIDE RECORDS SUMMARY | ~2020-01-27 | XMS | Encounter Summary ---
Demographics + + + | Address | [address] | | | [place] [address] | + + + | Home Phone | | + + + | Preferred Language | Unknown | + + + | Marital Status | Unknown | + + + | Orthodoxy Affiliation | 1028 | + + + | Race | Unknown | + + + | Ethnic Group | Unknown | + + + Author + + + | Author | [facility] | | | and [place] | + + + | Organization | [facility] | | [...] Team Providers + +------+ + | Care Computer Assembler Name | Role | Phone | + +------+ + | Ivan Ren MD | PCP | | + +------+ + Encounter Details +--------+ + + + + | Date | Type | Department | Care Team | Description | +--------+ + + + + | 01/20/ | Documentati | [facility] | Fartun Carrera DO | | | 2020 | on | CARDIOLOGY [place] | [address] | | | | | [address] | [address] [place], [place] | | | | | [place], [place] | [address] | | | | | [address] | | | | | | [phone] | | | +--------+ + + + [...] | | | | [address] | | | | | | [place] [address] | | | | | | [phone] | | | | | | | | | | | | Commercial Review AppraiserGila | | | | | | [place] | | +--------+ + + + + | 03/17/ | Office | Cardiology | RickyvandanaChrystal | | | 2019 | Visit | | [address] | | | | | | [address] | | | | | | [place] [address] | | | | | | [phone] | | | | | | | | +--------+ + + + + documented as of this encounter Procedures + +--------+ + + + | Procedure Name | Priori | Date/Time | Associated Diagnosis | Comments | | | ty | | | | + +--------+ + + + | ECHO COMPLETE | Routin | 01/19/2020 | History of mitral | Results for this | | | e | 9:58 AM | valve replacement | procedure are in the | | | | PDT | | results section. | + +--------+ + + + documented in this encounter Results ECHO Complete (01/19/2020 9:58 AM PDT) + + + | Narrative | Performed At | + + + | ECHO DONE AT | | | [facility] | | + + + documented in this encounter Visit Diagnoses + + | Diagnosis | + + | History of mitral valve replacement Heart valve replaced by other means | + + documented in this encounter"
--- OUTSIDE RECORDS SUMMARY | ~2020-01-27 | XMS | Encounter Summary ---
Demographics + + + | Address | [address] | | | [place] [address] | + + + | Home Phone | | + + + | Preferred Language | Unknown | + + + | Marital Status | Unknown | + + + | Yarsanism Affiliation | 1028 | + + + | Race | Unknown | + + + | Ethnic Group | Unknown | + + + Author + + + | Author | [facility] | | | and [place] | + + + | Organization | [facility] | | | and [...] Team Providers + +------+ + | Care Boot And Shoe Laborer Name | Role | Phone | + +------+ + | Ivan Ren MD | PCP | | + +------+ + Encounter Details +--------+ + + + + | Date | Type | Department | Care Team | Description | +--------+ + + + + | 01/10/ | Orders Only | [facility] | Chrystal Grimaldo | | | 2016 | | CARDIOLOGY [place] | [address] | | | | | [address] | [address] | | | | | [place], [place] | [place] [address] | | | | | [address] | [phone] | | | | | [phone] | | | +--------+ + + + [...] | | | | | | [place] [address] | | | | | | [phone] | | | | | | | | | | | | Quality Assurance/R&D Lab Technician, [facility] | | | | | | festus mortensen | | +--------+ + + + + | 03/17/ | Office | Cardiology | Chrystal Grimaldo | | | 2019 | Visit | | [address] | | | | | | [address] | | | | | | [place] [address] | | | | | | [phone] | | | | | | | | +--------+ + + + + documented as of this encounter Procedures + +--------+ + + + | Procedure Name | Priori | Date/Time | Associated Diagnosis | Comments | | | ty | | | | + +--------+ + + + | EXTERNAL LAB: JOE | Routin | 01/10/2017 | | Results for this | | | e | 8:03 AM | | procedure are in the | | | | PDT | | results section. | + +--------+ + + + | COMPREHENSIVE | Routin | 01/10/2017 | | Results for this | | METABOLIC PANEL | e | 8:03 AM | | procedure are in the | | | | PDT | | results section. | + +--------+ + + + documented in this encounter Results External Lab: JOE (01/10/2017 8:03 AM PDT) + + + + + + | Component | Value | Ref Range | Performed | Pathologist | | | | | At | Signature | + + + + + + | WBC | 6.6 | 4.5 - 11.0 10 | EXTERNAL | | | | | | LAB | | + + + + + + | Non- | 4.05 (A) | 4.3 - 5.7 10 | EXTERNAL | | | Red Blood | | | LAB | | | Cells | | | | | | Counted | | | | | + + + + + + | Hemoglobin | 12.5 (A) | 13.5 - 18.0 | EXTERNAL | | | | | g/dL | LAB | | + + + + + + | Hematocrit, | 36.3 (A) | 41 - 50 % | EXTERNAL | | | POC | | | LAB | | + + + + + + | MCV | 89.7 | 81 - 99 fL | EXTERNAL [...] + + + + | Platelet | 163 | 140 - 440 K/ L | EXTERNAL | | | Count | | | LAB | | | Plasma | | | | | + + + + + + | RDW-CV | 14.9 | 10.5 - 15.0 % | EXTERNAL [...] + + + | % Segmented | 54.6 | 39 - 80 % | EXTERNAL | | | | | | LAB | | | Neutrophils | | | | | + + + + + + | % | 28.1 | 24 - 44 % | EXTERNAL | | | Lymphocytes | | | LAB | | + + + + + + | % Monocytes | 10.2 | 0 - 12 % | EXTERNAL | | | | | | LAB | | + + + + + + | % | 6.1 (A) | 0 - 6 % | EXTERNAL | | | Eosinophils | | | LAB | | + + + + + + | % Basophils | 1.0 | 0 - 2 % | EXTERNAL [...] + +---------+ + + Comprehensive Metabolic Panel (01/10/2017 8:03 AM PDT) + + + + + + | Component | Value | Ref Range | Performed | Pathologist | | | | | At | Signature | + + + + + + | Glucose, | 93 | 70 - 100 mg/dL | EXTERNAL | | | Fasting | | | LAB | | + + + + + + | BUN | 28 (A) | 6 - 23 mg/dL | EXTERNAL | | | | | | LAB | | + + + + + + | Creatinine | 1.48 (A) | 0.70 - 1.18 | EXTERNAL | | | | | mg/dL | LAB | | + + + + + + | BUN/Creatin | 18.9 | 6.0 - 28.6 | EXTERNAL | | | ine Ratio | | | LAB | | + + + + + + | Calcium | 9.2 | 8.4 - 10.2 | EXTERNAL | | | | | mg/dL | LAB | | + + + + + + | Protein, | 6.6 | 6.0 - 8.0 g/dL | EXTERNAL | | | Total | | | LAB | | + + + + + + | Albumin | 4.1 | 3.5 - 5.0 | EXTERNAL | | | | | | LAB | | + + + + + + | Globulin | 2.5 | 1.8 - 3.5 | EXTERNAL | | | | | | LAB | | + + + + + + | A/G Ratio | 1.6 | 1.1 - 2.4 | EXTERNAL | | | | | | LAB | | + + + + + + | Bilirubin | 0.5 | 0.0 - 1.2 mg/dL | EXTERNAL | | | Total | | | LAB | | + + + + + + | ALP, | 59 | 31 - 120 | EXTERNAL | | | External | | | LAB | | + + + + + + | ALT | 16 | 7 - 52 U/L | EXTERNAL | | | | | | LAB | | + + + + + + | AST | 18 | 13 - 39 U/L | EXTERNAL [...] + + + + | Cl | 107 | 95 - 112 mmol/L | EXTERNAL | | | | | | LAB | | + + + + + + | CO2 | 19 | 19 - 31 mmol/L | EXTERNAL | | | | | | LAB | | + + + + + + | Anion Gap | 16.9 | 7 - 21 mmol/L | EXTERNAL | | | | | | LAB | | + + + + + + | Estimated | 47 (A) | 60 mg/dL | EXTERNAL | [...]
--- OUTSIDE RECORDS SUMMARY | ~2020-01-27 | XMS | Encounter Summary ---
Demographics + + + | Address | [address] | | | [place] [address] | + + + | Home Phone | | + + + | Preferred Language | Unknown | + + + | Marital Status | Unknown | + + + | Druze Affiliation | 1028 | + + + | Race | Unknown | + + + | Ethnic Group | Unknown | + + + Author + + + | Author | [facility] | | | and [place] | + + + | Organization | [facility] | | [...] Team Providers + +------+ + | Care Scrubbing Machine Operator Name | Role | Phone | + +------+ + | Ivan Ren MD | PCP | | + +------+ + Encounter Details +--------+ + + + + | Date | Type | Department | Care Team | Description | +--------+ + + + + | 01/11/ | Orders Only | [facility] | Provider, | Bacteriuria; Urinary | | 2018 | | SYSTEM GENERIC OP | [address] | tract infection; | | | | CONVERSION [address] | [address] | Chronic kidney | | | | [address] [place], [place] | [place] [address] | disease, stage III | | | | [address] | | (moderate) (HCC); | | | | [phone] | | Essential (primary) | | | | | | hypertension [...] [place] | | | | | | [place] [address] | | | | | | [phone] | | | | | | | | | | | | [employer], [facility] | | | | | | festus mortensen | | +--------+ + + + + | 03/17/ | Office | Cardiology | Chrystal Grimaldo | | | 2019 | Visit | | [address] | | | | | | [address] | | | | | | [place] [address] | | | | | | [phone] | | | | | | | | +--------+ + + + + + +------+--------+ + + | Name | Type | Priori | Associated Diagnoses | Order Schedule | | | | ty | | | + +------+--------+ + + | Parathyroid Hormone, | Lab | Routin | Bacteriuria | Expected: | | Intact | | e | Urinary tract | 06/13/2018, Expires: | | | | | infection Chronic | 05/12/2019 | | | | | kidney disease, | | | | | | stage III (moderate) | | | | | | (HCC) Essential | | | | | | (primary) | | | | | | hypertension | | + +------+--------+ + + | Urinalysis with | Lab | Routin | Bacteriuria | Expected: | | Microscopic if | | e | Urinary tract | 06/13/2018, Expires: | | Indicated | | | infection Chronic | 05/12/2019 | | | | | kidney disease, | | | | | | stage III (moderate) | | | | | | (HCC) Essential | | | | | | (primary) | | | | | | hypertension | | + +------+--------+ + + | Microalbumin/Creatin | Lab | Routin | Bacteriuria | Expected: | | ine Ratio, Urine | | e | Urinary tract | 06/13/2018, Expires: | | | | | infection Chronic | 05/12/2019 | | | | | kidney disease, | | | | | | stage III (moderate) | | | | | | (HCC) Essential | | | | | | (primary) | | | | | | hypertension | | + +------+--------+ + + documented as of this encounter Visit Diagnoses + + | Diagnosis | + + | Bacteriuria Other nonspecific finding on examination of urine | + + | Urinary tract infection Urinary tract infection, site not specified | + + | Chronic kidney disease, stage III (moderate) (HCC) Chronic kidney disease, Stage III | | (moderate) | + + | Essential (primary) hypertension Unspecified essential hypertension | + + documented in this encounter"
--- OUTSIDE RECORDS SUMMARY | ~2020-01-27 | XMS | Encounter Summary ---
Demographics + + + | Address | [address] | | | [place] [address] | + + + | Home Phone | | + + + | Preferred Language | Unknown | + + + | Marital Status | Unknown | + + + | Jain Affiliation | 1028 | + + + | Race | Unknown | + + + | Ethnic Group | Unknown | + + + Author + + + | Author | [facility] | | | and [place] | + + + | Organization | [facility] | | | [...] Team Providers + +------+ + | Care Lithopress Operator Name | Role | Phone | + +------+ + PCP | Unavailable | + +------+ + Encounter Details +--------+ + + + + | Date | Type | Department | Care Team | Description | +--------+ + + + + | 03/24/ | Hospital | [facility] | | | | 1997 | Encounter | MED CTR GENERIC OP | | | | | | CONV DEPT [address] | | | | | | [place], | | | | | | [place] [address] | | | | | | [phone] | | | +--------+ + + + [...] 2019 | | | [address] | | | | | | [address] [place] | | | | | | [place] [address] | | | | | | [phone] | | | | | | | | | | | | Pulp Mill SupervisorGila | | | | | | [place] | | +--------+ + + + + | 03/17/ | Office | Cardiology | Chrystal Grimaldo | | | 2019 | Visit | | [address] | | | | | | [address] | | | | | | [place] [address] | | | | | | [phone] | | | | | | | | +--------+ + + + + documented as of this encounter Visit Diagnoses Not on filedocumented in this encounter"
--- OUTSIDE RECORDS SUMMARY | ~2020-01-27 | XMS | Encounter Summary ---
Demographics + + + | Address | [address] | | | [place] [address] | + + + | Home Phone | | + + + | Preferred Language | Unknown | + + + | Marital Status | Unknown | + + + | Uatsdin Affiliation | 1028 | + + + [...] Team Providers + +------+ + | Care Derrick Barge Operator Name | Role | Phone | + +------+ + | Ivan Ren MD | PCP | | + +------+ + Reason for Visit +---------+ + | Reason | Comments | +---------+ + | Results | 06/29/19 | +---------+ + Encounter Details +--------+ + + + + | Date | Type | Department | Care Team | Description | +--------+ + + + + | 06/30/ | Documentati | [facility] | [place], | Results (06/29/19) | | 2020 | on | NEPHROLOGY KEVIN | [facility] | | | | | [address] | [employer] | | | | | [address] [facility] [place] [place] | | | | | | [address] | | | | | | [phone] | | | +--------+ + + + [...] | | | | | | [place] [address] | | | | | | [phone] | | | | | | | | | | | | [employer] | | | | | | [place] | | +--------+ + + + + | 03/17/ | Office | Cardiology | Chrystal Grimaldo | | | 2019 | Visit | | [address] | | | | | | [address] | | | | | | [place] [address] | | | | | | [phone] | | | | | | | | +--------+ + + + + documented as of this encounter Procedures + +--------+ + + + | Procedure Name | Priori | Date/Time | Associated Diagnosis | Comments | | | ty | | | | + +--------+ + + + | CBC NO DIFFERENTIAL | Routin | 06/29/2019 | | Results for this | | | e | | | procedure are in the | | | | | | results section. | + +--------+ + + + | MICROALBUMIN/CREATIN | Routin | 06/29/2019 | | Results for this | | INE RATIO, URINE | e | | | procedure are in the | | TEST | | | | results section. | + +--------+ + + + | URIC ACID | Routin | 06/29/2019 | | Results for this | | | e | | | procedure are in the | | | | | | results section. | + +--------+ + + + | RENAL FUNCTION PANEL | Routin | 06/29/2019 | | Results for this | | | e | | | procedure are in the | | | | | | results section. | + +--------+ + + + documented in this encounter Results CBC with Manual Differential (06/29/2019) + + + + + + | Component | Value | Ref Range | Performed | Pathologist | | | | | At | Signature | + + + + + + | WBC | 5.7 | 4.5 - 11.0 | | | + + + + + + | Red Blood | 4.24 (A) | 4.30 - 5.70 | | | | Cells | | M/uL | | | + + + + + + | Hemoglobin | 13.2 (A) | 13.5 - 18.0 | | | + + + + + + | Hematocrit, | 38.3 (A) | 41.0 - 50.0 % | | | | POC | | | | | + + + + + + | MCV | 90.3 | 81.0 - 99.0 fL | | | + + + + + + | MCH | 31.0 | 27.0 - 33.0 pg | | | + + + + + + | MCHC | 34.0 | 30.0 - 36.0 | | | | | | g/dL | | | + + + + + + | Platelet | 186 | 140 - 440 | | | | Count | | | | | | Plasma | | | | | + + + + + + | RDW | 13.1 | 10.5 - 15.0 | | | + + + + + + | Neutrophils | 58.9 | 39 - 80 | | | | , Absolute | | | | | + + + + + + | Absolute | 25.1 | 24 - 44 | | | | Lymphocytes | | | | | + + + + + + | Absolute | 9.6 | 0 - 12 | | | | Monocytes | | | | | + + + + + + | Eosinophils | 5.2 | 0 - 6 | | | | , Absolute | | | | | + + + + + + | Basophils, | 1.2 | 0 - 2 | | | | Absolute | | | | | + + + + + + + + | Specimen | + + | Blood | + + Renal Function Panel (06/29/2019) + + + + + + | Component | Value | Ref Range | Performed | Pathologist | | | | | At | Signature | + + + + + + | Na | 135 | 132 - 143 | | | | | | mmol/L | | | + + + + + + | K | 4.5 | 3.6 - 5.1 | | | | | | mmol/L | | | + + + + + + | Cl | 101 | 95 - 112 mmol/L | | | + + + + + + | CO2 | 26 | 19 - 31 mmol/L | | | + + + + + + | Anion Gap | 13 | 7 - 21 mmol/L | | | + + + + + + | Glucose | 102 (A) | 70 - 100 mg/dL | | | + + + + + + | BUN | 28 (A) | 6 - 23 mg/dL | | | + + + + + + | Creatinine | 1.51 (A) | 0.70 - 1.18 | | | | | | mg/dL | | | + + + + + + | Estimated | 45.0 (A) | 60.0 - 140.0 | | | | GFR | | mL/min/1.73m2 | | | + + + + + + | BUN/Creatin | 18.5 | 6.0 - 28.6 | | | | ine Ratio | | | | | + + + + + + | Albumin | 4.3 | 3.5 - 5.0 g/dL | | | + + + + + + | Calcium | 9.0 | 8.5 - 10.3 | | | + + + + + + | PHOSPHORUS | 4.0 | 2.5 - 5.0 | | | + + + + + + + + | Specimen | + + | Blood | + + Microalbumin/Creatinine Ratio, Urine (06/29/2019) + +-------+ + + + | Component | Value | Ref Range | Performed | Pathologist | | | | | At | Signature | + +-------+ + + + | Microalb | 16.5 | 0 - 30 | | | | Creat Ratio | | | | | + +-------+ + + + + + | Specimen | + + | Urine | + + Uric Acid (06/29/2019) + +---------+ + + + | Component | Value | Ref Range | Performed | Pathologist | | | | | At | Signature | + +---------+ + + + | Uric Acid | 7.8 (A) | 4.4 - 7.6 | | | + +---------+ + + + + + | Specimen | + + | Blood | + + documented in this encounter Visit Diagnoses Not on filedocumented in this encounter"
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
--- OUTSIDE RECORDS SUMMARY | ~2020-01-27 | XMS | Encounter Summary ---
Demographics + + + | Address | [address] | | | [place] [address] | + + + | Home Phone | | + + + | Preferred Language | Unknown | + + + | Marital Status | Unknown | + + + | Alevism Affiliation | 1028 | + + + [...] Team Providers + +------+ + | Care Textile Broker Name | Role | Phone | + +------+ + | Ivan Ren MD | PCP | | + +------+ + Encounter Details +--------+ + + + + | Date | Type | Department | Care Team | Description | +--------+ + + + + | 05/05/ | Orders Only | [facility] | Edd Johnson MD | | | 2018 | | NEPHROLOGY [place] | [address] [place] | | | | | [address] [place] | [address] [place], [place] | | | | | [address] [place], [place] | [address] | | | | | [address] | | | | | | [phone] | | | +--------+ + + + [...] [address] | | | | | | [place] [address] | | | | | | [phone] | | | | | | | | | | | | [place] | | | | | | [place] | | +--------+ + + + + | 03/17/ | Office | Cardiology | Chrystal Grimaldo | | | 2019 | Visit | | [address] | | | | | | [address] | | | | | | [place] [address] | | | | | | [phone] | | | | | | | | +--------+ + + + + documented as of this encounter Procedures + +--------+ + + + | Procedure Name | Priori | Date/Time | Associated Diagnosis | Comments | | | ty | | | | + +--------+ + + + | CBC WITH MANUAL | Routin | 05/05/2018 | | Results for this | | DIFFERENTIAL | e | 12:00 AM | | procedure are in the | | | | PST | | results section. | + +--------+ + + + | URINALYSIS WITH | Routin | 05/05/2018 | | Results for this | | MICROSCOPIC IF | e | 12:00 AM | | procedure are in the | | INDICATED | | PST | | results section. | + +--------+ + + + | MICROALBUMIN/CREATIN | Routin | 05/05/2018 | | Results for this | | INE RATIO, URINE | e | 12:00 AM | | procedure are in the | | TEST | | PST | | results section. | + +--------+ + + + | PARATHYROID HORMONE, | Routin | 05/05/2018 | | Results for this | | INTACT | e | 12:00 AM | | procedure are in the | | | | PST | | results section. | + +--------+ + + + documented in this encounter Results Microalbumin/Creatinine Ratio, Urine (05/05/2018 12:00 AM PST) + +-------+ + + + | Component | Value | Ref Range | Performed | Pathologist | | | | | At | Signature | + +-------+ + + + | ALBUMIN/CRE | 10.4 | 0 - 30 | EXTERNAL | | | ATININE | | | LAB | | | RATIO.URINE | | | | | | .ORD.MG/G | | | | | | (RASHARD) | | | | | | | | | | | | | | | | | + +-------+ [...] + + Urinalysis with Microscopic if Indicated (05/05/2018 12:00 AM PST) + + + + + + | Component | Value | Ref Range | Performed | Pathologist | | | | | At | Signature | + + + + + + | Color | Yellow | | EXTERNAL | | | | | | LAB | | + + + + + + | Clarity, | Slightly Cloudy | | EXTERNAL | | | Urine | | | LAB | | + + + + + + | Spec Grav, | 1.018 | 1.005 - 1.030 | EXTERNAL | | | Fluid | | | LAB | | + + + + + + | Leukocyte | Comment: moderate | | EXTERNAL | | | Esterase, [...] | | | + +---------+ + + CBC with Manual Differential (05/05/2018 12:00 AM PST) + + + + + + | Component | Value | Ref Range | Performed | Pathologist | | | | | At | Signature | + + + + + + | WBC | 6.5 | 4.5 - 11 10 | EXTERNAL | | | | | | LAB | | + + + + + + | Non- | 4.17 (A) | 4.3 - 5.7 10 | [...] + + + + | Hematocrit, | 38.4 (A) | 41 - 50 % | EXTERNAL | | | POC | | | LAB | | + + + + + + | MCV | 92.2 | 81 - 99 fL | EXTERNAL [...] + + + + | RDW-CV | 13.7 | 10.5 - 15 % | EXTERNAL | | | | | | LAB | | + + + + + + | Platelet | 212 | 140 - 440 K/ L | [...] / L | EXTERNAL | | | Neutrophils | | | LAB | | + [...] | | | + +---------+ + + Parathyroid Hormone, Intact (05/05/2018 12:00 AM PST) + +-------+ + + + | Component | Value | Ref Range | Performed | Pathologist | | | | | At | Signature | + +-------+ + + + | PTH INTACT | 42.20 | 15 - 65 pg/mL | EXTERNAL | | | | | [...]
--- OUTSIDE RECORDS SUMMARY | ~2020-01-27 | XMS | Encounter Summary ---
Demographics + + + | Address | [address] | | | [place] [address] | + + + | Home Phone | | + + + | Preferred Language | Unknown | + + + | Marital Status | Unknown | + + + | Mormon Affiliation | 1028 | + + + [...] Team Providers + +------+ + | Care Activity Aide Name | Role | Phone | + +------+ + | Ivan Ren MD | PCP | | + +------+ + Encounter Details +--------+ + + + + | Date | Type | Department | Care Team | Description | +--------+ + + + + | 06/23/ | Orders Only | [facility] | Edd Johnson MD | HYPERTENSION, | | 2020 | | NEPHROLOGY [place] | [address] [place] | [place], | | | | [address] [place] | [address] [place], [place] | UNCONTROLLED | | | | [address] [place], [place] | [address] | (Primary Dx); | | | | [address] | | Essential | | | | [phone] | | hypertension; | | | | | | Chronic kidney | | | | | | disease, stage III | | | | | | (moderate) (HCC) | +--------+ + + + + Social [...] | | | 2019 | | | [facility] [address] | | | | | | [address] [place] | | | | | | [place] [address] | | | | | | [phone] | | | | | | | | | | | | [place] | | | | | | [place] | | +--------+ + + + + | 03/17/ | Office | Cardiology | Chrystal Grimaldo | | | 2019 | Visit | | [address] [address] | | | | | | [address] | | | | | | [place] [address] | | | | | | [phone] | | | | | | | | +--------+ + + + + + +------+--------+ + + | Name | Type | Priori | Associated Diagnoses | Order Schedule | | | | ty | | | + +------+--------+ + + | Renal Function Panel | Lab | Routin | HYPERTENSION, | Expected: | | | | e | [place], | 06/24/2019, Expires: | | | | | UNCONTROLLED | 06/23/2020 | | | | | Essential | | | | | | hypertension | | | | | | Chronic kidney | | | | | | disease, stage III | | | | | | (moderate) (HCC) | | + +------+--------+ + + | CBC with | Lab | Routin | HYPERTENSION, | Expected: | | Differential | | e | [place], | 06/24/2019, Expires: | | | | | UNCONTROLLED | 06/23/2020 | | | | | Essential | | | | | | hypertension | | | | | | Chronic kidney | | | | | | disease, stage III | | | | | | (moderate) (HCC) | | + +------+--------+ + + | Uric Acid | Lab | Routin | HYPERTENSION, | Expected: | | | | e | [place], | 06/24/2019, Expires: | | | | | UNCONTROLLED | 06/23/2020 | | | | | Essential | | | | | | hypertension | | | | | | Chronic kidney | | | | | | disease, stage III | | | | | | (moderate) (HCC) | | + +------+--------+ + + | Microalbumin/Creatin | Lab | Routin | HYPERTENSION, | Expected: | | ine Ratio, Urine | | e | [place], | 06/24/2019, Expires: | | | | | UNCONTROLLED | 06/23/2020 | | | | | Essential | | | | | | hypertension | | | | | | Chronic kidney | | | | | | disease, stage III | | | | | | (moderate) (HCC) | | + +------+--------+ + + documented as of this encounter Visit Diagnoses + + | Diagnosis | + + | HYPERTENSION, [place], UNCONTROLLED - Primary Essential hypertension, malignant | + + | Essential hypertension Unspecified essential hypertension | + + | Chronic kidney disease, stage III (moderate) (HCC) Chronic kidney disease, Stage III | | (moderate) | + + documented in this encounter"
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
--- OUTSIDE RECORDS SUMMARY | ~2020-01-27 | XMS | Encounter Summary ---
Demographics + + + | Address | [address] | | | [place] [address] | + + + | Home Phone | | + + + | Preferred Language | Unknown | + + + | Marital Status | Unknown | + + + | Zoroastrian Affiliation | 1028 | + + + | Race | Unknown | + + + | Ethnic Group | Unknown | + + + Author + + + | Author | [facility] | | | and [place] | + + + | Organization | [facility] | | | [...] Team Providers + +------+ + | Care Lamination Builder Name | Role | Phone | + +------+ + | Ivan Ren MD | PCP | | + +------+ + Encounter Details +--------+ + + + + | Date | Type | Department | Care Team | Description | +--------+ + + + + | 06/23/ | Orders Only | [facility] | Conversion | | | 2019 | | NEPHROLOGY [facility] | Transaction, | | | | | [address] | Provider Unknown | | | | | [address] [place] | | | | | | [address] | (Fax) | | | | | [phone] | | | +--------+ + + + [...] | | | | | [place] [address] | | | | | | [phone] | | | | | | | | | | | | [employer], [facility] | | | | | | [address] | | +--------+ + + + + | 03/17/ | Office | Cardiology | [facility]imaldo | | | 2020 | Visit | | [address] [address] | | | | | | [address] | | | | | | [place] [address] | | | | | | [phone] | | | | | | | | +--------+ + + + + documented as of this encounter Procedures + +--------+ + + + | Procedure Name | Priori | Date/Time | Associated Diagnosis | Comments | | | ty | | | | + +--------+ + + + | CBC WITH MANUAL | Routin | 06/23/2018 | | Results for this | | DIFFERENTIAL | e | 2:21 PM | | procedure are in the | | | | PST | | results section. | + +--------+ + + + | URINALYSIS, | Routin | 06/23/2018 | | Results for this | | MICROSCOPIC ONLY | e | 2:21 PM | | procedure are in the | | | | PST | | results section. | + +--------+ + + + | MICROALBUMIN/CREATIN | Routin | 06/23/2018 | | Results for this | | INE RATIO, URINE | e | 2:21 PM | | procedure are in the | | TEST | | PST | | results section. | + +--------+ + + + | CULTURE, URINE | Routin | 06/23/2018 | | Results for this | | | e | 2:21 PM | | procedure are in the | | | | PST | | results section. | + +--------+ + + + | PARATHYROID HORMONE, | Routin | 06/23/2018 | | Results for this | | INTACT | e | 2:21 PM | | procedure are in the | | | | PST | | results section. | + +--------+ + + + | RENAL FUNCTION PANEL | Routin | 06/23/2018 | | Results for this | | | e | 2:21 PM | | procedure are in the | | | | PST | | results section. | + +--------+ + + + documented in this encounter Results Culture, Urine (06/23/2018 2:21 PM PST) + + | Specimen | + + | Urine specimen | | (specimen) | + + + + + | Narrative | Performed At | + + + | Specimen Description urine CULTURE | EXTERNAL LAB | | Positive REPORT STATUS | | | final | | + + + + +---------+ + + | Performing | Address | City/State/Zipcode | Phone Number | | Organization | | | | + +---------+ + + | EXTERNAL LAB | | | | + +---------+ + + Microalbumin/Creatinine Ratio, Urine (06/23/2018 2:21 PM PST) + +-------+ + + + | Component | Value | Ref Range | Performed | Pathologist | | | | | At | Signature | + +-------+ + + + | ALBUMIN/CRE | 16.3 | 0 - 30 | EXTERNAL | [...] | | | + +---------+ + + Urinalysis, Microscopic Only (06/23/2018 2:21 PM PST) + + + + + [...] + + + + + + | Specific | 1.018 | 1.005 - 1.030 | EXTERNAL | | | [place], | | | LAB | | | Urine | | | | | + + + + + + | Leukocyte | TraceComment: Moderate | | EXTERNAL | | | Esterase, | | | LAB | | | Urine | | | | | + + + + + + | Nitrite, | Trace | | EXTERNAL | | | Urine | | | LAB | | + + + + + + | Urobilinoge | Normal | | EXTERNAL | | | n, Urine | | | LAB | | + + + + + + | Protein, | Negative | | EXTERNAL | | [...] + + + + | Ketones | Negative | | EXTERNAL | | | | [...] +---------+ + + CBC with Manual Differential (06/23/2018 2:21 PM PST) + + + + + + | Component | Value | Ref Range | Performed | Pathologist | | | | | At | Signature | + + + + + + | WBC | 7.2 | 4.5 - 11.0 10 | EXTERNAL | | | | | | LAB | | + + + + + + | Non- | 4.21 (A) | 4.3 - 5.7 10 | EXTERNAL | | | Red Blood | | | LAB | | | Cells | | | | | | Counted | | | | | + + + + + + | Hemoglobin | 13.1 (A) | 13.5 - 18.0 | EXTERNAL | | | | | g/dL | LAB | | + + + + + + | Hematocrit, | 37.9 (A) | 41 - 50 % | EXTERNAL | | | POC | | | LAB | | + + + + + + | MCV | 90.2 | 81 - 99 fL | EXTERNAL | | | | | | LAB | | + + + + + + | MCH | 31 | 27 - 33 pg | EXTERNAL | | | | | | LAB | | + + + + + + | MCHC | 35 | 30 - 36 g/dL | EXTERNAL | | | | | | LAB | | + + + + + + | RDW-CV | | % | EXTERNAL | | | | | | LAB | | + + + + + + | Platelet | 233 | 140 - 440 K/ L | [...] + +---------+ + + Parathyroid Hormone, Intact (06/23/2018 2:21 PM PST) + +-------+ + + + | Component | Value | Ref Range | Performed | Pathologist | | | | | At | Signature | + +-------+ + + + | PTH INTACT | 36.57 | 16 - 65 pg/mL | EXTERNAL | | [...] + +---------+ + + Renal Function Panel (06/23/2018 2:21 PM PST) + + + + + + | Component | Value | Ref Range | Performed | Pathologist | | | | | At | Signature | + + + + + + | Glucose, | 124 (A) | 70 - 100 mg/dL | EXTERNAL | | | F[place] | | | LAB | | + + + + + + | BUN | 34 (A) | 6 - 23 mg/dL | EXTERNAL | | | | | | LAB | | + + + + + + | Creatinine | 1.81 (A) | 0.70 - 1.18 | EXTERNAL | | | | | mg/dL | LAB | | + + + + + + | PHOSPHORUS | 3.4 | 2.5 - 5.0 mg/dL | EXTERNAL | | | | | | LAB | | + + + + + + | Albumin | 4.2 | 3.5 - 5.0 | EXTERNAL | | | | | | LAB | | + + + + + + | Na | 139 | 132 - 143 | EXTERNAL | | | | | mmol/L | LAB | | + + + + + + | K | 4.7 | 3.6 - 5.1 | EXTERNAL | | | | | mmol/L | LAB | | + + + + + + | Cl | 106 | 95 - 112 mmol/L | EXTERNAL | | | | | | LAB | | + + + + + + | CO2 | 22 | 19 - 31 mmol/L | EXTERNAL | | | | | | LAB | | + + + + + + | Anion Gap | 15.7 | 7 - 21 mmol/L | EXTERNAL | | | | | | LAB | | + + + + + + | eGFR, | | | EXTERNAL | | | non- | | | LAB | | | [place] | | | | | + + + + + + | Phosphorus, | | | EXTERNAL | | | Inorganic | | | LAB | | + + + + + + | BUN/Creatin | 18.8 | 6.0 - 28.6 | EXTERNAL | | | ine Ratio | | | LAB | | + + + + + + | Calcium | 9.3 | 8.5 - 10.3 | EXTERNAL | | | | | mg/dL | LAB | | + + + + + + | Estimated | 37 (A) | 60 - 140 mg/dL | [...]
--- OUTSIDE RECORDS SUMMARY | ~2020-01-27 | XMS | Encounter Summary ---
Demographics + + + | Address | [address] | | | [place] [address] | + + + | Home Phone | | + + + | Preferred Language | Unknown | + + + | Marital Status | Unknown | + + + | Orthodox Affiliation | 1028 | + + + | Race | Unknown | + + + | Ethnic Group | Unknown | + + + Author + + + | Author | [facility] | | | and [place] | + + + | Organization | [facility] | | | [...] Team Providers + +------+ + | Care Microfilm Clerk Name | Role | Phone | + +------+ + | Ivan Ren MD | PCP | | + +------+ + Reason for Referral Diagnostic/Screening (Routine) +--------+--------+ + + + + | Status | Reason | Specialty | Diagnoses / | Referred By | Referred To | | | | | Procedures | Contact | Contact | +--------+--------+ + + + + | Closed | | Radiology | Diagnoses | Sai | Gila Mri | | | | | Lumbar | [facility] | [address] | | | | | radiculopath | [address] | [place], | | | | | y | [address] | [place] | | | | | Procedures | [address] | [address] | | | | | MRI Lumbar | [place], | Phone: | | | | | Spine wo | [place] [address] | [phone] | | | | | Contrast | Phone: | Fax: | | | | | | [phone] | [phone] | | | | | | Fax: | | | | | | | [phone] | | +--------+--------+ + + + + Reason for Visit + + + | Reason | Comments | + + + | Back Pain | | + + + | New Patient | | + + + Evaluate & Treat (Routine) + +--------+ + + + + | Status | Reason | Specialty | Diagnoses / | Referred By | Referred To | | | | | Procedures | Contact | Contact | + +--------+ + + + + | Authorized | | Physical | Diagnoses | Mikal, | Nicole, | | | | Medicine and | Lumbar | Ivan Calvo, | Cesar Mckinnon MD | | | | Rehabilitatio | radiculopath | MD [address] | [address] | | | n | y | [address] | [place] | | | | | | [place], | [place], [place] | | | | | | [place] [address] | [address] Phone: | | | | | | Phone: | [phone] | | | | | | [phone] | Fax: | | | | | | Fax: | [phone] | | | | | | [phone] | | + +--------+ + + + + Encounter Details +--------+---------+ + + + | Date | Type | Department | Care Team | Description | +--------+---------+ + + + | 11/05/ | Office | [facility] | Sp Gibbs, | Lumbar radiculopathy | | 2020 | Visit | PHYSIATRY [address] | PA-C [address] | (Primary Dx); Pain | | | | [address] | [address] [place] | in both knees, | | | | [place], [place] | [place] [address] | unspecified | | | | [address] | [phone] | chronicity; Numbness | | | | [phone] | | and tingling in | | | | | | both hands | +--------+---------+ + + + Social History [...] + + + | Blood Pressure | 123/81 | 11/06/2019 10:20 AM | | | | | PDT | | + + + + + | Pulse | 71 | 11/06/2019 10:20 AM | | | [...] + + + + | Weight | 86.2 kg (190 lb) | 11/06/2019 10:20 AM | | | | | PDT | | + + + + + | Height | 182.9 cm (6') | 11/06/2019 10:20 AM | | | | | PDT | | + + + + + | Body Mass Index | 25.77 | 11/06/2019 10:20 AM | | | | | PDT | | + + + + + documented in this encounter Patient Instructions Patient Instructions Sp Gibbs PA-C - 11/06/2019 10:30 AM PDTFormatting of this note m ight be different from the original. Wear wrist splints at night only. Ice knees this evening MRI ordered. It usually takes 1 week before insurance approves it. Once approved, the imagi ng department will call you for scheduling. After MRI is completed we will call with results and treatment suggestions. In some cases insurance will require a new round of PT to be completed before they will arlette rove MRI. We will let you know if this is the case. If MRI shows some nerve compression or inflamed arthritis treatment options include epidura l steroid injections, PT, medication, or surgery as a last resort. Injections usually last 3-6 months but may last longer or shorter. You may have 3-4 injections per year (every 3-4 months), based on bone health. Injection orders usually take about a week for insurance to authorize my order. Once approv ed, we will call you for scheduling. Expect a call from our office in 7-10 days. Please remember to complete pain log and turn it into our office when completed. This is an insurance requirement and allows faster approval of any future injections. (Injections can take up to 10-14 days before you notice relief.) Follow-up at the hospital thirty minutes before your scheduled procedure to allow for time to check in. You may eat and drink as usual on the day of the procedure. If you are scheduled for an epidural injection do not take any blood thinning medications f or at least 5-7 days prior to your procedure unless you have been instructed by another phys ician not to discontinue blood thinning medications. If you are having a procedure other than an epidural injection (i.e. facet injection, media l branch block, SI joint injection or other joint injection) it is not absolutely necessary to discontinue blood thinning medications but doing so will decrease the risk of bruising or bleeding. If you have had a prior stroke, DVT or PE or if you are taking blood thinning medication be cause you have atrial fibrillation, a prosthetic cardiac valve replacement or heart stenting do not stop taking your blood thinning medications unless you have permission from your car diologist or primary care provider. All other medications should be taken as usual on the day of the procedure. Common blood thinning medications include: ? Aspirin (a baby aspirin is o.k.) ? Ibuprofen (Advil or Motrin) ? Naproxen (Aleve) ? Nabumetone (Relafen) ? Clopidogrel (Plavix) ? Dipyridamole/ASA (Aggrenox) ? Warfarin (Coumadin) ? Dabigatran (Pradaxa) ? Rivaroxaban (Xarelto) There are many others. If you have questions about your medications and whether or not you should stop any medications please contact our office. If you are having an epidural injection or if you take any medication for relaxation/sedati on on the day of the procedure you must provide a dray truck driver to take you home. Common Spine and Disk Problems The most common serious back problems happen when disks tear, bulge, or rupture. In such ca ses, an injured disk can no longer cushion the vertebrae and absorb shock. As a result, the rest of your spine may also weaken. This can lead to pain, stiffness, and other symptoms. Torn annulus. A sudden movement may cause a tiny tear in an annulus. Nearby ligaments ma y stretch. Contained herniated disk. As a disk wears out, the nucleus may bulge into the annulus an d press on nerves. Extruded herniated disk. When a disk ruptures, its nucleus can squeeze out and irritate a nerve. Arthritis. As disks wear out over time, bone spurs form. These growths can irritate nerv es and inflame facets. Instability. As a disk stretches, the vertebrae slip back and forth. This can put pressu re on the annulus. Spondylolisthesis. This is a condition in which one vertebra has moved forward or backwa rd, in relation to the one above or below it. This causes a crack (stress fracture) in the a reas that link the vertebrae together. This may put pressure on the annulus, stretch the dis k, and irritate nerves. Date Last Reviewed: 11/15/[id number] [employer]. [address] [place] [address], [place] [address]. All righ ts reserved. This information is not intended as a substitute for professional medical care. Always follow your healthcare professional's instructions. documented in this encounter Progress Notes Sp Gibbs PA-C - 11/06/2019 10:30 AM PDTFormatting of this note might be different fro m the original. Sp Gibbs PA-C [address] [facility], [address] [place] [address] FAX: CHIEF COMPLAINT: Chief Complaint Patient presents with Back Pain New Patient HISTORY OF PRESENT ILLNESS: Maximus Hunter is a 74 y.o. male with the complaint of back sym ptoms that began about 10 years ago. The patient describes symptom onset following L5/S1 de rmatome R>L. The symptoms have been gradually worsening. Patient also reports hx of right drop foot x 8 years. He rates the pain as severe. The symptoms are daily, continuous. He describes the pain as aching, numbing, sharp and shooting. The patient describes leg symptoms that occur on both sides. The leg symptoms account for greater than or equal to 50% of his symptoms. The leg symptoms are constant and the symptom s travels from the back to the knees. Patient reports chronic knee pain that is worse with weight bearing. Patient reports legs tend to give-out from time to time and when walking up inclines he tends to hyperextend his knees which causes significant pain. The patient does not report any change in bowel or bladder function recently. His symptoms improve with nothing. His symptoms worsen with standing, walking, running, kneeling, bending and twisting. He has tried Chiropactic, NSAIDS, Muscle relaxers and Braces. . PAST MEDICAL HISTORY: Past Medical History: Diagnosis Date Age-related osteoporosis without current pathological fracture Anger Angina pectoris (HCC) Aortic stenosis Arrhythmia Asthma Chronic kidney disease Depression Erectile dysfunction Essential hypertension Headache Heart murmur History of fracture of clavicle History of hand fracture History of rib fracture History of toe fracture Hyperlipidemia Hypertriglyceridemia Idiopathic peripheral neuropathy Infective urethritis 03/10/2018 Insomnia, unspecified type Lumbar radiculopathy Lumbosacral radiculopathy at L4 Lumbosacral radiculopathy at L5 Lumbosacral radiculopathy at S1 Major depressive disorder, single episode, unspecified Night terror Normocytic anemia Obesity, unspecified Peripheral polyneuropathy PTSD (post-traumatic stress disorder) Snores Unspecified asthma with (acute) exacerbation Vertigo Vitamin D deficiency PAST SURGICAL HISTORY: Past Surgical History: Procedure Laterality Date AORTIC VALVE REPLACEMENT N/A 11/04/2015 Procedure: AORTIC VALVE REPLACEMENT; Surgeon: Diony Valle MD; Location: [facility] MAIN OR; Service: Cardiac MITRAL VALVE REPLACEMENT N/A 11/04/2015 Procedure: MITRAL VALVE REPLACEMENT; Surgeon: Diony Valle MD; Location: [facility] MA[facility] OR; Service: Cardiac; possible repair TONSILLECTOMY AND ADENOIDECTOMY UPPER GASTROINTESTINAL ENDOSCOPY N/A 11/02/2015 Procedure: ESOPHAGOGASTRODUODENOSCOPY; Surgeon: Ghassan Huynh MD; Location: [facility] E NDOSCOPY; Service: Gastroenterology CURRENT MEDICATIONS: Current Outpatient Medications Medication Sig Dispense Refill aspirin 81 MG tablet Take 81 mg by mouth daily. Cholecalciferol (VITAMIN D-3) 5000 units CAPS Take 5,000 Units by mouth daily. DULoxetine (CYMBALTA) [address] capsule TAKE 1 CAPSULE BY MOUTH ONCE DAILY FOR 30 DAYS FLUoxetine (PROZAC) 20 mg capsule Take 20 mg by mouth daily. metoprolol tartrate (LOPRESSOR) 25 mg tablet Take 12.5 mg by mouth 2 (two) times daily. rosuvastatin (CRESTOR) 20 mg tablet Take 20 mg by mouth nightly. warfarin (COUMADIN) 2.5 mg tablet 2.5 mg Sat/Saturday 1.25mg rest of the week No current facility-administered medications for this visit. ALLERGIES: Allergies Allergen Reactions Nitroglycerin Anaphylaxis Per patient and family it dropped his BP and "made me feel like a zombie and hard to maverick th". Penicillins Hives, Nausea And Vomiting and Rash Morphine Unknown SOCIAL HISTORY: The patient reports that he quit smoking about 39 years ago. His smoking use included ciga rettes. He has a 64.00 pack-year smoking history. He has never used smokeless tobacco. He re ports current alcohol use of about 7.0 standard drinks of alcohol per week. He reports that he does not use drugs. FAMILY HISTORY: Family History Problem Relation Age of Onset Heart disease Mother Alzheimer's disease Mother Heart surgery Mother Breast cancer Mother Auto-Immune Disorders Mother Eaton-Lambert Syndrome Diabetes Mother Heart disease Father Diabetes, NIDDM Father Heart failure Father CHF Emphysema Father Cardiomyopathy Father Diabetes, NIDDM Brother Hypertension Brother High cholesterol Brother No known problems Sister Breast cancer Maternal Aunt Brain cancer Maternal Uncle No known problems Maternal Grandmother No known problems Maternal Grandfather No known problems Paternal Grandmother No known problems Paternal Grandfather Kidney disease Neg Hx REVIEW OF SYSTEMS: GENERALLY: No fever, no night sweats, no anemia, no fatigue, no recent profound weight ch anges. EYES: No eye problems, no use of corrective lenses, no eye injury, no double vision, no bl indness. EARS, NOSE, AND THROAT: No changes in taste or smell, no hearing difficulty, no ringing in the ears, no ear drainage, no dizziness, no voice changes, no difficulty swallowing, no sig nificant snoring, no sleep apnea, no sinus problems, no major dental work. NEUROLOGICALLY: Please see the review of systems discussed above in the history of present illness. In addition, the patient has numbness/pain of arms, weakness, muscle aching, pain in back. PSYCHIATRIC: No depression, no sleep disorders, no anxiety, no bipolar disorder, no psycho tic episodes. CARDIOVASCULAR: No heart attacks, no heart murmur, no heart fluttering, no chest pain, no ankle swelling. LUNG DISEASE: No shortness of breath, no cough, no tuberculosis, no bloody cough, no asth ma, no emphysema/COPD. GASTROINTESTINAL: No bowel disease, no nausea or vomiting, no rectal bleeding, no constipa tion, no stool incontinence, no liver disease, no gallbladder disease, no abdominal pain, no ulcers. KIDNEY DISEASE: No urinary frequency, no painful or difficult urination, no incontinence. ENDOCRINE: No diabetes, no thyroid disease, no osteopenia or osteoporosis, no breast drain age. SKIN: No breast lumps, no skin changes, no rashes, no itches. HEMATOLOGIC/LYMPHATIC: No enlarged lymph nodes, no easy or unusual bleeding, no personal h istory of cancer. RHEUMATOLOGIC: No joint arthritis, no rheumatoid arthritis. PHYSICAL EXAMINATION: Blood pressure 123/81, pulse 71, resp. rate 14, height 1.829 m (6'), weight 86.2 kg (190 lb ). Body mass index is 25.77 kg/m. GENERAL: Maximus Hunter is in no acute distress with unlabored respirations. The patient do es not appear uncomfortable throughout the exam today. HEENT: HEAD/FACE: EYES: Normocephalic and atraumatic. There are no areas of recent trauma. Normal sclerae without icterus. NECK (ANTERIOR): Supple and without palpable masses. CHEST: The patient is in no acute respiratory distress with unlabored respirations. HEART: There is not lower extremity edema. ABDOMEN: Soft, non-tender, non-distended, and without palpable masses. NEUROLOGIC: The patient is awake, alert, and oriented to time, place, person. He follows simple and complex commands. His speech is fluent. He comprehends speech well. He has no apparent deficits with short or snf memory. Cranial nerves 2-12 appear grossly intact. Sensory exam does show diminished sensation to light touch in the lower extremities. REFLEX: RIGHT LEFT PATELLAR 2+ 2+ ACHILLES 0 0 + Phlanes test bilaterally MUSCULOSKELETAL There is no tenderness in the midline of the cervical or thoracic spine. There is no major palpable deformity of the spine. Straight leg raise and slump-sit are negative. Poncho's maneuver and impingement testing were negative for any groin pain. There was no tenderness to palpation over the greater trochanters or sacral sulci. The patient localized the majority of the pain to the L5 region. Lumbar facet loading was neg. Strength testing showed 5/5 strength throughout the lower extremities with exception to right foot 4-/5. The patient was able to heel and toe walk without difficulty. There was no redness, eff usion, warmth over knees but there was joint line tenderness. DATA REVIEW: The patient's imaging was reviewed in detail with the patient today during the visit. The lumbar xray shows DDD, and likely L5/S1 neural foraminal stenosis. ASSESSMENT: Encounter Diagnoses Name Primary? Lumbar radiculopathy Yes Pain in both knees, unspecified chronicity PLAN: It was a pleasure seeing Maximus Hunter and assessing his problems. 1) Today we discussed the patient's differential diagnosis with the likely primary issue be ing LUMBAR RADICULOPATHY and chronic bilateral knee pain. Patient's description of symptoms, physical exam, and imaging suggest this diagnosis at this time. 2) I counseled patient on treatment options which included conservative self management usi ng OTC NSAIDs/Ice and heat packs, physical therapy, prescription medications, epidural stero id injection, neuromodulation therapies, as well as possible surgical intervention. 3) Imaging: As descibed above in radiology review. MRI was ordered to assess lumbar spine for herniation, disc pathology, and/or nerve root i mpingement that may be contributing to patient's symptoms. 4) The patient has had significant conservative care including medications (NSAIDS and narc otics), PT (multiple sessions over the years) and healthcare economics consultant. Unfortunately Maximus bowden continues to have significant discomfort. It appears to me that the pain is primarily coming from L-spine and bilateral knee joints. I did feel that Maximus Hunter would be a good candidate for interventional procedures pe nding MRI results to be done. Patient is on Anticoag so we will need to d/c that prior to E SI. 5) I did feel that Maximus Hunter would be a good candidate for bilateral knee joint injecti ons today. After the patient gave consent for the procedure the area for injection was located by palp ation and was marked. The area was then prepped with Betadine swabs and alcohol. A 25 gaug e 1 1/2 inch needle was then inserted into the joint capsule. Attempted aspiration showed no fluid in the needle hub. A combination of 1 mL of 40 mg/mL Kenalog and only 1.5 mL of 1% L idocaine (due to hx caridac issues) was injected. The procedure was then performed using e same steps on the opposite side. The patient tolerated the procedures well and was instructed to ice the areas for 15-20 min utes several times over the next few days and to watch for any signs of infection. 6) Patient will follow up with me 3 weeks post injection/as needed to discuss any imaging a nd/or progress with today's treatment plan. 7) patient will begin wearing wrist splints at night for bilateral hand numbness and tingli ng. If no improvement after 2-3 months, a NCS/EMG of arms will be ordered to assess for cathleen dempsey likely carpal tunnel syndrome. Surgical correction of CTS was discussed today. I spent 30 minutes in visit with Maximus Hunter today with the majority of time spent counse lling the patient on his diagnosis, options for his care, and coordinating his care. ELECTRONICALLY SIGNED BY: Sp Gibbs PA-C, 11/06/2019 CC: Ivan Ren MD documented in this en counter Plan of [...] | | | | | [place] [address] | | | | | | [phone] | | | | | | | | | | | | E/M Engineer, [facility] | | | | | | festus burrell | | +--------+ + + + + | 03/17/ | Office | Cardiology | Chrystal Grimaldo | | 2019 | Visit | | [address] | | | | | | [address] | | | | | | [place] [address] | | | | | | [phone] | | | | | | | | +--------+ + + + + + +---------+--------+ + + | Name | Type | Priori | Associated Diagnoses | Order Schedule | | | | ty | | | + +---------+--------+ + + | MRI Lumbar Spine wo | Imaging | Routin | Lumbar | Expected: | | Contrast | | e | radiculopathy | 11/06/2019, Expires: | | | | | | 11/06/2020 | + +---------+--------+ + + documented as [...] + + documented in this encounter Results IMAGING REPORT - EXTERNAL SCAN (12/10/2019 12:00 AM PDT) + + + | Narrative | Performed At | + + + | Ordered by an | | | unspecified provider. | | + + + documented in this encounter Visit Diagnoses + + | Diagnosis | + + | Lumbar radiculopathy - Primary Thoracic or lumbosacral neuritis or radiculitis, | | unspecified | + + | Pain in both knees, unspecified chronicity | + + | Numbness and tingling in both hands | + + documented in this encounter Administered Medications + + + +-------+------+------+ | Medication Order | MAR | Action | Dose | Rate | Site | | | Action | Date | | | | + + + +-------+------+------+ | lidocaine 1% injection 3 mL 3 | Given by | 11/13/19 | 3 mLs | | | | mL, Other, ONCE, 11/13/19 at | Other | 20 10:25 | | | | | 1000, For 1 dose | | AM PDT | | | | + + + +-------+------+------+ +---+---+ | | | +---+---+ + + + +-------+---+---+ | triamcinolone acetonide | Given by | 11/13/19 | 80 mg | | | | (KENALOG-40) 40 mg/mL injection | Other | 20 10:27 | | | | | 80 mg 80 mg, Intra-articular, | | AM PDT | | | | | ONCE, 11/13/19 at 1000, For 1 | | | | | | | dose, Shake well. Not for IV | | | | | | | use., | | | | | | + + + +-------+---+---+ +---+---+ | | | +---+---+ documented in this encounter
--- OUTSIDE RECORDS SUMMARY | ~2020-01-27 | XMS | Encounter Summary ---
Demographics + + + | Address | [address] | | | [place] [address] | + + + | Home Phone | | + + + | Preferred Language | Unknown | + + + | Marital Status | Unknown | + + + | Yazdanism Affiliation | 1028 | + + + [...] Team Providers + +------+ + | Care Belt Molder Name | Role | Phone | + +------+ + | Ivan Ren MD | PCP | | + +------+ + Reason for Visit +---------+ + | Reason | Comments | +---------+ + | Results | HANNAH-12/16/2019 | +---------+ + Encounter Details +--------+ + + + + | Date | Type | Department | Care Team | Description | +--------+ + + + + | 12/16/ | Documentati | [facility] | Marisa Lange, | Results | | 2019 | on | [facility] [place] | Director Of Consumer Marketing | ([facility]-12/16/2019) | | | | [address] | | | | | | [address] [place], [place] | | | | | | [address] | | | | | | [phone] | | | +--------+ + + + [...] | | | | | [place] [address] | | | | | | [phone] | | | | | | | | | | | | Juvenile Probation Officer, [facility] | | | | | | festus mortensen | | +--------+ + + + + | 03/17/ | Office | Cardiology | Chrystal Grimaldo | | | 2019 | Visit | | [address] | | | | | | [address] | | | | | | [place] [address] | | | | | | [phone] | | | | | | | [...] + + documented in this encounter Results PTH + Calcium (12/16/2019) + + + [...] + + | Blood | + + CBC with Differential (12/16/2019) [...] + + | Blood | + + Protein/Creatinine Ratio, Urine (12/16/2019) + [...] + + | Urine | + + documented in this encounter Visit Diagnoses Not on filedocumented in this encounter"
--- OUTSIDE RECORDS SUMMARY | ~2020-01-27 | XMS | Encounter Summary ---
Demographics + + + | Address | [address] | | | [place] [address] | + + + | Home Phone [...] Team Providers + +------+ + | Care Solutions Engineer Name | Role | Phone | + +------+ + PCP | Unavailable | + +------+ + Encounter Details +--------+ + + + + | Date | Type | Department | Care Team | Description | +--------+ + + + + | 07/02/ | Hospital | [facility] | | | | 1998 | Encounter | [facility] | | | | | | [address] | | | | | | [place] | | | | | | [address] | | | | | | [phone] | | | +--------+ + + + [...] | | | | | | [place] [address] | | | | | | [phone] | | | | | | | | | | | | Addictions TherapistGila | | | | | | [place] | | +--------+ + + + + | 03/17/ | Office | Cardiology | Chrystal Grimaldo | | | 2019 | Visit | | [address] | | | | | | [address] | | | | | | [place] [address] | | | | | | [phone] | | | | | | | | +--------+ + + + + documented as of this encounter Visit Diagnoses Not on filedocumented in this encounter"
--- OUTSIDE RECORDS SUMMARY | ~2020-01-27 | XMS | Encounter Summary ---
Demographics + + + | Address | [address] | | | [place] [address] | + + + | Home Phone | | + + + | Preferred Language | Unknown | + + + | Marital Status | Unknown | + + + | Congregation Affiliation | 1028 | + + + [...] Team Providers + +------+ + | Care Provider Enrollment Specialist Name | Role | Phone | + +------+ + PCP | Unavailable | + +------+ + Encounter Details +--------+ + + + + | Date | Type | Department | Care Team | Description | +--------+ + + + + | 07/19/ | [facility] | [facility] | Gurwinder Caballero MD | | | 1997 | Encounter | MED CTR GENERIC OP | [address] | | | | | CONV DEPT [address] | [place], [place] | | | | | [place], | [address] | | | | | [place] [address] | | | | | | [phone] | | | +--------+ + + + [...] | | | | | [place] [address] | | | | | | [phone] | | | | | | | | | | | | [employer] | | | | | | festus mortensen | | +--------+ + + + + | 03/17/ | Office | Cardiology | Chrystal Grimaldo | | | 2019 | Visit | | [address] | | | | | | [address] | | | | | | [place] [address] | | | | | | [phone] | | | | | | | | +--------+ + + + + documented as of this encounter Visit Diagnoses Not on filedocumented in this encounter"
[~2020-01-27 13:49] MED LIST changes: +DULOXETINE HCL40 MG PO
[2020-01-27] MEDS ORDERED: CLINDAMYCIN HC300 MG PO (15:15)
== END 2020-01-27 17:09 | disposition home or self-care (01) ==
LOC: ED 13:49
DX: L03.115 Cellulitis of right lower limb (principal); I10 Essential (primary) hypertension; Z88.5 Allergy status to narcotic agent; Z88.0 Allergy status to penicillin; Z88.8 Allergy status to other drugs, medicaments and biological substances; Z79.899 Other long term (current) drug therapy; Z79.82 Long term (current) use of aspirin; Z79.01 Long term (current) use of anticoagulants; W01.0XXA Fall on same level from slipping, tripping and stumbling without subsequent striking against object, initial encounter
CPT/HCPCS: 73630; 80053; 83605; 85025; 96374; 96375; 99283-25; J1885; J3490

== ENCOUNTER 2022-03-16 07:25 | Day surgery (SDC) | payer MEDICARE, OTHER ==
[~2022-03-16] VITALS: Ht 182.9 cm; Wt 91.8 kg
[~2022-03-16 07:25] MED LIST changes: +CLINDAMYCIN HC300 MG PO; +DICLOFENAC SOD100 G1 TOP; +DULOXETINE HCL20 MG PO; +LISINOPRIL10 MG PO
[2022-03-16] MEDS ORDERED: HYDROCODON-ACE1 EA10 PO (11:56)
--- NOTE | 2022-03-16 12:01 | NUR ---
03/16/22 1201 Yo Bennett INSOLE FILLERCHAN [place] PLACING SLING ON PATIENT DURING REPORT.
--- NOTE | 2022-03-19 06:58 | OR ---
[facility] [address] [place], [place] [address] Signed DATE OF OPERATION: 03/16/2022 SURGEON: Milton Leon MD PREOPERATIVE DIAGNOSIS: Carpal tunnel syndrome, left. POSTOPERATIVE DIAGNOSIS: Carpal tunnel syndrome, left. PROCEDURE PERFORMED: Carpal tunnel release, left. EMAIL DEPLOYMENT SPECIALIST: None. ANESTHESIA: Phil Campbell block. TOURNIQUET TIME: 14 minutes. BRIEF HISTORY: Maximus is a 76-year-old gentleman with pain in his hand and wrist along with numbness and tingling. Nerve conduction studies were consistent with carpal tunnel. Risks and benefits of operative treatment were discussed with him and he elected to proceed. PROCEDURE IN DETAIL: Once consent was obtained, he was taken to the operating room. After adequate anesthesia, the arm was placed on the armboard and prepped and draped in a standard sterile fashion. A 1.5 cm incision was made in the distal wrist crease carried through skin and subcutaneous tissue. Palmaris longus was identified, retracted and protected. The transverse carpal ligament was then identified under loupe magnification and was dissected free of overlying soft tissue. It was then released approximately about a cm and half and distally to the distal extent. This was palpated using a Kamrar and found to be completely released. The wound was copiously irrigated with normal saline and was closed using 3-0 nylon. The incision was injected with 7 mL plain 0.25% Marcaine and dressed with bacitracin, Adaptic, 4 x 8s, and gauze. He tolerated the procedure well. All sponge, needle, and instrument counts were correct. Electronically Signed By: MILTON LEON MD 03/19/22 0658 PATIENT NAME: MAXIMUS RUBIN OPERATIVE REPORT DATE OF : 43 REPORT #: [id number] PHYSICIAN: MILTON LEON MD PCP: EBEN RODRIGUES MD REPORT IS CONFIDENTIAL AND NOT TO BE RELEASED WITHOUT AUTHORIZATION [address] [address] Signed Milton Leon MD /MODL /[id number] Copies: ~ Electronically Signed By: MILTON LEON MD 03/19/22 0658 PATIENT NAME: MAXIMUS RBUIN OPERATIVE REPORT DATE OF : 43 REPORT #: [id number] PHYSICIAN: MILTON LEON MD PCP: EBEN RODRIGUES MD REPORT IS CONFIDENTIAL AND NOT TO BE RELEASED WITHOUT AUTHORIZATION
== END 2022-03-16 12:32 | disposition home or self-care (01) ==
LOC: DS 07:25
PROVIDERS: ATTEND Specialist
PROC: 01N50ZZ Release Median Nerve, Open Approach (ICD-10-PCS; principal; 2022-03-16 11:00)
DX: G56.02 Carpal tunnel syndrome, left upper limb (principal); I10 Essential (primary) hypertension; J45.909 Unspecified asthma, uncomplicated; E78.5 Hyperlipidemia, unspecified; Z95.4 Presence of other heart-valve replacement
CPT/HCPCS: 01810; J0690; J2704; J7121

== ENCOUNTER 2022-04-20 06:10 | Day surgery (SDC) | payer MEDICARE, OTHER ==
[~2022-04-20] VITALS: Ht 182.9 cm; Wt 95.4 kg
[~2022-04-20 06:10] MED LIST changes: +HYDROCODON-ACE1 EA10 PO
[2022-04-20] MEDS ORDERED: SEROQUEL25 MG PO (06:30)
[2022-04-20] MEDS ORDERED: FUROSEMIDE20 MG PO (06:30)
[2022-04-20] MEDS ORDERED: HYDROCODON-ACE1 EA10 PO (08:15)
--- NOTE | 2022-04-20 08:24 | NUR ---
04/20/22 0824 Sandy Bryan 0817 PATIENT ARRIVES TO PACU UNRESPONSIVE TO PAIN. RESP EVEN AND UNLABORED, MASK AT 6 LITERS, SATS 100%. 0823 PATIENT RESPONSIVE TO VERBAL STIMULI, BUT SLEEP WHEN NOT STIMULATED. RESP EVEN AND UNLABORED, MASK OFF, ROOM AIR SATS 100%.
--- NOTE | 2022-04-20 11:59 | NUR ---
PT ALERT, ORIENTED AND SUPPORTED BY HIS MARCIA. PT HAS JUST HAD SAME SURGERY ON LEFT HAND AND PLEASED WITH THE RESULTS. GAVE ENCOURAGEMENT AND BLESSING. MARCIA WILL REMAIN FOR DC. WILL FOLLOW
--- NOTE | 2022-04-23 08:36 | OR ---
[facility] [address] [place], [place] [address] Signed DATE OF OPERATION: 04/20/2022 SURGEON: Milton Leon MD PREOPERATIVE DIAGNOSIS: Carpal tunnel syndrome, right. POSTOPERATIVE DIAGNOSIS: Carpal tunnel syndrome, right. PROCEDURE PERFORMED: Carpal tunnel release, right. BOOSTER PUMP OPERATOR: None. ANESTHESIA: Tiara block. TOURNIQUET TIME: 20 minutes. BRIEF HISTORY: Maximus is a 76-year-old gentleman with bilateral carpal tunnel. He had undergone successful left release, wished to proceed with the right. Risks and benefits of operative treatment were discussed with him. He elected to proceed. PROCEDURE IN DETAIL: Once consent was obtained, he was taken to the operating room. After adequate anesthesia, he was placed on the day surgery bed with hand table. The arm was prepped and draped in a standard sterile fashion. A 1.5 cm incision was made in the distal wrist crease carried through the skin and subcutaneous tissue. The palmaris longus was significantly widened and flattened was retracted and protected. The transverse carpal ligament was identified under loupe magnification. It was then dissected free of overlying soft tissue. With tenotomy scissors, we then released the transverse ligament approximately a cm and a half and distal to the distal extent. This was palpated using a [place] and found to be completely released. The wound was copiously irrigated with normal saline, closed with 3-0 nylon and infiltrated with the 0.25% plain Marcaine. He tolerated the procedure well. All sponge, needle, and instrument counts were correct. Electronically Signed By: MILTON LEON MD 04/23/22 0836 PATIENT NAME: MAXIMUS RUBIN OPERATIVE REPORT DATE OF : 43 REPORT #: [id number] PHYSICIAN: MILTON LEON MD PCP: EBEN RODRIGUES MD REPORT IS CONFIDENTIAL AND NOT TO BE RELEASED WITHOUT AUTHORIZATION [address] [address] Signed Milton Leon MD /MODL /[id number] Copies: ~ Electronically Signed By: MILTON LEON MD 04/23/22 0836 PATIENT NAME: MAXIMUS RUBIN OPERATIVE REPORT DATE OF : 43 REPORT #: [id number] PHYSICIAN: MILTON LEON MD PCP: EBEN RODRIGUES MD REPORT IS CONFIDENTIAL AND NOT TO BE RELEASED WITHOUT AUTHORIZATION
== END 2022-04-20 09:00 | disposition home or self-care (01) ==
LOC: DS 06:10
PROVIDERS: ATTEND Specialist
PROC: 01N50ZZ Release Median Nerve, Open Approach (ICD-10-PCS; principal; 2022-04-20 08:30)
DX: G56.01 Carpal tunnel syndrome, right upper limb (principal); J45.909 Unspecified asthma, uncomplicated; I10 Essential (primary) hypertension; Z95.2 Presence of prosthetic heart valve; Z79.01 Long term (current) use of anticoagulants; Z88.0 Allergy status to penicillin; Z88.8 Allergy status to other drugs, medicaments and biological substances; Z88.5 Allergy status to narcotic agent
CPT/HCPCS: J2250; J2704; J7121

== ENCOUNTER 2022-04-27 10:22 | Emergency (ER) | payer MEDICARE ==
[~2022-04-27] VITALS: Ht 182.9 cm; Wt 95.2 kg
[~2022-04-27 10:22] MED LIST changes: +FUROSEMIDE20 MG PO; +SEROQUEL25 MG PO
== END 2022-04-27 14:16 | disposition home or self-care (01) ==
LOC: ED 10:22
DX: M79.641 Pain in right hand (principal); M79.671 Pain in right foot; I10 Essential (primary) hypertension; Z88.0 Allergy status to penicillin; Z88.8 Allergy status to other drugs, medicaments and biological substances; Z88.5 Allergy status to narcotic agent; Z79.899 Other long term (current) drug therapy; Z79.01 Long term (current) use of anticoagulants; Z79.82 Long term (current) use of aspirin
CPT/HCPCS: 73130; 73610; 73630; 99283-25; A9270

== ENCOUNTER 2023-02-20 11:40 | Emergency (ER) | payer MEDICARE, OTHER ==
--- OUTSIDE RECORDS SUMMARY | ~2023-02-20 | XMS | Continuity of Care Document ---
Demographics + + + | Address | [address] | | | [place] [address] | + + + | Preferred Language | Unknown | + + + | Marital Status | Polygamous | + + + | Yarsanism Affiliation | Unknown | + + + | Race | White | + + + | Ethnic Group | Not or | + + + Author + + + | Author | [facility] | + + + | Organization | [facility] | + + + | Address | [address] | | | [place] [address] | + + + | Phone | | + + + Care Team Providers + + + + | Care Software Development Advisor Name | Role | Phone | + [...] + | 2016-06-12 00:00 | Tdap | [facility] | + + + + | 2016-06-12 00:00 | Tdap | [facility] | + + + + | 2016-06-12 00:00 | Tdap | [facility] | + + + + | 2016-06-12 00:00 | Influenza, High Dose | [facility] | | | Seasonal | | + + + + | 2016-06-12 00:00 | Influenza, High Dose | [facility] | | | Seasonal | | + + + + | 2016-06-12 00:00 | Influenza, High Dose | [facility] | | | Seasonal | | + + + + Medications + + + + | date | description | facility | + + + + | 2022-03-16 00:00 | ASPIRIN | [facility] | + + + + | 2022-04-20 00:00 | ASPIRIN | [facility] | + + + + | 2022-04-27 00:00 | ASPIRIN | [facility] | + + + + | 2022-07-13 00:00 | ASPIRIN | [facility] | + + + + | 2022-04-27 00:00 | aspirin 325 MG Oral Tablet | [facility] | | | | | + + + + | 2022-03-16 00:00 | Cholecalciferol (Vitamin | [facility] | | | D3) | | + + + + | 2022-04-20 00:00 | Cholecalciferol (Vitamin | [facility] | | | D3) | | + + + + | 2022-04-27 00:00 | Cholecalciferol (Vitamin | [facility] | | | D3) | | + + + + | 2022-07-13 00:00 | Cholecalciferol (Vitamin | [facility] | | | D3) | | + + + + | 2022-04-27 00:00 | cholecalciferol 0.125 MG | [facility] | | | Oral Capsule | | + + + + | 2022-04-20 00:00 | FUROSEMIDE | [facility] | + + + + | 2022-04-27 00:00 | FUROSEMIDE | [facility] | + + + + | 2022-07-13 00:00 | FUROSEMIDE | [facility] | + + + + | 2022-04-27 00:00 | furosemide 20 MG Oral | [facility] | | | Tablet | | + + + + | 2022-03-16 00:00 | QUETIAPINE FUMARATE | [facility] | + + + + | 2022-04-20 00:00 | QUETIAPINE FUMARATE | [facility] | + + + + | 2022-04-27 00:00 | QUETIAPINE FUMARATE | [facility] | + + + + | 2022-07-13 00:00 | QUETIAPINE FUMARATE | [facility] | + + + + | 2022-04-27 00:00 | quetiapine 25 MG Oral | [facility] | | | Tablet | | + + + + | 2022-07-13 00:00 | LISINOPRIL | [facility] | + + + + | 2022-03-16 00:00 | ASPIRIN | [facility] | + + + + | 2022-04-20 00:00 | ASPIRIN | [facility] | + + + + | 2022-04-27 00:00 | ASPIRIN | [facility] | + + + + | 2022-07-13 00:00 | ASPIRIN | [facility] | + + + + | 2022-04-27 00:00 | aspirin 81 MG Chewable | [facility] | | | Tablet | | + + + + | 2022-03-16 00:00 | DULOXETINE HCL | [facility] | + + + + | 2022-04-20 00:00 | DULOXETINE HCL | [facility] | + + + + | 2022-04-27 00:00 | DULOXETINE HCL | [facility] | + + + + | 2022-07-13 00:00 | DULOXETINE HCL | [facility] | + + + + | 2022-04-27 00:00 | duloxetine 20 MG Delayed | [facility] | | | Release Oral Capsule | | + + + + | 2022-07-13 00:00 | Enoxaparin Sodium | [facility] | + + + + | 2022-03-16 00:00 | WARFARIN SODIUM | [facility] | + + + + | 2022-04-20 00:00 | WARFARIN SODIUM | [facility] | + + + + | 2022-04-27 00:00 | WARFARIN SODIUM | [facility] | + + + + | 2022-07-13 00:00 | WARFARIN SODIUM | [facility] | + + + + | 2022-04-27 00:00 | warfarin sodium 2.5 MG | [facility] | | | Oral Tablet | | + + + + | 2022-03-16 00:00 | Diclofenac Sodium | [facility] | + + + + | 2022-04-20 00:00 | Diclofenac Sodium | [facility] | + + + + | 2022-04-27 00:00 | Diclofenac Sodium | [facility] | + + + + | 2022-07-13 00:00 | Diclofenac Sodium | [facility] | + + + + | 2022-04-27 00:00 | diclofenac sodium 0.01 | [facility] | | | MG/MG Topical Gel | | + + + + | 2022-03-16 00:00 | HYDROCODONE | [facility] | | | BIT/ACETAMINOPHEN | | + + + + | 2022-04-20 00:00 | HYDROCODONE | [facility] | | | BIT/ACETAMINOPHEN | | + + + + | 2022-04-20 00:00 | HYDROCODONE | [facility] | | | BIT/ACETAMINOPHEN | | + + + + | 2022-04-20 00:00 | acetaminophen 325 MG / | [facility] | | | hydrocodone bitartrate 5 MG | | | | Oral Tabl | | + + + + | 2022-04-27 00:00 | 24 HR metoprolol succinate | [facility] | | | 50 MG Extended Release | | | | Oral Table | | + + + + | 2022-03-16 00:00 | METOPROLOL SUCCINATE | [facility] | + + + + | 2022-04-20 00:00 | METOPROLOL SUCCINATE | [facility] | + + + + | 2022-04-27 00:00 | METOPROLOL SUCCINATE | [facility] | + + + + | 2022-07-13 00:00 | METOPROLOL SUCCINATE | [facility] | + + + + | 2022-03-16 00:00 | METOPROLOL TARTRATE | [facility] | + + + + | 2022-04-20 00:00 | METOPROLOL TARTRATE | [facility] | + + + + | 2022-04-27 00:00 | METOPROLOL TARTRATE | [facility] | + + + + | 2022-07-13 00:00 | METOPROLOL TARTRATE | [facility] | + + + + | 2022-04-27 00:00 | metoprolol tartrate 25 MG | [facility] | | | Oral Tablet | | + + + + | 2022-07-13 00:00 | hydrOXYzine HCL | [facility] | + + + + Problems + + + + | date | description | facility | + + + + | 2015-11-01 00:00 | Angina at rest | [facility] | + + + + | 2015-11-01 00:00 | Angina at rest | [facility] | + + + + | 2015-11-01 00:00 | Angina at rest | [facility] | + + + + | 2015-11-01 00:00 | Angina at rest | [facility] | + + + + | 2020-01-27 00:00 | Cellulitis of foot | [facility] | + + + + | 2020-01-27 00:00 | Cellulitis of foot | [facility] | + + + + | 2020-01-27 00:00 | Cellulitis of foot | [facility] | + + + + | 2020-01-27 00:00 | Cellulitis of foot | [facility] | + + + + | 2022-04-27 00:00 | Right hand and foot pain | [facility] | + + + + | 2022-04-27 00:00 | Right hand and foot pain | [facility] | + + + + | 2022-04-27 00:00 | Right hand and foot pain | [facility] | + + + + | 2022-12-11 08:45 | ENCOUNTER FOR THERAPEUTIC | [facility] | | | DRUG LEVEL MONITORING | | + + + + | 2022-12-11 08:45 | SHELTER (CURRENT) USE OF | [facility] | | | ANTICOAGULANTS | | + + + + | 2023-02-05 08:44 | ENCOUNTER FOR THERAPEUTIC | [facility] | | | DRUG LEVEL MONITORING | | + + + + | 2023-02-05 08:44 | TEXTILE EXAMINER (CURRENT) USE OF | [facility] | | | ANTICOAGULANTS | | + + + + Procedures + + + + | date | description | facility | + + + + | 2022-04-20 00:00 | RELEASE MEDIAN NERVE, OPEN | [facility] | | | APPROACH | | + + + + | 2022-04-20 00:00 | RELEASE MEDIAN NERVE, OPEN | [facility] | | | APPROACH | | + + + + | 2016-06-12 00:00 | INTRODUCTION OF | [facility] | | | SERUM/TOX/VACCINE INTO | | | | MUSCLE, PERC APPROACH | | + + + + | 2022-04-20 00:00 | CARPAL TUNNEL SURGERY | [facility] | + + + + | 2022-04-20 00:00 | CARPAL TUNNEL SURGERY | [facility] | + + + + Results/Labs +--------+--------+ [...] 3 | + + + + + +-----+ + + | Blood ABO | 2016-06-11 | [facility] | O | (missing) | (missing) | | group typing | 23:30 | [facility] | | | | + + + +-----+ + + + + | Result panel 4 | + + + + + + + + + | Rh blood | 2016-06-11 | [facility] | NEGATIVE | (missing) | (missing) | | group typing | 23:30 | [facility] | | | | + + + + + + + + + | Result panel 5 | + + + + + + [...] 7 | + + + + + +--------+ + + | Blood pH | 2016-06-12 | [facility] | 7.34 | (missing) | (missing) | | | 08:00 | [facility] | | | | + + + +--------+ + + + + | Result panel 8 | + + + + + +--------+ [...] 9 | + + + + + +------+ [...] 11 | + + + + + +--------+ [...] 13 | + + + + + + [...] 15 | + + + + + +-------+ [...] 16 | + + + + + + [...] 18 | + + + + + +-------+ [...] 20 | + + + + + +-------+ + + | Osmolality | 2016-06-15 | [facility] | 318 | (missing) | (missing) | | of Urine | 14:10 | [facility] | | | | + + + +-------+ + + + + | Result panel 21 | + + + + + + [...] 22 | + + + + + +------+ [...] 24 | + + + + + +------+ [...] 25 | + + + + + +--------+ + + | * Body | 2016-06-15 | [facility] | 45.9 | (missing) | (missing) | | fluid anion | 14:10 | [facility] | | | | gap | | [facility] | | | | + + + +--------+ + + + + | Result panel 26 | + + + + + + [...] 27 | + + + + + +--------+ [...] 29 | + + + + + + [...] 30 | + + + + + + [...] 31 | + + + + + +---------+ + + | Specific | 2016-06-15 | [facility] | 1.014 | (missing) | (missing) | | gravity ur | 14:10 | [facility] | | | | dipstick | | [facility] | | | | + + + +---------+ + + + + | Result panel 32 | + + + + + +------+ [...] 34 | + + + + + + [...] 36 | + + + + + +-------+ [...] 37 | + + + + + +------+ + + | RBC #/area | 2016-06-15 | [facility] | 30 | (missing) | (missing) | | UrnS HPF | 14:10 | [facility] | [facility] | | | | + + + +------+ + + + + | Result panel 38 | + + + + + +-------+ [...] 39 | + + + + + + [...] 41 | + + + + + +------+ [...] 43 | + + + + + + [...] 44 | + + + + + +---------+ [...] 46 | + + + + + +--------+ [...] 47 | + + + + + +-------+ [...] 48 | + + + + + +--------+ + + | Automated | 2016-06-16 | [facility] | 26.9 | (missing) | (missing) | | blood | 05:55 | [facility] | | | | hematocrit | | [facility] | | | | + + + +--------+ + + + + | Result panel 49 | + + + + + +--------+ [...] 50 | + + + + + +------+ [...] 51 | + + + + + +------+ [...] 52 | + + + + + +--------+ [...] 53 | + + + + + +-------+ [...] 55 | + + + + + +------+ [...] 57 | + + + + + +-----+ [...] 58 | + + + + + +-----+ [...] 59 | + + + + + +------+ [...] 60 | + + + + + +-------+ [...] 61 | + + + + + +------+ [...] 62 | + + + + + +--------+ [...] 63 | + + + + + +------+ + + | Estimated | 2016-06-16 | [facility] | 14 | (missing) | (missing) | | glomerular | 05:55 | [facility] | | | | | filtration | | Hospital | | | | | rate (GFR) | | | | | | | non- | | | | | | | [place] | | | | | | + + + +------+ + + + + | Result panel 64 | + + + + + +--------+ [...] 65 | + + + + + +-------+ [...] 66 | + + + + + +-------+ [...] 67 | + + + + + +-------+ [...] 68 | + + + + + +------+ [...] 69 | + + + + + +--------+ [...] 71 | + + + + + +-------+ [...] 72 | + + + + + +-------+ [...] 73 | + + + + + +-------+ [...] 74 | + + + + + +------+ [...] 75 | + + + + + +------+ [...] 76 | + + + + + +-------+ [...] 78 | + + + + + +-------+ [...] 79 | + + + + + +-------+ [...] 80 | + + + + + +-------+ [...] 81 | + + + + + +-------+ [...] 82 | + + + + + +-------+ [...] 83 | + + + + + +------+ [...] 84 | + + + + + +------+ [...] 86 | + + + + + +-------+ [...] 88 | + + + + + +-----+ [...] 89 | + + + + + +-------+ + + | | 2022-03-13 | [facility] | 183 | (missing) | (missing) | | (unavailable | 12:05 | [facility] | | | | + + + +-------+ + + + + | Result panel 90 | + + + + + +--------+ + + | | 2022-03-13 | [facility] | 59.0 | (missing) | (missing) | | (unavailable | 12:05 | [facility] | | | | + + + +--------+ + + + + | Result panel 91 | + + + + + +--------+ + + | | 2022-03-13 | [facility] | 22.1 | (missing) | (missing) | | (unavailable | 12:05 | [facility] | | | | + + + +--------+ + + + + | Result panel 92 | + + + + + +--------+ [...] 94 | + + + + + +-------+ + + | | 2022-03-13 | [facility] | 1.2 | (missing) | (missing) | | (unavailable | 12:05 | [facility] | | | | + + + +-------+ + + + + | Result panel 95 | + + + + + +------+---------+ + | | 2022-03-13 | [facility] | 99 | mg/dL | (missing) | | (unavailable | 12:05 | [facility] | | | | + + + +------+---------+ + + + | Result panel 96 | + + + + + +------+---------+ + | | 2022-03-13 | [facility] | 36 | mg/dL | (missing) | | (unavailable | 12:05 | [facility] | | | | + + + +------+---------+ + + + | Result panel 97 | + + + + + +--------+---------+ + | | 2022-03-13 | [facility] | 1.49 | mg/dL | (missing) | | (unavailable | 12:05 | [facility] | | | | + + + +--------+---------+ + + + | Result panel 98 [...] 99 | + + + + + +-------+ + + | | 2022-03-13 | [facility] | 6.1 | (missing) | (missing) | | (unavailable | 12:05 | [facility] | | | | + + + +-------+ + + + + | Result panel 100 | + + + + + +---------+ + + | | 2022-03-13 | [facility] | 24.16 | (missing) | (missing) | | (unavailable | 12:05 | [facility] | | | | + + + +---------+ + + + + | Result panel 101 | + + + + + +-------+ [...] 103 | + + + + + +-------+ [...] 105 | + + + + + +--------+ + + | | 2022-03-13 | [facility] | 11.8 | (missing) | (missing) | | (unavailable | 12:05 | [facility] | | | | + + + +--------+ + + + + | Result panel 106 | + + + + + +-------+---------+ + | | 2022-03-13 | [facility] | 8.6 | mg/dL | (missing) | | (unavailable | 12:05 | [facility] | | | | + + + +-------+---------+ + + + | Result panel 107 | + + + + + +--------+ + + | | 2022-03-13 | [facility] | 4.42 | (missing) | (missing) | | (unavailable | 12:05 | [facility] | | | | + + + +--------+ + + + + | Result panel 108 | + + + + + +--------+ + + | | 2022-03-13 | [facility] | 13.6 | (missing) | (missing) | | (unavailable | 12:05 [facility] | | | | + + + +--------+ + + + + | Result panel 109 | + + + + + +--------+ + + | | 2022-03-13 | [facility] | 39.8 | (missing) | (missing) | | (unavailable | 12:05 | [facility] | | | | + + + +--------+ + + + + | Result panel 110 | + + + + + +--------+ + + | | 2022-03-13 | [facility] | 90.1 | (missing) | (missing) | | (unavailable | 12:05 | [facility] | | | | + + + +--------+ + + + + | Result panel 111 | + + + + + +--------+ [...] 113 | + + + + + +--------+ + + | | 2022-03-13 | [facility] | 14.2 | (missing) | (missing) | | (unavailable | 12:05 | [facility] | | | | + + + +--------+ + + + + | Result panel 114 | + + + + + + + + + | | 2022-03-14 | [facility] | NEGATIVE | (missing) | (missing) | | (unavailable | 08:24 | [facility] | | | | + + + + + + + Social History + + + + | date | description | facility | + + + + | 2022-04-27 00:00 | [facility] smoker [facility] | + + + + Vital Signs [...]
--- OUTSIDE RECORDS SUMMARY | ~2023-02-20 | XMS | Continuity of Care Document ---
Demographics + + + | Address | [address] | | | [place] [address] | + + + | Preferred Language | Unknown | + + + | Marital Status | Polygamous | + + + | Caodaism Affiliation | Unknown | + + + | Race | White | + + + | Ethnic Group | Not or | + + + Author + + + | Author | [facility] | + + + | Organization | [facility] | + + + | Address | [address] | | | [place] [address] | + + + | Phone | | + + + Care Team Providers + + + + | Care Associate Theatre Professor Name | Role | Phone | + [...] + | 2016-06-12 00:00 | Tdap | [facility] | + + + + | 2016-06-12 00:00 | Tdap | [facility] | + + + + | 2016-06-12 00:00 | Tdap | [facility] | + + + + | 2016-06-12 00:00 | Influenza, High Dose | [facility] | | | Seasonal | | + + + + | 2016-06-12 00:00 | Influenza, High Dose | [facility] | | | Seasonal | | + + + + | 2016-06-12 00:00 | Influenza, High Dose | [facility] | | | Seasonal | | + + + + Medications + + + + | date | description | facility | + + + + | 2022-03-16 00:00 | ASPIRIN | [facility] | + + + + | 2022-04-20 00:00 | ASPIRIN | [facility] | + + + + | 2022-04-27 00:00 | ASPIRIN | [facility] | + + + + | 2022-07-13 00:00 | ASPIRIN | [facility] | + + + + | 2022-04-27 00:00 | aspirin 325 MG Oral Tablet | [facility] | | | | | + + + + | 2022-03-16 00:00 | Cholecalciferol (Vitamin | [facility] | | | D3) | | + + + + | 2022-04-20 00:00 | Cholecalciferol (Vitamin | [facility] | | | D3) | | + + + + | 2022-04-27 00:00 | Cholecalciferol (Vitamin | [facility] | | | D3) | | + + + + | 2022-07-13 00:00 | Cholecalciferol (Vitamin | [facility] | | | D3) | | + + + + | 2022-04-27 00:00 | cholecalciferol 0.125 MG | [facility] | | | Oral Capsule | | + + + + | 2022-04-20 00:00 | FUROSEMIDE | [facility] | + + + + | 2022-04-27 00:00 | FUROSEMIDE | [facility] | + + + + | 2022-07-13 00:00 | FUROSEMIDE | [facility] | + + + + | 2022-04-27 00:00 | furosemide 20 MG Oral | [facility] | | | Tablet | | + + + + | 2022-03-16 00:00 | QUETIAPINE FUMARATE | [facility] | + + + + | 2022-04-20 00:00 | QUETIAPINE FUMARATE | [facility] | + + + + | 2022-04-27 00:00 | QUETIAPINE FUMARATE | [facility] | + + + + | 2022-07-13 00:00 | QUETIAPINE FUMARATE | [facility] | + + + + | 2022-04-27 00:00 | quetiapine 25 MG Oral | [facility] | | | Tablet | | + + + + | 2022-07-13 00:00 | LISINOPRIL | [facility] | + + + + | 2022-03-16 00:00 | ASPIRIN | [facility] | + + + + | 2022-04-20 00:00 | ASPIRIN | [facility] | + + + + | 2022-04-27 00:00 | ASPIRIN | [facility] | + + + + | 2022-07-13 00:00 | ASPIRIN | [facility] | + + + + | 2022-04-27 00:00 | aspirin 81 MG Chewable | [facility] | | | Tablet | | + + + + | 2022-03-16 00:00 | DULOXETINE HCL | [facility] | + + + + | 2022-04-20 00:00 | DULOXETINE HCL | [facility] | + + + + | 2022-04-27 00:00 | DULOXETINE HCL | [facility] | + + + + | 2022-07-13 00:00 | DULOXETINE HCL | [facility] | + + + + | 2022-04-27 00:00 | duloxetine 20 MG Delayed | [facility] | | | Release Oral Capsule | | + + + + | 2022-07-13 00:00 | Enoxaparin Sodium | [facility] | + + + + | 2022-03-16 00:00 | WARFARIN SODIUM | [facility] | + + + + | 2022-04-20 00:00 | WARFARIN SODIUM | [facility] | + + + + | 2022-04-27 00:00 | WARFARIN SODIUM | [facility] | + + + + | 2022-07-13 00:00 | WARFARIN SODIUM | [facility] | + + + + | 2022-04-27 00:00 | warfarin sodium 2.5 MG | [facility] | | | Oral Tablet | | + + + + | 2022-03-16 00:00 | Diclofenac Sodium | [facility] | + + + + | 2022-04-20 00:00 | Diclofenac Sodium | [facility] | + + + + | 2022-04-27 00:00 | Diclofenac Sodium | [facility] | + + + + | 2022-07-13 00:00 | Diclofenac Sodium | [facility] | + + + + | 2022-04-27 00:00 | diclofenac sodium 0.01 | [facility] | | | MG/MG Topical Gel | | + + + + | 2022-03-16 00:00 | HYDROCODONE | [facility] | | | BIT/ACETAMINOPHEN | | + + + + | 2022-04-20 00:00 | HYDROCODONE | [facility] | | | BIT/ACETAMINOPHEN | | + + + + | 2022-04-20 00:00 | HYDROCODONE | [facility] | | | BIT/ACETAMINOPHEN | | + + + + | 2022-04-20 00:00 | acetaminophen 325 MG / | [facility] | | | hydrocodone bitartrate 5 MG | | | | Oral Tabl | | + + + + | 2022-04-27 00:00 | 24 HR metoprolol succinate | [facility] | | | 50 MG Extended Release | | | | Oral Table | | + + + + | 2022-03-16 00:00 | METOPROLOL SUCCINATE | [facility] | + + + + | 2022-04-20 00:00 | METOPROLOL SUCCINATE | [facility] | + + + + | 2022-04-27 00:00 | METOPROLOL SUCCINATE | [facility] | + + + + | 2022-07-13 00:00 | METOPROLOL SUCCINATE | [facility] | + + + + | 2022-03-16 00:00 | METOPROLOL TARTRATE | [facility] | + + + + | 2022-04-20 00:00 | METOPROLOL TARTRATE | [facility] | + + + + | 2022-04-27 00:00 | METOPROLOL TARTRATE | [facility] | + + + + | 2022-07-13 00:00 | METOPROLOL TARTRATE | [facility] | + + + + | 2022-04-27 00:00 | metoprolol tartrate 25 MG | [facility] | | | Oral Tablet | | + + + + | 2022-07-13 00:00 | hydrOXYzine HCL | [facility] | + + + + Problems + + + + | date | description | facility | + + + + | 2015-11-01 00:00 | Angina at rest | [facility] | + + + + | 2015-11-01 00:00 | Angina at rest | [facility] | + + + + | 2015-11-01 00:00 | Angina at rest | [facility] | + + + + | 2015-11-01 00:00 | Angina at rest | [facility] | + + + + | 2020-01-27 00:00 | Cellulitis of foot | [facility] | + + + + | 2020-01-27 00:00 | Cellulitis of foot | [facility] | + + + + | 2020-01-27 00:00 | Cellulitis of foot | [facility] | + + + + | 2020-01-27 00:00 | Cellulitis of foot | [facility] | + + + + | 2022-04-27 00:00 | Right hand and foot pain | [facility] | + + + + | 2022-04-27 00:00 | Right hand and foot pain | [facility] | + + + + | 2022-04-27 00:00 | Right hand and foot pain | [facility] | + + + + | 2022-12-11 08:45 | ENCOUNTER FOR THERAPEUTIC | [facility] | | | DRUG LEVEL MONITORING | | + + + + | 2022-12-11 08:45 | SENIOR LIVING (CURRENT) USE OF | [facility] | | | ANTICOAGULANTS | | + + + + | 2023-02-05 08:44 | ENCOUNTER FOR THERAPEUTIC | [facility] | | | DRUG LEVEL MONITORING | | + + + + | 2023-02-05 08:44 | CORRECTIONAL MEDICINE PHYSICIAN (CURRENT) USE OF | [facility] | | | ANTICOAGULANTS | | + + + + Procedures + + + + | date | description | facility | + + + + | 2022-04-20 00:00 | RELEASE MEDIAN NERVE, OPEN | [facility] | | | APPROACH | | + + + + | 2022-04-20 00:00 | RELEASE MEDIAN NERVE, OPEN | [facility] | | | APPROACH | | + + + + | 2016-06-12 00:00 | INTRODUCTION OF | [facility] | | | SERUM/TOX/VACCINE INTO | | | | MUSCLE, PERC APPROACH | | + + + + | 2022-04-20 00:00 | CARPAL TUNNEL SURGERY | [facility] | + + + + | 2022-04-20 00:00 | CARPAL TUNNEL SURGERY | [facility] | + + + + Results/Labs [...] (missing) | | plasma | 05:55 | [facility] | | | | | glucose | [...] | | | | | | | [place] | | | | | | + [...] 2022-04-27 00:00 | Never smoker | [facility] | + + + + Vital [...]
[~2023-02-20 11:40] MED LIST changes: +ALLOPURINOL100 MG PO; +LOSARTAN POTASS25 MG PO; +LOVENOX40 MG/0.4; +OMEPRAZOLE20 MG PO
[2023-02-20 12:09] LABS: BASOPHILS 0.9 % (0-2); EOSINOPHILS 7.4 % (0-6); HEMATOCRIT 37.6 % (35.0-50.0); HEMOGLOBIN 12.6 g/dL (12.0-18.0); LYMPHOCYTES 24.6 % (24-44); MCH 30.2 (27-36); MCHC 33.5 g/dl (30-36); MCV 90.2 fl (81-99); MONOCYTES 9.8 % (0-12); NEUTROPHILS 57.3 % (39-80); PLATELET COUNT 173 K/uL (140-440); RBC 4.17 M/ul (4.3-5.7); RDW 14.5 (10.5-15.0)
[2023-02-20 12:27] LABS: ALBUMIN 3.8 g/dL (3.4-5.0); ALBUMIN/GLOBULIN RATIO 1.12 (1.1-2.4); ALCOHOL, MEDICAL <3 ng/dL (<3); ALKALINE PHOSPHATASE 66 U/L (46-116); ALT (SGPT) 22 U/L (14-59); ANION GAP 11.9 (7-21); AST (SGOT) 19 U/L (15-37); BILIRUBIN, TOTAL 0.5 ng/dL (0.2-1.0); CALCIUM 8.9 mg/dL (8.5-10.1); CARBON DIOXIDE 26 mmol/L (21-32); CHLORIDE 103 mmol/L (98-107); CREATININE, SERUM 2.06 mg/dL (0.70-1.30); GLOMERULAR FILTRATION RATE,EST 32 mL/min (>60); POTASSIUM 4.9 mmol/L (3.5-5.1); PROTEIN, TOTAL 7.2 g/dL (6.4-8.2); UREA NITROGEN 41 mg/dL (7-18)
[2023-02-20 12:40] LABS: INR 2.66 (0.80-1.30); PROTIME 27.5 Sec (11.2-14.2)
[2023-02-20 12:46] LABS: ABO O; ANTIBODY SCREEN NEGATIVE; RH NEGATIVE
[2023-02-20 13:58] LABS: AMPHETAMINES, UR NEGATIVE (NEGATIVE); BARBITURATES, UR NEGATIVE (NEGATIVE); BENZODIAZEPINES, UR NEGATIVE (NEGATIVE); BUPRENORPHINE,UR NEGATIVE (NEGATIVE); COCAINE, UR NEGATIVE (NEGATIVE); MARIJUANA (THC), UR NEGATIVE (NEGATIVE); MDMA, UR NEGATIVE (NEGATIVE); METHADONE, UR NEGATIVE (NEGATIVE); METHAMPHETAMINE, UR NEGATIVE (NEGATIVE); OPIATES, UR NEGATIVE (NEGATIVE); OXYCODONE, UR NEGATIVE (NEGATIVE); PHENCYCLIDINE, UR NEGATIVE (NEGATIVE); TRICYCLIC ANTIDEPRESSANT, UR NEGATIVE (NEGATIVE)
[2023-02-20] MEDS ORDERED: HYDROCODON-ACE1 EA10 PO (14:48)
[2023-02-20 14:50] VITALS: BP 153/78
== END 2023-02-20 14:50 | disposition home or self-care (01) ==
LOC: ED 11:40
PROVIDERS: Emergency Medicine
DX: S02.2XXA Fracture of nasal bones, initial encounter for closed fracture (principal); S51.811A Laceration without foreign body of right forearm, initial encounter; W18.39XA Other fall on same level, initial encounter; I10 Essential (primary) hypertension; Z88.0 Allergy status to penicillin; Z88.5 Allergy status to narcotic agent; Z88.8 Allergy status to other drugs, medicaments and biological substances; Z79.899 Other long term (current) drug therapy; Z79.01 Long term (current) use of anticoagulants
CPT/HCPCS: 12034; 36415; 70450; 70486; 73110; 80053; 85025; 85610; 86850; 86900; 86901; 99284-25; G0480

== ENCOUNTER 2023-02-21 10:45 | Emergency (ER) | payer MEDICARE, OTHER ==
[~2023-02-21] VITALS: Ht 182.9 cm; Wt 83.9 kg
--- OUTSIDE RECORDS SUMMARY | ~2023-02-21 | XMS | Continuity of Care Document ---
Demographics + + + | Address | [address] | | | [place] [address] | + + + | Preferred Language | Unknown | + + + | Marital Status | Domestic partner | + + + | Oriental Orthodox Affiliation | Unknown | + + + | Race | White | + + + | Ethnic Group | Not or | + + + Author + + + | Author | [facility] | + + + | Organization | [facility] | + + + | Address | [address] | | | [place] [address] | + + + | Phone | | + + + Care Team Providers + + + + | Care Group Captain Name | Role | Phone | + + + + Unavailable | Unavailable | + + + + Unavailable | Unavailable | + + + + Unavailable | Unavailable | + + + + Unavailable | Unavailable | + + + + Unavailable | Unavailable | + + + + Unavailable | Unavailable | + + + + Unavailable | Unavailable | + + + + Allergies and Intolerances + + + + + + | date | description | facility | reaction | severity | + + + + + + | (no date) | Urticaria | [facility] | (no reaction) | (no severity) | | [facility] | | | + + + + + + | (no date) | Syncope | [facility] | (no reaction) | (no severity) | | | [facility] | | | + + + + + + | (no date) | Morphine | [facility] | (no reaction) | (no severity) | | | [facility] | | | + + + + + + | (no date) | Nitroglycerin | [facility] | (no reaction) | (no severity) | | | [facility] | | | + + + + + + | (no date) | Nitroglycerin | [facility] | (no reaction) | (no severity) | | | [facility] | | | + + + + + + | (no date) | nitroglycerin | [facility] | (no reaction) | (no severity) | | | [facility] | | | + + + + + + | (no date) | Hallucinations | [facility] | (no reaction) | (no severity) | | | | [facility] | | | + + + + + + | (no date) | Morphine | [facility] | (no reaction) | (no severity) | | | | [facility] | | | + + + + + + | (no date) | morphine | [facility] | (no reaction) | (no severity) | | | [facility] | | | + + + + + + | (no date) | Penicillin | [facility] | (no reaction) | (no severity) | | | [facility] | | | + + + + + + | (no date) | Penicillin | [facility] | (no reaction) | (no severity) | | | | [facility] | | | + + + + + + | (no date) | Morphine | [facility] | (no reaction) | (no severity) | | | | [facility] | | | + + + + + + | (no date) | Penicillins | [facility] | (no reaction) | (no severity) | + + + + + + | (no date) | nitroglycerin | [facility] | (no reaction) | (no severity) | + + + + + + | (no date) | morphine | [facility] | (no reaction) | (no severity) | + + + + + + | (no date) | Nitroglycerin | [facility] | (no reaction) | (no severity) | | | | [facility] | | | + + + + + + | (no date) | Penicillin | [facility] | (no reaction) | (no severity) | | | | [facility] | | | + + + + + + | (no date) | Penicillins | [facility] | (no reaction) | (no severity) | | | | [facility] | | | + + + + + + | (no date) | Penicillin | [facility] | (no reaction) | (no severity) | | | [facility] | | | + + + + + + Encounters No information. Functional Status No information. Immunizations + + + + | date | description | facility | + + + + | 2016-06-12 00:00 | Tdap | [facility] | + + + + | 2016-06-12 00:00 | Tdap | [facility] | + + + + | 2016-06-12 00:00 | Tdap | [facility] | + + + + | 2016-06-12 00:00 | Tdap | [facility] | + + + + | 2016-06-12 00:00 | Influenza, High Dose | [facility] | | | Seasonal | | + + + + | 2016-06-12 00:00 | Influenza, High Dose | [facility] | | | Seasonal | | + + + + | 2016-06-12 00:00 | Influenza, High Dose | [facility] | | | Seasonal | | + + + + | 2016-06-12 00:00 | Influenza, High Dose | [facility] | | | Seasonal | | + + + + Medications + + + + | date | description | facility | + + + + | 2023-02-20 00:00 | ALLOPURINOL | [facility] | + + + + | 2023-02-20 00:00 | allopurinol 100 MG Oral | [facility] | | | Tablet | | + + + + | 2023-02-20 00:00 | OMEPRAZOLE | [facility] | + + + + | 2023-02-20 00:00 | omeprazole 20 MG Delayed | [facility] | | | Release Oral Capsule | | + + + + | 2022-03-16 00:00 | ASPIRIN | [facility] | + + + + | 2022-04-20 00:00 | ASPIRIN | [facility] | + + + + | 2022-04-27 00:00 | ASPIRIN | [facility] | + + + + | 2022-07-13 00:00 | ASPIRIN | [facility] | + + + + | 2023-02-20 00:00 | ASPIRIN | [facility] | + + + + | 2022-04-27 00:00 | aspirin 325 MG Oral Tablet | [facility] | | | | | + + + + | 2023-02-20 00:00 | aspirin 325 MG Oral Tablet | [facility] | | | | | + + + + | 2022-03-16 00:00 | Cholecalciferol (Vitamin | [facility] | | | D3) | | + + + + | 2022-04-20 00:00 | Cholecalciferol (Vitamin | [facility] | | | D3) | | + + + + | 2022-04-27 00:00 | Cholecalciferol (Vitamin | [facility] | | | D3) | | + + + + | 2022-07-13 00:00 | Cholecalciferol (Vitamin | [facility] | | | D3) | | + + + + | 2023-02-20 00:00 | Cholecalciferol (Vitamin | [facility] | | | D3) | | + + + + | 2022-04-27 00:00 | cholecalciferol 0.125 MG | [facility] | | | Oral Capsule | | + + + + | 2023-02-20 00:00 | cholecalciferol 0.125 MG | [facility] | | | Oral Capsule | | + + + + | 2022-04-20 00:00 | FUROSEMIDE | [facility] | + + + + | 2022-04-27 00:00 | FUROSEMIDE | [facility] | + + + + | 2022-07-13 00:00 | FUROSEMIDE | [facility] | + + + + | 2023-02-20 00:00 | FUROSEMIDE | [facility] | + + + + | 2022-04-27 00:00 | furosemide 20 MG Oral | [facility] | | | Tablet | | + + + + | 2023-02-20 00:00 | furosemide 20 MG Oral | [facility] | | | Tablet | | + + + + | 2022-03-16 00:00 | QUETIAPINE FUMARATE | [facility] | + + + + | 2022-04-20 00:00 | QUETIAPINE FUMARATE | [facility] | + + + + | 2022-04-27 00:00 | QUETIAPINE FUMARATE | [facility] | + + + + | 2022-07-13 00:00 | QUETIAPINE FUMARATE | [facility] | + + + + | 2023-02-20 00:00 | QUETIAPINE FUMARATE | [facility] | + + + + | 2022-04-27 00:00 | quetiapine 25 MG Oral | [facility] | | | Tablet | | + + + + | 2023-02-20 00:00 | quetiapine 25 MG Oral | [facility] | | | Tablet | | + + + + | 2022-07-13 00:00 | LISINOPRIL | [facility] | + + + + | 2022-03-16 00:00 | ASPIRIN | [facility] | + + + + | 2022-04-20 00:00 | ASPIRIN | [facility] | + + + + | 2022-04-27 00:00 | ASPIRIN | [facility] | + + + + | 2022-07-13 00:00 | ASPIRIN | [facility] | + + + + | 2023-02-20 00:00 | ASPIRIN | [facility] | + + + + | 2022-04-27 00:00 | aspirin 81 MG Chewable | [facility] | | | Tablet | | + + + + | 2023-02-20 00:00 | aspirin 81 MG Chewable | [facility] | | | Tablet | | + + + + | 2022-03-16 00:00 | DULOXETINE HCL | [facility] | + + + + | 2022-04-20 00:00 | DULOXETINE HCL | [facility] | + + + + | 2022-04-27 00:00 | DULOXETINE HCL | [facility] | + + + + | 2022-07-13 00:00 | DULOXETINE HCL | [facility] | + + + + | 2023-02-20 00:00 | DULOXETINE HCL | [facility] | + + + + | 2022-04-27 00:00 | duloxetine 20 MG Delayed | [facility] | | | Release Oral Capsule | | + + + + | 2023-02-20 00:00 | duloxetine 20 MG Delayed | [facility] | | | Release Oral Capsule | | + + + + | 2022-07-13 00:00 | Enoxaparin Sodium | [facility] | + + + + | 2022-03-16 00:00 | WARFARIN SODIUM | [facility] | + + + + | 2022-04-20 00:00 | WARFARIN SODIUM | [facility] | + + + + | 2022-04-27 00:00 | WARFARIN SODIUM | [facility] | + + + + | 2022-07-13 00:00 | WARFARIN SODIUM | [facility] | + + + + | 2023-02-20 00:00 | WARFARIN SODIUM | [facility] | + + + + | 2022-04-27 00:00 | warfarin sodium 2.5 MG | [facility] | | | Oral Tablet | | + + + + | 2023-02-20 00:00 | warfarin sodium 2.5 MG | [facility] | | | Oral Tablet | | + + + + | 2022-03-16 00:00 | Diclofenac Sodium | [facility] | + + + + | 2022-04-20 00:00 | Diclofenac Sodium | [facility] | + + + + | 2022-04-27 00:00 | Diclofenac Sodium | [facility] | + + + + | 2022-07-13 00:00 | Diclofenac Sodium | [facility] | + + + + | 2023-02-20 00:00 | Diclofenac Sodium | [facility] | + + + + | 2022-04-27 00:00 | diclofenac sodium 0.01 | [facility] | | | MG/MG Topical Gel | | + + + + | 2023-02-20 00:00 | diclofenac sodium 0.01 | [facility] | | | MG/MG Topical Gel | | + + + + | 2022-03-16 00:00 | HYDROCODONE | [facility] | | | BIT/ACETAMINOPHEN | | + + + + | 2022-04-20 00:00 | HYDROCODONE | [facility] | | | BIT/ACETAMINOPHEN | | + + + + | 2022-04-20 00:00 | HYDROCODONE | [facility] | | | BIT/ACETAMINOPHEN | | + + + + | 2023-02-20 00:00 | HYDROCODONE | [facility] | | | BIT/ACETAMINOPHEN | | + + + + | 2022-04-20 00:00 | acetaminophen 325 MG / | [facility] | | | hydrocodone bitartrate 5 MG | | | | Oral Tabl | | + + + + | 2023-02-20 00:00 | acetaminophen 325 MG / | [facility] | | | hydrocodone bitartrate 5 MG | | | | Oral Tabl | | + + + + | 2023-02-20 00:00 | ROSUVASTATIN CALCIUM | [facility] | + + + + | 2023-02-20 00:00 | rosuvastatin calcium 20 MG | [facility] | | | Oral Tablet [Crestor] | | + + + + | 2022-04-27 00:00 | 24 HR metoprolol succinate | [facility] | | | 50 MG Extended Release | | | | Oral Table | | + + + + | 2023-02-20 00:00 | 24 HR metoprolol succinate | [facility] | | | 50 MG Extended Release | | | | Oral Table | | + + + + | 2022-03-16 00:00 | METOPROLOL SUCCINATE | [facility] | + + + + | 2022-04-20 00:00 | METOPROLOL SUCCINATE | [facility] | + + + + | 2022-04-27 00:00 | METOPROLOL SUCCINATE | [facility] | + + + + | 2022-07-13 00:00 | METOPROLOL SUCCINATE | [facility] | + + + + | 2023-02-20 00:00 | METOPROLOL SUCCINATE | [facility] | + + + + | 2022-03-16 00:00 | METOPROLOL TARTRATE | [facility] | + + + + | 2022-04-20 00:00 | METOPROLOL TARTRATE | [facility] | + + + + | 2022-04-27 00:00 | METOPROLOL TARTRATE | [facility] | + + + + | 2022-07-13 00:00 | METOPROLOL TARTRATE | [facility] | + + + + | 2023-02-20 00:00 | METOPROLOL TARTRATE | [facility] | + + + + | 2022-04-27 00:00 | metoprolol tartrate 25 MG | [facility] | | | Oral Tablet | | + + + + | 2023-02-20 00:00 | metoprolol tartrate 25 MG | [facility] | | | Oral Tablet | | + + + + | 2023-02-20 00:00 | LOSARTAN POTASSIUM | [facility] | + + + + | 2023-02-20 00:00 | losartan potassium 25 MG | [facility] | | | Oral Tablet | | + + + + | 2022-07-13 00:00 | hydrOXYzine HCL | [facility] | + + + + Problems + + + + | date | description | facility | + + + + | 2015-11-01 00:00 | Angina at rest | [facility] | + + + + | 2015-11-01 00:00 | Angina at rest | [facility] | + + + + | 2015-11-01 00:00 | Angina at rest | [facility] | + + + + | 2015-11-01 00:00 | Angina at rest | [facility] | + + + + | 2015-11-01 00:00 | Angina at rest | [facility] | + + + + | 2020-01-27 00:00 | Cellulitis of foot | [facility] | + + + + | 2020-01-27 00:00 | Cellulitis of foot | [facility] | + + + + | 2020-01-27 00:00 | Cellulitis of foot | [facility] | + + + + 2020-01-27 00:00 | Cellulitis of foot | [facility] | + + + + | 2020-01-27 00:00 | Cellulitis of foot | [facility] | + + + + | 2022-04-27 00:00 | Right hand and foot pain | [facility] | + + + + | 2022-04-27 00:00 | Right hand and foot pain | [facility] | + + + + | 2022-04-27 00:00 | Right hand and foot pain | [facility] | + + + + | 2022-04-27 00:00 | Right hand and foot pain | [facility] | + + + + | 2022-07-13 10:52 | Essential (primary) | [facility] | | | hypertension | | + + + + | 2022-07-13 10:52 | DUODENITIS WITHOUT | [facility] | | | BLEEDING | | + + + + | 2022-07-13 10:52 | DIAPHRAGMATIC HERNIA | [facility] | | | WITHOUT OBSTRUCTION OR | | | | GANGRENE | | + + + + | 2022-07-13 10:52 | DYSPHAGIA, UNSPECIFIED | [facility] | + + + + | 2022-08-28 09:25 | ACUTE EMBOLISM AND THOMBOS | [facility] | | | UNSP DEEP VN UNSP LOWER | | + + + + | 2022-08-28 09:25 | ENCOUNTER FOR THERAPEUTIC | [facility] | | | DRUG LEVEL MONITORING | | + + + + | 2022-08-28 09:25 | ASSISTED (CURRENT) USE OF | [facility] | | | ANTICOAGULANTS | | + + + + | 2022-09-25 09:09 | ACUTE EMBOLISM AND THOMBOS | [facility] | | | UNSP DEEP VN UNSP LOWER | | + + + + | 2022-09-25 09:09 | ENCOUNTER FOR THERAPEUTIC | [facility] | | | DRUG LEVEL MONITORING | | + + + + | 2022-09-25 09:09 | ASSISTED (CURRENT) USE OF | [facility] | | | ANTICOAGULANTS | | + + + + | 2022-10-23 09:00 | Essential (primary) | [facility] | | | hypertension | | + + + + | 2022-10-23 09:00 | ACUTE EMBOLISM AND THOMBOS | [facility] | | | UNSP DEEP VN UNSP LOWER | | + + + + | 2022-10-23 09:00 | ENCOUNTER FOR THERAPEUTIC | [facility] | | | DRUG LEVEL MONITORING | | + + + + | 2022-10-23 09:00 | ASSISTED (CURRENT) USE OF | [facility] | | | ANTICOAGULANTS | | + + + + | 2022-10-23 09:00 | 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 | | + + + + | 2022-12-11 08:45 | ENCOUNTER FOR THERAPEUTIC | [facility] | | | DRUG LEVEL MONITORING | | + + + + | 2022-12-11 08:45 | 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 OF | [facility] | | | ANTICOAGULANTS | | + + + + | 2023-02-05 08:44 | ENCOUNTER FOR THERAPEUTIC | [facility] | | | DRUG LEVEL MONITORING | | + + + + | 2023-02-05 08:44 | 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 OF | [facility] | | | ANTICOAGULANTS | | + + + + | 2023-02-20 00:00 | Laceration of forearm, | [facility] | | | right | | + + + + | 2023-02-20 00:00 | Fall | [facility] | + + + + | 2023-02-20 00:00 | Nasal fracture | [facility] | + + + + | 2023-02-20 00:00 | Fracture of nasal bone | [facility] | + + + + | 2023-02-20 00:00 | Laceration of right | [facility] | | | forearm | | + + + + | 2023-02-20 00:00 | Fall | [facility] | + + + + Procedures + + + + | date | description | facility | + + + + | 2022-04-20 00:00 | RELEASE MEDIAN NERVE, OPEN | [facility] | | | APPROACH | | + + + + | 2022-04-20 00:00 | RELEASE MEDIAN NERVE, OPEN | [facility] | | | APPROACH | | + + + + | 2016-06-12 00:00 | INTRODUCTION OF | [facility] | | | SERUM/TOX/VACCINE INTO | | | | MUSCLE, PERC APPROACH | | + + + + | 2022-04-20 00:00 | CARPAL TUNNEL SURGERY | [facility] | + + + + | 2022-04-20 00:00 | CARPAL TUNNEL SURGERY | [facility] | + + + + Results/Labs +--------+--------+ +---------+--------+---------+ | test | date | facility | value | unit | notes | +--------+--------+ +---------+--------+---------+ + + | Result panel 1 | + + + + + +------+ + + | Serum or | 2016-06-11 | [facility] | 47 | (missing) | (missing) | | plasma | 23:30 | [facility] | | | | amylase | | [facility] | | | | | measurement | | | | | | + + + +------+ + + + + | Result panel 2 | + + + + + +-------+ + + | Serum or | 2016-06-11 | [facility] | <10 | (missing) | (missing) | | plasma | 23:30 | [facility] | | | | | ethanol | | Hospital | | | | | measurement | | | | | | | (moles/volum | | | | | | | e) | | | | | | + + + +-------+ + + + + | Result panel 3 | + + + + + +------+ + + | Serum or | 2016-06-11 | [facility] | 47 | (missing) | (missing) | | plasma | 23:30 | [facility] | | | | | amylase | | [facility] | | | | | measurement | | | | | | + + + +------+ + + + + | Result panel 4 | + + + + + +-------+ + + | Serum or | 2016-06-11 | [facility] | <10 | (missing) | (missing) | | plasma | 23:30 | [facility] | | | | | ethanol | | Hospital | | | | | measurement | | | | | | | (moles/volum | | | | | | | e) | | | | | | + + + +-------+ + + + + | Result panel 5 | + + + + + +-----+ + + | Blood ABO | 2016-06-11 | [facility] | O | (missing) | (missing) | | group typing | 23:30 | [facility] | | | | + + + +-----+ + + + + | Result panel 6 | + + + + + + + + + | Rh blood | 2016-06-11 | [facility] | NEGATIVE | (missing) | (missing) | | group typing | 23:30 | [facility] | | | | + + + + + + + + + | Result panel 7 | + + + + + + + + + | Serum or | 2016-06-11 | [facility] | NEGATIVE | (missing) | (missing) | | plasma | 23:30 | [facility] | | | | | indirect | | Hospital | | | | | antiglobulin | | | | | | | test using | | | | | | | poly | | | | | | | specific | | | | | | | reagent | | | | | | + + + + + + + + + | Result panel 8 | + + + + + + + + + | Transf Band | 2016-06-11 | [facility] | [id number] | (missing) | (missing) | | Num Patient | 23:30 | [facility] | | | | + + + + + + + + + | Result panel 9 | + + + + + +--------+ + + | Blood pH | 2016-06-12 | [facility] | 7.34 | (missing) | (missing) | | | 08:00 | [facility] | | | | + + + +--------+ + + + + | Result panel 10 | + + + + + +--------+ + + | Blood | 2016-06-12 | [facility] | 36.6 | (missing) | (missing) | | partial | 08:00 | [facility] | | | | | pressure of | | Hospital | | | | | carbon | | | | | | | dioxide | | | | | | | measurement | | | | | | + + + +--------+ + + + + | Result panel 11 | + + + + + +------+ + + | Blood | 2016-06-12 | [facility] | 82 | (missing) | (missing) | | partial | 08:00 | [facility] | | | | | pressure of | | Hospital | | | | | oxygen | | | | | | | measurement | | | | | | + + + +------+ + + + + | Result panel 12 | + + + + + +--------+ + + | Blood | 2016-06-12 | [facility] | 19.3 | (missing) | (missing) | | bicarbonate | 08:00 | [facility] | | | | | measurement | | Hospital | | | | | (moles/volum | | | | | | | e) | | | | | | + + + +--------+ + + + + | Result panel 13 | + + + + + +--------+ + + | Blood base | 2016-06-12 | [facility] | -5.4 | (missing) | (missing) | | excess by | 08:00 | [facility] | | | | | calculation | | [facility] | | | | + + + +--------+ + + + + | Result panel 14 | + + + + + +--------+ + + | Whole blood | 2016-06-12 | [facility] | 97.0 | (missing) | (missing) | | oxygen | 08:00 | [facility] | | | | | saturation | | Hospital | | | | | measurement | | | | | | + + + +--------+ + + + + | Result panel 15 | + + + + + + + + + | Oxygen | 2016-06-12 | [facility] | ROOM AIR | (missing) | (missing) | | therapy | 08:00 | [facility] | [facility] | | | | + + + + + + + + + | Result panel 16 | + + + + + +--------+ + + | Blood | 2016-06-12 | [facility] | 20.4 | (missing) | (missing) | | carbon | 08:00 | [facility] | | | | | dioxide, | | Hospital | | | | | total | | | | | | | measurement | | | | | | | (moles/volum | | | | | | | e) | | | | | | + + + +--------+ + + + + | Result panel 17 | + + + + + +-------+ + + | Arterial | 2016-06-12 | [facility] | 1.2 | (missing) | (missing) | | blood | 08:00 | [facility] | | | | | carboxyhemog | | Hospital | | | | | lobin/total | | | | | | | hemoglobin | | | | | | + + + +-------+ + + + + | Result panel 18 | + + + + + + + + + | Specimen | 2016-06-12 | [facility] | ARTERIAL | (missing) | (missing) | | type | 08:00 | [facility] | | | | + + + + + + + + + | Result panel 19 | + + + + + +--------+ + + | Blood pH | 2016-06-12 | [facility] | 7.34 | (missing) | (missing) | | | 08:00 | [facility] | | | | + + + +--------+ + + + + | Result panel 20 | + + + + + +--------+ + + | Blood | 2016-06-12 | [facility] | 36.6 | (missing) | (missing) | | partial | 08:00 | [facility] | | | | | pressure of | | Hospital | | | | | carbon | | | | | | | dioxide | | | | | | | measurement | | | | | | + + + +--------+ + + + + | Result panel 21 | + + + + + +------+ + + | Blood | 2016-06-12 | [facility] | 82 | (missing) | (missing) | | partial | 08:00 | [facility] | | | | | pressure of | | Hospital | | | | | oxygen | | | | | | | measurement | | | | | | + + + +------+ + + + + | Result panel 22 | + + + + + +--------+ + + | Blood | 2016-06-12 | [facility] | 19.3 | (missing) | (missing) | | bicarbonate | 08:00 | [facility] | | | | | measurement | | Hospital | | | | | (moles/volum | | | | | | | e) | | | | | | + + + +--------+ + + + + | Result panel 23 | + + + + + +--------+ + + | Blood base | 2016-06-12 | [facility] | -5.4 | (missing) | (missing) | | excess by | 08:00 | [facility] | | | | | calculation | | Hospital | | | | + + + +--------+ + + + + | Result panel 24 | + + + + + +--------+ + + | Whole blood | 2016-06-12 | [facility] | 97.0 | (missing) | (missing) | | oxygen | 08:00 | [facility] | | | | | saturation | | Hospital | | | | | measurement | | | | | | + + + +--------+ + + + + | Result panel 25 | + + + + + + + + + | Oxygen | 2016-06-12 | [facility] | ROOM AIR | (missing) | (missing) | | therapy | 08:00 | [facility] | | [facility] | | | | + + + + + + + + + | Result panel 26 | + + + + + +--------+ + + | Blood | 2016-06-12 | [facility] | 20.4 | (missing) | (missing) | | carbon | 08:00 | [facility] | | | | | dioxide, | | Hospital | | | | | total | | | | | | | measurement | | | | | | | (moles/volum | | | | | | | e) | | | | | | + + + +--------+ + + + + | Result panel 27 | + + + + + +-------+ + + | Arterial | 2016-06-12 | [facility] | 1.2 | (missing) | (missing) | | blood | 08:00 | [facility] | | | | | carboxyhemog | | Hospital | | | | | lobin/total | | | | | | | hemoglobin | | | | | | + + + +-------+ + + + + | Result panel 28 | + + + + + + + + + | Specimen | 2016-06-12 | [facility] | ARTERIAL | (missing) | (missing) | | type | 08:00 | [facility] | | | | + + + + + + + + + | Result panel 29 | + + + + + +-------+ + + | Serum or | 2016-06-15 | [facility] | 148 | (missing) | (missing) | | plasma | 00:00 | [facility] | | | | | creatine | | [facility] | | | | | kinase | | | | | | | measurement | | | | | | | (enzymatic | | | | | | | activity/vol | | | | | | | ume) | | | | | | + + + +-------+ + + + + | Result panel 30 | + + + + + +-------+ + + | Serum or | 2016-06-15 | [facility] | 148 | (missing) | (missing) | | plasma | 00:00 | [facility] | | | | | creatine | | [facility] | | | | | kinase | | | | | | | measurement | | | | | | | (enzymatic | | | | | | | activity/vol | | | | | | | ume) | | | | | | + + + +-------+ + + + + | Result panel 31 | + + + + + +-------+ + + | Osmolality | 2016-06-15 | [facility] | 289 | (missing) | (missing) | | of Serum or | 06:10 | [facility] | | | | Plasma | | [facility] | | | | + + + +-------+ + + + + | Result panel 32 | + + + + + +-------+ + + | Osmolality | 2016-06-15 | [facility] | 289 | (missing) | (missing) | | of Serum or | 06:10 | [facility] | [facility] Plasma | | [facility] | | | | + + + +-------+ + + + + | Result panel 33 | + + + + + + + + + | Color of | 2016-06-15 | [facility] | YELLOW | (missing) | (missing) | | Urine by | 14:10 | [facility] | | | | | Auto | | [facility] | | | | + + + + + + + + + | Result panel 34 | + + + + + +--------+ + + | Character | 2016-06-15 | [facility] | HAZY | (missing) | (missing) | | of Urine | 14:10 | [facility] | | | | + + + +--------+ + + + + | Result panel 35 | + + + + + + + + + | Glucose | 2016-06-15 | [facility] | NORMAL | (missing) | (missing) | | [Presence] | 14:10 | [facility] | | | | | in Urine by | | Hospital | | | | | Test strip | | | | | | + + + + + + + + + | Result panel 36 | + + + + + + + + + | Urine total | 2016-06-15 | [facility] | NEGATIVE | (missing) | (missing) | | bilirubin | 14:10 | [facility] | | | | | detection by | | Hospital | | | | | test strip | | | | | | + + + + + + + + + | Result panel 37 | + + + + + + + + + | Urine | 2016-06-15 | [facility] | NEGATIVE | (missing) | (missing) | | ketones | 14:10 | [facility] | | | | | detection by | | Hospital | | | | | test strip | | | | | | + + + + + + + + + | Result panel 38 | + + + + + +---------+ + + | Specific | 2016-06-15 | [facility] | 1.014 | (missing) | (missing) | | gravity ur | 14:10 | [facility] | | | | | dipstick | | Hospital | | | | + + + +---------+ + + + + | Result panel 39 | + + + + + +------+ + + | Urine | 2016-06-15 | [facility] | 50 | (missing) | (missing) | | hemoglobin | 14:10 | [facility] | | | | | detection by | | Hospital | | | | | test strip | | | | | | + + + +------+ + + + + | Result panel 40 | + + + + + + + + + | Protein | 2016-06-15 | [facility] | NEGATIVE | (missing) | (missing) | | urine test | 14:10 | [facility] | | | | | strip | | Hospital | | | | + + + + + + + + + | Result panel 41 | + + + + + + + + + | | 2016-06-15 | [facility] | NORMAL | (missing) | (missing) | | Urobilinogen | 14:10 | [facility] | | | | | | | [facility] | | | | | [Mass/volume | | | | | | | ] in Urine | | | | | | | by Test | | | | | | | strip | | | | | | + + + + + + + + + | Result panel 42 | + + + + + + + + + | Urine | 2016-06-15 | [facility] | NEGATIVE | (missing) | (missing) | | nitrite | 14:10 | [facility] | | | | | detection by | | Hospital | | | | | test strip | | | | | | + + + + + + + + + | Result panel 43 | + + + + + +-------+ + + | Urine | 2016-06-15 | [facility] | 100 | (missing) | (missing) | | leukocyte | 14:10 | [facility] | | | | | esterase | | Hospital | | | | | detection by | | | | | | | dipstick | | | | | | + + + +-------+ + + + + | Result panel 44 | + + + + + +------+ + + | RBC #/area | 2016-06-15 | [facility] | 30 | (missing) | (missing) | | UrnS HPF | 14:10 | [facility] | | | | | | [facility] | | | | + + + +------+ + + + + | Result panel 45 | + + + + + +-------+ + + | Automated | 2016-06-15 | [facility] | >50 | (missing) | (missing) | | urine | 14:10 | [facility] | | | | | sediment | | Hospital | | | | | leukocyte | | | | | | | count by | | | | | | | microscopy | | | | | | | (number/high | | | | | | | power | | | | | | | field) | | | | | | + + + +-------+ + + + + | Result panel 46 | + + + + + + + + + | Automated | 2016-06-15 | [facility] | NEGATIVE | (missing) | (missing) | | urine | 14:10 | [facility] | | | | | sediment | | Hospital | | | | | epithelial | | | | | | | cell count | | | | | | | by | | | | | | | microscopy | | | | | | | (number/high | | | | | | | power | | | | | | | field) | | | | | | + + + + + + + + + | Result panel 47 | + + + + + + + + + | Crystal | 2016-06-15 | [facility] | NEGATIVE | (missing) | (missing) | | typing in | 14:10 | [facility] | | | | | urine | | Hospital | | | | | sediment by | | | | | | | light | | | | | | | microscopy | | | | | | + + + + + + + + + | Result panel 48 | + + + + + +------+ + + | Automated | 2016-06-15 | [facility] | 1+ | (missing) | (missing) | | urine | 14:10 | [facility] | | | | | sediment | | Hospital | | | | | bacteria | | | | | | | count by | | | | | | | microscopy | | | | | | | (number/high | | | | | | | power | | | | | | | field) | | | | | | + + + +------+ + + + + | Result panel 49 | + + + + + + + + + | Automated | 2016-06-15 | [facility] | NEGATIVE | (missing) | (missing) | | casts count | 14:10 | [facility] | | | | | in urine | | Hospital | | | | | sediment by | | | | | | | microscopy | | | | | | | low power | | | | | | | field | | | | | | | (number/area | | | | | | | ) | | | | | | + + + + + + + + + | Result panel 50 | + + + + + + + + + | Reflexive | 2016-06-15 | [facility] | TO FOLLOW | (missing) | (missing) | | urine | 14:10 | [facility] | | | | | bacterial | | Hospital | | | | | culture | | | | | | + + + + + + + + + | Result panel 51 | + + + + + +--------+ + + | Urn Spec | 2016-06-15 | [facility] | CATH | (missing) | (missing) | | Collect Meth | 14:10 | [facility] | | | | | Ur | | Hospital | | | | + + + +--------+ + + + + | Result panel 52 | + + + + + +-------+ + + | Osmolality | 2016-06-15 | [facility] | 318 | (missing) | (missing) | | of Urine | 14:10 | [facility] | | | | | | [facility] | | | | + + + +-------+ + + + + | Result panel 53 | + + + + + + + + + | Urine | 2016-06-15 | [facility] | 122.60 | (missing) | (missing) | | creatinine | 14:10 | [facility] | | | | | measurement | | Hospital | | | | | (mass/volume | | | | | | | ) | | | | | | + + + + + + + + + | Result panel 54 | + + + + + +------+ + + | Urine | 2016-06-15 | [facility] | 65 | (missing) | (missing) | | sodium | 14:10 | [facility] | | | | | measurement | | Hospital | | | | | (moles/volum | | | | | | | e) | | | | | | + + + +------+ + + + + | Result panel 55 | + + + + + +--------+ + + | Urine | 2016-06-15 | [facility] | 41.9 | (missing) | (missing) | | potassium | 14:10 | [facility] | | | | | measurement | | Hospital | | | | | (moles/volum | | | | | | | e) | | | | | | + + + +--------+ + + + + | Result panel 56 | + + + + + +------+ + + | Urine | 2016-06-15 | [facility] | 61 | (missing) | (missing) | | chloride | 14:10 | [facility] | | | | | measurement | | Hospital | | | | | (moles/volum | | | | | | | e) | | | | | | + + + +------+ + + + + | Result panel 57 | + + + + + +--------+ + + | * Body | 2016-06-15 | [facility] | 45.9 | (missing) | (missing) | | fluid anion | 14:10 | [facility] | | | | | gap | | Hospital | | | | + + + +--------+ + + + + | Result panel 58 | + + + + + + + + + | Color of | 2016-06-15 | [facility] | YELLOW | (missing) | (missing) | | Urine by | 14:10 | [facility] | | | | | Auto | | Hospital | | | | + + + + + + + + + | Result panel 59 | + + + + + +--------+ + + | Character | 2016-06-15 | [facility] | HAZY | (missing) | (missing) | | of Urine | 14:10 | [facility] | | | | | | [facility] | | | | + + + +--------+ + + + + | Result panel 60 | + + + + + + + + + | Glucose | 2016-06-15 | [facility] | NORMAL | (missing) | (missing) | | [Presence] | 14:10 | [facility] | | | | | in Urine by | | Hospital | | | | | Test strip | | | | | | + + + + + + + + + | Result panel 61 | + + + + + + + + + | Urine total | 2016-06-15 | [facility] | NEGATIVE | (missing) | (missing) | | bilirubin | 14:10 | [facility] | | | | | detection by | | Hospital | | | | | test strip | | | | | | + + + + + + + + + | Result panel 62 | + + + + + + + + + | Urine | 2016-06-15 | [facility] | NEGATIVE | (missing) | (missing) | | ketones | 14:10 | [facility] | | | | | detection by | | Hospital | | | | | test strip | | | | | | + + + + + + + + + | Result panel 63 | + + + + + +---------+ + + | Specific | 2016-06-15 | [facility] | 1.014 | (missing) | (missing) | | gravity ur | 14:10 | [facility] | | | | | dipstick | | Hospital | | | | + + + +---------+ + + + + | Result panel 64 | + + + + + +------+ + + | Urine | 2016-06-15 | [facility] | 50 | (missing) | (missing) | | hemoglobin | 14:10 | [facility] | | | | | detection by | | Hospital | | | | | test strip | | | | | | + + + +------+ + + + + | Result panel 65 | + + + + + + + + + | Protein | 2016-06-15 | [facility] | NEGATIVE | (missing) | (missing) | | urine test | 14:10 | [facility] | | | | | strip | | Hospital | | | | + + + + + + + + + | Result panel 66 | + + + + + + + + + | | 2016-06-15 | [facility] | NORMAL | (missing) | (missing) | | Urobilinogen | 14:10 | [facility] | | | | | | | [facility] | | | | | [Mass/volume | | | | | | | ] in Urine | | | | | | | by Test | | | | | | | strip | | | | | | + + + + + + + + + | Result panel 67 | + + + + + + + + + | Urine | 2016-06-15 | [facility] | NEGATIVE | (missing) | (missing) | | nitrite | 14:10 | [facility] | | | | | detection by | | Hospital | | | | | test strip | | | | | | + + + + + + + + + | Result panel 68 | + + + + + +-------+ + + | Urine | 2016-06-15 | [facility] | 100 | (missing) | (missing) | | leukocyte | 14:10 | [facility] | | | | | esterase | | Hospital | | | | | detection by | | | | | | | dipstick | | | | | | + + + +-------+ + + + + | Result panel 69 | + + + + + +------+ + + | RBC #/area | 2016-06-15 | [facility] | 30 | (missing) | (missing) | | UrnS HPF | 14:10 | [facility] | | | | | | | [facility] | | | | + + + +------+ + + + + | Result panel 70 | + + + + + +-------+ + + | Automated | 2016-06-15 | [facility] | >50 | (missing) | (missing) | | urine | 14:10 | [facility] | | | | | sediment | | Hospital | | | | | leukocyte | | | | | | | count by | | | | | | | microscopy | | | | | | | (number/high | | | | | | | power | | | | | | | field) | | | | | | + + + +-------+ + + + + | Result panel 71 | + + + + + + + + + | Automated | 2016-06-15 | [facility] | NEGATIVE | (missing) | (missing) | | urine | 14:10 | [facility] | | | | | sediment | | Hospital | | | | | epithelial | | | | | | | cell count | | | | | | | by | | | | | | | microscopy | | | | | | | (number/high | | | | | | | power | | | | | | | field) | | | | | | + + + + + + + + + | Result panel 72 | + + + + + + + + + | Crystal | 2016-06-15 | [facility] | NEGATIVE | (missing) | (missing) | | typing in | 14:10 | [facility] | | | | | urine | | Hospital | | | | | sediment by | | | | | | | light | | | | | | | microscopy | | | | | | + + + + + + + + + | Result panel 73 | + + + + + +------+ + + | Automated | 2016-06-15 | [facility] | 1+ | (missing) | (missing) | | urine | 14:10 | [facility] | | | | | sediment | | Hospital | | | | | bacteria | | | | | | | count by | | | | | | | microscopy | | | | | | | (number/high | | | | | | | power | | | | | | | field) | | | | | | + + + +------+ + + + + | Result panel 74 | + + + + + + + + + | Automated | 2016-06-15 | [facility] | NEGATIVE | (missing) | (missing) | | casts count | 14:10 | [facility] | | | | | in urine | | Hospital | | | | | sediment by | | | | | | | microscopy | | | | | | | low power | | | | | | | field | | | | | | | (number/area | | | | | | | ) | | | | | | + + + + + + + + + | Result panel 75 | + + + + + + + + + | Reflexive | 2016-06-15 | [facility] | TO FOLLOW | (missing) | (missing) | | urine | 14:10 | [facility] | | | | | bacterial | | Hospital | | | | | culture | | | | | | + + + + + + + + + | Result panel 76 | + + + + + +--------+ + + | Urn Spec | 2016-06-15 | [facility] | CATH | (missing) | (missing) | | Collect Meth | 14:10 | [facility] | | | | | Ur | | Hospital | | | | + + + +--------+ + + + + | Result panel 77 | + + + + + +-------+ + + | Osmolality | 2016-06-15 | [facility] | 318 | (missing) | (missing) | | of Urine | 14:10 | [facility] | | | | | | [facility] | | | | + + + +-------+ + + + + | Result panel 78 | + + + + + + + + + | Urine | 2016-06-15 | [facility] | 122.60 | (missing) | (missing) | | creatinine | 14:10 | [facility] | | | | | measurement | | Hospital | | | | | (mass/volume | | | | | | | ) | | | | | | + + + + + + + + + | Result panel 79 | + + + + + +------+ + + | Urine | 2016-06-15 | [facility] | 65 | (missing) | (missing) | | sodium | 14:10 | [facility] | | | | | measurement | | Hospital | | | | | (moles/volum | | | | | | | e) | | | | | | + + + +------+ + + + + | Result panel 80 | + + + + + +--------+ + + | Urine | 2016-06-15 | [facility] | 41.9 | (missing) | (missing) | | potassium | 14:10 | [facility] | | | | | measurement | | Hospital | | | | | (moles/volum | | | | | | | e) | | | | | | + + + +--------+ + + + + | Result panel 81 | + + + + + +------+ + + | Urine | 2016-06-15 | [facility] | 61 | (missing) | (missing) | | chloride | 14:10 | [facility] | | | | | measurement | | Hospital | | | | | (moles/volum | | | | | | | e) | | | | | | + + + +------+ + + + + | Result panel 82 | + + + + + +--------+ + + | * Body | 2016-06-15 | [facility] | 45.9 | (missing) | (missing) | | fluid anion | 14:10 | [facility] | | | | | gap | | Hospital | | | | + + + +--------+ + + + + | Result panel 83 | + + + + + +---------+ + + | Serum or | 2016-06-16 | [facility] | 889.8 | (missing) | (missing) | | plasma | 05:50 | [facility] | | | | | myoglobin | | Hospital | | | | | measurement | | | | | | | (mass/volume | | | | | | | ) | | | | | | + + + +---------+ + + + + | Result panel 84 | + + + + + +---------+ + + | Serum or | 2016-06-16 | [facility] | 889.8 | (missing) | (missing) | | plasma | 05:50 | [facility] | | | | | myoglobin | | Hospital | | | | | measurement | | | | | | | (mass/volume | | | | | | | ) | | | | | | + + + +---------+ + + + + | Result panel 85 | + + + + + +------+ + + | Automated | 2016-06-16 | [facility] | 34 | (missing) | (missing) | | erythrocyte | 05:55 | [facility] | | | | | mean | | Hospital | | | | | corpuscular | | | | | | | hemoglobin | | | | | | | concentratio | | | | | | | n | | | | | | | measurement | | | | | | | (mass/volume | | | | | | | ) | | | | | | + + + +------+ + + + + | Result panel 86 | + + + + + +--------+ + + | Automated | 2016-06-16 | [facility] | 12.7 | (missing) | (missing) | | erythrocyte | 05:55 | [facility] | | | | | distribution | | Hospital | | | | | width | | | | | | + + + +--------+ + + + + | Result panel 87 | + + + + + +-------+ + + | Automated | 2016-06-16 | [facility] | 111 | (missing) | (missing) | | blood | 05:55 | [facility] | | | | | platelet | | Hospital | | | | | count | | | | | | | (count/volum | | | | | | | e) | | | | | | + + + +-------+ + + + + | Result panel 88 | + + + + + +------+ + + | Automated | 2016-06-16 | [facility] | 34 | (missing) | (missing) | | blood | 05:55 | [facility] | | | | | neutrophil | | Hospital | | | | | count as | | | | | | | percentage | | | | | | | of total | | | | | | | leukocytes | | | | | | + + + +------+ + + + + | Result panel 89 | + + + + + +------+ + + | Automated | 2016-06-16 | [facility] | 22 | (missing) | (missing) | | blood | 05:55 | [facility] | | | | | lymphocyte | | Hospital | | | | | count as | | | | | | | percentage | | | | | | | ot total | | | | | | | leukocytes | | | | | | + + + +------+ + + + + | Result panel 90 | + + + + + +------+ + + | Automated | 2016-06-16 | [facility] | 14 | (missing) | (missing) | | blood | 05:55 | [facility] | | | | | monocyte | | Hospital | | | | | count as | | | | | | | percentage | | | | | | | of total | | | | | | | leukocytes | | | | | | + + + +------+ + + + + | Result panel 91 | + + + + + +-----+ + + | Automated | 2016-06-16 | [facility] | 0 | (missing) | (missing) | | blood | 05:55 | [facility] | | | | | eosinophil | | Hospital | | | | | count as | | | | | | | percentage | | | | | | | of total | | | | | | | leukocytes | | | | | | + + + +-----+ + + + + | Result panel 92 | + + + + + +-----+ + + | Automated | 2016-06-16 | [facility] | 0 | (missing) | (missing) | | blood | 05:55 | [facility] | | | | | basophil | | Hospital | | | | | count as | | | | | | | percentage | | | | | | | of total | | | | | | | leukocytes | | | | | | + + + +-----+ + + + + | Result panel 93 | + + + + + +-------+ + + | Blood | 2016-06-16 | [facility] | 4.2 | (missing) | (missing) | | leukocytes | 05:55 | [facility] | | | | | automated | | Hospital | | | | | count | | | | | | | (number/volu | | | | | | | me) | | | | | | + + + +-------+ + + + + | Result panel 94 | + + + + + +--------+ + + | Blood | 2016-06-16 | [facility] | 2.94 | (missing) | (missing) | | erythrocytes | 05:55 | [facility] | | | | | automated | | Hospital | | | | | count | | | | | | | (number/volu | | | | | | | me) | | | | | | + + + +--------+ + + + + | Result panel 95 | + + + + + +-------+ + + | Blood | 2016-06-16 | [facility] | 9.1 | (missing) | (missing) | | hemoglobin | 05:55 | [facility] | | | | | measurement | | Hospital | | | | | (mass/volume | | | | | | | ) | | | | | | + + + +-------+ + + + + | Result panel 96 | + + + + + +--------+ + + | Automated | 2016-06-16 | [facility] | 26.9 | (missing) | (missing) | | blood | 05:55 | [facility] | | | | | hematocrit | | Hospital | | | | + + + +--------+ + + + + | Result panel 97 | + + + + + +--------+ + + | Automated | 2016-06-16 | [facility] | 91.4 | (missing) | (missing) | | erythrocyte | 05:55 | [facility] | | | | | mean | | Hospital | | | | | corpuscular | | | | | | | volume | | | | | | + + + +--------+ + + + + | Result panel 98 | + + + + + +------+ + + | Manual | 2016-06-16 | [facility] | 30 | (missing) | (missing) | | blood band | 05:55 | [facility] | | | | | neutrophils | | Hospital | | | | | form/100 | | | | | | | leukocytes | | | | | | + + + +------+ + + + + | Result panel 99 | + + + + + +------+ + + | Automated | 2016-06-16 | [facility] | 31 | (missing) | (missing) | | erythrocyte | 05:55 | [facility] | | | | | mean | | Hospital | | | | | corpuscular | | | | | | | hemoglobin | | | | | | | (mass per | | | | | | | erythrocyte) | | | | | | | | | | | | | + + + +------+ + + + + | Result panel 100 | + + + + + +------+ + + | Automated | 2016-06-16 | [facility] | 34 | (missing) | (missing) | | erythrocyte | 05:55 | [facility] | | | | | mean | | Hospital | | | | | corpuscular | | | | | | | hemoglobin | | | | | | | concentratio | | | | | | | n | | | | | | | measurement | | | | | | | (mass/volume | | | | | | | ) | | | | | | + + + +------+ + + + + | Result panel 101 | + + + + + +--------+ + + | Automated | 2016-06-16 | [facility] | 12.7 | (missing) | (missing) | | erythrocyte | 05:55 | [facility] | | | | | distribution | | Hospital | | | | | width | | | | | | + + + +--------+ + + + + | Result panel 102 | + + + + + +-------+ + + | Automated | 2016-06-16 | [facility] | 111 | (missing) | (missing) | | blood | 05:55 | [facility] | | | | | platelet | | Hospital | | | | | count | | | | | | | (count/volum | | | | | | | e) | | | | | | + + + +-------+ + + + + | Result panel 103 | + + + + + +------+ + + | Automated | 2016-06-16 | [facility] | 34 | (missing) | (missing) | | blood | 05:55 | [facility] | | | | | neutrophil | | Hospital | | | | | count as | | | | | | | percentage | | | | | | | of total | | | | | | | leukocytes | | | | | | + + + +------+ + + + + | Result panel 104 | + + + + + +------+ + + | Automated | 2016-06-16 | [facility] | 22 | (missing) | (missing) | | blood | 05:55 | [facility] | | | | | lymphocyte | | Hospital | | | | | count as | | | | | | | percentage | | | | | | | ot total | | | | | | | leukocytes | | | | | | + + + +------+ + + + + | Result panel 105 | + + + + + +------+ + + | Automated | 2016-06-16 | [facility] | 14 | (missing) | (missing) | | blood | 05:55 | [facility] | | | | | monocyte | | Hospital | | | | | count as | | | | | | | percentage | | | | | | | of total | | | | | | | leukocytes | | | | | | + + + +------+ + + + + | Result panel 106 | + + + + + +-----+ + + | Automated | 2016-06-16 | [facility] | 0 | (missing) | (missing) | | blood | 05:55 | [facility] | | | | | eosinophil | | Hospital | | | | | count as | | | | | | | percentage | | | | | | | of total | | | | | | | leukocytes | | | | | | + + + +-----+ + + + + | Result panel 107 | + + + + + +-----+ + + | Automated | 2016-06-16 | [facility] | 0 | (missing) | (missing) | | blood | 05:55 | [facility] | | | | | basophil | | Hospital | | | | | count as | | | | | | | percentage | | | | | | | of total | | | | | | | leukocytes | | | | | | + + + +-----+ + + + + | Result panel 108 | + + + + + +------+ + + | Manual | 2016-06-16 | [facility] | 30 | (missing) | (missing) | | blood band | 05:55 | [facility] | | | | | neutrophils | | Hospital | | | | | form/100 | | | | | | | leukocytes | | | | | | + + + +------+ + + + + | Result panel 109 | + + + + + +-------+ + + | Serum or | 2016-06-16 | [facility] | 102 | (missing) | (missing) | | plasma | 05:55 | [facility] | | | | | glucose | | Hospital | | | | | measurement | | | | | | | (mass/volume | | | | | | | ) | | | | | | + + + +-------+ + + + + | Result panel 110 | + + + + + +-------+ + + | Serum or | 2016-06-16 | [facility] | 102 | (missing) | (missing) | | plasma | 05:55 | [facility] | | | | | glucose | | Hospital | | | | | measurement | | | | | | | (mass/volume | | | | | | | ) | | | | | | + + + +-------+ + + + + | Result panel 111 | + + + + + +------+ + + | Serum or | 2016-06-16 | [facility] | 48 | (missing) | (missing) | | plasma urea | 05:55 | [facility] | | | | | nitrogen | | Hospital | | | | | measurement | | | | | | | (mass/volume | | | | | | | ) | | | | | | + + + +------+ + + + + | Result panel 112 | + + + + + +--------+ + + | Serum or | 2016-06-16 | [facility] | 4.34 | (missing) | (missing) | | plasma | 05:55 | [facility] | | | | | creatinine | | Hospital | | | | | measurement | | | | | | | (mass/volume | | | | | | | ) | | | | | | + + + +--------+ + + + + | Result panel 113 | + + + + + +------+ + + | Estimated | 2016-06-16 | [facility] | 14 | (missing) | (missing) | | glomerular | 05:55 | [facility] | | | | | filtration | | Hospital | | | | | rate (GFR) | | | | | | | non- | | | | | | | [place] | | | | | | + + + +------+ + + + + | Result panel 114 | + + + + + +--------+ + + | Serum or | 2016-06-16 | [facility] | 11.1 | (missing) | (missing) | | plasma urea | 05:55 | [facility] | | | | | nitrogen/cre | | Hospital | | | | | atinine mass | | | | | | | ratio | | | | | | + + + +--------+ + + + + | Result panel 115 | + + + + + +-------+ + + | Serum or | 2016-06-16 | [facility] | 134 | (missing) | (missing) | | plasma | 05:55 | [facility] | | | | | sodium | | Hospital | | | | | measurement | | | | | | | (moles/volum | | | | | | | e) | | | | | | + + + +-------+ + + + + | Result panel 116 | + + + + + +-------+ + + | Serum or | 2016-06-16 | [facility] | 4.9 | (missing) | (missing) | | plasma | 05:55 | [facility] | | | | | potassium | | Hospital | | | | | measurement | | | | | | | (moles/volum | | | | | | | e) | | | | | | + + + +-------+ + + + + | Result panel 117 | + + + + + +-------+ + + | Serum or | 2016-06-16 | [facility] | 102 | (missing) | (missing) | | plasma | 05:55 | [facility] | | | | | chloride | | Hospital | | | | | measurement | | | | | | | (moles/volum | | | | | | | e) | | | | | | + + + +-------+ + + + + | Result panel 118 | + + + + + +------+ + + | Serum or | 2016-06-16 | [facility] | 18 | (missing) | (missing) | | plasma | 05:55 | [facility] | | | | | carbon | | [facility] | | | | | dioxide, | | | | | | | total | | | | | | | measurement | | | | | | | (moles/volum | | | | | | | e) | | | | | | + + + +------+ + + + + | Result panel 119 | + + + + + +--------+ + + | Serum or | 2016-06-16 | [facility] | 18.9 | (missing) | (missing) | | plasma anion | 05:55 | [facility] | | | | | gap 4 | | [facility] | | | | + + + +--------+ + + + + | Result panel 120 | + + + + + +------+ + + | Serum or | 2016-06-16 | [facility] | 48 | (missing) | (missing) | | plasma urea | 05:55 | [facility] | | | | | nitrogen | | [facility] | | | | | measurement | | | | | | | (mass/volume | | | | | | | ) | | | | | | + + + +------+ + + + + | Result panel 121 | + + + + + +-------+ + + | Serum or | 2016-06-16 | [facility] | 7.0 | (missing) | (missing) | | plasma uric | 05:55 | [facility] | | | | | acid | | [facility] | | | | | measurement | | | | | | | (mass/volume | | | | | | | ) | | | | | | + + + +-------+ + + + + | Result panel 122 | + + + + + +-------+ + + | Serum or | 2016-06-16 | [facility] | 7.5 | (missing) | (missing) | | plasma | 05:55 | [facility] | | | | | calcium | | [facility] | | | | | measurement | | | | | | | (mass/volume | | | | | | | ) | | | | | | + + + +-------+ + + + + | Result panel 123 | + + + + + +-------+ + + | Calculated | 2016-06-16 | [facility] | 3.9 | (missing) | (missing) | | ionized | 05:55 | [facility] | | | | | calcium | | [facility] | | | | | measurement | | | | | | + + + +-------+ + + + + | Result panel 124 | + + + + + +-------+ + + | Serum or | 2016-06-16 | [facility] | 4.4 | (missing) | (missing) | | plasma | 05:55 | [facility] | | | | | phosphate | | [facility] | | | | | measurement | | | | | | | (mass/volume | | | | | | | ) | | | | | | + + + +-------+ + + + + | Result panel 125 | + + + + + +------+ + + | Serum or | 2016-06-16 | [facility] | 73 | (missing) | (missing) | | plasma | 05:55 | [facility] | | | | | cholesterol | | [facility] | | | | | measurement | | | | | | | (mass/volume | | | | | | | ) | | | | | | + + + +------+ + + + + | Result panel 126 | + + + + + +------+ + + | Serum or | 2016-06-16 | [facility] | 98 | (missing) | (missing) | | plasma | 05:55 | [facility] | | | | | triglyceride | | [facility] | | | | | measurement | | | | | | | | | | | | | | (mass/volume | | | | | | | ) | | | | | | + + + +------+ + + + + | Result panel 127 | + + + + + +-------+ + + | Serum or | 2016-06-16 | [facility] | 5.0 | (missing) | (missing) | | plasma | 05:55 | [facility] | | | | | protein | | Hospital | | | | | measurement | | | | | | | (mass/volume | | | | | | | ) | | | | | | + + + +-------+ + + + + | Result panel 128 | + + + + + +-------+ + + | Serum or | 2016-06-16 | [facility] | 2.6 | (missing) | (missing) | | plasma | 05:55 | [facility] | | | | albumin | | [facility] | | | | | measurement | | | | | | | (mass/volume | | | | | | | ) | | | | | | + + + +-------+ + + + + | Result panel 129 | + + + + + +-------+ + + | Serum | 2016-06-16 | [facility] | 2.4 | (missing) | (missing) | | globulin | 05:55 | [facility] | | | | | measurement | | [facility] | | | | | (mass/volume | | | | | | | ) | | | | | | + + + +-------+ + + + + | Result panel 130 | + + + + + +-------+ + + | Serum or | 2016-06-16 | [facility] | 1.1 | (missing) | (missing) | | plasma | 05:55 | [facility] | | | | | albumin/glob | | Hospital | | | | | ulin mass | | | | | | | ratio | | | | | | + + + +-------+ + + + + | Result panel 131 | + + + + + +--------+ + + | Serum or | 2016-06-16 | [facility] | 4.34 | (missing) | (missing) | | plasma | 05:55 | [facility] | | | | | creatinine | | [facility] | | | | | measurement | | | | | | | (mass/volume | | | | | | | ) | | | | | | + + + +--------+ + + + + | Result panel 132 | + + + + + +-------+ + + | Serum or | 2016-06-16 | [facility] | 0.5 | (missing) | (missing) | | plasma total | 05:55 | [facility] | | | | | bilirubin | | [facility] | | | | | measurement | | | | | | | (mass/volume | | | | | | | ) | | | | | | + + + +-------+ + + + + | Result panel 133 | + + + + + +-------+ + + | Serum or | 2016-06-16 | [facility] | 0.0 | (missing) | (missing) | | plasma | 05:55 | [facility] | | | | | direct | | Hospital | | | | | bilirubin | | | | | | | measurement | | | | | | | (mass/volume | | | | | | | ) | | | | | | + + + +-------+ + + + + | Result panel 134 | + + + + + +-------+ + + | Serum or | 2016-06-16 | [facility] | 0.5 | (missing) | (missing) | | plasma | 05:55 | [facility] | | | | | indirect | | [facility] | | | | | bilirubin | | | | | | | measurement | | | | | | | (mass/volume | | | | | | | ) | | | | | | + + + +-------+ + + + + | Result panel 135 | + + + + + +------+ + + | Serum or | 2016-06-16 | [facility] | 19 | (missing) | (missing) | | plasma | 05:55 | [facility] | | | | | aspartate | | Hospital | | | | | aminotransfe | | | | | | | rase | | | | | | | measurement | | | | | | | (enzymatic | | | | | | | activity/vol | | | | | | | ume) | | | | | | + + + +------+ + + + + | Result panel 136 | + + + + + +------+ + + | Serum or | 2016-06-16 | [facility] | 13 | (missing) | (missing) | | plasma | 05:55 | [facility] | | | | | alanine | | Hospital | | | | | aminotransfe | | | | | | | rase | | | | | | | measurement | | | | | | | (enzymatic | | | | | | | activity/vol | | | | | | | ume) | | | | | | + + + +------+ + + + + | Result panel 137 | + + + + + +------+ + + | Serum or | 2016-06-16 | [facility] | 43 | (missing) | (missing) | | plasma | 05:55 | [facility] | | | | | alkaline | | [facility] | | | | | phosphatase | | | | | | | measurement | | | | | | | (enzymatic | | | | | | | activity/vol | | | | | | | ume) | | | | | | + + + +------+ + + + + | Result panel 138 | + + + + + +-------+ + + | Serum or | 2016-06-16 | [facility] | 171 | (missing) | (missing) | | plasma | 05:55 | [facility] | | | | | lactate | | Hospital | | | | | dehydrogenas | | | | | | | e | | | | | | | measurement | | | | | | | (enzymatic | | | | | | | activity/vol | | | | | | | ume) | | | | | | + + + +-------+ + + + + | Result panel 139 | + + + + + +-------+ + + | Osmolality | 2016-06-16 | [facility] | 272 | (missing) | (missing) | | of Serum or | 05:55 | [facility] | | | | | Plasma by | | Hospital | | | | | calculation | | | | | | + + + +-------+ + + + + | Result panel 140 | + + + + + +------+ + + | Estimated | 2016-06-16 | [facility] | 14 | (missing) | (missing) | | glomerular | 05:55 | [facility] | | | | | filtration | | Hospital | | | | | rate (GFR) | | | | | | | non- | | | | | | | [place] | | | | | | + + + +------+ + + + + | Result panel 141 | + + + + + +--------+ + + | Serum or | 2016-06-16 | [facility] | 11.1 | (missing) | (missing) | | plasma urea | 05:55 | [facility] | | | | | nitrogen/cre | | [facility] | | | | | atinine mass | | | | | | | ratio | | | | | | + + + +--------+ + + + + | Result panel 142 | + + + + + +-------+ + + | Serum or | 2016-06-16 | [facility] | 134 | (missing) | (missing) | | plasma | 05:55 | [facility] | | | | | sodium | | [facility] | | | | | measurement | | | | | | | (moles/volum | | | | | | | e) | | | | | | + + + +-------+ + + + + | Result panel 143 | + + + + + +-------+ + + | Serum or | 2016-06-16 | [facility] | 4.9 | (missing) | (missing) | | plasma | 05:55 | [facility] | | | | | potassium | | [facility] | | | | | measurement | | | | | | | (moles/volum | | | | | | | e) | | | | | | + + + +-------+ + + + + | Result panel 144 | + + + + + +-------+ + + | Serum or | 2016-06-16 | [facility] | 102 | (missing) | (missing) | | plasma | 05:55 | [facility] | | | | | chloride | | [facility] | | | | | measurement | | | | | | | (moles/volum | | | | | | | e) | | | | | | + + + +-------+ + + + + | Result panel 145 | + + + + + +------+ + + | Serum or | 2016-06-16 | [facility] | 18 | (missing) | (missing) | | plasma | 05:55 | [facility] | | | | | carbon | | Hospital | | | | | dioxide, | | | | | | | total | | | | | | | measurement | | | | | | | (moles/volum | | | | | | | e) | | | | | | + + + +------+ + + + + | Result panel 146 | + + + + + +--------+ + + | Serum or | 2016-06-16 | [facility] | 18.9 | (missing) | (missing) | | plasma anion | 05:55 | [facility] | | | | | gap 4 | | Hospital | | | | + + + +--------+ + + + + | Result panel 147 | + + + + + +-------+ + + | Serum or | 2016-06-16 | [facility] | 7.0 | (missing) | (missing) | | plasma uric | 05:55 | [facility] | | | | | acid | | [facility] | | | | | measurement | | | | | | | (mass/volume | | | | | | | ) | | | | | | + + + +-------+ + + + + | Result panel 148 | + + + + + +-------+ + + | Serum or | 2016-06-16 | [facility] | 7.5 | (missing) | (missing) | | plasma | 05:55 | [facility] | | | | | calcium | | [facility] | | | | | measurement | | | | | | | (mass/volume | | | | | | | ) | | | | | | + + + +-------+ + + + + | Result panel 149 | + + + + + +-------+ + + | Calculated | 2016-06-16 | [facility] | 3.9 | (missing) | (missing) | | ionized | 05:55 | [facility] | | | | | calcium | | [facility] | | | | | measurement | | | | | | + + + +-------+ + + + + | Result panel 150 | + + + + + +-------+ + + | Serum or | 2016-06-16 | [facility] | 4.4 | (missing) | (missing) | | plasma | 05:55 | [facility] | | | | | phosphate | | Hospital | | | | | measurement | | | | | | | (mass/volume | | | | | | | ) | | | | | | + + + +-------+ + + + + | Result panel 151 | + + + + + +------+ + + | Serum or | 2016-06-16 | [facility] | 73 | (missing) | (missing) | | plasma | 05:55 | [facility] | | | | | cholesterol | | [facility] | | | | | measurement | | | | | | | (mass/volume | | | | | | | ) | | | | | | + + + +------+ + + + + | Result panel 152 | + + + + + +------+ + + | Serum or | 2016-06-16 | [facility] | 98 | (missing) | (missing) | | plasma | 05:55 | [facility] | | | | | triglyceride | | [facility] | | | | | measurement | | | | | | | | | | | | | | (mass/volume | | | | | | | ) | | | | | | + + + +------+ + + + + | Result panel 153 | + + + + + +-------+ + + | Serum or | 2016-06-16 | [facility] | 5.0 | (missing) | (missing) | | plasma | 05:55 | [facility] | | | | | protein | | [facility] | | | | | measurement | | | | | | | (mass/volume | | | | | | | ) | | | | | | + + + +-------+ + + + + | Result panel 154 | + + + + + +-------+ + + | Serum or | 2016-06-16 | [facility] | 2.6 | (missing) | (missing) | | plasma | 05:55 | [facility] | | | | | albumin | | [facility] | | | | | measurement | | | | | | | (mass/volume | | | | | | | ) | | | | | | + + + +-------+ + + + + | Result panel 155 | + + + + + +-------+ + + | Serum | 2016-06-16 | [facility] | 2.4 | (missing) | (missing) | | globulin | 05:55 | [facility] | | | | | measurement | | [facility] | | | | | (mass/volume | | | | | | | ) | | | | | | + + + +-------+ + + + + | Result panel 156 | + + + + + +-------+ + + | Serum or | 2016-06-16 | [facility] | 1.1 | (missing) | (missing) | | plasma | 05:55 | [facility] | | | | | albumin/glob | | [facility] | | | | | ulin mass | | | | | | | ratio | | | | | | + + + +-------+ + + + + | Result panel 157 | + + + + + +-------+ + + | Serum or | 2016-06-16 | [facility] | 0.5 | (missing) | (missing) | | plasma total | 05:55 | [facility] | | | | | bilirubin | | [facility] | | | | | measurement | | | | | | | (mass/volume | | | | | | | ) | | | | | | + + + +-------+ + + + + | Result panel 158 | + + + + + +-------+ + + | Blood | 2016-06-16 | [facility] | 4.2 | (missing) | (missing) | | leukocytes | 05:55 | [facility] | | | | | automated | | Hospital | | | | | count | | | | | | | (number/volu | | | | | | | me) | | | | | | + + + +-------+ + + + + | Result panel 159 | + + + + + +-------+ + + | Serum or | 2016-06-16 | [facility] | 0.0 | (missing) | (missing) | | plasma | 05:55 | [facility] | | | | | direct | | [facility] | | | | | bilirubin | | | | | | | measurement | | | | | | | (mass/volume | | | | | | | ) | | | | | | + + + +-------+ + + + + | Result panel 160 | + + + + + +-------+ + + | Serum or | 2016-06-16 | [facility] | 0.5 | (missing) | (missing) | | plasma | 05:55 | [facility] | | | | | indirect | | [facility] | | | | | bilirubin | | | | | | | measurement | | | | | | | (mass/volume | | | | | | | ) | | | | | | + + + +-------+ + + + + | Result panel 161 | + + + + + +------+ + + | Serum or | 2016-06-16 | [facility] | 19 | (missing) | (missing) | | plasma | 05:55 | [facility] | | | | | aspartate | | Hospital | | | | | aminotransfe | | | | | | | rase | | | | | | | measurement | | | | | | | (enzymatic | | | | | | | activity/vol | | | | | | | ume) | | | | | | + + + +------+ + + + + | Result panel 162 | + + + + + +------+ + + | Serum or | 2016-06-16 | [facility] | 13 | (missing) | (missing) | | plasma | 05:55 | [facility] | | | | | alanine | | Hospital | | | | | aminotransfe | | | | | | | rase | | | | | | | measurement | | | | | | | (enzymatic | | | | | | | activity/vol | | | | | | | ume) | | | | | | + + + +------+ + + + + | Result panel 163 | + + + + + +------+ + + | Serum or | 2016-06-16 | [facility] | 43 | (missing) | (missing) | | plasma | 05:55 | [facility] | | | | | alkaline | | [facility] | | | | | phosphatase | | | | | | | measurement | | | | | | | (enzymatic | | | | | | | activity/vol | | | | | | | ume) | | | | | | + + + +------+ + + + + | Result panel 164 | + + + + + +-------+ + + | Serum or | 2016-06-16 | [facility] | 171 | (missing) | (missing) | | plasma | 05:55 | [facility] | | | | | lactate | | Hospital | | | | | dehydrogenas | | | | | | | e | | | | | | | measurement | | | | | | | (enzymatic | | | | | | | activity/vol | | | | | | | ume) | | | | | | + + + +-------+ + + + + | Result panel 165 | + + + + + +-------+ + + | Osmolality | 2016-06-16 | [facility] | 272 | (missing) | (missing) | | of Serum or | 05:55 | [facility] | | | | | Plasma by | | Hospital | | | | | calculation | | | | | | + + + +-------+ + + + + | Result panel 166 | + + + + + +--------+ + + | Blood | 2016-06-16 | [facility] | 2.94 | (missing) | (missing) | | erythrocytes | 05:55 | [facility] | | | | | automated | | [facility] | | | | | count | | | | | | | (number/volu | | | | | | | me) | | | | | | + + + +--------+ + + + + | Result panel 167 | + + + + + +-------+ + + | Blood | 2016-06-16 | [facility] | 9.1 | (missing) | (missing) | | hemoglobin | 05:55 | [facility] | | | | | measurement | | [facility] | | | | | (mass/volume | | | | | | | ) | | | | | | + + + +-------+ + + + + | Result panel 168 | + + + + + +--------+ + + | Automated | 2016-06-16 | [facility] | 26.9 | (missing) | (missing) | | blood | 05:55 | [facility] | | | | | hematocrit | | [facility] | | | | + + + +--------+ + + + + | Result panel 169 | + + + + + +--------+ + + | Automated | 2016-06-16 | [facility] | 91.4 | (missing) | (missing) | | erythrocyte | 05:55 | [facility] | | | | | mean | | [facility] | | | | | corpuscular | | | | | | | volume | | | | | | + + + +--------+ + + + + | Result panel 170 | + + + + + +------+ + + | Automated | 2016-06-16 | [facility] | 31 | (missing) | (missing) | | erythrocyte | 05:55 | [facility] | | | | | mean | | [facility] | | | | | corpuscular | | | | | | | hemoglobin | | | | | | | (mass per | | | | | | | erythrocyte) | | | | | | | | | | | | | + + + +------+ + + + + | Result panel 171 | + + + + + +-----+ + + | Urine pH | 2016-06-16 | [facility] | 5 | (missing) | (missing) | | measurement | 06:30 | [facility] | | | | | by test | | Hospital | | | | | strip | | | | | | + + + +-----+ + + + + | Result panel 172 | + + + + + +-----+ + + | Urine pH | 2016-06-16 | [facility] | 5 | (missing) | (missing) | | measurement | 06:30 | [facility] | | | | | by test | | Hospital | | | | | strip | | | | | | + + + +-----+ + + + + | Result panel 173 | + + + + + +-------+ + + | | 2022-03-13 | [facility] | 6.1 | (missing) | (missing) | | (unavailable | 12:05 | [facility] ) | | [facility] | | | | + + + +-------+ + + + + | Result panel 174 | + + + + + +--------+ + + | | 2022-03-13 | [facility] | 4.42 | (missing) | (missing) | | (unavailable | 12:05 | [facility] ) | | [facility] | | | | + + + +--------+ + + + + | Result panel 175 | + + + + + +--------+ + + | | 2022-03-13 | [facility] | 13.6 | (missing) | (missing) | | (unavailable | 12:05 | [facility] ) | | [facility] | | | | + + + +--------+ + + + + | Result panel 176 | + + + + + +--------+ + + | | 2022-03-13 | [facility] | 39.8 | (missing) | (missing) | | (unavailable | 12:05 | [facility] ) | | [facility] | | | | + + + +--------+ + + + + | Result panel 177 | + + + + + +--------+ + + | | 2022-03-13 | [facility] | 90.1 | (missing) | (missing) | | (unavailable | 12:05 | [facility] | | | | + + + +--------+ + + + + | Result panel 178 | + + + + + +--------+ + + | | 2022-03-13 | [facility] | 30.7 | (missing) | (missing) | | (unavailable | 12:05 | [facility] | | | | + + + +--------+ + + + + | Result panel 179 | + + + + + +--------+ + + | | 2022-03-13 | [facility] | 34.1 | (missing) | (missing) | | (unavailable | 12:05 | [facility] | | | | + + + +--------+ + + + + | Result panel 180 | + + + + + +--------+ + + | | 2022-03-13 | [facility] | 14.2 | (missing) | (missing) | | (unavailable | 12:05 | [facility] | | | | + + + +--------+ + + + + | Result panel 181 | + + + + + +-------+ + + | | 2022-03-13 | [facility] | 183 | (missing) | (missing) | | (unavailable | 12:05 | [facility] ) [facility] | | | | + + + +-------+ + + + + | Result panel 182 | + + + + + +--------+ + + | | 2022-03-13 | [facility] | 59.0 | (missing) | (missing) | | (unavailable | 12:05 | [facility] | | | | + + + +--------+ + + + + | Result panel 183 | + + + + + +--------+ + + | | 2022-03-13 | [facility] | 22.1 | (missing) | (missing) | | (unavailable | 12:05 | [facility] | | | | + + + +--------+ + + + + | Result panel 184 | + + + + + +--------+ + + | | 2022-03-13 | [facility] | 10.3 | (missing) | (missing) | | (unavailable | 12:05 | [facility] | | | | + + + +--------+ + + + + | Result panel 185 | + + + + + +-------+ + + | | 2022-03-13 | [facility] | 7.4 | (missing) | (missing) | | (unavailable | 12:05 | [facility] | | | | + + + +-------+ + + + + | Result panel 186 | + + + + + +-------+ + + | | 2022-03-13 | [facility] | 1.2 | (missing) | (missing) | | (unavailable | 12:05 | [facility] | | | | + + + +-------+ + + + + | Result panel 187 | + + + + + +------+---------+ + | | 2022-03-13 | [facility] | 99 | mg/dL | (missing) | | (unavailable | 12:05 | [facility] | | | | + + + +------+---------+ + + + | Result panel 188 | + + + + + +------+---------+ + | | 2022-03-13 | [facility] | 36 | mg/dL | (missing) | | (unavailable | 12:05 | [facility] | | | | + + + +------+---------+ + + + | Result panel 189 | + + + + + +--------+---------+ + | | 2022-03-13 | [facility] | 1.49 | mg/dL | (missing) | | (unavailable | 12:05 | [facility] | | | | + + + +--------+---------+ + + + | Result panel 190 | + + + + + +------+ + + | | 2022-03-13 | [facility] | 48 | (missing) | (missing) | | (unavailable | 12:05 | [facility] | | | | + + + +------+ + + + + | Result panel 191 | + + + + + +---------+ + + | | 2022-03-13 | [facility] | 24.16 | (missing) | (missing) | | (unavailable | 12:05 | [facility] | | | | + + + +---------+ + + + + | Result panel 192 | + + + + + +-------+ + + | | 2022-03-13 | [facility] | 136 | (missing) | (missing) | | (unavailable | 12:05 | [facility] | | | | + + + +-------+ + + + + | Result panel 193 | + + + + + +-------+ + + | | 2022-03-13 | [facility] | 4.8 | (missing) | (missing) | | (unavailable | 12:05 | [facility] | | | | + + + +-------+ + + + + | Result panel 194 | + + + + + +-------+ + + | | 2022-03-13 | [facility] | 102 | (missing) | (missing) | | (unavailable | 12:05 | [facility] | | | | + + + +-------+ + + + + | Result panel 195 | + + + + + +------+ + + | | 2022-03-13 | [facility] | 27 | (missing) | (missing) | | (unavailable | 12:05 | [facility] | | | | + + + +------+ + + + + | Result panel 196 | + + + + + +--------+ + + | | 2022-03-13 | [facility] | 11.8 | (missing) | (missing) | | (unavailable | 12:05 | [facility] | | | | + + + +--------+ + + + + | Result panel 197 | + + + + + +-------+---------+ + | | 2022-03-13 | [facility] | 8.6 | mg/dL | (missing) | | (unavailable | 12:05 | [facility] | | | | + + + +-------+---------+ + + + | Result panel 198 | + + + + + + + + + | | 2022-03-14 | [facility] | NEGATIVE | (missing) | (missing) | | (unavailable | 08:24 | [facility] | | | | + + + + + + + + + | Result panel 199 | + + + + + +--------+ + + | | 2023-02-20 | [facility] | 2.66 | (missing) | (missing) | | (unavailable | 12:02:07 | [facility] | | | | + + + +--------+ + + + + | Result panel 200 | + + + + + +-------+---------+ + | | 2023-02-20 | [facility] | 177 | mg/dL | (missing) | | (unavailable | 12:02:07 | [facility] | | | | + + + +-------+---------+ + + + | Result panel 201 | + + + + + +------+---------+ + | | 2023-02-20 | [facility] | 41 | mg/dL | (missing) | | (unavailable | 12:02:07 | [facility] | | | | + + + +------+---------+ + + + | Result panel 202 | + + + + + +--------+---------+ + | | 2023-02-20 | [facility] | 2.06 | mg/dL | (missing) | | (unavailable | 12:02:07 | [facility] | | | | + + + +--------+---------+ + + + | Result panel 203 | + + + + + +------+ + + | | 2023-02-20 | [facility] | 32 | (missing) | (missing) | | (unavailable | 12:02:07 | [facility] | | | | + + + +------+ + + + + | Result panel 204 | + + + + + +---------+ + + | | 2023-02-20 | [facility] | 19.90 | (missing) | (missing) | | (unavailable | 12::07 | [facility] | | | | + + + +---------+ + + + + | Result panel 205 | + + + + + +-------+ + + | | 2023-02-20 | [facility] | 136 | (missing) | (missing) | | (unavailable | 12::07 | [facility] | | | | + + + +-------+ + + + + | Result panel 206 | + + + + + +-------+ + + | | 2023-02-20 | [facility] | 4.9 | (missing) | (missing) | | (unavailable | 12:02:07 | [facility] | | | | + + + +-------+ + + + + | Result panel 207 | + + + + + +-------+ + + | | 2023-02-20 | [facility] | 103 | (missing) | (missing) | | (unavailable | 12::07 | [facility] | | | | + + + +-------+ + + + + | Result panel 208 | + + + + + +------+ + + | | 2023-02-20 | [facility] | 26 | (missing) | (missing) | | (unavailable | 12:02:07 | [facility] | | | | + + + +------+ + + + + | Result panel 209 | + + + + + +--------+ + + | | 2023-02-20 | [facility] | 11.9 | (missing) | (missing) | | (unavailable | 12:02:07 | [facility] | | | | + + + +--------+ + + + + | Result panel 210 | + + + + + +-------+---------+ + | | 2023-02-20 | [facility] | 8.9 | mg/dL | (missing) | | (unavailable | 12:02:07 [facility] | | | | + + + +-------+---------+ + + + | Result panel 211 | + + + + + +-------+ + + | | 2023-02-20 | [facility] | 7.2 | (missing) | (missing) | | (unavailable | 12:02:07 | [facility] | | | | + + + +-------+ + + + + | Result panel 212 | + + + + + +-------+ + + | | 2023-02-20 | [facility] | 3.8 | (missing) | (missing) | | (unavailable | 12:02:07 | [facility] | | | | + + + +-------+ + + + + | Result panel 213 | + + + + + +-------+ + + | | 2023-02-20 | [facility] | 3.4 | (missing) | (missing) | | (unavailable | 12:02:07 [facility] | | | | + + + +-------+ + + + + | Result panel 214 | + + + + + +--------+ + + | | 2023-02-20 | [facility] | 1.12 | (missing) | (missing) | | (unavailable | 12:02:07 [facility] | | | | + + + +--------+ + + + + | Result panel 215 | + + + + + +-------+ + + | | 2023-02-20 | [facility] | 0.5 | (missing) | (missing) | | (unavailable | 12:02:07 [facility] | | | | + + + +-------+ + + + + | Result panel 216 | + + + + + +------+ + + | | 2023-02-20 | [facility] | 19 | (missing) | (missing) | | (unavailable | 12:02:07 [facility] | | | | + + + +------+ + + + + | Result panel 217 | + + + + + +------+ + + | | 2023-02-20 | [facility] | 22 | (missing) | (missing) | | (unavailable | 12:02:07 | [facility] | | | | + + + +------+ + + + + | Result panel 218 | + + + + + +------+ + + | | 2023-02-20 | [facility] | 66 | (missing) | (missing) | | (unavailable | 12::07 | [facility] | | | | + + + +------+ + + + + | Result panel 219 | + + + + + +------+ + + | | 2023-02-20 | [facility] | <3 | (missing) | (missing) | | (unavailable | 12:02:07 | [facility] | | | | + + + +------+ + + + + | Result panel 220 | + + + + + +-----+ + + | | 2023-02-20 | [facility] | O | (missing) | (missing) | | (unavailable | 12:07 | [facility] | | | | + + + +-----+ + + + + | Result panel 221 | + + + + + + + + + | | 2023-02-20 | [facility] | NEGATIVE | (missing) | (missing) | | (unavailable | 12::07 | [facility] | | | | + + + + + + + + + | Result panel 222 | + + + + + + + + + | | 2023-02-20 | [facility] | NEGATIVE | (missing) | (missing) | | (unavailable | 12:02:07 | [facility] | | | | + + + + + + + + + | Result panel 223 | + + + + + + + + + | | 2023-02-20 | [facility] | BLOOD IN | (missing) | (missing) | | (unavailable | 12:02:07 | [facility] | | | | + + + + + + + + + | Result panel 224 | + + + + + +-------+ + + | | 2023-02-20 | [facility] | 6.6 | (missing) | (missing) | | (unavailable | 12:02:07 | [facility] | | | | + + + +-------+ + + + + | Result panel 225 | + + + + + +--------+ + + | | 2023-02-20 | [facility] | 4.17 | (missing) | (missing) | | (unavailable | 12:02:07 | [facility] | | | | + + + +--------+ + + + + | Result panel 226 | + + + + + +--------+ + + | | 2023-02-20 | [facility] | 12.6 | (missing) | (missing) | | (unavailable | 12:02:07 | [facility] | | | | + + + +--------+ + + + + | Result panel 227 | + + + + + +--------+ + + | | 2023-02-20 | [facility] | 37.6 | (missing) | (missing) | | (unavailable | 12:02:07 | [facility] | | | | + + + +--------+ + + + + | Result panel 228 | + + + + + +--------+ + + | | 2023-02-20 | [facility] | 90.2 | (missing) | (missing) | | (unavailable | 12:02:07 | [facility] | | | | + + + +--------+ + + + + | Result panel 229 | + + + + + +--------+ + + | | 2023-02-20 | [facility] | 30.2 | (missing) | (missing) | | (unavailable | 12:02:07 | [facility] | | | | + + + +--------+ + + + + | Result panel 230 | + + + + + +--------+ + + | | 2023-02-20 | [facility] | 33.5 | (missing) | (missing) | | (unavailable | 12:02:07 | [facility] | | | | + + + +--------+ + + + + | Result panel 231 | + + + + + +--------+ + + | | 2023-02-20 | [facility] | 14.5 | (missing) | (missing) | | (unavailable | 12:: | [facility] | | | | + + + +--------+ + + + + | Result panel 232 | + + + + + +-------+ + + | | 2023-02-20 | [facility] | 173 | (missing) | (missing) | | (unavailable | 12:07 | [facility] | | | | + + + +-------+ + + + + | Result panel 233 | + + + + + +--------+ + + | | 2023-02-20 | [facility] | 57.3 | (missing) | (missing) | | (unavailable | 12: | [facility] | | | | + + + +--------+ + + + + | Result panel 234 | + + + + + +--------+ + + | | 2023-02-20 | [facility] | 24.6 | (missing) | (missing) | | (unavailable | 12::07 | [facility] | | | | + + + +--------+ + + + + | Result panel 235 | + + + + + +-------+ + + | | 2023-02-20 | [facility] | 9.8 | (missing) | (missing) | | (unavailable | 12:02:07 | [facility] | | | | + + + +-------+ + + + + | Result panel 236 | + + + + + +-------+ + + | | 2023-02-20 | [facility] | 7.4 | (missing) | (missing) | | (unavailable | 12:02:07 [facility] | | | | + + + +-------+ + + + + | Result panel 237 | + + + + + +-------+ + + | | 2023-02-20 | [facility] | 0.9 | (missing) | (missing) | | (unavailable | 12:02:07 [facility] | | | | + + + +-------+ + + + + | Result panel 238 | + + + + + +--------+ + + | | 2023-02-20 | [facility] | 27.5 | (missing) | (missing) | | (unavailable | 12:02:07 [facility] | | | | + + + +--------+ + + + + | Result panel 239 | + + + + + + + + + | | 2023-02-20 | [facility] | NEGATIVE | (missing) | (missing) | | (unavailable | 13:45:07 | [facility] | | | | + + + + + + + + + | Result panel 240 | + + + + + + + + + | | 2023-02-20 | [facility] | NEGATIVE | (missing) | (missing) | | (unavailable | 13:45:07 | [facility] | | | | + + + + + + + + + | Result panel 241 | + + + + + + + + + | | 2023-02-20 | [facility] | NEGATIVE | (missing) | (missing) | | (unavailable | 13:45:07 | [facility] | | | | + + + + + + + + + | Result panel 242 | + + + + + + + + + | | 2023-02-20 | [facility] | NEGATIVE | (missing) | (missing) | | (unavailable | 13:45:07 | [facility] | | | | + + + + + + + + + | Result panel 243 | + + + + + + + + + | | 2023-02-20 | [facility] | NEGATIVE | (missing) | (missing) | | (unavailable | 13:45:07 | [facility] | | | | + + + + + + + + + | Result panel 244 | + + + + + + + + + | | 2023-02-20 | [facility] | NEGATIVE | (missing) | (missing) | | (unavailable | 13:45:07 | [facility] | | | | + + + + + + + + + | Result panel 245 | + + + + + + + + + | | 2023-02-20 | [facility] | NEGATIVE | (missing) | (missing) | | (unavailable | 13:45:07 | [facility] | | | | + + + + + + + + + | Result panel 246 | + + + + + + + + + | | 2023-02-20 | [facility] | NEGATIVE | (missing) | (missing) | | (unavailable | 13:45:07 | [facility] | | | | + + + + + + + + + | Result panel 247 | + + + + + + + + + | | 2023-02-20 | [facility] | NEGATIVE | (missing) | (missing) | | (unavailable | 13:45:07 | [facility] | | | | + + + + + + + + + | Result panel 248 | + + + + + + + + + | | 2023-02-20 | [facility] | NEGATIVE | (missing) | (missing) | | (unavailable | 13:45:07 | [facility] | | | | + + + + + + + + + | Result panel 249 | + + + + + + + + + | | 2023-02-20 | [facility] | NEGATIVE | (missing) | (missing) | | (unavailable | 13:45:07 | [facility] | | | | + + + + + + + + + | Result panel 250 | + + + + + + + + + | | 2023-02-20 | [facility] | NEGATIVE | (missing) | (missing) | | (unavailable | 13:45:07 | [facility] | | | | + + + + + + + + + | Result panel 251 | + + + + + + + + + | | 2023-02-20 | [facility] | NEGATIVE | (missing) | (missing) | | (unavailable | 13:45:07 | [facility] | | | | + + + + + + + + + | Serum or plasma indirect antiglobulin test using poly specific reagent | + + + + + + + + + | Serum or | 2023-02-20 | [facility] | NEGATIVE | (missing) | (missing) | | plasma | 12:02 | [facility] | | | | | indirect | | [facility] | | | | | antiglobulin | | | | | | | test using | | | | | | | poly | | | | | | | specific | | | | | | | reagent | | | | | | + + + + + + + + + | Rh blood group typing | + + + + + + + + + | Rh blood | 2023-02-20 | [facility] | NEGATIVE | (missing) | (missing) | | group typing | 12:02 | [facility] | | | | + + + + + + + + + | Urine benzodiazepines detection by screening method | + + + + + + + + + | Urine | 2023-02-20 | [facility] | NEGATIVE | (missing) | (missing) | | benzodiazepi | 13:45 | [facility] | | | | | shyanne | | [facility] | | | | | detection by | | | | | | | screening | | | | | | | method | | | | | | + + + + + + + + + | Serum or plasma ethanol measurement (moles/volume) | + + + + + +------+ + + | Serum or | 2023-02-20 | [facility] | <3 | (missing) | (missing) | | plasma | 12:02 | [facility] | | | | | ethanol | | Hospital | | | | | measurement | | | | | | | (moles/volum | | | | | | | e) | | | | | | + + + +------+ + + + + | Serum or plasma alanine aminotransferase measurement (enzymatic activity/volume) | + + + + + +------+ + + | Serum or | 2023-02-20 | [facility] | 22 | (missing) | (missing) | | plasma | 12:02 | [facility] | | | | | alanine | | Hospital | | | | | aminotransfe | | | | | | | rase | | | | | | | measurement | | | | | | | (enzymatic | | | | | | | activity/vol | | | | | | | ume) | | | | | | + + + +------+ + + + + | Serum or plasma albumin measurement (mass/volume) | + + + + + +-------+ + + | Serum or | 2023-02-20 | [facility] | 3.8 | (missing) | (missing) | | plasma | 12:02 | [facility] | | | | | albumin | | [facility] | | | | | measurement | | | | | | | (mass/volume | | | | | | | ) | | | | | | + + + +-------+ + + + + | Serum or plasma albumin/globulin mass ratio | + + + + + +--------+ + + | Serum or | 2023-02-20 | [facility] | 1.12 | (missing) | (missing) | | plasma | 12:02 | [facility] | | | | | albumin/glob | | [facility] | | | | | ulin mass | | | | | | | ratio | | | | | | + + + +--------+ + + + + | Serum or plasma calcium measurement (mass/volume) | + + + + + +-------+ + + | Serum or | 2023-02-20 | [facility] | 8.9 | (missing) | (missing) | | plasma | 12:02 | [facility] | | | | | calcium | | [facility] | | | | | measurement | | | | | | | (mass/volume | | | | | | | ) | | | | | | + + + +-------+ + + + + | Serum or plasma anion gap 4 | + + + + + +--------+ + + | Serum or | 2023-02-20 | [facility] | 11.9 | (missing) | (missing) | | plasma anion | 12:02 | [facility] | | | | | gap 4 | | [facility] | | | | + + + +--------+ + + + + | Serum or plasma aspartate aminotransferase measurement (enzymatic activity/volume) | + + + + + +------+ + + | Serum or | 2023-02-20 | [facility] | 19 | (missing) | (missing) | | plasma | 12:02 | [facility] | | | | | aspartate | | Hospital | | | | | aminotransfe | | | | | | | rase | | | | | | | measurement | | | | | | | (enzymatic | | | | | | | activity/vol | | | | | | | ume) | | | | | | + + + +------+ + + + + | Urine amphetamines detection by screening method | + + + + + + + + + | Urine | 2023-02-20 | [facility] | NEGATIVE | (missing) | (missing) | | amphetamines | 13:45 | [facility] | | | | | detection | | Hospital | | | | | by screening | | | | | | | method | | | | | | + + + + + + + + + | Urine barbiturates detection by screening method | + + + + + + + + + | Urine | 2023-02-20 | [facility] | NEGATIVE | (missing) | (missing) | | barbiturates | 13:45 | [facility] | | | | | detection | | Hospital | | | | | by screening | | | | | | | method | | | | | | + + + + + + + + + | Urine opiates detection by screening method | + + + + + + + + + | Urine | 2023-02-20 | [facility] | NEGATIVE | (missing) | (missing) | | opiates | 13:45 | [facility] | | | | | detection by | | Hospital | | | | | screening | | | | | | | method | | | | | | + + + + + + + + + | Screening urine tricyclic antidepressants detection | + + + + + + + + + | Screening | 2023-02-20 | [facility] | NEGATIVE | (missing) | (missing) | | urine | 13:45 | [facility] | | | | | tricyclic | | Hospital | | | | | antidepressa | | | | | | | nts | | | | | | | detection | | | | | | + + + + + + + + + | Urine methadone detection by screening method | + + + + + + + + + | Urine | 2023-02-20 | [facility] | NEGATIVE | (missing) | (missing) | | methadone | 13:45 | [facility] | | | | | detection by | | Hospital | | | | | screening | | | | | | | method | | | | | | + + + + + + + + + | Urine methamphetamine detection by screening method | + + + + + + + + + | Urine | 2023-02-20 | [facility] | NEGATIVE | (missing) | (missing) | | methamphetam | 13:45 | [facility] | | | | | ine | | Hospital | | | | | detection by | | | | | | | screening | | | | | | | method | | | | | | + + + + + + + + + | Urine methylenedioxymethamphetamine detection by screening method | + + + + + + + + + | Urine | 2023-02-20 | [facility] | NEGATIVE | (missing) | (missing) | | methylenedio | 13:45 | [facility] | | | | | xymethamphet | | Hospital | | | | | amine | | | | | | | detection by | | | | | | | screening | | | | | | | method | | | | | | + + + + + + + + + | Urine methylenedioxymethamphetamine detection by screening method | + + + + + + + + + | Urine | 2023-02-20 | [facility] | NEGATIVE | (missing) | (missing) | | methylenedio | 13:45 | [facility] | | | | | xymethamphet | | Hospital | | | | | amine | | | | | | | detection by | | | | | | | screening | | | | | | | method | | | | | | + + + + + + + + + | Urine phencyclidine detection by screening method | + + + + + + + + + | Urine | 2023-02-20 | [facility] | NEGATIVE | (missing) | (missing) | | phencyclidin | 13:45 | [facility] | | | | | e detection | | Hospital | | | | | by screening | | | | | | | method | | | | | | + + + + + + + + + | Serum or plasma total bilirubin measurement (mass/volume) | + + + + + +-------+ + + | Serum or | 2023-02-20 | [facility] | 0.5 | (missing) | (missing) | | plasma total | 12:02 | [facility] | | | | | bilirubin | | [facility] | | | | | measurement | | | | | | | (mass/volume | | | | | | | ) | | | | | | + + + +-------+ + + + + | Serum or plasma carbon dioxide, total measurement (moles/volume) | + + + + + +------+ + + | Serum or | 2023-02-20 | [facility] | 26 | (missing) | (missing) | | plasma | 12:02 | [facility] | | | | | carbon | | Hospital | | | | | dioxide, | | | | | | | total | | | | | | | measurement | | | | | | | (moles/volum | | | | | | | e) | | | | | | + + + +------+ + + + + | Serum or plasma chloride measurement (moles/volume) | + + + + + +-------+ + + | Serum or | 2023-02-20 | [facility] | 103 | (missing) | (missing) | | plasma | 12:02 | [facility] | | | | | chloride | | Hospital | | | | | measurement | | | | | | | (moles/volum | | | | | | | e) | | | | | | + + + +-------+ + + + + | Automated erythrocyte distribution width | + + + + + +--------+ + + | Automated | 2023-02-20 | [facility] | 14.5 | (missing) | (missing) | | erythrocyte | 12:02 | [facility] | | | | | distribution | | [facility] | | | | | width | | | | | | + + + +--------+ + + + + | Serum or plasma creatinine measurement (mass/volume) | + + + + + +--------+ + + | Serum or | 2023-02-20 | [facility] | 2.06 | (missing) | (missing) | | plasma | 12:02 | [facility] | | | | | creatinine | | [facility] | | | | | measurement | | | | | | | (mass/volume | | | | | | | ) | | | | | | + + + +--------+ + + + + | Serum globulin measurement (mass/volume) | + + + + + +-------+ + + | Serum | 2023-02-20 | [facility] | 3.4 | (missing) | (missing) | | globulin | 12:02 | [facility] | | | | | measurement | | [facility] | | | | | (mass/volume | | | | | | | ) | | | | | | + + + +-------+ + + + + | Serum or plasma glucose measurement (mass/volume) | + + + + + +-------+ + + | Serum or | 2023-02-20 | [facility] | 177 | (missing) | (missing) | | plasma | 12:02 | [facility] | | | | | glucose | | Hospital | | | | | measurement | | | | | | | (mass/volume | | | | | | | ) | | | | | | + + + +-------+ + + + + | Serum or plasma potassium measurement (moles/volume) | + + + + + +-------+ + + | Serum or | 2023-02-20 | [facility] | 4.9 | (missing) | (missing) | | plasma | 12:02 | [facility] | | | | | potassium | | [facility] | | | | | measurement | | | | | | | (moles/volum | | | | | | | e) | | | | | | + + + +-------+ + + + + | Serum or plasma protein measurement (mass/volume) | + + + + + +-------+ + + | Serum or | 2023-02-20 | [facility] | 7.2 | (missing) | (missing) | | plasma | 12:02 | [facility] | | | | | protein | | [facility] | | | | | measurement | | | | | | | (mass/volume | | | | | | | ) | | | | | | + + + +-------+ + + + + | Serum or plasma sodium measurement (moles/volume) | + + + + + +-------+ + + | Serum or | 2023-02-20 | [facility] | 136 | (missing) | (missing) | | plasma | 12:02 | [facility] | | | | | sodium | | [facility] | | | | | measurement | | | | | | | (moles/volum | | | | | | | e) | | | | | | + + + +-------+ + + + + | Serum or plasma urea nitrogen measurement (mass/volume) | + + + + + +------+ + + | Serum or | 2023-02-20 | [facility] | 41 | (missing) | (missing) | | plasma urea | 12:02 | [facility] | | | | | nitrogen | | Hospital | | | | | measurement | | | | | | | (mass/volume | | | | | | | ) | | | | | | + + + +------+ + + + + | Serum or plasma urea nitrogen/creatinine mass ratio | + + + + + +---------+ + + | Serum or | 2023-02-20 | [facility] | 19.90 | (missing) | (missing) | | plasma urea | 12:02 | [facility] | | | | | nitrogen/cre | | Hospital | | | | | atinine mass | | | | | | | ratio | | | | | | + + + +---------+ + + + + | Transf Band Num Patient | + + + + + + + + + | Transf Band | 2023-02-20 | [facility] | BLOOD IN | (missing) | (missing) | | Num Patient | 12:02 | [facility] | [facility] | | | | + + + + + + + + + | Urine cocaine detection | + + + + + + + + + | Urine | 2023-02-20 | [facility] | NEGATIVE | (missing) | (missing) | | cocaine | 13:45 | [facility] | | | | | detection | | Hospital | | | | + + + + + + + + + | Urine buprenorphine detection | + + + + + + + + + | Urine | 2023-02-20 | [facility] | NEGATIVE | (missing) | (missing) | | buprenorphin | 13:45 | [facility] | | | | | e detection | | Hospital | | | | + + + + + + + + + | Urine [id number] (THC) detection | + + + + + + + + + | Urine | 2023-02-20 | [facility] | NEGATIVE | (missing) | (missing) | | [id number] | 13:45 | [facility] | | | | | ahydrocannab | | Hospital | | | | | inol (THC) | | | | | | | detection | | | | | | + + + + + + + + + | Prothrombin time (PT) in platelet poor plasma by coagulation assay | + + + + + +--------+ + + | Prothrombin | 2023-02-20 | [facility] | 27.5 | (missing) | (missing) | | time (PT) | 12:02 | [facility] | | | | | in platelet | | Hospital | | | | | poor plasma | | | | | | | by | | | | | | | coagulation | | | | | | | assay | | | | | | + + + +--------+ + + + + | Automated blood monocyte count as percentage of total leukocytes | + + + + + +-------+ + + | Automated | 2023-02-20 | [facility] | 9.8 | (missing) | (missing) | | blood | 12:02 | [facility] | | | | | monocyte | | Hospital | | | | | count as | | | | | | | percentage | | | | | | | of total | | | | | | | leukocytes | | | | | | + + + +-------+ + + + + | INR in Platelet poor plasma by Coagulation assay | + + + + + +--------+ + + | INR in | 2023-02-20 | [facility] | 2.66 | (missing) | (missing) | | Platelet | 12:02 | [facility] | | | | | poor plasma | | Hospital | | | | | by | | | | | | | Coagulation | | | | | | | assay | | | | | | + + + +--------+ + + + + | Blood leukocytes automated count (number/volume) | + + + + + +-------+ + + | Blood | 2023-02-20 | [facility] | 6.6 | (missing) | (missing) | | leukocytes | 12:02 | [facility] | | | | | automated | | Hospital | | | | | count | | | | | | | (number/volu | | | | | | | me) | | | | | | + + + +-------+ + + + + | Serum or plasma alkaline phosphatase measurement (enzymatic activity/volume) | + + + + + +------+ + + | Serum or | 2023-02-20 | [facility] | 66 | (missing) | (missing) | | plasma | 12:02 | [facility] | | | | | alkaline | | Hospital | | | | | phosphatase | | | | | | | measurement | | | | | | | (enzymatic | | | | | | | activity/vol | | | | | | | ume) | | | | | | + + + +------+ + + + + | Automated blood basophil count as percentage of total leukocytes | + + + + + +-------+ + + | Automated | 2023-02-20 | [facility] | 0.9 | (missing) | (missing) | | blood | 12:02 | [facility] | | | | | basophil | | Hospital | | | | | count as | | | | | | | percentage | | | | | | | of total | | | | | | | leukocytes | | | | | | + + + +-------+ + + + + | Automated blood eosinophil count as percentage of total leukocytes | + + + + + +-------+ + + | Automated | 2023-02-20 | [facility] | 7.4 | (missing) | (missing) | | blood | 12:02 | [facility] | | | | | eosinophil | | Hospital | | | | | count as | | | | | | | percentage | | | | | | | of total | | | | | | | leukocytes | | | | | | + + + +-------+ + + + + | Blood hemoglobin measurement (mass/volume) | + + + + + +--------+ + + | Blood | 2023-02-20 | [facility] | 12.6 | (missing) | (missing) | | hemoglobin | 12:02 | [facility] | | | | | measurement | | Hospital | | | | | (mass/volume | | | | | | | ) | | | | | | + + + +--------+ + + + + | Automated blood hematocrit | + + + + + +--------+ + + | Automated | 2023-02-20 | [facility] | 37.6 | (missing) | (missing) | | blood | 12:02 | [facility] | | | | | hematocrit | | [facility] | | | | + + + +--------+ + + + + | Automated blood lymphocyte count as percentage ot total leukocytes | + + + + + +--------+ + + | Automated | 2023-02-20 | [facility] | 24.6 | (missing) | (missing) | | blood | 12:02 | [facility] | | | | | lymphocyte | | Hospital | | | | | count as | | | | | | | percentage | | | | | | | ot total | | | | | | | leukocytes | | | | | | + + + +--------+ + + + + | Automated blood neutrophil count as percentage of total leukocytes | + + + + + +--------+ + + | Automated | 2023-02-20 | [facility] | 57.3 | (missing) | (missing) | | blood | 12:02 | [facility] | | | | | neutrophil | | Hospital | | | | | count as | | | | | | | percentage | | | | | | | of total | | | | | | | leukocytes | | | | | | + + + +--------+ + + + + | Automated blood platelet count (count/volume) | + + + + + +-------+ + + | Automated | 2023-02-20 | [facility] | 173 | (missing) | (missing) | | blood | 12:02 | [facility] | | | | | platelet | | Hospital | | | | | count | | | | | | | (count/volum | | | | | | | e) | | | | | | + + + +-------+ + + + + | Automated erythrocyte mean corpuscular hemoglobin (mass per erythrocyte) | + + + + + +--------+ + + | Automated | 2023-02-20 | [facility] | 30.2 | (missing) | (missing) | | erythrocyte | 12:02 | [facility] | | | | | mean | | Hospital | | | | | corpuscular | | | | | | | hemoglobin | | | | | | | (mass per | | | | | | | erythrocyte) | | | | | | | | | | | | | + + + +--------+ + + + + | Automated erythrocyte mean corpuscular hemoglobin concentration measurement | | (mass/volume) | + + + + + +--------+ + + | Automated | 2023-02-20 | [facility] | 33.5 | (missing) | (missing) | | erythrocyte | 12:02 | [facility] | | | | | mean | | Hospital | | | | | corpuscular | | | | | | | hemoglobin | | | | | | | concentratio | | | | | | | n | | | | | | | measurement | | | | | | | (mass/volume | | | | | | | ) | | | | | | + + + +--------+ + + + + | Automated erythrocyte mean corpuscular volume | + + + + + +--------+ + + | Automated | 2023-02-20 | [facility] | 90.2 | (missing) | (missing) | | erythrocyte | 12:02 | [facility] | | | | | mean | | Hospital | | | | | corpuscular | | | | | | | volume | | | | | | + + + +--------+ + + + + | Blood erythrocytes automated count (number/volume) | + + + + + +--------+ + + | Blood | 2023-02-20 | [facility] | 4.17 | (missing) | (missing) | | erythrocytes | 12:02 | [facility] | | | | | automated | | Hospital | | | | | count | | | | | | | (number/volu | | | | | | | me) | | | | | | + + + +--------+ + + + + | Blood ABO group typing | + + + + + +-----+ + + | Blood ABO | 2023-02-20 | [facility] | O | (missing) | (missing) | | group typing | 12:02 | [facility] | | [facility] | | | | + + + +-----+ + + + + | Glomerular filtration rate/1.73 sq M.predicted [Volume Rate/Area] inSerum, Plasma or | | Blood by Creatinine-based formula (CKD-EPI 2020) | + + + + + +------+ + + | Glomerular | 2023-02-20 | [facility] | 32 | (missing) | (missing) | | filtration | 12:02 | [facility] | | | | | rate/1.73 sq | | Hospital | | | | | M.predicted | | | | | | | [Volume | | | | | | | Rate/Area] | | | | | | | inSerum, | | | | | | | Plasma or | | | | | | | Blood by | | | | | | | Creatinine-b | | | | | | | ased formula | | | | | | | (CKD-EPI | | | | | | | 2020) | | | | | | + + + +------+ + + Social History + + + + | date | description | facility | + + + + | 2022-04-27 00:00 | Never smoker | [facility] | + + + + | 2023-02-20 00:00 | Never smoker | [facility] | + + + + Vital Signs + + + +---------+ | date | measurement | value | units | + + + +---------+ | 2022-01-09 00:00 | BMI | 27.5 | kg/m2 | + + + +---------+ | 2022-01-09 00:00 | height_metric | 182.88 | cm | + + + +---------+ | 2022-01-09 00:00 | height_standard | 72 | in | + + + +---------+ | 2022-01-09 00:00 | weight_metric | 91.81 | kg | + + + +---------+ | 2022-01-09 00:00 | weight_standard | 202.41 | lb | + + + +---------+ | 2022-03-16 00:00 | BP_diastolic | 60 | mmHg | + + + +---------+ | 2022-03-16 00:00 | BP_systolic | 119 | mmHg | + + + +---------+ | 2022-03-16 00:00 | heart_rate | 55 | /min | + + + +---------+ | 2022-03-16 00:00 | o2_saturation | 100 | % | + + + +---------+ | 2022-03-16 00:00 | respiration_rate | 16 | /min | + + + +---------+ | 2022-03-16 00:00 | temperature_metric | 36.67 | C | | | | | | + + + +---------+ | 2022-03-16 00:00 | | 98 | F | | | temperature_standar | | | | | d | | | + + + +---------+ | 2022-04-18 00:00 | BMI | 28.5 | kg/m2 | + + + +---------+ | 2022-04-18 00:00 | height_metric | 182.88 | cm | + + + +---------+ | 2022-04-18 00:00 | height_standard | 72 | in | + + + +---------+ | 2022-04-18 00:00 | weight_metric | 95.4 | kg | + + + +---------+ | 2022-04-18 00:00 | weight_standard | 210.32 | lb | + + + +---------+ | 2022-04-20 00:00 | BP_diastolic | 88 | mmHg | + + + +---------+ | 2022-04-20 00:00 | BP_systolic | 151 | mmHg | + + + +---------+ | 2022-04-20 00:00 | heart_rate | 60 | /min | + + + +---------+ | 2022-04-20 00:00 | o2_saturation | 98 | % | + + + +---------+ | 2022-04-20 00:00 | respiration_rate | 15 | /min | + + + +---------+ | 2022-04-20 00:00 | temperature_metric | 36.56 | C | | | | | | + + + +---------+ | 2022-04-20 00:00 | | 97.8 | F | | | temperature_standar | | | | | d | | | + + + +---------+ | 2022-04-27 00:00 | BMI | 28.5 | kg/m2 | + + + +---------+ | 2022-04-27 00:00 | BP_diastolic | 71 | mmHg | + + + +---------+ | 2022-04-27 00:00 | BP_systolic | 119 | mmHg | + + + +---------+ | 2022-04-27 00:00 | heart_rate | 68 | /min | + + + +---------+ | 2022-04-27 00:00 | height_metric | 182.88 | cm | + + + +---------+ | 2022-04-27 00:00 | height_standard | 72 | in | + + + +---------+ | 2022-04-27 00:00 | o2_saturation | 98 | % | + + + +---------+ | 2022-04-27 00:00 | respiration_rate | 17 | /min | + + + +---------+ | 2022-04-27 00:00 | temperature_metric | 37.28 | C | | | | | | + + + +---------+ | 2022-04-27 00:00 | | 99.1 | F | | | temperature_standar | | | | | d | | | + + + +---------+ | 2022-04-27 00:00 | weight_metric | 95.25 | kg | + + + +---------+ | 2022-04-27 00:00 | weight_standard | 209.99 | lb | + + + +---------+ | 2022-04-27 00:00 | weight_standard | 210 | lb | + + + +---------+ | 2022-07-12 00:00 | BMI | 25.1 | kg/m2 | + + + +---------+ | 2022-07-12 00:00 | height_metric | 182.88 | cm | + + + +---------+ | 2022-07-12 00:00 | height_standard | 72 | in | + + + +---------+ | 2022-07-12 00:00 | weight_metric | 84 | kg | + + + +---------+ | 2022-07-12 00:00 | weight_standard | 185.19 | lb | + + + +---------+ | 2022-07-13 00:00 | BP_diastolic | 81 | mmHg | + + + +---------+ | 2022-07-13 00:00 | BP_systolic | 133 | mmHg | + + + +---------+ | 2022-07-13 00:00 | heart_rate | 65 | /min | + + + +---------+ | 2022-07-13 00:00 | o2_saturation | 96 | % | + + + +---------+ | 2022-07-13 00:00 | respiration_rate | 15 | /min | + + + +---------+ | 2022-07-13 00:00 | temperature_metric | 36.61 | C | | | | | | + + + +---------+ | 2022-07-13 00:00 | | 97.9 | F | | | temperature_standar | | | | | d | | | + + + +---------+ | 2023-02-05 00:00 | BP_diastolic | 82 | mmHg | + + + +---------+ | 2023-02-05 00:00 | BP_systolic | 151 | mmHg | + + + +---------+ | 2023-02-05 00:00 | heart_rate | 82 | /min | + + + +---------+ | 2023-02-20 00:00 | BP_diastolic | 78 | mmHg | + + + +---------+ | 2023-02-20 00:00 | BP_systolic | 153 | mmHg | + + + +---------+ | 2023-02-20 00:00 | heart_rate | 64 | /min | + + + +---------+ | 2023-02-20 00:00 | o2_saturation | 99 | % | + + + +---------+ | 2023-02-20 00:00 | respiration_rate | 17 | /min | + + + +---------+ | 2023-02-20 00:00 | temperature_metric | 36.78 | C | | | | | | + + + +---------+ | 2023-02-20 00:00 | | 98.2 | F | | | temperature_standar | | | | | d | | | + + + +---------+"
--- OUTSIDE RECORDS SUMMARY | ~2023-02-21 | XMS | Continuity of Care Document ---
Demographics + + + | Address | [address] | | | [place] [address] | + + + | Preferred Language | Unknown | + + + | Marital Status | Domestic partner | + + + | Yazdanism Affiliation | Unknown | + + + | Race | White | + + + | Ethnic Group | Not or | + + + Author + + + | Author | [facility] | + + + | Organization | [facility] | + + + | Address | [address] | | | [place] [address] | + + + | Phone | | + + + Care Team Providers + + + + | Care Drapery And Upholstery Estimator Name | Role | Phone | + [...] + | 2023-02-20 00:00 | ALLOPURINOL | [facility] | + + + + | 2023-02-20 00:00 | allopurinol 100 MG Oral | [facility] | | | Tablet | | + + + + | 2023-02-20 00:00 | OMEPRAZOLE | [facility] | + + + + | 2023-02-20 00:00 | omeprazole 20 MG Delayed | [facility] [...] Hospital | + + + + | 2023-02-20 00:00 | ASPIRIN | [facility] [...] | 2023-02-20 00:00 | Cholecalciferol (Vitamin | [facility] | | | D3) | | + + + + | 2022-04-27 00:00 | cholecalciferol 0.125 MG | [facility] | | | Oral Capsule | | + + + + | 2023-02-20 00:00 | cholecalciferol 0.125 MG | [facility] | | | Oral Capsule | | + + + + | 2022-04-20 00:00 | FUROSEMIDE | [facility] | + + + + | 2022-04-27 00:00 | FUROSEMIDE | [facility] | + + + + | 2022-07-13 00:00 | FUROSEMIDE | [facility] | + + + + | 2023-02-20 00:00 | FUROSEMIDE | [facility] [...] Hospital | + + + + | 2023-02-20 00:00 | QUETIAPINE FUMARATE | [facility] | + + + + | 2023-02-20 00:00 | ASPIRIN | [facility] [...] Hospital | + + + + | 2023-02-20 00:00 | DULOXETINE HCL | [facility] | + + + + | 2023-02-20 00:00 | WARFARIN SODIUM | [facility] | + + + + | 2023-02-20 00:00 | Diclofenac Sodium | [facility] | + + + + | 2022-04-27 00:00 | diclofenac sodium 0.01 | [facility] | | | MG/MG Topical Gel | | + + + + | 2023-02-20 00:00 | diclofenac sodium 0.01 | [facility] [...] + | 2023-02-20 00:00 | HYDROCODONE | [facility] [...] | 2023-02-20 00:00 | ROSUVASTATIN CALCIUM | [facility] | + + + + | 2023-02-20 00:00 | rosuvastatin calcium 20 MG | [facility] | | | Oral Tablet [Crestor] | [...] Hospital | + + + + | 2023-02-20 00:00 | METOPROLOL SUCCINATE | [facility] | + + + + | 2023-02-20 00:00 | METOPROLOL TARTRATE | [facility] [...] | 2023-02-20 00:00 | LOSARTAN POTASSIUM | [facility] | + + + + | 2023-02-20 00:00 | losartan potassium 25 MG | [facility] | [facility] | + + + + 2020-01-27 00:00 [...] + + + | 2022-08-28 09:25 | JAIL (CURRENT) USE OF | [facility] | | [...] + + + | 2022-09-25 09:09 | JAIL (CURRENT) USE OF | [facility] | | [...] + + + | 2022-10-23 09:00 | JAIL (CURRENT) USE OF | [facility] | | | ANTICOAGULANTS | | + + + + | 2022-10-23 09:00 | 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 | | + + + + | 2022-12-11 08:45 | ENCOUNTER FOR THERAPEUTIC | [facility] | | | DRUG LEVEL MONITORING | | + + + + | 2022-12-11 08:45 | ALL SOURCE INTELLIGENCE TECHNICIAN (CURRENT) USE OF | [facility] | | | ANTICOAGULANTS | | + + + + | 2023-02-05 08:44 | ENCOUNTER FOR THERAPEUTIC | [facility] | | | DRUG LEVEL MONITORING | | + + + + | 2023-02-05 08:44 | ALL SOURCE INTELLIGENCE TECHNICIAN (CURRENT) USE OF | [facility] | | | ANTICOAGULANTS | | + + + + | 2023-02-20 00:00 | Laceration of forearm, | [facility] | | | right | | + + + + | 2023-02-20 00:00 | Fall | [facility] | + + + + | 2023-02-20 00:00 | Nasal fracture | [facility] | + + + + | 2023-02-20 00:00 | Fracture of nasal bone | [facility] | + + + + | 2023-02-20 00:00 | Laceration of right | [facility] | | | forearm | | + + + + | 2023-02-20 00:00 | Fall | [facility] | + + + + Procedures + [...] (missing) | | oxygen | 08:00 | [facility] | | | | | saturation | [...] | | | | | | | Cam[place]onian | | | | | | + [...] (missing) | | plasma | 05:55 | [facility] | | | | | triglyceride | [...] | | | | | | | [place]onian | | | | | | + [...] (missing) | | amphetamines | 13:45 | [facility] | | | | | detection | [...] + + + + + | Urine [id number] (THC) detection | + + + + + + + + + | Urine | 2023-02-20 | [facility] | NEGATIVE | (missing) | (missing) | | tebij-0-khhm | 13:45 | [facility] | | | [...] | 2022-04-27 00:00 | Never smoker | [facility] | + + + + | 2023-02-20 00:00 | Never smoker | [facility] | + + + + Vital [...]
--- OUTSIDE RECORDS SUMMARY | 2023-02-21 10:49 | XMS ---
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 Shiela has no Care Guidelines for this patient. [place] VISIT COUNT (12 MO.) [address] [facility] TOTAL 3 NOTE: Visits indicate total known visits. ED/C VISIT TRACKING (12 MO.) 02/21/2023 10:46 [facility] TYPE: Emergency COMPLAINT: - R ARM WOUND BLEEDING 02/20/2023 11:41 [facility] TYPE: Emergency COMPLAINT: - TRAUMA 04/27/2022 10:23 [facility] TYPE: Emergency COMPLAINT: - R FOOT, R HAND SWOLLEN/PAIN DIAGNOSES: - Allergy status to narcotic agent - Allergy status to other drugs, medicaments and biological substances - Allergy status to penicillin - Essential (primary) hypertension - [facility] (current) use of anticoagulants - long term care phlebotomist (current) use of aspirin - Other care home (current) drug therapy - Pain in right foot - Pain in right hand INPATIENT VISIT TRACKING (12 MO.) No inpatient visits to display in this time frame [email or web address]
[2023-02-21 13:18] VITALS: BP 112/68
== END 2023-02-21 13:17 | disposition home or self-care (01) ==
LOC: ED 10:45
DX: S51.811D Laceration without foreign body of right forearm, subsequent encounter (principal); R53.1 Weakness; I10 Essential (primary) hypertension; Z88.0 Allergy status to penicillin; Z88.5 Allergy status to narcotic agent; Z79.899 Other long term (current) drug therapy; Z79.82 Long term (current) use of aspirin
CPT/HCPCS: 90471; 90715; 97161; 99282-25

== ENCOUNTER 2025-01-15 08:29 | Inpatient (IN) | payer MEDICARE, OTHER ==
[~2025-01-15] VITALS: Ht 182.9 cm; Wt 99.2 kg
[~2025-01-15 08:29] MED LIST changes: -ASPIRIN81 MG PO; +AVAPRO75 MG PO; +CEPHALEXIN500 MG PO; +CIPROFLOXACIN500 MG PO; +DRIZALMA SPRINK20 MG PO; +DULOXETINE HCL60 MG PO; +GABAPENTIN300 MG PO; +IRBESARTAN75 MG PO; +LO-DOSE ASPIRIN81 MG PO; +NITROFURANTOIN100 M1 PO; +OXYBUTYNIN CHLOR5 M1 PO; +QUETIAPINE FUM100 MG PO; +QUETIAPINE FUMA50 MG PO; +ROSUVASTATIN CA20 MG PO; +SULFAMETHOXAZO1 EAC1 PO; +TAMSULOSIN HCL0.4 MG PO; +TRAMADOL HCL50 MG PO; +TURMERIC500 M2 PO
[2025-01-15] MEDS ORDERED: PRILOSEC OTC20 MG PO (08:41)
[2025-01-15] MEDS ORDERED: SODIUM CHLORIDE 0.9% 1,000 ML IV ONE (08:45)
[2025-01-15 08:47] LABS: BASOPHILS 0.3 % (0.2-1.2); EOSINOPHILS 0 % (0.8-7.0); LYMPHOCYTES 7.3 % (21.8-53.1); MCH 29.7 PG (25.7-32.2); MCHC 33.2 g/dL (32.3-36.5); MCV 89.5 fL (79.0-92.2); MONOCYTES 12.9 % (5.3-12.2); NEUTROPHILS 79.1 % (34.0-67.9); RBC 3.53 M/uL (4.63-6.08)
[2025-01-15 08:57] LABS: INR 3.37 (0.80-1.30); PROTIME 32.3 Sec (11.2-14.2)
[2025-01-15 09:00] LABS: BLOOD/HGB, URINE MODERATE (Negative); KETONE, URINE NEGATIVE (Negative); LEUK ESTERASE, URINE LARGE (negative); NITRITE, URINE NEGATIVE (negative)
[2025-01-15 09:02] LABS: ALT (SGPT) 21.0 U/L (14-59); AST (SGOT) 18.0 U/L (15-37); GLOMERULAR FILTRATION RATE,EST 26.0 mL/min (>60); PROTEIN, TOTAL 7.4 g/dL (6.4-8.2); UREA NITROGEN 58.0 mg/dL (7-18)
[2025-01-15 09:06] LABS: BACTERIA, URINE 4+ /hpf (negative); CASTS, URINE NONE SEEN \\lpf; CRYSTALS, URINE NONE SEEN (0-1+); EPITHELIAL CELLS, URINE SQUAMOUS 1+ /lpf (0-1+); REFLEX CULTURE, URINE Yes (No)
[2025-01-15] MEDS ORDERED: METOPROLOL TARTRATE 50 MG TAB PO ONE (09:30)
[2025-01-15] MEDS ORDERED: CEFDINIR300 MG PO (09:37)
[2025-01-15] MEDS ORDERED: ALBUTEROL SULFATE 8 GM HOME.PACK INH ONE (09:45)
[2025-01-15] MEDS ORDERED: FAMOTIDINE 20 MG/ 2 ML VIAL IV ONE (11:45)
--- NOTE | 2025-01-15 11:45 | NUR ---
THIS RN TRANSPORTS PT FROM ED7 TO RM 110. REPORT RECEIVED FROM TURNER GILES. THIS RN REMAINS WITH PT FOR ADMISSION AT THIS TIME.
[2025-01-15 11:46] VITALS: BP 140/81
[2025-01-15] MEDS ORDERED: ACETAMINOPHEN 325 MG TAB PO PRN (12:00)
[2025-01-15] MEDS ORDERED: PHARMACY RENAL DOSE ADJUSTMENT 1 DOSE MISC PO SCH (12:00)
[2025-01-15] MEDS ORDERED: ALBUTEROL/IPRATROPIUM 3 ML NEB INH PRN (12:15)
--- NOTE | 2025-01-15 12:50 | NUR ---
ADMISSION COMPLETE. PT IS ALERT AND ORIENTED TO SELF ONLY. MEDICATIONS ADMINISTERED ORDERED. MALE EXTERNAL PUREWICK PLACED FOR INCONTINENCE. IV TO L AC WRAPPED FOR PRECAUTION PT IS PICKING AT IV SITE. PT HAS AND TWO GRANDSONS PRESENT WHO REPORT THEY ASSIST IN HIS USUAL CARES. RESPIRATORY THERAPY ALSO IN TO ASSESS AND TREAT PT. BED ALARM ON WITH FALL MATS IN PLACE.
[2025-01-15 13:21] VITALS: BP 139/69
--- NOTE | 2025-01-15 13:23 | NUR ---
Patient's family left. Patient is confused, he has attempted to get out of bed several times. ENGINEERING TECHNICAL ANALYST sitting with patient for safety. Notified Golf Ball Trimmer Jacquelin, she will be calling in a sitter for patient safety.
--- NOTE | 2025-01-15 13:28 | NUR ---
PATIENT HAS BECOME EXTREMELY RESTLESS, CRM COORDINATOR SHAWNA HAS THIS PROPERTY PRESERVATION SPECIALIST ON 1:1 MONITORING WHILE FAMILY IS OUT OF THE ROOM. VITALS AND I&O'S DOCUMENTED.
[2025-01-15 13:43] VITALS: BP 139/69
--- NOTE | 2025-01-15 14:06 | NUR ---
INTO SEE PATIENT. PERSONAL HEALTH INFORMATION REVIEWED. PATIENT LIVES IN A HOUSE WITH LIFE PARTNER. PATIENT HAS ONE STEP INTO THE HOME. THEY HAVE RAILING TO HELP. USES A WALKER AT BASELINE. DOES NOT DRIVE. PATIENT LIFE PARTNER DENIES ANY DIFFCULTY PAYING UTLITIES OR OBTAINING FOOD. THEY HAVE A 26 YEAR OLD GRANDSON THAT LIVES WITH THEM WHO HELPS OUT. PATIENT PARTNER STATES THEY HAVE NOT NEEDED ANY HELP UNTIL THIS POINT TODAY. CAREGIVER PHAMPLETS GIVEN, PATIENT CHOICE LETTER WITH LIST OF ASSISTED LIVINGS GIVEN. LET HER KNOW WHAT UNITS HAVE MEMORY CARE. NO QUESTIONS AT THIS TIME.
--- NOTE | 2025-01-15 14:18 | NUR ---
VERA LESTER IN ROOM 1:1 AT THIS TIME. PT WATCHING TELEVISION AND PICKING AT THINGS IN BED AND ON HIS PERSON.
[2025-01-15 14:54] LABS: GLOMERULAR FILTRATION RATE,EST 28.0 mL/min (>60); UREA NITROGEN 58.0 mg/dL (7-18)
[2025-01-15] MEDS ORDERED: SODIUM ZIRCONIUM CYCLOSILICATE 10 GM PACK PO ONE (15:30)
[2025-01-15] MEDS ORDERED: VITAMIN D3125 MC2 PO (15:39)
--- NOTE | 2025-01-15 15:39 | NUR ---
MED REC COMPLETE
[2025-01-15] MEDS ORDERED: WARFARIN SOD HOLD 1 EA PO SCH (16:00)
[2025-01-15] MEDS ORDERED: WARFARIN PER PHARMACY PROTOCOL PO SCH (16:00)
--- NOTE | 2025-01-15 16:14 | NUR ---
PTs RETURNS TO FLOOR, VERA TREVON IS TAKING A BREAK 1:1 AT THIS TIME. PT IS RESTING IN BED WATCHING TELEVISION QUIETLY. NO REQUESTS. CALL LIGHT IN REACH. BED ALARM ON. FALL PADS DOWN.
[2025-01-15 17:38] VITALS: BP 124/76
--- NOTE | 2025-01-15 17:43 | NUR ---
PATIENT LAYING IN BED. VITAL SIGNS AND I&OS WERE DONE. PATIENTS IS AT THE BEDSIDE, CALL LIGHT IS WITHIN REACH AND NO FUTHER NEEDS AT THIS TIME.
--- NOTE | 2025-01-15 18:00 | NUR ---
PATIENTS BRIEF WAS CHANGED BY THIS MECHANICAL STRIPER ANS TREVON WOLFE. PATIENTS IS NOW LAYING IN BED. CALL LIGHT IS WITHIN REACH AND NO FUTHER NEEDS AT THIS TIME.
[2025-01-15 18:26] VITALS: BP 124/76
--- NOTE | 2025-01-15 19:50 | NUR ---
RECEIVED REPORT. PT ALERT IN BED, NO NEEDS PRESENTLY. SUPPORTIVE FAMILY AT BEDSIDE. CALL LIGHT INR EACH
[2025-01-15 20:43] VITALS: BP 147/76
[2025-01-15] MEDS ORDERED: GABAPENTIN 300 MG CAP PO SCH (21:00)
[2025-01-15] MEDS ORDERED: MELATONIN 3 MG TAB PO SCH (21:00)
[2025-01-15] MEDS ORDERED: DULOXETINE HCL 60 MG CAP PO SCH (21:00)
[2025-01-15] MEDS ORDERED: QUETIAPINE FUMARATE 25 MG TAB PO SCH (21:00)
[2025-01-15] MEDS ORDERED: METOPROLOL TARTRATE 25 MG TAB PO SCH (21:00)
[2025-01-15] MEDS ORDERED: HEParin SOD (PORCINE) 5,000 UNIT/ML SDV SUB-Q SCH (21:00)
[2025-01-15] MEDS ORDERED: TAMSULOSIN HCL 0.4 MG CAP PO SCH (21:00)
[2025-01-15] MEDS ORDERED: PANTOPRAZOLE SODIUM 40 MG TABEC PO SCH (21:00)
--- NOTE | 2025-01-15 21:16 | NUR ---
VITALS, ASSESSMENT, EVENING MEDS. GIVEN MEDS CRUSHED WITH CHOCOLATE PUDDING. PT PLEASANTLY DISORIENTED TO TIME, PLACE, AND SITUATION. PUREWICK IN PLACE. SITTER IN ROOM WT PT. NO NEEDS PRESENTLY, CALL SALMA BRANCH
--- NOTE | 2025-01-15 23:34 | NUR ---
PT RESTING IN BED WITH EYES CLOSED. RESPERS EVEN AND UNLABORED. SITTER IN ROOM WITH PT. CALL LIGHT IN REACH
[2025-01-16] VITALS (9 sets, daily range): BP systolic 106–150; BP diastolic 67–90
--- NOTE | 2025-01-16 01:58 | NUR ---
PT RESTING IN BED WITH EYES CLOSED, RISE AND FALL OF CHEST NOTED, PT WITH FREQUENT ARM AND LEG MOVEMENTS WHILE SLEEPING. SITTER IN ROOM WITH PT. CALL LIGHT IN REACH
--- NOTE | 2025-01-16 02:41 | NUR ---
PROGRAM SUPPORT SPECIALIST OBTAINED VITALS AND I&O. PT REMAINS ASLEEP. PROGRAM SUPPORT SPECIALIST REAMINS IN ROOM 1:1
--- NOTE | 2025-01-16 02:56 | NUR ---
RELIEVED SITTER, THIS RN NOW 1 TO 1 WITH PT. PT RESTING WITH EYES CLOSED, RISE AND FALL OF CHEST OBSERVED. CALL LIGHT IN REACH
[2025-01-16 05:10] LABS: BASOPHILS 0.1 % (0.2-1.2); EOSINOPHILS 0 % (0.8-7.0); LYMPHOCYTES 4.8 % (21.8-53.1); MCH 29.4 PG (25.7-32.2); MCHC 33.3 g/dL (32.3-36.5); MCV 88.2 fL (79.0-92.2); MONOCYTES 7.0 % (5.3-12.2); NEUTROPHILS 87.7 % (34.0-67.9); RBC 3.47 M/uL (4.63-6.08)
--- NOTE | 2025-01-16 05:13 | NUR ---
VITALS, AM ASSESSMENT. PT DENIES NEEDS FOR NOW. PLEASANTLY DISORIENTED TO PLACE, TIME, AND SITUATION. [facility], THIS RN IN ROOM SITTER.
[2025-01-16 05:24] LABS: INR 3.35 (0.80-1.30); PROTIME 32.1 Sec (11.2-14.2)
[2025-01-16 05:26] LABS: GLOMERULAR FILTRATION RATE,EST 30.0 mL/min (>60); UREA NITROGEN 63.0 mg/dL (7-18)
--- NOTE | 2025-01-16 06:26 | NUR ---
AM ASSESSMENT, ASSISTED PT TO REPOSITION IN BED. PT DECLINES BLANKETS/WATER/OTHER NEEDS PRESENTLY. CALL LIGHT IN REACH, BED ALARM ACTIVE. THIS RN 1 TO 1 OBS WITH PT.
--- NOTE | 2025-01-16 07:05 | NUR ---
VERBAL REPORT RECEIVED FROM CHAN RODRIGUEZ. PT RESTS IN BED WITH EYES CLOSED, RESP EVEN AND UNLABORED.
--- NOTE | 2025-01-16 07:59 | NUR ---
PATIENT IS SLEEPING IN BED. IS AT THE BEDSIDE. PATIENTS CALL LIGHT IS WITHIN REACH AND NO FURTHER NEEDS AT THIS TIME.
[2025-01-16] MEDS ORDERED: NITROFURANTOIN MONOHYD MACROCR 100 MG CAP PO SCH (08:00)
[2025-01-16] MEDS ORDERED: SODIUM CHLORIDE 0.9% 1,000 ML IV SCH (08:00)
[2025-01-16] MEDS ORDERED: SODIUM ZIRCONIUM CYCLOSILICATE 10 GM PACK PO ONE ×2 (08:30→15:00)
--- NOTE | 2025-01-16 08:41 | NUR ---
PATIENT BRIEF AND PUREWICK WAS CHECKED. BRIEF WAS DRY AND PUREWICK WAS IN PLACE. PATIENT WAS SAT UP FOR BREAKFAST IN BED. PATIENTS IS AT BED SIDE. PATIENT IS LAYING IN BED CALL LIGHT IS WITHIN REACH AND NO FUTHER NEEDS AT THIS TIME.
--- NOTE | 2025-01-16 09:01 | NUR ---
PT AWAKE AND ALERT, ORIENTED TO SELF. S/O AT BEDSIDE, FEEDS PT BREAKFAST. PT TAKE AM ORAL MEDICATION WITH WATER, TOLERATES THIS WELL. NS INFUSION STARTED ORDERED. SIDE RAILS UP X4, FALL MATS ON FLOOR, BED ALARM ON, BED IN LOW POSITION AND LOCKED.
--- NOTE | 2025-01-16 10:02 | NUR ---
PATIENT LAYING IN BED. PATIENT WAS ADJUSTED HIGHER IN BED. COFFEE WAS PROVIDED AND I&OS WERE DONE AND VITAL SIGNS. PATIENTS FAMILY IS AT BEDSIDE. CALL LIGHT IS WITHIN REACH AND NO FUTHER NEEDS AT THIS TIME.
--- NOTE | 2025-01-16 11:13 | NUR ---
PATIENT GOT A BEDBATH BY THIS REAL ESTATE INVESTOR AND TREVON CASAS. PUREWICK, LINEN, GOWN AND BRIEF WAS CHANGED. PERICARE AND A SHAMPOO WAS DONE. PATIENTS CALL LIGHT IS WITHIN REACH AND NO FURTHER NEEDS AT THIS TIME.
--- NOTE | 2025-01-16 11:17 | NUR ---
IV FLUIDS COMPLETED. IV FLUSHED WITH 10ML OF NS, DRESSING INTACT. IV IS SALINE LOCKED. PATIENT'S AT BEDSIDE. PATIENT AND HIS WITHOUT ANY NEEDS AT THIS TIME. CALL LIGHT AND PERSONAL BELONGINGS ARE WITHIN REACH. RT AT BEDSIDE.
--- NOTE | 2025-01-16 13:06 | NUR ---
PATIENT IS LAYING IN BED. VITAL SIGNS AND I&OS WERE TAKEN. PATIENTS PURWICK AND BRIEF WERE CHECKED AND DRY. PATIENTS CALL LIGHT IS WITHIN REACH AND NO FUTHER NEEDS AT THIS TIME.
--- NOTE | 2025-01-16 14:01 | NUR ---
AT 1330 NOTED LOW URINE OUTPUT. PT IS ANXIOUS AND AGITATED. ATTEMPTED TO VOID ON BSC, PT UNABLE TO VOID, PASSES BM IN BREIF. PERICARE PROVIDED. PT EXPRESSES, "THE PRESSURE" BUT IS UNABLE TO EXPLAIN, PT IS AGITATED AND ATTEMPTS TO GET OUT OF BED. BLADDER SCAN SHOWS [address] LEONG NOTIFIED, ORDER RECEIVED FOR STRAIGHT CATH NOW AND PRN X2 FOR PVR OF GREATER THAN 400 ML. STRAIGHT CATH PERFORMED VIA STERILE TECHNIQUE WITH 16 FR CATHETER. 475 MLS OF CLOUDY DARK YELLOW/BROWN URINE WITH BROWN AND BLACK SEDIMENT REMOVED FROM BLADDER. PT STATES, "THAT BETTER."
[2025-01-16] MEDS ORDERED: LIDOCAINE 2% VISCOUS 6 ML SYR TOP ONE (14:15)
--- NOTE | 2025-01-16 14:38 | NUR ---
PATIENT LAYING IN BED. CALL LIGHT IS WITHIN REACH AND NO FUTHER NEEDS AT THIS TIME.
--- NOTE | 2025-01-16 15:52 | NUR ---
PATIENT IS LAYING IN BED WITH FAMILY AT BEDSIDE. PATIENTS CALL LIGHT IS WITHIN REACH AND NO FURTHER NEEDS AT THIS TIME.
[2025-01-16] MEDS ORDERED: WARFARIN SOD HOLD 1 EA PO SCH (16:00)
--- NOTE | 2025-01-16 17:19 | NUR ---
PATIENT IS SITTING UP IN BED. PATIENTS VITAL SIGNS AND I&OS WERE DONE. PATIENTS CALL LIGHT IS WITHIN REACH AND NO FURTHER NEEDS AT THIS TIME.
[2025-01-16] MEDS ORDERED: METOPROLOL TARTRATE 25 MG TAB PO SCH (17:45)
--- NOTE | 2025-01-16 18:14 | NUR ---
NO URINE OUTPUT SINCE STRAIGHT CATH, BLADDER SCAN SHOWS 259 MLS, PT DENIES PAIN OR DISCOMFORT. CALM AT THIS TIME.
--- NOTE | 2025-01-16 18:22 | NUR ---
PATIENT IS LAYING IN BED WITH FAMILY AT BEDSIDE. PATIENTS CALL LIGHT IS WITHIN REACH AND NO FUTHER NEEDS AT THIS TIME.
--- NOTE | 2025-01-16 20:17 | NUR ---
PT ALERT IN BED. DISORIENTED TO PLACE, SITUATION, TIME. SITTER IN ROOM.
--- NOTE | 2025-01-16 22:15 | NUR ---
ASSESSMENT, EVENING MEDS. PT ORIENTED TO SELF, BUT OTHERWISE DISORIENTED. STATES THAT HE WOULD "LIKE TO GRAB A FEW BEERS". DISCUSSED AGITATION WITH , OK FOR PRN ATIVAN ORDER. NO OTHER NEEDS PRESENTLY, CALL LIGHT IN REACH, SITTER IN ROOM
[2025-01-16] MEDS ORDERED: LORazepam 2 MG/ML VIAL IV PRN (23:30)
--- NOTE | 2025-01-17 00:11 | NUR ---
PT RESTING IN BED WITH EYES CLSOED, RISE AND FALL OF CHEST OBSERVED. CALL LIGHT IN REACH
[2025-01-17 01:29] VITALS: BP 144/99
--- NOTE | 2025-01-17 02:35 | NUR ---
PT RESTING IN BED WITH EYES CLOSED, RISE AND FALL OF CHEST OBSERVED. CALL LIGHT IN REACH
--- NOTE | 2025-01-17 03:54 | NUR ---
PT RESTING WITH EYES CLOSED, RISE AND FALL OF CHEST OBSERVED. SITTER IN ROOM.
[2025-01-17 04:58] VITALS: BP 110/60
[2025-01-17 05:07] LABS: BASOPHILS 0.3 % (0.2-1.2); EOSINOPHILS 0.1 % (0.8-7.0); LYMPHOCYTES 8.1 % (21.8-53.1); MCH 29.0 PG (25.7-32.2); MCHC 32.7 g/dL (32.3-36.5); MCV 88.9 fL (79.0-92.2); MONOCYTES 12.7 % (5.3-12.2); NEUTROPHILS 78.5 % (34.0-67.9); RBC 3.34 M/uL (4.63-6.08)
[2025-01-17 05:17] LABS: INR 2.92 (0.80-1.30); PROTIME 28.9 Sec (11.2-14.2)
[2025-01-17 05:18] LABS: GLOMERULAR FILTRATION RATE,EST 36.0 mL/min (>60); UREA NITROGEN 70.0 mg/dL (7-18)
--- NOTE | 2025-01-17 05:25 | NUR ---
Changed Tele #1 battery. pet resort concierge in room 1:1. No other needs expressed by Pt. Call light left in reach. Bed in safe position.
--- NOTE | 2025-01-17 07:29 | NUR ---
RECIEVED SHIFT REPORT. PT IS ASLEEP IN BED, BREATHING EVEN AND UNLABORED. TREVON HURST SITTER AT THE BEDSIDE. CALL LIGHT IN REACH
--- NOTE | 2025-01-17 08:14 | EKG ---
[facility] [address] [place] [address] Signed Atrial fibrillation Abnormal ECG When compared with ECG of 13-Mar-2022 10:32:55 Atrial fibrillation has replaced Normal sinus rhythm Confirmed by Cheyenne Zafar MD ([id number]) on 01/17/2025 8:14:09 AM Electronically Signed By: CHEYENNE ZAFAR MD 01/17/2514 PATIENT NAME: WAYLON RUBIN Electrocardiogram DATE OF : 43 PHYSICIAN: CHEYENNE ZAFAR MD REPORT #: [id number] REPORT IS CONFIDENTIAL AND NOT TO BE RELEASED WITHOUT AUTHORIZATION
--- NOTE | 2025-01-17 08:15 | EKG ---
[facility] [address] [facility] [place], [place] [address] Signed Atrial fibrillation Abnormal ECG When compared with ECG of 16-JAN-2025 09:07, No significant change was found Confirmed by Cheyenne Zafar MD ([id number]) on 01/17/2025 8:14:57 AM Electronically Signed By: CHEYENNE ZAFAR MD 01/17/2515 PATIENT NAME: WAYLON RUBIN Electrocardiogram DATE OF : 43 PHYSICIAN: CHEYENNE ZAFAR MD REPORT #: [id number] REPORT IS CONFIDENTIAL AND NOT TO BE RELEASED WITHOUT AUTHORIZATION
[2025-01-17] MEDS ORDERED: NITROFURANTOIN100 M1 PO (09:20)
[2025-01-17 09:29] VITALS: BP 106/71
[2025-01-17 09:37] VITALS: BP 106/71
--- NOTE | 2025-01-17 09:41 | NUR ---
MORNING ASSESSMENT COMPLETE. PT AWAKE IN RECLINER, EATING BREAKFAST. SIG. PARTNER AT BEDSIDE. DISCUSSED POC. NO QUESTIONS AT THIS TIME. CALL LIGHT IN REACH
--- NOTE | 2025-01-17 09:52 | NUR ---
PATIENT IN CHAIR AT THIS TIME. THIS SALES EXPERT HOME THEATER ASSISTED PATIENT TO BEDSIDE COMMODE AND THEN BACK TO CHAIR. CALL LIGHT WITHIN REACH, NO FURTHER NEEDS AT THIS TIME.
[2025-01-17] MEDS ORDERED: WARFARIN SOD 1 MG TAB PO SCH (16:00)
--- NOTE | 2025-01-18 09:35 | NUR ---
HOME HEALTH ORDERS SENT
--- NOTE | 2025-01-18 12:59 | EKG ---
[facility] [address] [facility] [place], [place] [address] Signed EKG completed, results pending confirmation PATIENT NAME: WAYLON RUBIN Electrocardiogram DATE OF : 43 PHYSICIAN: PRELIMINARY REPORT #: [id number] REPORT IS CONFIDENTIAL AND NOT TO BE RELEASED WITHOUT AUTHORIZATION
== END 2025-01-17 10:45 | disposition home health service (06) | DRG 690 ==
LOC: ED 08:29 → MS 11:23
PROVIDERS: Emergency Medicine; ADMIT Student in an Organized Health Care Education/Training Program; ATTEND Student in an Organized Health Care Education/Training Program
DX: N39.0 Urinary tract infection, site not specified (principal); E87.1 Hypo-osmolality and hyponatremia; F05 Delirium due to known physiological condition; I12.9 Hypertensive chronic kidney disease with stage 1 through stage 4 chronic kidney disease, or unspecified chronic kidney disease; N18.9 Chronic kidney disease, unspecified; K21.9 Gastro-esophageal reflux disease without esophagitis; M10.9 Gout, unspecified; F03.90 Unspecified dementia, unspecified severity, without behavioral disturbance, psychotic disturbance, mood disturbance, and anxiety; Z66 Do not resuscitate; K44.9 Diaphragmatic hernia without obstruction or gangrene; F10.90 Alcohol use, unspecified, uncomplicated; E78.5 Hyperlipidemia, unspecified; N40.0 Benign prostatic hyperplasia without lower urinary tract symptoms; I48.91 Unspecified atrial fibrillation; T36.1X5A Adverse effect of cephalosporins and other beta-lactam antibiotics, initial encounter; R06.1 Stridor; E87.5 Hyperkalemia; Z88.0 Allergy status to penicillin; Z88.5 Allergy status to narcotic agent; Z88.8 Allergy status to other drugs, medicaments and biological substances; Z86.718 Personal history of other venous thrombosis and embolism; Z79.01 Long term (current) use of anticoagulants; Z79.82 Long term (current) use of aspirin; Z79.899 Other long term (current) drug therapy
CPT/HCPCS: 36415; 51701; 51798; 71045; 80048; 80053; 81001; 82607; 83735; 83880; 84443; 85025; 85610; 93005; 93010; 94640; 94760; 97162; 97530; A9270; J0173; J0696; J2919; J7030